=== PATIENT | female | born 1950 | race Caucasian/White ===

== ENCOUNTER 2016-07-20 13:46 | Inpatient (IN) | payer OTHER ==
[~2016-07-20] VITALS: Ht 157.5 cm; Wt 68.5 kg
[~2016-07-20 13:46] MED LIST: AZEL30SP NAE; CLOB-77 TOP; DIAZ-165 PO; DILT120C68 PO; DIPH25CA65 PO; ERGO500037 PO; ESCI1TAB10 PO; HYOS1TAB PO; IBUP-1050 PO; METH10TA4 PO; METH2.5T PO; METO50TA16 PO; MOUTLIQ79 PO; PANT1TAB48 PO; RANI300T2 PO; RMCI IV; TRIM300C14 PO; VNTHFA/IN INH; ZOLP12.5 PO
[2016-07-20] MEDS ORDERED: SODIUM CHLORIDE 0.9% 1000ML 1,000 ML IV STA (15:46)
[2016-07-20 16:24] LABS: BASO % 1.8 %; BASO ABS # 0.11 K/uL (0-0.2); COMPLETE YES; EOS % 1.8 %; IG% 0.2 %; LYMPH % 19.1 %; LYMPH ABS # 1.16 K/uL (1.2-3.4); MEAN CELL VOLUME 95.5 fL (80-100); MEAN CORPUSCULAR HEMOGLOBIN 32.7 pg (25-34); MEAN CORPUSCULAR HGB CONC 34.3 g/dl (32-36); MEAN PLATELET VOLUME 10.1 fL (7.4-10.4); MONO % 0.8 %; NEUT % 76.3 %; PLATELET COUNT 287 K/uL (130-400); RED BLOOD COUNT 4.19 M/uL (4.2-5.4); WHITE BLOOD COUNT 6.08 K/uL (4.8-10.8)
[2016-07-20] MEDS ORDERED: ONDANSETRON INJ 2 MG/ML 2 ML VIAL IV STA (16:28)
[2016-07-20] MEDS ORDERED: MoRPHine SULFATE 10 MG/ML CARP/VIAL IV STA (16:28)
[2016-07-20 16:31] LABS: PROTHROMBIN TIME (PATIENT) 11.2 SECONDS (9.0-12.0)
[2016-07-20 16:35] LABS: ALT/SGPT 71 U/L (12-78); BLOOD UREA NITROGEN 7 mg/dl (7-18); BUN/CREATININE RATIO 8.1 (10-20); CALCIUM 9.1 mg/dl (8.5-10.1); CARBON DIOXIDE 26 mmol/L (21-32); CHLORIDE 102 mmol/L (98-107); GLUCOSE 85 mg/dl (70-99); MAGNESIUM 1.8 mg/dl (1.8-2.4); POTASSIUM 2.9 mmol/L (3.5-5.1); SODIUM 140 mmol/L (136-145)
[2016-07-20 16:38] LABS: ALKALINE PHOSPHATASE 98 U/L (45-117); AST/SGOT 71 U/L (15-37); CKMB/CK RATIO 0.9 (0-3.0); PHOSPHORUS 2.4 mg/dl (2.5-4.9)
--- NOTE | 2016-07-20 16:42 | DIAGNOSTIC IMAGING REPORT ---
SINGLE VIEW CHEST CLINICAL HISTORY: Generalized weakness. FINDINGS: An AP, portable, upright chest radiograph is compared to study dated 09/01/2015 and correlated with chest CT dated 01/05/2011. The examination is degraded by portable technique and patient rotation. The cardiomediastinal silhouette is unremarkable. There is chronic elevation of the right hemidiaphragm with bibasilar atelectasis. There is no evidence of superimposed airspace consolidation, large pleural effusion, or pneumothorax. The skeletal structures are osteopenic. Degenerative change is noted in the thoracic spine. A right shoulder arthroplasty is in place. IMPRESSION: Chronic changes as above with no acute cardiopulmonary abnormality. Electronically signed by: Duglas Fall M.D. 07/20/2016 4:40 PM
[2016-07-20 16:45] LABS: ACETAMINOPHEN < 2 ug/ml (10-30)
[2016-07-20] MEDS ORDERED: ONDANSETRON INJ 2 MG/ML 2 ML VIAL IV PRN (19:30)
[2016-07-20] MEDS ORDERED: DIAZEPAM 5MG TAB PO PRN (19:30)
[2016-07-20] MEDS ORDERED: ACETAMINOPHEN 325 MG TAB PO PRN (19:30)
[2016-07-20] MEDS ORDERED: ALUMINUM/MAGNESIUM/SIMETH (MAALOX MAX) 30 ML UDC PO PRN (19:30)
[2016-07-20] MEDS ORDERED: ALBUTEROL HFA 8 GM INHALER INH PRN (19:30)
[2016-07-20] MEDS ORDERED: MAGNESIUM HYDROXIDE SUSP 30 ML UDC PO PRN (19:30)
[2016-07-20] MEDS ORDERED: POLYETHYLENE (MIRALAX) 17 GM PACK PO PRN (19:30)
[2016-07-20] MEDS ORDERED: MAGIC SWIZZLE PO PRN (19:45)
[2016-07-20] MEDS ORDERED: LORAZEPAM 2 MG/ML 1 ML VIAL IV PRN (19:45)
[2016-07-20] MEDS ORDERED: MoRPHine SULFATE 2 MG/ML CARP IV PRN (19:45)
[2016-07-20] MEDS ORDERED: LORAZEPAM 0.5 MG TAB PO PRN (19:45)
[2016-07-20] MEDS ORDERED: METRONIDAZOLE / NSS 500 MG in PREMIXED NSS 100 ML IV SCH (19:45)
--- NOTE | 2016-07-20 20:50 | EMERGENCY ROOM VISIT NOTE ---
History Report prepared by [place]: Dominga Lagos Under the Supervision of: Dr. Jose Smallwood M.D. 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 The patient was seen at her PCP's office today and sent to the ED for further evaluation. The patient reports that she has had bleeding sores from her mouth for the past year. Over the past few days her entire mouth has become inflamed and she notes pain with eating or drinking. She has been avoiding eating and drinking over the past 5 days. She has followed up with her PCP and numerous specialists in the past for these symptoms without any relief. She rates her pain as a 10/10 in severity. The patient states that she has been taking 10 Excedrin a day for the past few months for relief of her symptoms. The patient was diagnosed with a UTI over a week ago and was placed on Cipro. She states that 5 days ago she developed hives so she stopped taking the antibiotics. She has been experiencing burning pain with urination. This morning she woke up with blood in her underwear. She thinks that this blood in coming from her vagina. She states that this bleeding has persisted throughout the day today. She does not think that she has any bleeding from her rectum. She is feeling lightheaded. The patient denies chest pain, shortness of breath, and abdominal pain. She had a colonoscopy in May that was normal. Source of History: patient Onset: 2 months FOOD SERVICES COORDINATOR Position: other (mouth) Symptom Intensity: 10/10 Quality: other (bleeding) Timing: worsening Modifying Factors (Worsening): eating, drinking Modifying Factors (Relieving): other (Excedrin) Associated Symptoms: + urinary symptoms, No SOB, No abdominal pain, No chest pain Note: Pt notes vaginal bleeding and lightheadedness. Review of Systems See HPI for pertinent positives & negatives. A total of 10 systems reviewed and were otherwise negative. Past Medical & Surgical Medical Problems: (1) Crohns disease (2) Encephalopathy acute (3) Proximal humerus fracture (4) Right humeral fracture (5) Ulceration, oral mucosa (6) UTI (urinary tract infection) Family History No pertinent history stated. Social History Smoking Status: Never Smoker Marital Status: Housing Status: lives with family Occupation Status: unemployed Current/Historical Medications Scheduled Azelastine Hcl-Fluticasone Pro (Dymista), 2 SPRY AGUEDA BID Diltiazem Hcl Ext Rel (Tiazac), 120 MG PO QAM Escitalopram Oxalate (Lexapro), 20 MG PO QAM Infliximab (Remicade), 1 DOSE IV Q8WK Methotrexate (Methotrexate), 3 TAB PO WK Metoprolol Tartrate (Lopressor) (Lopressor), 50 MG PO BID Mouthwashes (Biotene Dry Mouth Mouthwa), 1 DOSE PO DIRECTED Pantoprazole (Protonix), 40 MG PO BID Ranitidine Hcl (Zantac), 300 MG PO HS Scheduled PRN Albuterol Hfa (Ventolin Hfa), 2-4 PUFFS INH Q6H PRN for Shortness of Breath Clobetasol Propionate (Temovate), 1 APPLN TOP BID PRN for PRN Diazepam (Valium), 5 MG PO BID PRN for PRN Diphenhydramine Hcl (Benadryl Allergy), 1 CAP PO Q4 PRN for PRN Hyoscyamine Sulfate (Levsin), 0.125 MG PO DIRECTED PRN for PRN Ibuprofen (Advil), 200 MG PO QAM PRN for Pain Methylphenidate (Ritalin), 10 MG PO DAILY PRN for PRN Trimethobenzamide Hcl (Tigan), 1 TAB PO TID PRN for PRN Zolpidem Tartrate (Ambien Cr), 12.5 MG PO HS PRN for Sleep Allergies Coded Allergies: Ciprofloxacin (Unverified Allergy, Severe, hives, 07/20/16) Sulfa Antibiotics (Verified Allergy, Severe, HIVES AND SOB, 07/20/16) [place] Nut (Verified Allergy, Unknown, 07/20/16) Broccoli (Verified Allergy, Unknown, 07/20/16) [place] Oil (Verified Allergy, Unknown, POPCORN ALLERGY?, 07/20/16) Dairy (Verified Allergy, Unknown, 07/20/16) [place] Nut (Verified Allergy, Unknown, 07/20/16) Lactose (Verified Allergy, Unknown, 07/20/16) Lettuce (Verified Allergy, Unknown, 07/20/16) Mesalamine (Verified Allergy, Unknown, 07/20/16) Pea (Verified Allergy, Unknown, 07/20/16) [place] Nut (Verified Allergy, Unknown, 07/20/16) Physical Exam Vital Signs Date Time Temp Pulse Resp B/P Pulse Ox O2 Delivery O2 Flow Rate FiO2 07/20/16 20:42 106 18 133/84 94 Room Air 07/20/16 19:04 91 18 151/94 94 Room Air 07/20/16 17:16 108 20 147/97 93 Room Air 07/20/16 16:32 110 18 148/95 97 Room Air 07/20/16 14:09 37.2 125 18 148/88 95 Room Air Physical Exam GENERAL: Patient is uncomfortable appearing and in moderate distress. HEENT: No acute trauma, normocephalic atraumatic, no nasal congestion, no scleral icterus. Ulcerations bleeding and cracked, erythematous lips extending into posterior bucca mucosa. NECK: No stridor, no adenopathy, no meningismus, trachea is midline. LUNGS: No dyspnea. Clear to auscultation and equal bilaterally. No wheeze, no rhonchi. HEART: Regular rate and rhythm. No murmurs, rubs, gallops appreciated. ABDOMEN: Soft, nontender, bowel sounds positive, no masses appreciated, no peritonitis. : Excoriations cracking bleeding and severe tenderness throughout vagina extending posteriorly to surround entire rectum, severely tender to palpation. BACK: No midline tenderness, no CVA tenderness EXTREMITIES: Normal motion all extremities, no cyanosis, no edema. NEUROLOGIC: Alert and oriented, no acute motor or sensory deficits, no focal weakness, cranial nerves grossly intact. SKIN: No rash, no jaundice, no diaphoresis. Medical Decision & Procedures ER Provider Diagnostic Interpretation: Radiology results as stated below per my review and radiologist interpretation: SINGLE VIEW CHEST CLINICAL HISTORY: Generalized weakness. FINDINGS: An AP, portable, upright chest radiograph is compared to study dated 09/01/2015 and correlated with chest CT dated 01/05/2011. The examination is degraded by portable technique and patient rotation. The cardiomediastinal silhouette is unremarkable. There is chronic elevation of the right hemidiaphragm with bibasilar atelectasis. There is no evidence of superimposed airspace consolidation, large pleural effusion, or pneumothorax. The skeletal structures are osteopenic. Degenerative change is noted in the thoracic spine. A right shoulder arthroplasty is in place. IMPRESSION: Chronic changes as above with no acute cardiopulmonary abnormality. Electronically signed by: Duglas Fall M.D. 07/20/2016 4:40 PM Laboratory Results 07/20/16 16:06 Red Blood Count 4.19, Mean Corpuscular Volume 95.5, Mean Corpuscular Hemoglobin 32.7, Mean Corpuscular Hemoglobin Concent 34.3, Mean Platelet Volume 10.1, Neutrophils (%) (Auto) 76.3, Lymphocytes (%) (Auto) 19.1, Monocytes (%) (Auto) 0.8, Eosinophils (%) (Auto) 1.8, Basophils (%) (Auto) 1.8, Neutrophils # (Auto) 4.64, Lymphocytes # (Auto) 1.16, Monocytes # (Auto) 0.05, Eosinophils # (Auto) 0.11, Basophils # (Auto) 0.11 07/20/16 16:06 Test 07/20/16 16:06 White Blood Count 6.08 K/uL (4.8-10.8) Red Blood Count 4.19 M/uL (4.2-5.4) Hemoglobin 13.7 g/dL (12.0-16.0) Hematocrit 40.0 % (37-47) Mean Corpuscular Volume 95.5 fL (80-100) Mean Corpuscular Hemoglobin 32.7 pg (25-34) Mean Corpuscular Hemoglobin Concent 34.3 g/dl (32-36) Platelet Count 287 K/uL (130-400) Mean Platelet Volume 10.1 fL (7.4-10.4) Neutrophils (%) (Auto) 76.3 % Lymphocytes (%) (Auto) 19.1 % Monocytes (%) (Auto) 0.8 % Eosinophils (%) (Auto) 1.8 % Basophils (%) (Auto) 1.8 % Neutrophils # (Auto) 4.64 K/uL (1.4-6.5) Lymphocytes # (Auto) 1.16 K/uL (1.2-3.4) Monocytes # (Auto) 0.05 K/uL (0.11-0.59) Eosinophils # (Auto) 0.11 K/uL (0-0.5) Basophils # (Auto) 0.11 K/uL (0-0.2) RDW Standard Deviation 51.9 fL (36.4-46.3) RDW Coefficient of Variation 14.8 % (11.5-14.5) Immature Granulocyte % (Auto) 0.2 % Immature Granulocyte # (Auto) 0.01 K/uL (0.00-0.02) Prothrombin Time 11.2 SECONDS (9.0-12.0) Prothromb Time International Ratio 1.0 (0.9-1.1) Activated Partial Thromboplast Time 26.4 SECONDS (21.0-31.0) Partial Thromboplastin Ratio 1.0 Anion Gap 12.0 mmol/L (3-11) Est Creatinine Clear Calc Drug Dose 55.0 ml/min Estimated GFR () 76.7 Estimated GFR (Non- 66.2 BUN/Creatinine Ratio 8.1 (10-20) Calcium Level 9.1 mg/dl (8.5-10.1) Phosphorus Level 2.4 mg/dl (2.5-4.9) Magnesium Level 1.8 mg/dl (1.8-2.4) Total Bilirubin 0.5 mg/dl (0.2-1) Direct Bilirubin 0.2 mg/dl (0-0.2) Aspartate Amino Transf (AST/SGOT) 71 U/L (15-37) Alanine Aminotransferase (ALT/SGPT) 71 U/L (12-78) Alkaline Phosphatase 98 U/L (45-117) Total Creatine Kinase 111 U/L (26-192) Creatine Kinase MB 1.0 ng/ml (0.5-3.6) Creatine Kinase MB Ratio 0.9 (0-3.0) Troponin I < 0.015 ng/ml (0-0.045) Total Protein 7.9 gm/dl (6.4-8.2) Albumin 3.4 gm/dl (3.4-5.0) Lipase 126 U/L (73-393) Salicylates Level < 1.7 mg/dl (2.8-20) Acetaminophen Level < 2 ug/ml (10-30) Laboratory results as reviewed by me. Medications Administered Medications (Trade) Dose Ordered Sig/Shilpi Route Start Time Stop Time Status Last Admin Dose Admin Sodium Chloride (Nss 1000ml) 1,000 ml @ 999 mls/hr Q1H1M STAT IV 12/30/16 15:46 07/20/16 16:46 DC 07/20/16 16:46 999 MLS/HR Morphine Sulfate (MoRPHine SULFATE INJ) 6 mg NOW STAT IV 07/20/16 16:28 07/20/16 16:29 DC 07/20/16 16:46 6 MG Ondansetron HCl (Zofran Inj) 4 mg NOW STAT IV 07/20/16 16:28 07/20/16 16:29 DC 07/20/16 16:46 4 MG ED Course 1535: The patient was evaluated in room C1B. A complete history and physical exam was performed. 1546: NSS 1000 ml @ 999 mls/hr IV 1624: I reassessed the patient at this time. She is still complaining of pain. 1628: Zofran 4 mg IV, Morphine sulfate 6 mg IV 1723: I reassessed the patient at this time. She is feeling better and resting comfortably. I discussed the results and treatment plan with the patient. I answered all pertaining questions that she had. She expressed understanding and verbalized agreement. 1733: I spoke with Dr. Flores. We discussed the patient's results and treatment plan. The patient will be evaluated by the [facility] for further management. 1744: I spoke with Dr. Dejesus of GI. We discussed the patient's results and treatment plan. He recommended holding the patient's methotrexate and he will evaluate the patient in the hospital. Medical Decision 66 yr old female arrives for evaluation of mouth and genital pain. She notes some bleeding in underwear which she was unsure where it came from though denies bloody stool. She has significant ulcerations of mouth and perineal areas. Admits she has not been eating the last few days due to the amount of pain she has been having. No clear evidence that this is herpetic in nature. She is stable and HR improving with fluids (she was quite dehydrated). She will need to come in due to inability to tolerate PO intake and for further monitoring of these findings. Consults Time Called: 1730 Consulting Physician: Dr. Flores Returned Call: [phone] Flores. We discussed the patient's results and treatment plan. The patient will be evaluated by the [facility] for further management. Additional Consults: Time Called: 1734 Consulted Physician: Dr. Dejesus Returned Call: [phone] Additional Comments: I spoke with Dr. Dejesus of GI. We discussed the patient's results and treatment plan. He recommended holding the patient's methotrexate and he will evaluate the patient in the hospital. Impression Primary Impression: Mouth ulceration Additional Impressions: Perineal ulcer, Perineal irritation in female Scribe Attestation The scribe's documentation has been prepared under my direction and personally reviewed by me in its entirety. I confirm that the note above accurately reflects all work, treatment, procedures, and medical decision making performed by me. Departure Information Dispostion Being Evaluated By Hospitalist Referrals Norbert Mueller D.O.Int.Med. (PCP) Patient Instructions A Signature Page, My [facility]
[2016-07-20 22:04] LABS: URINE APPEARANCE CLOUDY (CLEAR); URINE BILIRUBIN NEG (NEG); URINE COLOR YELLOW; URINE EPITHELIAL CELL AUTO >30 /lpf (0-5); URINE NITRITE NEG (NEG); URINE PH 5.5 (4.5-7.5); URINE SPECIFIC GRAVITY 1.016 (1.000-1.030); UROBILINOGEN NEG (NEG)
[2016-07-20 22:05] LABS: MANUAL MICROSCOPIC REQUIRED? NO; REVIEW REQ? YES
[2016-07-20] MEDS: MoRPHine SULFATE 4 MG/ML 1 ML CARP\\VIAL IV PRN (22:19)
[2016-07-20] MEDS ORDERED: COLCHICINE 0.6 MG TAB PO ONE (22:30)
[2016-07-20] MEDS ORDERED: MAGNESIUM SULFATE 1GM / D5W 1 GM in PREMIXED IN D5W 100 ML IV ONE (22:30)
[2016-07-20] MEDS: METOPROLOL TARTRATE 50 MG TAB PO SCH (22:40)
--- NOTE | 2016-07-20 22:43 | HISTORY & PHYSICAL EXAMINATION ---
DATE OF ADMISSION: 07/20/2016 REASON FOR PRESENTATION: Oral ulcerations, difficulty taking in oral intake. ADMITTING DIAGNOSIS: Oral ulcerations and decreased oral intake associated with Crohn's disease. HISTORY OF PRESENT ILLNESS: Ms. Reardon is a 66-year-old female who suffers from Crohn's disease for many years. She about 2 years ago was placed on Remicade and methotrexate and had great resolution of her Crohn's-like symptoms. About 1 year ago, the patient started to develop oral ulcerations. In the year span between, she has seen multiple people including her presser machine, Dr. Khan, she saw Dr. Yoon. She was referred to [facility] which biopsied her oral ulcers. There have not really been any direct findings. She saw Dr. Ted Gutierrez, and despite this fact, she continued to have worsening of her oral ulcerations. Approximately 5 days prior to admission, the patient had extreme worsening of her oral ulcers, painful swallowing and perineal ulcerations also. The patient was unable to take any meaningful intake of food, she was able to take liquids up until the last 1 day when she has not had anything. To this end, she speaks with kind of a muffled voice because of pain and discomfort in her mouth, and she is recommended for admission for pain control and inability to take any oral intake. PAST MEDICAL HISTORY: For Crohn's, previous encephalopathy, previous humerus fracture and UTIs. MEDICATIONS: On presentation include Dymista spray 2 sprays in the nares b.i.d., diltiazem 120 a day, Lexapro 20 a day, Remicade injectable, methotrexate 7.5 mg a week, metoprolol 50 mg b.i.d., Biotene oral spray, Protonix 40 b.i.d. and Zantac 300. SOCIAL HISTORY: Does not smoke or drink. She is . FAMILY HISTORY: Positive for hypertension and coronary artery disease. REVIEW OF SYSTEMS: Ten systems were reviewed and are negative unless listed above. These include decreased appetite. She has no significant abdominal pain. Her stool has been liquid brown, her urine output has decreased and it has become more concentrated, has not been foul smelling. PHYSICAL EXAMINATION: GENERAL: She is pleasant. She is uncomfortable. VITAL SIGNS: She is afebrile at 37.2, pulse 106, respirations 18, BP 133/84, O2 sat 95% on room air. HEENT: PERRL, EOMI. Oropharynx is covered with ulceration, some are crusted. These are shallow-based ulcers. They are about her lips mostly. There are some under soft palate. She claims of difficulty swallowing and painful swallowing. NECK: Trachea is midline. There is no lymphadenopathy. There is supraclavicular lymphadenopathy. HEART: Regular without murmurs. LUNGS: Clear without wheezes or crackles. ABDOMEN: Normoactive bowel sounds, soft. Despite her Crohn's disease, it is completely nontender. PERINEUM: Her perineal examination will be deferred to the Emergency Department's description of it which was described as excoriation, cracking, bleeding and severe tenderness throughout the vagina, extending posterior around to the entire rectum. EXTREMITIES: Without cyanosis, clubbing or edema. LABORATORY DATA: Includes white count is 6, H\T\H 13 and 40, platelet count 287, BUN and creatinine of 7 and 0.9, potassium low at 2.9, phosphorus low at 2.4. LFTs are normal except for AST being 71, lipase is normal. She had a tox screen which was unremarkable and she had coags which were unremarkable. Chest x-ray shows chronic changes with no acute cardiopulmonary finding. ASSESSMENT: A 66-year-old female here with worsening of oral and perianal ulcerations with associated Crohn's disease, on immunosuppression. PLAN: The patient has reportedly had biopsy done at [facility] and multiple other locations. To this end, we will obtain blood and urine cultures. We will institute antibiotic therapy including antifungals of fluconazole and antibiotics of metronidazole. Consideration of a possible Bechets_ could be undertaken and we will institute colchicine penicillin G therapy. Infectious Disease consult will be undertaken. We will maintain her immunosuppression at this point in time with review from gastroenterology. For her hypertension, we will continue diltiazem and metoprolol. Her Protonix will be converted to intravenous. Deep venous thrombosis prevention with heparin. MTDD
[2016-07-20] MEDS: HEPARIN SOD 5000 UNIT/0.5 ML CARP SQ SCH (22:51)
[2016-07-20] MEDS: POTASSIUM CHLORIDE INJ 40 MEQ in SODIUM CHLORIDE 0.9% 1000ML 1,000 ML IV SCH (22:54)
[2016-07-21] VITALS (7 sets, daily range): BP systolic 99–137; BP diastolic 69–94; PULSE 84–122; TEMP 36.8–38.1; O2SAT 92–98; Ht 157.5 cm; Wt 68.5 kg
[2016-07-21] MEDS: PENICILLIN G POTASSIUM IV 6 MU in DEXTROSE 5% 250ML 250 ML IV SCH ×3 (00:31→12:20)
[2016-07-21] MEDS: LIDOCAINE HCL 2% VISCOUS SOLN 60 ML, DiphenhydrAMINE HCL SYRUP 150 MG, ALUMINUM/MAGNESI... MT PRN ×8 (01:23→12:30)
[2016-07-21] MEDS: MoRPHine SULFATE 4 MG/ML 1 ML CARP\\VIAL IV PRN ×5 (03:20→22:49)
[2016-07-21] MEDS ORDERED: COLCHICINE 0.6 MG TAB PO SCH (08:00)
[2016-07-21 08:09] LABS: HEMATOCRIT 37.9 % (37-47); MEAN CELL VOLUME 96.9 fL (80-100); MEAN PLATELET VOLUME 10.3 fL (7.4-10.4); PLATELET COUNT 214 K/uL (130-400); RED BLOOD COUNT 3.91 M/uL (4.2-5.4); WHITE BLOOD COUNT 3.26 K/uL (4.8-10.8)
[2016-07-21] MEDS: ESCITALOPRAM OXALATE 20 MG TAB PO SCH (08:11)
[2016-07-21] MEDS: DILTIAZEM HCL 120 MG EXT REL CAP PO SCH (08:11)
[2016-07-21] MEDS: METOPROLOL TARTRATE 50 MG TAB PO SCH ×2 (08:12→20:01)
[2016-07-21] MEDS: HEPARIN SOD 5000 UNIT/0.5 ML CARP SQ SCH ×2 (08:13→20:13)
[2016-07-21] MEDS: TRIAMCINOLONE ACET 0.1% ORABASE 5 GM TUBE MT SCH ×3 (08:14→20:01)
[2016-07-21 08:39] LABS: BUN/CREATININE RATIO 6.8 (10-20); CALCIUM 8.6 mg/dl (8.5-10.1); CREATININE 0.82 mg/dl (0.60-1.20); POTASSIUM 3.2 mmol/L (3.5-5.1)
[2016-07-21] MEDS: PANTOprazole INJ 40 MG in SYRINGE 0 ML IV SCH ×2 (09:24→20:02)
[2016-07-21] MEDS: POTASSIUM CHLORIDE INJ 40 MEQ in SODIUM CHLORIDE 0.9% 1000ML 1,000 ML IV SCH ×2 (09:24→20:00)
[2016-07-21] MEDS ORDERED: EUCERIN CR 120 GM JAR EXT PRN (13:30)
--- NOTE | 2016-07-21 13:50 | Medical Consult ---
Consultation Date of Consultation: Jul 21, 2016. Attending Physician: Yuri Beasley MD Reason for Consultation: Oral ulcerations History of Present Illness this 56-year-old female with long history of Crohn's disease, maintained on immunosuppressive therapy, states that she has been suffering from ulcerations of her mouth for more than 1 year. Some time she had nor these, but since approximately [place], they have become increasingly painful and made it impossible for her to eat normally. She has had very little oral intake since [place] time. She has had multiple evaluations for the above problems, including biopsies done at [facility], of which she was told did not disclose etiology. She has also been seen by Oral surgery and Dermatology without diagnosis being made. She has had colonoscopy which shows relatively inactive bowel disease. She now has also developed perineal ulcerations. she also reports multiple episodes of nosebleeds. Because of inability to eat, she has been admitted to the hospital, and has been started on antifungal therapy as well as colchicine and penicillin. Patient has lived in the [facility], no other significant travel or exposure history Past Medical/Surgical History Medical Problems: (1) Altered mental status Status: Acute (2) Mouth ulceration Status: Acute (3) Orthostatic hypotension Status: Acute (4) Perineal irritation in female Status: Acute (5) Perineal ulcer Status: Acute Medical Problems: (1) Crohns disease (2) Encephalopathy acute (3) Proximal humerus fracture (4) Right humeral fracture (5) Ulceration, oral mucosa (6) UTI (urinary tract infection) Family History noncontributory Social History Smoking Status: Unknown if Ever Smoked Marital Status: Housing Status: lives with family Occupation Status: unemployed Allergies Coded Allergies: Ciprofloxacin (Unverified Allergy, Severe, hives, 07/20/16) Sulfa Antibiotics (Verified Allergy, Severe, HIVES AND SOB, 07/20/16) Lactose (Verified Allergy, Unknown, 07/20/16) Mesalamine (Verified Allergy, Unknown, 07/20/16) Current Inpatient Medications Current Inpatient Medications Medications (Trade) Dose Ordered Sig/Shilpi Route Start Time Stop Time Status Last Admin Dose Admin Albuterol (Ventolin Hfa Inhaler) 2 puffs Q6H PRN INH 07/20/16 19:30 08/19/16 19:29 Diazepam (Valium Tab) 5 mg BID PRN PO 07/20/16 19:30 08/19/16 19:29 Diltiazem HCl (TIAzac CAP) 120 mg QAM PO 07/21/16 08:00 08/20/16 08:59 07/21/16 08:11 120 MG Escitalopram Oxalate (Lexapro Tab) 20 mg QAM PO 07/21/16 08:00 08/20/16 08:59 07/21/16 08:11 20 MG Metoprolol Tartrate (Lopressor Tab) 50 mg BID PO 07/20/16 21:00 08/19/16 20:59 07/21/16 08:12 50 MG Acetaminophen (Tylenol Tab) 650 mg Q4H PRN PO 07/20/16 19:30 08/19/16 19:29 Al Hydrox/Mg Hydrox/Simethicone (Maalox Max Susp) 15 ml Q4H PRN PO 07/20/16 19:30 08/19/16 19:29 Magnesium Hydroxide (Milk Of Magnesia Susp) 30 ml Q6H PRN PO 07/20/16 19:30 08/19/16 19:29 Polyethylene (Miralax Powder Packet) 17 gm DAILY PRN PO 07/20/16 19:30 08/19/16 19:29 Ondansetron HCl (Zofran Inj) 4 mg Q6H PRN IV 07/20/16 19:30 08/19/16 19:29 Heparin Sodium (Porcine) (Heparin Sq 5000 Unit/0.5ml) 5,000 unit Q12 SQ 07/20/16 21:00 08/19/16 20:59 07/21/16 08:13 5,000 UNIT Lorazepam (Ativan Tab) 0.5 mg Q6 PRN PO 07/20/16 19:45 08/19/16 19:44 07/21/16 00:30 0.5 MG Lorazepam (Ativan Inj) 0.5 mg Q4H PRN IV 07/20/16 19:45 08/19/16 19:44 Morphine Sulfate (MoRPHine SULFATE INJ) 4 mg Q4H PRN IV 07/20/16 19:45 08/03/16 19:44 07/21/16 12:21 4 MG Morphine Sulfate 2 mg 2 mg Q4H PRN IV 07/20/16 19:45 08/03/16 19:44 Potassium Chloride/Sodium Chloride (KCl Inj/Nss 1000ml) 1,020 ml @ 100 mls/hr [id number] IV 07/20/16 23:00 08/19/16 22:59 07/21/16 09:24 100 MLS/HR Methotrexate 7.5 mg 7.5 mg Zuniga@0900 PO 07/22/16 09:00 08/21/16 08:59 Pantoprazole Sodium/Syringe (Protonix Inj/ Syringe) 10 ml @ 5 mls/min DAILY@, IV 07/21/16 09:00 08/20/16 08:59 07/21/16 09:24 5 MLS/MIN Triamcinolone Acetonide 1 appln TID MT 07/21/16 08:00 08/20/16 07:59 07/21/16 12:21 1 APPLN Lidocaine HCl/ Diphenhydramine HCl/Al Hydroxide/ Mg Hydroxide/ Glycerin/Barcode (VISCOUS LIDOCAINE 2% Soln/ Benadryl Syrup/ Maalox Susp/ Glycerin Anhydrous Soln) Q6H PRN MT 07/20/16 23:30 08/19/16 23:29 07/21/16 01:23 10 ML Zolpidem Tartrate (Ambien Tab) 5 mg HS PRN PO 07/21/16 09:30 08/20/16 09:29 Prednisone (PredniSONE TAB) 30 mg DAILY PO 07/21/16 13:30 08/20/16 13:29 UNV Multi-Ingredient Ointment (Eucerin Unscented Cr) 1 appln Q6H PRN EXT 07/21/16 13:30 08/20/16 13:29 UNV Review of Systems Constitutional: + fatigue, + fever, + weakness Eyes: No problem reported ENT: + sore throat Respiratory: No problem reported Cardiovascular: No problem reported Abdomen: No problem reported Musculoskeletal: No problem reported Genitourinary - Female: No problem reported Neurologic: No problem reported Psychiatric: No problem reported Endocrine: No problem reported Hematologic / Lymphatic: No problem reported Integumentary: No problem reported Allergic / Immunologic: No problem reported Physical Exam Date Time Temp Pulse Resp B/P Pulse Ox O2 Delivery O2 Flow Rate FiO2 07/21/16 09:23 37.6 07/21/16 08:09 38.1 98 18 137/91 98 Nasal Cannula 2.0 07/21/16 08:00 Room Air 07/21/16 03:01 98 07/21/16 01:41 37.0 122 20 136/94 95 Room Air 07/21/16 00:44 36.9 86 18 132/84 96 Room Air 07/20/16 23:59 Room Air 07/20/16 21:28 07/20/16 20:42 106 18 133/84 94 Room Air 07/20/16 19:04 91 18 151/94 94 Room Air 07/20/16 17:16 108 20 147/97 93 Room Air 07/20/16 16:32 110 18 148/95 97 Room Air 07/20/16 14:09 37.2 125 18 148/88 95 Room Air General Appearance: WD/WN, no apparent distress Head: normocephalic, atraumatic Eyes: normal inspection, EOMI, sclerae normal ENT: hearing grossly normal, + pertinent finding (multiple shallow intra-oral and lip ulcers, some crusted) Neck: supple, thyroid normal, trachea midline Respiratory/Chest: chest non-tender, lungs clear, normal breath sounds, no respiratory distress Cardiovascular: regular rate, rhythm, no edema, no gallop, no murmur Abdomen/GI: normal bowel sounds, non tender, soft, no organomegaly Back: normal inspection, no CVA tenderness Extremities/Musculoskelatal: no calf tenderness, non-tender Neurologic/Psych: alert, normal mood/affect, oriented x 3 Skin: normal color, warm/dry, no rash Laboratory Results Date/Time Source Procedure Growth Status 07/20/16 21:27 Blood Blood Culture Pending Received 07/20/16 21:22 Blood Blood Culture Pending Received 07/20/16 21:40 Urine , Clean Catch Urine Culture - Preliminary NO GROWTH - LESS THAN 1,000 COLONIES/... Resulted Last 24 Hours Test 07/20/16 16:06 07/20/16 21:40 07/21/16 07:36 White Blood Count 6.08 K/uL 3.26 K/uL Red Blood Count 4.19 M/uL 3.91 M/uL Hemoglobin 13.7 g/dL 12.5 g/dL Hematocrit 40.0 % 37.9 % Mean Corpuscular Volume 95.5 fL 96.9 fL Mean Corpuscular Hemoglobin 32.7 pg 32.0 pg Mean Corpuscular Hemoglobin Concent 34.3 g/dl 33.0 g/dl Platelet Count 287 K/uL 214 K/uL Mean Platelet Volume 10.1 fL 10.3 fL Neutrophils (%) (Auto) 76.3 % Lymphocytes (%) (Auto) 19.1 % Monocytes (%) (Auto) 0.8 % Eosinophils (%) (Auto) 1.8 % Basophils (%) (Auto) 1.8 % Neutrophils # (Auto) 4.64 K/uL Lymphocytes # (Auto) 1.16 K/uL Monocytes # (Auto) 0.05 K/uL Eosinophils # (Auto) 0.11 K/uL Basophils # (Auto) 0.11 K/uL RDW Standard Deviation 51.9 fL 52.8 fL RDW Coefficient of Variation 14.8 % 14.8 % Immature Granulocyte % (Auto) 0.2 % Immature Granulocyte # (Auto) 0.01 K/uL Prothrombin Time 11.2 SECONDS Prothromb Time International Ratio 1.0 Activated Partial Thromboplast Time 26.4 SECONDS Partial Thromboplastin Ratio 1.0 Sodium Level 140 mmol/L 139 mmol/L Potassium Level 2.9 mmol/L 3.2 mmol/L Chloride Level 102 mmol/L 102 mmol/L Carbon Dioxide Level 26 mmol/L 27 mmol/L Anion Gap 12.0 mmol/L 10.0 mmol/L Blood Urea Nitrogen 7 mg/dl 6 mg/dl Creatinine 0.90 mg/dl 0.82 mg/dl Est Creatinine Clear Calc Drug Dose 55.0 ml/min 60.4 ml/min Estimated GFR () 76.7 85.8 Estimated GFR (Non- 66.2 74.0 BUN/Creatinine Ratio 8.1 6.8 Random Glucose 85 mg/dl 95 mg/dl Calcium Level 9.1 mg/dl 8.6 mg/dl Phosphorus Level 2.4 mg/dl Magnesium Level 1.8 mg/dl Total Bilirubin 0.5 mg/dl Direct Bilirubin 0.2 mg/dl Aspartate Amino Transf (AST/SGOT) 71 U/L Alanine Aminotransferase (ALT/SGPT) 71 U/L Alkaline Phosphatase 98 U/L Total Creatine Kinase 111 U/L Creatine Kinase MB 1.0 ng/ml Creatine Kinase MB Ratio 0.9 Troponin I < 0.015 ng/ml Total Protein 7.9 gm/dl Albumin 3.4 gm/dl Lipase 126 U/L Salicylates Level < 1.7 mg/dl Acetaminophen Level < 2 ug/ml Urine Color YELLOW Urine Appearance CLOUDY Urine pH 5.5 Urine Specific [place] 1.016 Urine Protein NEG Urine Glucose (UA) NEG Urine Ketones 1+ Urine Occult Blood 2+ Urine Nitrite NEG Urine Bilirubin NEG Urine Urobilinogen NEG Urine Leukocyte Esterase LARGE Urine WBC (Auto) >30 /hpf Urine RBC (Auto) 10-30 /hpf Urine Hyaline Casts (Auto) 1-5 /lpf Urine Epithelial Cells (Auto) >30 /lpf Urine Bacteria (Auto) NEG Urine Pathogenic Casts /lpf CLINICAL HISTORY: Generalized weakness. FINDINGS: An AP, portable, upright chest radiograph is compared to study dated 09/01/2015 and correlated with chest CT dated 01/05/2011. The examination is degraded by portable technique and patient rotation. The cardiomediastinal silhouette is unremarkable. There is chronic elevation of the right hemidiaphragm with bibasilar atelectasis. There is no evidence of superimposed airspace consolidation, large pleural effusion, or pneumothorax. The skeletal structures are osteopenic. Degenerative change is noted in the thoracic spine. A right shoulder arthroplasty is in place. IMPRESSION: Chronic changes as above with no acute cardiopulmonary abnormality. Assessment & Plan 66 yo female with long-standing Crohn's disease on immunosuppressive therapy now with 1 year of oral and now perineal ulcerations. Along with Bechet's syndrome, wonder about possibility of Lila's as has had nose bleeds as well. Less likely would be chronic histoplasmosis. Have ordered ANCA and histoplasma antigen and antibodies. Would try to obtain biopsies from [facility] for review. Will discuss and follow.
[2016-07-21] MEDS ORDERED: POTASSIUM CHLORIDE 20 MEQ TABCR PO STA (15:04)
--- NOTE | 2016-07-21 15:33 | Progress Note ---
Subjective Subjective Date of Service: Jul 21, 2016. Pt evaluation today including: conversation w/ patient, physical exam, chart review, review of studies, review of inpatient medication list Notes: c/o ulcers in her mouth and major labia area Problem List Medical Problems: (1) Altered mental status Status: Acute (2) Mouth ulceration Status: Acute (3) Orthostatic hypotension Status: Acute (4) Perineal irritation in female Status: Acute (5) Perineal ulcer Status: Acute Review of Systems Constitutional: No fever ENT: No hearing loss Respiratory: No cough Cardiac: No chest pain Abdomen: No pain Musculoskeletal: No joint pain Neurologic: No memory loss Psychiatric: No depression symptoms Physical Exam Vital Signs Vital Signs Past 24 Hours: Date Time Temp Pulse Resp B/P Pulse Ox O2 Delivery O2 Flow Rate FiO2 07/21/16 09:23 37.6 07/21/16 08:09 38.1 98 18 137/91 98 Nasal Cannula 2.0 07/21/16 08:00 Room Air 07/21/16 03:01 98 07/21/16 01:41 37.0 122 20 136/94 95 Room Air 07/21/16 00:44 36.9 86 18 132/84 96 Room Air 07/20/16 23:59 Room Air 07/20/16 21:28 07/20/16 20:42 106 18 133/84 94 Room Air 07/20/16 19:04 91 18 151/94 94 Room Air 07/20/16 17:16 108 20 147/97 93 Room Air 07/20/16 16:32 110 18 148/95 97 Room Air Physical Exam: General Appearance: WD/WN, no apparent distress Eyes: bilateral eyes normal inspection ENT: hearing grossly normal, pharynx normal, + pertinent finding (mouth and tongue ulcers) Neck: supple, no JVD Respiratory/Chest: chest non-tender, normal breath sounds Cardiovascular: regular rate, rhythm, no JVD Abdomen: normal bowel sounds, soft Extremities: non-tender, normal inspection Neurologic/Psychiatric: alert Skin: normal color Medications Medications: Current Inpatient Medications Medications (Trade) Dose Ordered Sig/Shilpi Route Start Time Stop Time Status Last Admin Dose Admin Albuterol (Ventolin Hfa Inhaler) 2 puffs Q6H PRN INH 07/20/16 19:30 08/19/16 19:29 Diazepam (Valium Tab) 5 mg BID PRN PO 07/20/16 19:30 08/19/16 19:29 Diltiazem HCl (TIAzac CAP) 120 mg QAM PO 07/21/16 08:00 08/20/16 08:59 07/21/16 08:11 120 MG Escitalopram Oxalate (Lexapro Tab) 20 mg QAM PO 07/21/16 08:00 08/20/16 08:59 07/21/16 08:11 20 MG Metoprolol Tartrate (Lopressor Tab) 50 mg BID PO 07/20/16 21:00 08/19/16 20:59 07/21/16 08:12 50 MG Acetaminophen (Tylenol Tab) 650 mg Q4H PRN PO 07/20/16 19:30 08/19/16 19:29 Al Hydrox/Mg Hydrox/Simethicone (Maalox Max Susp) 15 ml Q4H PRN PO 07/20/16 19:30 08/19/16 19:29 Magnesium Hydroxide (Milk Of Magnesia Susp) 30 ml Q6H PRN PO 07/20/16 19:30 08/19/16 19:29 Polyethylene (Miralax Powder Packet) 17 gm DAILY PRN PO 07/20/16 19:30 08/19/16 19:29 Ondansetron HCl (Zofran Inj) 4 mg Q6H PRN IV 07/20/16 19:30 08/19/16 19:29 Heparin Sodium (Porcine) (Heparin Sq 5000 Unit/0.5ml) 5,000 unit Q12 SQ 07/20/16 21:00 08/19/16 20:59 07/21/16 08:13 5,000 UNIT Lorazepam (Ativan Tab) 0.5 mg Q6 PRN PO 07/20/16 19:45 08/19/16 19:44 07/21/16 00:30 0.5 MG Lorazepam (Ativan Inj) 0.5 mg Q4H PRN IV 07/20/16 19:45 08/19/16 19:44 Morphine Sulfate (MoRPHine SULFATE INJ) 4 mg Q4H PRN IV 07/20/16 19:45 08/03/16 19:44 07/21/16 12:21 4 MG Morphine Sulfate 2 mg 2 mg Q4H PRN IV 07/20/16 19:45 08/03/16 19:44 Potassium Chloride/Sodium Chloride (KCl Inj/Nss 1000ml) 1,020 ml @ 100 mls/hr [id number] IV 07/20/16 23:00 08/19/16 22:59 07/21/16 09:24 100 MLS/HR Methotrexate 7.5 mg 7.5 mg Zuniga@0900 PO 07/22/16 09:00 08/21/16 08:59 Pantoprazole Sodium/Syringe (Protonix Inj/ Syringe) 10 ml @ 5 mls/min DAILY@ IV 07/21/16 09:00 08/20/16 08:59 07/21/16 09:24 5 MLS/MIN Triamcinolone Acetonide 1 appln TID MT 07/21/16 08:00 08/20/16 07:59 07/21/16 12:21 1 APPLN Lidocaine HCl/ Diphenhydramine HCl/Al Hydroxide/ Mg Hydroxide/ Glycerin/Barcode (VISCOUS LIDOCAINE 2% Soln/ Benadryl Syrup/ Maalox Susp/ Glycerin Anhydrous Soln) Q6H PRN MT 07/20/16 23:30 08/19/16 23:29 07/21/16 01:23 10 ML Zolpidem Tartrate (Ambien Tab) 5 mg HS PRN PO 07/21/16 09:30 08/20/16 09:29 Prednisone (PredniSONE TAB) 30 mg DAILY PO 07/21/16 13:30 08/20/16 13:29 Multi-Ingredient Ointment (Eucerin Unscented Cr) 1 appln Q6H PRN EXT 07/21/16 13:30 08/20/16 13:29 Laboratory Data Labs: Last 24 Hours Test 07/20/16 16:06 07/20/16 21:40 07/21/16 07:36 07/21/16 13:50 White Blood Count 6.08 K/uL 3.26 K/uL Red Blood Count 4.19 M/uL 3.91 M/uL Hemoglobin 13.7 g/dL 12.5 g/dL Hematocrit 40.0 % 37.9 % Mean Corpuscular Volume 95.5 fL 96.9 fL Mean Corpuscular Hemoglobin 32.7 pg 32.0 pg Mean Corpuscular Hemoglobin Concent 34.3 g/dl 33.0 g/dl Platelet Count 287 K/uL 214 K/uL Mean Platelet Volume 10.1 fL 10.3 fL Neutrophils (%) (Auto) 76.3 % Lymphocytes (%) (Auto) 19.1 % Monocytes (%) (Auto) 0.8 % Eosinophils (%) (Auto) 1.8 % Basophils (%) (Auto) 1.8 % Neutrophils # (Auto) 4.64 K/uL Lymphocytes # (Auto) 1.16 K/uL Monocytes # (Auto) 0.05 K/uL Eosinophils # (Auto) 0.11 K/uL Basophils # (Auto) 0.11 K/uL RDW Standard Deviation 51.9 fL 52.8 fL RDW Coefficient of Variation 14.8 % 14.8 % Immature Granulocyte % (Auto) 0.2 % Immature Granulocyte # (Auto) 0.01 K/uL Prothrombin Time 11.2 SECONDS Prothromb Time International Ratio 1.0 Activated Partial Thromboplast Time 26.4 SECONDS Partial Thromboplastin Ratio 1.0 Sodium Level 140 mmol/L 139 mmol/L Potassium Level 2.9 mmol/L 3.2 mmol/L Chloride Level 102 mmol/L 102 mmol/L Carbon Dioxide Level 26 mmol/L 27 mmol/L Anion Gap 12.0 mmol/L 10.0 mmol/L Blood Urea Nitrogen 7 mg/dl 6 mg/dl Creatinine 0.90 mg/dl 0.82 mg/dl Est Creatinine Clear Calc Drug Dose 55.0 ml/min 60.4 ml/min Estimated GFR () 76.7 85.8 Estimated GFR (Non- 66.2 74.0 BUN/Creatinine Ratio 8.1 6.8 Random Glucose 85 mg/dl 95 mg/dl Calcium Level 9.1 mg/dl 8.6 mg/dl Phosphorus Level 2.4 mg/dl Magnesium Level 1.8 mg/dl Total Bilirubin 0.5 mg/dl Direct Bilirubin 0.2 mg/dl Aspartate Amino Transf (AST/SGOT) 71 U/L Alanine Aminotransferase (ALT/SGPT) 71 U/L Alkaline Phosphatase 98 U/L Total Creatine Kinase 111 U/L Creatine Kinase MB 1.0 ng/ml Creatine Kinase MB Ratio 0.9 Troponin I < 0.015 ng/ml Total Protein 7.9 gm/dl Albumin 3.4 gm/dl Lipase 126 U/L Salicylates Level < 1.7 mg/dl Acetaminophen Level < 2 ug/ml Urine Color YELLOW Urine Appearance CLOUDY Urine pH 5.5 Urine Specific [place] 1.016 Urine Protein NEG Urine Glucose (UA) NEG Urine Ketones 1+ Urine Occult Blood 2+ Urine Nitrite NEG Urine Bilirubin NEG Urine Urobilinogen NEG Urine Leukocyte Esterase LARGE Urine WBC (Auto) >30 /hpf Urine RBC (Auto) 10-30 /hpf Urine Hyaline Casts (Auto) 1-5 /lpf Urine Epithelial Cells (Auto) >30 /lpf Urine Bacteria (Auto) NEG Urine Pathogenic Casts /lpf Assessment and Plan A 66-year-old female here with worsening of oral and perianal ulcerations with associated Crohn's disease, on immunosuppression. Mucosal ulcerations, DDx: pemphigoid, pemphigus vulgaris, Behcet`s, [place]`s? Appreciated ID input, check ANCA, r/o histoplasma, check antibodies Appreciated Derm input, start po prednisone 30 mg daily with taper 1-2 weeks with biopsy follow up in 1-[address] Zhu The patient has reportedly had biopsy done at [facility] and multiple other locations with inconclusive results. blood and urine cultures pending. continue antibiotic therapy including antifungals of fluconazole and antibiotics of metronidazole. appreciate gastroenterology input. consulted rheumatology NPO due to mouth ulcers start eucerin cream For her hypertension, continue diltiazem and metoprolol. GI proph with Protonix intravenous. Deep venous thrombosis prevention with heparin.
[2016-07-21] MEDS: ZOLPIDEM TARTRATE 5 MG TAB PO PRN (22:48)
--- NOTE | 2016-07-22 02:32 | GASTROINTESTINAL CONSULTATION ---
DATE OF CONSULTATION: 07/21/2016 HISTORY OF PRESENT ILLNESS: I was asked to see Ms. Mini Reardon today for evaluation of oral ulcers in the setting of Crohn's disease. She is a very pleasant 66-year-old female, who has had a longstanding history of Crohn's disease requiring both biologic as well as immunosuppressive therapy with Remicade and methotrexate, who follows with Dr. Khan. For about 1 year, she has had increasing signs of oral ulcerations/stomatitis as well as acutely worsening perineal lesions and inability to eat or drink and presented to the ER last night. 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 Her last endoscopic evaluation was in May 2016 at which time the entire colon appeared normal. She has been taking Remicade every 8 weeks and she has been on methotrexate once weekly. The pathology from her last colonoscopy showed some mild focal active colitis, but the glandular architecture was maintained with no granulomas; meaning she had subclinical, relatively controlled disease. She has seen an oral maxillofacial surgery in [place] and had a biopsy of these lesions which included squamous ulceration, but was nondescript for fungal, inflammatory or pathognomonic diseases. She has no bowel complaints. She is passing her stools normally. The only other recent or historical component is that she had a recent sub breast fungal infection and that was treated with prescription medication from Dr. Rosaura mccain for yeast. PAST MEDICAL HISTORY: Significant for Crohn's, UTIs and humerus fractures. MEDICATIONS: At home include; diltiazem, Lexapro, Remicade, methotrexate, metoprolol, Biotin, Protonix and Zantac. SOCIAL HISTORY: She does not smoke or drink. She is . FAMILY HISTORY: Positive for hypertension and coronary artery disease. REVIEW OF SYSTEMS: Ten systems were reviewed and is negative except for as stated above. PHYSICAL EXAMINATION: VITAL SIGNS: Mild temperature today, this morning at 38.1 with afebrile now; pulse is 98, but has been up to 122; blood pressure is 137/91, she is 98% on room air. GENERAL: She is awake, alert, oriented x3. She looks uncomfortable, but walking as well as opening her mouth. HEART: Regular. LUNGS: Clear. ABDOMEN: Soft, nontender. On her oral exam, she shows very cracked stomatitis appearing features as well as a couple of aphthous ulcerations in her mouth. Her perineal examination shows some perianal up into her perilabial area that is very erythematous, with no obvious vesicles or ulcers visualized. LABORATORIES: Her white count is 3.26. Her hemoglobin is 12.5, her platelet count is 214. Chemistries include sodium of 139, potassium 3.2, chloride 102, BUN 6, creatinine 0.8, calcium 8.6. Her AST is 71. Otherwise, her liver enzymes and lipase are normal. IMPRESSION: A 66-year-old female with Crohn's disease, on immunosuppressive therapy with oral and perineal ulcerations. I am unsure if this represents Crohn's. It also seems to be in good control with her last endoscopy. I think that other things such as Behcet's pemphigus or even yeast in the perineal area as well as HSV should be explored. I have called dermatology and asked and they have been willing to come in to give light of what is going on and whether further treatment should be explored. Therefore right now, I think I would hold her methotrexate given the fact that she has got a little bit of leukopenia. She is supposed to be due for that tomorrow until seen by dermatology and then can be further delineated out. NIKITA
[2016-07-22] MEDS: POTASSIUM CHLORIDE INJ 40 MEQ in SODIUM CHLORIDE 0.9% 1000ML 1,000 ML IV SCH (05:52)
[2016-07-22] MEDS: MoRPHine SULFATE 4 MG/ML 1 ML CARP\\VIAL IV PRN ×4 (05:58→21:00)
[2016-07-22 07:20] LABS: HEMATOCRIT 31.4 % (37-47); MEAN CELL VOLUME 99.1 fL (80-100); MEAN CORPUSCULAR HEMOGLOBIN 31.5 pg (25-34); MEAN CORPUSCULAR HGB CONC 31.8 g/dl (32-36); MEAN PLATELET VOLUME 10.1 fL (7.4-10.4); PLATELET COUNT 167 K/uL (130-400); RED BLOOD COUNT 3.17 M/uL (4.2-5.4); WHITE BLOOD COUNT 2.13 K/uL (4.8-10.8)
[2016-07-22 07:52] LABS: BUN/CREATININE RATIO 6.8 (10-20); CALCIUM 7.9 mg/dl (8.5-10.1); CREATININE 0.84 mg/dl (0.60-1.20); POTASSIUM 5.1 mmol/L (3.5-5.1)
[2016-07-22] MEDS: METOPROLOL TARTRATE 50 MG TAB PO SCH ×2 (08:00→20:58)
[2016-07-22 08:02] VITALS: BP 97/63; PULSE 87; TEMP 37.1; O2SAT 91
[2016-07-22] MEDS: PANTOprazole INJ 40 MG in SYRINGE 0 ML IV SCH ×2 (08:20→20:59)
[2016-07-22] MEDS: DILTIAZEM HCL 120 MG EXT REL CAP PO SCH (08:21)
[2016-07-22] MEDS: ESCITALOPRAM OXALATE 20 MG TAB PO SCH (08:21)
[2016-07-22] MEDS: TRIAMCINOLONE ACET 0.1% ORABASE 5 GM TUBE MT SCH ×3 (08:22→20:58)
[2016-07-22] MEDS: HEPARIN SOD 5000 UNIT/0.5 ML CARP SQ SCH ×2 (08:26→21:13)
[2016-07-22] MEDS ORDERED: METHOTREXATE 2.5 MG TAB PO SCH (09:00)
--- NOTE | 2016-07-22 13:22 | Progress Note ---
Subjective Subjective Date of Service: Jul 22, 2016. Pt evaluation today including: conversation w/ patient, physical exam, chart review, review of studies, review of inpatient medication list Notes: c/o ulcers in mouth and vaginal area Problem List Medical Problems: (1) Altered mental status Status: Acute (2) Mouth ulceration Status: Acute (3) Orthostatic hypotension Status: Acute (4) Perineal irritation in female Status: Acute (5) Perineal ulcer Status: Acute Review of Systems Constitutional: No fever ENT: No hearing loss Respiratory: No cough Cardiac: No chest pain Abdomen: No pain Female : No dysuria Neurologic: No memory loss Psychiatric: No depression symptoms Endo: No fatigue Physical Exam Vital Signs Vital Signs Past 24 Hours: Date Time Temp Pulse Resp B/P Pulse Ox O2 Delivery O2 Flow Rate FiO2 07/22/16 08:02 37.1 87 18 97/63 91 07/22/16 08:00 Room Air 07/21/16 23:59 Room Air 07/21/16 22:38 36.8 84 17 99/69 96 Room Air 07/21/16 20:00 Room Air 07/21/16 16:00 Room Air 07/21/16 15:46 37.5 87 20 104/70 92 Nasal Cannula 2.0 Physical Exam: General Appearance: WD/WN, no apparent distress Eyes: bilateral eyes normal inspection ENT: hearing grossly normal, + pertinent finding (mouth ulcers) Neck: supple, no JVD Respiratory/Chest: chest non-tender, normal breath sounds Cardiovascular: no edema, no JVD Abdomen: normal bowel sounds, soft Extremities: normal range of motion, normal inspection Neurologic/Psychiatric: alert, oriented x 3 Skin: normal color, warm/dry Medications Medications: Current Inpatient Medications Medications (Trade) Dose Ordered Sig/Shilpi Route Start Time Stop Time Status Last Admin Dose Admin Albuterol (Ventolin Hfa Inhaler) 2 puffs Q6H PRN INH 07/20/16 19:30 08/19/16 19:29 Diazepam (Valium Tab) 5 mg BID PRN PO 07/20/16 19:30 08/19/16 19:29 Diltiazem HCl (TIAzac CAP) 120 mg QAM PO 07/21/16 08:00 08/20/16 08:59 07/22/16 08:21 120 MG Escitalopram Oxalate (Lexapro Tab) 20 mg QAM PO 07/21/16 08:00 08/20/16 08:59 07/22/16 08:21 20 MG Metoprolol Tartrate (Lopressor Tab) 50 mg BID PO 07/20/16 21:00 08/19/16 20:59 07/21/16 20:01 50 MG Acetaminophen (Tylenol Tab) 650 mg Q4H PRN PO 07/20/16 19:30 08/19/16 19:29 Al Hydrox/Mg Hydrox/Simethicone (Maalox Max Susp) 15 ml Q4H PRN PO 07/20/16 19:30 08/19/16 19:29 Magnesium Hydroxide (Milk Of Magnesia Susp) 30 ml Q6H PRN PO 07/20/16 19:30 08/19/16 19:29 Polyethylene (Miralax Powder Packet) 17 gm DAILY PRN PO 07/20/16 19:30 08/19/16 19:29 Ondansetron HCl (Zofran Inj) 4 mg Q6H PRN IV 07/20/16 19:30 08/19/16 19:29 Heparin Sodium (Porcine) (Heparin Sq 5000 Unit/0.5ml) 5,000 unit Q12 SQ 07/20/16 21:00 08/19/16 20:59 07/22/16 08:26 5,000 UNIT Lorazepam (Ativan Tab) 0.5 mg Q6 PRN PO 07/20/16 19:45 08/19/16 19:44 07/21/16 00:30 0.5 MG Lorazepam (Ativan Inj) 0.5 mg Q4H PRN IV 07/20/16 19:45 08/19/16 19:44 Morphine Sulfate (MoRPHine SULFATE INJ) 4 mg Q4H PRN IV 07/20/16 19:45 08/03/16 19:44 07/22/16 12:28 4 MG Morphine Sulfate (MoRPHine SULFATE INJ) 2 mg Q4H PRN IV 07/20/16 19:45 08/03/16 19:44 Methotrexate 7.5 mg 7.5 mg Zuniga@0900 PO 07/22/16 09:00 08/21/16 08:59 Future Hold Pantoprazole Sodium/Syringe (Protonix Inj/ Syringe) 10 ml @ 5 mls/min DAILY@ IV 07/21/16 09:00 08/20/16 08:59 07/22/16 08:20 5 MLS/MIN Triamcinolone Acetonide 1 appln TID MT 07/21/16 08:00 08/20/16 07:59 07/22/16 12:28 1 APPLN Lidocaine HCl/ Diphenhydramine HCl/Al Hydroxide/ Mg Hydroxide/ Glycerin/Barcode (VISCOUS LIDOCAINE 2% Soln/ Benadryl Syrup/ Maalox Susp/ Glycerin Anhydrous Soln) Q6H PRN MT 07/20/16 23:30 08/19/16 23:29 07/21/16 12:30 10 ML Zolpidem Tartrate (Ambien Tab) 5 mg HS PRN PO 07/21/16 09:30 08/20/16 09:29 07/21/16 22:48 5 MG Prednisone (PredniSONE TAB) 30 mg DAILY PO 07/21/16 13:30 08/20/16 13:29 07/22/16 08:22 30 MG Multi-Ingredient Ointment (Eucerin Unscented Cr) 1 appln Q6H PRN EXT 07/21/16 13:30 08/20/16 13:29 Laboratory Data Labs: Last 24 Hours Test 07/22/16 06:46 07/22/16 10:10 White Blood Count 2.13 K/uL Red Blood Count 3.17 M/uL Hemoglobin 10.0 g/dL Hematocrit 31.4 % Mean Corpuscular Volume 99.1 fL Mean Corpuscular Hemoglobin 31.5 pg Mean Corpuscular Hemoglobin Concent 31.8 g/dl RDW Standard Deviation 52.9 fL RDW Coefficient of Variation 14.6 % Platelet Count 167 K/uL Mean Platelet Volume 10.1 fL Sodium Level 138 mmol/L Potassium Level 5.1 mmol/L Chloride Level 110 mmol/L Carbon Dioxide Level 23 mmol/L Anion Gap 5.0 mmol/L Blood Urea Nitrogen 6 mg/dl Creatinine 0.84 mg/dl Est Creatinine Clear Calc Drug Dose 59.0 ml/min Estimated GFR () 83.4 Estimated GFR (Non- 71.9 BUN/Creatinine Ratio 6.8 Random Glucose 148 mg/dl Calcium Level 7.9 mg/dl Assessment and Plan A 66-year-old female here with worsening of oral and perianal ulcerations with associated Crohn's disease, on immunosuppression. Mucosal ulcerations, DDx: pemphigoid, pemphigus vulgaris, Behcet`s, [place]`s? Appreciated ID input, check ANCA, r/o histoplasma, check antibodies Appreciated Derm input, cont po prednisone 30 mg daily with taper 1-2 weeks with biopsy follow up in 1-[address] Zhu The patient has reportedly had biopsy done at [facility] and multiple other locations with inconclusive results. blood and urine cultures pending. stop antibiotic therapy including antifungals of fluconazole and antibiotics of metronidazole. appreciate gastroenterology input. consulted rheumatology clear diet due to mouth ulcers eucerin cream prn skin dryness For her hypertension, continue diltiazem and metoprolol. GI proph with Protonix intravenous. Deep venous thrombosis prevention with heparin sq. hopefully d/c home tomorrow
[2016-07-22] MEDS: LIDOCAINE HCL 2% VISCOUS SOLN 60 ML, DiphenhydrAMINE HCL SYRUP 150 MG, ALUMINUM/MAGNESI... MT PRN ×4 (14:35)
[2016-07-22 15:29] VITALS: BP 105/67; PULSE 78; TEMP 36.6; O2SAT 91
[2016-07-22 20:50] VITALS: BP 103/69; PULSE 74
[2016-07-23 00:34] VITALS: BP 103/70; PULSE 65; TEMP 36.6; O2SAT 90
[2016-07-23 06:26] LABS: HEMATOCRIT 28.2 % (37-47); MEAN CELL VOLUME 99.3 fL (80-100); MEAN CORPUSCULAR HEMOGLOBIN 31.3 pg (25-34); MEAN CORPUSCULAR HGB CONC 31.6 g/dl (32-36); MEAN PLATELET VOLUME 10.2 fL (7.4-10.4); PLATELET COUNT 129 K/uL (130-400); RED BLOOD COUNT 2.84 M/uL (4.2-5.4); WHITE BLOOD COUNT 5.78 K/uL (4.8-10.8)
[2016-07-23 07:00] LABS: BUN/CREATININE RATIO 9.1 (10-20); CALCIUM 8.2 mg/dl (8.5-10.1); CREATININE 0.78 mg/dl (0.60-1.20); POTASSIUM 4.4 mmol/L (3.5-5.1)
[2016-07-23] MEDS: ESCITALOPRAM OXALATE 20 MG TAB PO SCH (07:19)
[2016-07-23] MEDS: DILTIAZEM HCL 120 MG EXT REL CAP PO SCH (07:20)
[2016-07-23] MEDS: METOPROLOL TARTRATE 50 MG TAB PO SCH ×2 (07:20→20:52)
[2016-07-23] MEDS: TRIAMCINOLONE ACET 0.1% ORABASE 5 GM TUBE MT SCH ×3 (07:22→20:00)
[2016-07-23 07:31] VITALS: BP 113/72; PULSE 87; TEMP 36.8; O2SAT 91
[2016-07-23] MEDS: PANTOprazole INJ 40 MG in SYRINGE 0 ML IV SCH ×2 (10:26→20:49)
[2016-07-23] MEDS: HEPARIN SOD 5000 UNIT/0.5 ML CARP SQ SCH ×2 (10:30→20:49)
--- NOTE | 2016-07-23 14:25 | Progress Note ---
Subjective Subjective Date of Service: Jul 23, 2016. Pt evaluation today including: conversation w/ patient, physical exam, chart review, review of studies, review of inpatient medication list Notes: tolerates clears Problem List Medical Problems: (1) Altered mental status Status: Acute (2) Mouth ulceration Status: Acute (3) Orthostatic hypotension Status: Acute (4) Perineal irritation in female Status: Acute (5) Perineal ulcer Status: Acute Review of Systems Constitutional: No fever ENT: + problem reported (mouth ulcers), No hearing loss Respiratory: No cough Cardiac: No chest pain Abdomen: No pain Female : No dysuria Neurologic: No memory loss Psychiatric: No depression symptoms Endo: No fatigue Physical Exam Vital Signs Vital Signs Past 24 Hours: Date Time Temp Pulse Resp B/P Pulse Ox O2 Delivery O2 Flow Rate FiO2 07/23/16 07:31 36.8 87 18 113/72 91 Room Air 07/23/16 07:28 Room Air 07/23/16 00:34 36.6 65 18 103/70 90 Room Air 07/22/16 23:59 Room Air 07/22/16 20:50 74 103/69 07/22/16 16:00 Room Air 07/22/16 15:29 36.6 78 16 105/67 91 Physical Exam: General Appearance: WD/WN, no apparent distress Eyes: bilateral eyes normal inspection ENT: hearing grossly normal, pharynx normal, + pertinent finding (mouth ulcers) Neck: supple, no JVD Respiratory/Chest: normal breath sounds, no respiratory distress Cardiovascular: regular rate, rhythm, no JVD Abdomen: normal bowel sounds, soft Extremities: non-tender Neurologic/Psychiatric: alert Skin: normal color Medications Medications: Current Inpatient Medications Medications (Trade) Dose Ordered Sig/Shilpi Route Start Time Stop Time Status Last Admin Dose Admin Albuterol (Ventolin Hfa Inhaler) 2 puffs Q6H PRN INH 07/20/16 19:30 08/19/16 19:29 Diazepam (Valium Tab) 5 mg BID PRN PO 07/20/16 19:30 08/19/16 19:29 Diltiazem HCl (TIAzac CAP) 120 mg QAM PO 07/21/16 08:00 08/20/16 08:59 07/23/16 07:20 120 MG Escitalopram Oxalate (Lexapro Tab) 20 mg QAM PO 07/21/16 08:00 08/20/16 08:59 07/23/16 07:19 20 MG Metoprolol Tartrate (Lopressor Tab) 50 mg BID PO 07/20/16 21:00 08/19/16 20:59 07/23/16 07:20 50 MG Acetaminophen (Tylenol Tab) 650 mg Q4H PRN PO 07/20/16 19:30 08/19/16 19:29 Al Hydrox/Mg Hydrox/Simethicone (Maalox Max Susp) 15 ml Q4H PRN PO 07/20/16 19:30 08/19/16 19:29 Magnesium Hydroxide (Milk Of Magnesia Susp) 30 ml Q6H PRN PO 07/20/16 19:30 08/19/16 19:29 Polyethylene (Miralax Powder Packet) 17 gm DAILY PRN PO 07/20/16 19:30 08/19/16 19:29 Ondansetron HCl (Zofran Inj) 4 mg Q6H PRN IV 07/20/16 19:30 08/19/16 19:29 Heparin Sodium (Porcine) (Heparin Sq 5000 Unit/0.5ml) 5,000 unit Q12 SQ 07/20/16 21:00 08/19/16 20:59 07/23/16 10:30 5,000 UNIT Lorazepam (Ativan Tab) 0.5 mg Q6 PRN PO 07/20/16 19:45 08/19/16 19:44 07/21/16 00:30 0.5 MG Lorazepam (Ativan Inj) 0.5 mg Q4H PRN IV 07/20/16 19:45 08/19/16 19:44 Morphine Sulfate (MoRPHine SULFATE INJ) 4 mg Q4H PRN IV 07/20/16 19:45 08/03/16 19:44 07/22/16 21:00 4 MG Morphine Sulfate (MoRPHine SULFATE INJ) 2 mg Q4H PRN IV 07/20/16 19:45 08/03/16 19:44 Methotrexate 7.5 mg 7.5 mg Zuniga@0900 PO 07/22/16 09:00 08/21/16 08:59 Future Hold Pantoprazole Sodium/Syringe (Protonix Inj/ Syringe) 10 ml @ 5 mls/min DAILY@ IV 07/21/16 09:00 08/20/16 08:59 07/23/16 10:26 5 MLS/MIN Triamcinolone Acetonide 1 appln TID MT 07/21/16 08:00 08/20/16 07:59 07/23/16 13:59 1 APPLN Lidocaine HCl/ Diphenhydramine HCl/Al Hydroxide/ Mg Hydroxide/ Glycerin/Barcode (VISCOUS LIDOCAINE 2% Soln/ Benadryl Syrup/ Maalox Susp/ Glycerin Anhydrous Soln) Q6H PRN MT 07/20/16 23:30 08/19/16 23:29 07/22/16 14:35 10 ML Zolpidem Tartrate (Ambien Tab) 5 mg HS PRN PO 07/21/16 09:30 08/20/16 09:29 07/23/16 00:00 5 MG Prednisone (PredniSONE TAB) 30 mg DAILY PO 07/21/16 13:30 08/20/16 13:29 07/23/16 07:19 30 MG Multi-Ingredient Ointment (Eucerin Unscented Cr) 1 appln Q6H PRN EXT 07/21/16 13:30 08/20/16 13:29 Laboratory Data Labs: Last 24 Hours Test 07/23/16 06:05 White Blood Count 5.78 K/uL Red Blood Count 2.84 M/uL Hemoglobin 8.9 g/dL Hematocrit 28.2 % Mean Corpuscular Volume 99.3 fL Mean Corpuscular Hemoglobin 31.3 pg Mean Corpuscular Hemoglobin Concent 31.6 g/dl RDW Standard Deviation 52.3 fL RDW Coefficient of Variation 14.4 % Platelet Count 129 K/uL Mean Platelet Volume 10.2 fL Sodium Level 141 mmol/L Potassium Level 4.4 mmol/L Chloride Level 108 mmol/L Carbon Dioxide Level 27 mmol/L Anion Gap 6.0 mmol/L Blood Urea Nitrogen 7 mg/dl Creatinine 0.78 mg/dl Est Creatinine Clear Calc Drug Dose 63.5 ml/min Estimated GFR () 91.2 Estimated GFR (Non- 78.7 BUN/Creatinine Ratio 9.1 Random Glucose 107 mg/dl Calcium Level 8.2 mg/dl Assessment and Plan A 66-year-old female here with worsening of oral and perianal ulcerations with associated Crohn's disease, on immunosuppression. Mucosal ulcerations, DDx: pemphigoid, pemphigus vulgaris, Behcet`s, [place]`s? Appreciated ID input, check ANCA, r/o histoplasma, check antibodies Appreciated Derm input, cont po prednisone 30 mg daily with taper 1-2 weeks with biopsy follow up in 1-[address] Zhu The patient has reportedly had biopsy done at [facility] and multiple other locations with inconclusive results. blood and urine cultures negative stop antibiotic therapy including antifungals of fluconazole and antibiotics of metronidazole. appreciate gastroenterology input. consulted rheumatology clear diet due to mouth ulcers eucerin cream prn skin dryness pancytopenia, bone marrow suppression in the setting of immunosuppression, hgb and platelets are dropping, consulted hematology, hold methotrexate and ramicade For her hypertension, continue diltiazem and metoprolol. GI proph with Protonix intravenous. Deep venous thrombosis prevention with heparin sq. hopefully d/c home in the next few days
[2016-07-23 14:45] VITALS: BP 121/78; PULSE 81; TEMP 37.1; O2SAT 93
--- NOTE | 2016-07-23 14:59 | Oncology Consultation ---
Oncology/Heme Consultation Date of Consultation: Jul 23, 2016. Attending Physician: Yuri Beasley MD Reason for Consultation: Cytopenias Oral ulcers History of Present Illness Ms. Reardon is a 66 year old woman with a long-standing history of Crohn's disease. She has been on Methotrexate and Humira for about the last two years, per the patient. Over the last 9 months to 1 year, she has experienced oral and vaginal pain with waxing and waning ulcerations. She was having more recently and they started to bleed in her mouth, which is what brought her to the ER. She also had a low-grade fever in the ER at presentation and on the following day. So far, her cultures have all been negative. On admission, she has given at least one dose of Penicillin G, but has not received more since then. She also has been on Heparin her entire stay. She is unsure if she has had blood in her stool, as she reports not having a BM since (about a week now). She denies any abdominal pain or cramping. She denies any night sweats, adenopathy, or recurrent infections or infectious contacts. Past Medical/Surgical History Medical Problems: (1) Altered mental status Status: Acute (2) Mouth ulceration Status: Acute (3) Orthostatic hypotension Status: Acute (4) Perineal irritation in female Status: Acute (5) Perineal ulcer Status: Acute Social History Smoking Status: Unknown if Ever Smoked Marital Status: Housing Status: lives with family Occupation Status: unemployed Allergies Coded Allergies: Ciprofloxacin (Unverified Allergy, Severe, hives, 07/20/16) Sulfa Antibiotics (Verified Allergy, Severe, HIVES AND SOB, 07/20/16) Lactose (Verified Allergy, Unknown, 07/20/16) Mesalamine (Verified Allergy, Unknown, 07/20/16) Home Medications Scheduled Azelastine Hcl-Fluticasone Pro (Dymista), 2 SPRY AGUEDA BID Diltiazem Hcl Ext Rel (Tiazac), 120 MG PO QAM Escitalopram Oxalate (Lexapro), 20 MG PO QAM Infliximab (Remicade), 1 DOSE IV Q8WK Methotrexate (Methotrexate), 3 TAB PO WK Metoprolol Tartrate (Lopressor) (Lopressor), 50 MG PO BID Mouthwashes (Biotene Dry Mouth Mouthwa), 1 DOSE PO DIRECTED Pantoprazole (Protonix), 40 MG PO BID Ranitidine Hcl (Zantac), 300 MG PO HS Scheduled PRN Albuterol Hfa (Ventolin Hfa), 2-4 PUFFS INH Q6H PRN for Shortness of Breath Clobetasol Propionate (Temovate), 1 APPLN TOP BID PRN for PRN Diazepam (Valium), 5 MG PO BID PRN for PRN Diphenhydramine Hcl (Benadryl Allergy), 1 CAP PO Q4 PRN for PRN Hyoscyamine Sulfate (Levsin), 0.125 MG PO DIRECTED PRN for PRN Ibuprofen (Advil), 200 MG PO QAM PRN for Pain Methylphenidate (Ritalin), 10 MG PO DAILY PRN for PRN Trimethobenzamide Hcl (Tigan), 1 TAB PO TID PRN for PRN Zolpidem Tartrate (Ambien Cr), 12.5 MG PO HS PRN for Sleep Current Inpatient Medications Current Inpatient Medications Medications (Trade) Dose Ordered Sig/Shilpi Route Start Time Stop Time Status Last Admin Dose Admin Albuterol (Ventolin Hfa Inhaler) 2 puffs Q6H PRN INH 07/20/16 19:30 08/19/16 19:29 Diazepam (Valium Tab) 5 mg BID PRN PO 07/20/16 19:30 08/19/16 19:29 Diltiazem HCl (TIAzac CAP) 120 mg QAM PO 07/21/16 08:00 08/20/16 08:59 07/23/16 07:20 120 MG Escitalopram Oxalate (Lexapro Tab) 20 mg QAM PO 07/21/16 08:00 08/20/16 08:59 07/23/16 07:19 20 MG Metoprolol Tartrate (Lopressor Tab) 50 mg BID PO 07/20/16 21:00 08/19/16 20:59 07/23/16 07:20 50 MG Acetaminophen (Tylenol Tab) 650 mg Q4H PRN PO 07/20/16 19:30 08/19/16 19:29 Al Hydrox/Mg Hydrox/Simethicone (Maalox Max Susp) 15 ml Q4H PRN PO 07/20/16 19:30 08/19/16 19:29 Magnesium Hydroxide (Milk Of Magnesia Susp) 30 ml Q6H PRN PO 07/20/16 19:30 08/19/16 19:29 Polyethylene (Miralax Powder Packet) 17 gm DAILY PRN PO 07/20/16 19:30 08/19/16 19:29 Ondansetron HCl (Zofran Inj) 4 mg Q6H PRN IV 07/20/16 19:30 08/19/16 19:29 Heparin Sodium (Porcine) (Heparin Sq 5000 Unit/0.5ml) 5,000 unit Q12 SQ 07/20/16 21:00 08/19/16 20:59 07/23/16 10:30 5,000 UNIT Lorazepam (Ativan Tab) 0.5 mg Q6 PRN PO 07/20/16 19:45 08/19/16 19:44 07/21/16 00:30 0.5 MG Lorazepam (Ativan Inj) 0.5 mg Q4H PRN IV 07/20/16 19:45 08/19/16 19:44 Morphine Sulfate (MoRPHine SULFATE INJ) 4 mg Q4H PRN IV 07/20/16 19:45 08/03/16 19:44 07/22/16 21:00 4 MG Morphine Sulfate (MoRPHine SULFATE INJ) 2 mg Q4H PRN IV 07/20/16 19:45 08/03/16 19:44 Methotrexate 7.5 mg 7.5 mg Zuniga@0900 PO 07/22/16 09:00 08/21/16 08:59 Future Hold Pantoprazole Sodium/Syringe (Protonix Inj/ Syringe) 10 ml @ 5 mls/min DAILY@ IV 07/21/16 09:00 08/20/16 08:59 07/23/16 10:26 5 MLS/MIN Triamcinolone Acetonide 1 appln TID [place] 07/21/16 08:00 08/20/16 07:59 07/23/16 13:59 1 APPLN Lidocaine HCl/ Diphenhydramine HCl/Al Hydroxide/ Mg Hydroxide/ Glycerin/Barcode (VISCOUS LIDOCAINE 2% Soln/ Benadryl Syrup/ Maalox Susp/ Glycerin Anhydrous Soln) Q6H PRN MT 07/20/16 23:30 08/19/16 23:29 07/22/16 14:35 10 ML Zolpidem Tartrate (Ambien Tab) 5 mg HS PRN PO 07/21/16 09:30 08/20/16 09:29 07/23/16 00:00 5 MG Prednisone (PredniSONE TAB) 30 mg DAILY PO 07/21/16 13:30 08/20/16 13:29 07/23/16 07:19 30 MG Multi-Ingredient Ointment (Eucerin Unscented Cr) 1 appln Q6H PRN EXT 07/21/16 13:30 08/20/16 13:29 Review of Systems Constitutional: + fever (though none since the day after admission), No chills , No sweats, No weight loss Eyes: No worsening of vision ENT: + sore throat, No trouble swallowing, No unusual epistaxis Respiratory: No cough, No hemoptysis, No shortness of breath Cardiovascular: No chest pain, No edema Abdomen: + constipation, No GI bleeding, No nausea, No pain, No vomiting Musculoskeletal: No joint pain, No muscle pain Genitourinary - Female: + vulvodynia (vaginal ulcerations), No dysuria, No hematuria, No urinary frequency Neurologic: No numbness/tingling, No weakness Hematologic / Lymphatic: No abnormal bleeding/bruising, No night sweats, No swollen lymph nodes Integumentary: No new/changing skin lesions, No rash Physical Exam Date Time Temp Pulse Resp B/P Pulse Ox O2 Delivery O2 Flow Rate FiO2 07/23/16 07:31 36.8 87 18 113/72 91 Room Air 07/23/16 07:28 Room Air 07/23/16 00:34 36.6 65 18 103/70 90 Room Air 07/22/16 23:59 Room Air 07/22/16 20:50 74 103/69 07/22/16 16:00 Room Air 07/22/16 15:29 36.6 78 16 105/67 91 General Appearance: WD/WN, no apparent distress Head: normocephalic, atraumatic Eyes: EOMI ENT: hearing grossly normal, + pertinent finding (her lips have some crusted blood, but no obvious ulcerations are noted in her mouth) Neck: supple, no adenopathy Respiratory/Chest: chest non-tender, lungs clear Cardiovascular: regular rate, rhythm, no murmur Abdomen/GI: normal bowel sounds, non tender, soft Extremities/Musculoskelatal: no calf tenderness, no pedal edema Neurologic/Psych: no motor/sensory deficits, alert, oriented x 3 Skin: warm/dry, no rash Lymphatic: no adenopathy Laboratory Results Last 24 Hours Test 07/23/16 06:05 White Blood Count 5.78 K/uL Red Blood Count 2.84 M/uL Hemoglobin 8.9 g/dL Hematocrit 28.2 % Mean Corpuscular Volume 99.3 fL Mean Corpuscular Hemoglobin 31.3 pg Mean Corpuscular Hemoglobin Concent 31.6 g/dl RDW Standard Deviation 52.3 fL RDW Coefficient of Variation 14.4 % Platelet Count 129 K/uL Mean Platelet Volume 10.2 fL Sodium Level 141 mmol/L Potassium Level 4.4 mmol/L Chloride Level 108 mmol/L Carbon Dioxide Level 27 mmol/L Anion Gap 6.0 mmol/L Blood Urea Nitrogen 7 mg/dl Creatinine 0.78 mg/dl Est Creatinine Clear Calc Drug Dose 63.5 ml/min Estimated GFR () 91.2 Estimated GFR (Non- 78.7 BUN/Creatinine Ratio 9.1 Random Glucose 107 mg/dl Calcium Level 8.2 mg/dl Assessment & Plan It is not clear that her ulcerative issues and her hematologic ones are directly related. Her counts have been normal prior to this visit. Her history is not suggestive of an acute viral infection, though a chronic one is certainly possible. Oral and vaginal ulcerations suggest a fungal infection, though her oral exam does not reveal thrush. Methotrexate can sometimes cause rashes and mucositis, which would explain the chronicity of her symptoms. Other possible explanations include the workup suggested by rheumatology and ID. Other chronic viral infections that can cause marrow suppression, though oral ulcers only to varying degrees, include EBV and CMV, which she would be at risk for given her chronic immunosuppression. As far as her cytopenias, her last dose of Methotrexate was scheduled for yesterday but not given. Though she has been on treatment for some time, it is possible her cytopenias are related to cumulative methotrexate toxicity, with some superimposed marrow suppression due to whatever inflammatory condition she is experiencing. She could also certainly be losing blood in her GI tract given her mucositis. She has not had a BM to rule this out. This would not really explain her other cytopenias, however. She received three doses of penicillin G , which can cause thrombocytopenia. It is a bit unusual that they have continued to trend down since then and such thrombocytopenias usually begin reversing quickly after discontinuation of therapy. While her platelets have dropped by >50%, she is otherwise low-risk for HIT by the 4Ts criteria (other possible explanations, incorrect timing [<4 days], and no thrombosis). Overall, I suspect her cytopenias reflect marrow suppression from whatever inflammatory state she is in, in combination with marrow toxicity from her methotrexate. It seems her WBCs and ulcers are responding to steroids. Hopefully , her other cell lines will also improve as the inflammatory state subsides. Please order LFTs, LDH, and a haptoglobin. If those suggest hemolysis, we can send a SELIN. Please also send an iron and ferritin, to rule out iron deficiency.
[2016-07-23 16:30] VITALS: O2SAT 93
[2016-07-23] MEDS: MoRPHine SULFATE 4 MG/ML 1 ML CARP\\VIAL IV PRN ×2 (16:45→20:59)
[2016-07-23 20:51] VITALS: BP 110/73; PULSE 85
[2016-07-23] MEDS: ZOLPIDEM TARTRATE 5 MG TAB PO PRN ×2 (21:06)
--- NOTE | 2016-07-23 21:55 | Infectious Disease Progress Nt ---
Progress Note Date of Service Jul 23, 2016. Subjective Pt evaluation today including: conversation w/ patient, physical exam, chart review, lab review, review of studies, conversation w/ retail consultant, review of inpatient medication list Mouth pain somewhat better today. Tolerating clear liquids. No other new complaints. No fever. All Other Systems: Reviewed and Negative Medications Current Inpatient Medications Medications (Trade) Dose Ordered Sig/Shilpi Route Start Time Stop Time Status Last Admin Dose Admin Albuterol (Ventolin Hfa Inhaler) 2 puffs Q6H PRN INH 07/20/16 19:30 08/19/16 19:29 Diazepam (Valium Tab) 5 mg BID PRN PO 07/20/16 19:30 08/19/16 19:29 Diltiazem HCl (TIAzac CAP) 120 mg QAM PO 07/21/16 08:00 08/20/16 08:59 07/23/16 07:20 120 MG Escitalopram Oxalate (Lexapro Tab) 20 mg QAM PO 07/21/16 08:00 08/20/16 08:59 07/23/16 07:19 20 MG Metoprolol Tartrate (Lopressor Tab) 50 mg BID PO 07/20/16 21:00 08/19/16 20:59 07/23/16 20:52 50 MG Acetaminophen (Tylenol Tab) 650 mg Q4H PRN PO 07/20/16 19:30 08/19/16 19:29 Al Hydrox/Mg Hydrox/Simethicone (Maalox Max Susp) 15 ml Q4H PRN PO 07/20/16 19:30 08/19/16 19:29 Magnesium Hydroxide (Milk Of Magnesia Susp) 30 ml Q6H PRN PO 07/20/16 19:30 08/19/16 19:29 07/23/16 16:45 30 ML Polyethylene (Miralax Powder Packet) 17 gm DAILY PRN PO 07/20/16 19:30 08/19/16 19:29 Ondansetron HCl (Zofran Inj) 4 mg Q6H PRN IV 07/20/16 19:30 08/19/16 19:29 Heparin Sodium (Porcine) (Heparin Sq 5000 Unit/0.5ml) 5,000 unit Q12 SQ 07/20/16 21:00 08/19/16 20:59 07/23/16 20:49 5,000 UNIT Lorazepam (Ativan Tab) 0.5 mg Q6 PRN PO 07/20/16 19:45 08/19/16 19:44 07/21/16 00:30 0.5 MG Lorazepam (Ativan Inj) 0.5 mg Q4H PRN IV 07/20/16 19:45 08/19/16 19:44 Morphine Sulfate (MoRPHine SULFATE INJ) 4 mg Q4H PRN IV 07/20/16 19:45 08/03/16 19:44 07/23/16 20:59 4 MG Morphine Sulfate (MoRPHine SULFATE INJ) 2 mg Q4H PRN IV 07/20/16 19:45 08/03/16 19:44 Methotrexate 7.5 mg 7.5 mg Zuniga@0900 PO 07/22/16 09:00 08/21/16 08:59 Future Hold Pantoprazole Sodium/Syringe (Protonix Inj/ Syringe) 10 ml @ 5 mls/min DAILY@ IV 07/21/16 09:00 08/20/16 08:59 07/23/16 20:49 5 MLS/MIN Triamcinolone Acetonide 1 appln TID MT 07/21/16 08:00 08/20/16 07:59 07/23/16 20:00 1 APPLN Lidocaine HCl/ Diphenhydramine HCl/Al Hydroxide/ Mg Hydroxide/ Glycerin/Barcode (VISCOUS LIDOCAINE 2% Soln/ Benadryl Syrup/ Maalox Susp/ Glycerin Anhydrous Soln) Q6H PRN MT 07/20/16 23:30 08/19/16 23:29 07/22/16 14:35 10 ML Zolpidem Tartrate (Ambien Tab) 5 mg HS PRN PO 07/21/16 09:30 08/20/16 09:29 07/23/16 21:06 5 MG Prednisone (PredniSONE TAB) 30 mg DAILY PO 07/21/16 13:30 08/20/16 13:29 07/23/16 07:19 30 MG Multi-Ingredient Ointment (Eucerin Unscented Cr) 1 appln Q6H PRN EXT 07/21/16 13:30 08/20/16 13:29 Objective Vital Signs Date Time Temp Pulse Resp B/P Pulse Ox O2 Delivery O2 Flow Rate FiO2 07/23/16 20:51 85 110/73 07/23/16 16:30 93 Room Air 07/23/16 14:45 37.1 81 18 121/78 93 Room Air 07/23/16 07:31 36.8 87 18 113/72 91 Room Air 07/23/16 07:28 Room Air 07/23/16 00:34 36.6 65 18 103/70 90 Room Air 07/22/16 23:59 Room Air Physical Exam General Appearance: WD/WN, no apparent distress Eyes: normal inspection, sclerae normal ENT: normal ENT inspection, pharynx normal Neck: supple, no adenopathy, trachea midline Respiratory/Chest: chest non-tender, lungs clear, normal breath sounds, no respiratory distress Cardiovascular: regular rate, rhythm, no gallop, no murmur Abdomen: normal bowel sounds, non tender, soft, no organomegaly Extremities: non-tender, no calf tenderness Neurologic/Psychiatric: alert, oriented x 3 Skin: normal color, warm/dry, no rash Lymphatic: no adenopathy Laboratory Results RUN DATE: 07/22/16 [facility] LAB PAGE 1 RUN TIME: 909 Specimen Inquiry PATIENT: MELANIE WORTHINGOTN LOC: Jerzy U # : [id number] AGE/SX: 66/F ROOM: [facility] REG : 07/20/[address]: Yuri Beasley MD : 1950 BED: 1 DIS : STATUS: ADM IN TLOC: SPEC #: [id number] KLEVER: 07/20/16 STATUS: COMP REQ #: [id number] RECD: 07/20/[address] [facility] [address]: Marquez Flores M.D. SOURCE: UR, CC ENTR: 07/20/[address] [facility] [address]: Taqueria Khan [facility]. [facility] Norbert Kaplan D.O.Int.Med. Jennifer. Olivares D.O. ORDERED: CULTURE AMARA COMMENTS: Has Specimen Been Obtained/Collected? Y Procedure Result Verified Site URINE CULTURE Final 07/22/16 NO GROWTH - LESS THAN 1,000 COLONIES/ML Last 24 Hours Test 07/23/16 06:05 White Blood Count 5.78 K/uL Red Blood Count 2.84 M/uL Hemoglobin 8.9 g/dL Hematocrit 28.2 % Mean Corpuscular Volume 99.3 fL Mean Corpuscular Hemoglobin 31.3 pg Mean Corpuscular Hemoglobin Concent 31.6 g/dl RDW Standard Deviation 52.3 fL RDW Coefficient of Variation 14.4 % Platelet Count 129 K/uL Mean Platelet Volume 10.2 fL Sodium Level 141 mmol/L Potassium Level 4.4 mmol/L Chloride Level 108 mmol/L Carbon Dioxide Level 27 mmol/L Anion Gap 6.0 mmol/L Blood Urea Nitrogen 7 mg/dl Creatinine 0.78 mg/dl Est Creatinine Clear Calc Drug Dose 63.5 ml/min Estimated GFR () 91.2 Estimated GFR (Non- 78.7 BUN/Creatinine Ratio 9.1 Random Glucose 107 mg/dl Calcium Level 8.2 mg/dl Assessment and Plan 66 yo female with long-standing Crohn's disease on immunosuppressive therapy now with 1 year of oral and now perineal ulcerations. Along with Bechet's syndrome, wonder about possibility of Lila's as has had nose bleeds as well. Less likely would be chronic histoplasmosis, CMV, EBV, HSV. Have ordered ANCA and histoplasma antigen and antibodies. Would try to obtain biopsies from [facility] for review. Will discuss and follow.
[2016-07-23 23:25] VITALS: BP 104/68; PULSE 72; TEMP 36.8; O2SAT 90
[2016-07-24] MEDS: MoRPHine SULFATE 4 MG/ML 1 ML CARP\\VIAL IV PRN (06:06)
[2016-07-24 06:38] LABS: HEMATOCRIT 32.4 % (37-47); MEAN CELL VOLUME 97.3 fL (80-100); MEAN CORPUSCULAR HEMOGLOBIN 31.5 pg (25-34); MEAN CORPUSCULAR HGB CONC 32.4 g/dl (32-36); MEAN PLATELET VOLUME 10.5 fL (7.4-10.4); PLATELET COUNT 145 K/uL (130-400); RED BLOOD COUNT 3.33 M/uL (4.2-5.4); WHITE BLOOD COUNT 10.09 K/uL (4.8-10.8)
[2016-07-24 06:58] VITALS: BP 131/80; PULSE 79; TEMP 36.8; O2SAT 92
[2016-07-24 07:13] LABS: BUN/CREATININE RATIO 8.4 (10-20); CALCIUM 8.6 mg/dl (8.5-10.1); CREATININE 0.81 mg/dl (0.60-1.20); POTASSIUM 3.8 mmol/L (3.5-5.1)
[2016-07-24] MEDS: ESCITALOPRAM OXALATE 20 MG TAB PO SCH (08:24)
[2016-07-24] MEDS: METOPROLOL TARTRATE 50 MG TAB PO SCH (08:25)
[2016-07-24] MEDS: DILTIAZEM HCL 120 MG EXT REL CAP PO SCH (08:25)
[2016-07-24] MEDS: PANTOprazole INJ 40 MG in SYRINGE 0 ML IV SCH (08:26)
[2016-07-24] MEDS: TRIAMCINOLONE ACET 0.1% ORABASE 5 GM TUBE MT SCH ×2 (08:30→13:56)
[2016-07-24] MEDS: HEPARIN SOD 5000 UNIT/0.5 ML CARP SQ SCH (08:30)
--- NOTE | 2016-07-24 10:20 | Hematology/Oncology Prog Note ---
Hematology/Onc Progress Note Date of Service Jul 24, 2016. Diagnoses Cytopenias most likely treatment related History of Crohn's disease Mucositis again possibly treatment (methotrexate) related Medications Medications Administered Medications (Trade) Dose Ordered Sig/Shilpi Route Start Time Stop Time Status Last Admin Dose Admin Sodium Chloride (Nss 1000ml) 1,000 ml @ 999 mls/hr Q1H1M STAT IV 07/20/16 15:46 07/20/16 16:46 DC 07/20/16 16:46 999 MLS/HR Morphine Sulfate (MoRPHine SULFATE INJ) 6 mg NOW STAT IV 07/20/16 16:28 07/20/16 16:29 DC 07/20/16 16:46 6 MG Ondansetron HCl (Zofran Inj) 4 mg NOW STAT IV 07/20/16 16:28 07/20/16 16:29 DC 07/20/16 16:46 4 MG Diltiazem HCl (TIAzac CAP) 120 mg QAM PO 07/21/16 08:00 08/20/16 08:59 07/24/16 08:25 120 MG Escitalopram Oxalate (Lexapro Tab) 20 mg QAM PO 07/21/16 08:00 08/20/16 08:59 07/24/16 08:24 20 MG Metoprolol Tartrate (Lopressor Tab) 50 mg BID PO 07/20/16 21:00 08/19/16 20:59 07/24/16 08:25 50 MG Magnesium Hydroxide (Milk Of Magnesia Susp) 30 ml Q6H PRN PO 07/20/16 19:30 08/19/16 19:29 07/23/16 16:45 30 ML Heparin Sodium (Porcine) (Heparin Sq 5000 Unit/0.5ml) 5,000 unit Q12 SQ 07/20/16 21:00 08/19/16 20:59 07/24/16 08:30 5,000 UNIT Lorazepam (Ativan Tab) 0.5 mg Q6 PRN PO 07/20/16 19:45 08/19/16 19:44 07/21/16 00:30 0.5 MG Morphine Sulfate 4 mg 4 mg Q4H PRN IV 07/20/16 19:45 08/03/16 19:44 07/24/16 06:06 4 MG Potassium Chloride 40 meq/ Sodium Chloride 1,020 ml @ 100 mls/hr [id number] IV 07/20/16 23:00 07/22/16 09:44 DC 07/22/16 05:52 100 MLS/HR Magnesium Sulfate 1 gm/Prmx 100 ml @ 100 mls/hr NOW ONCE IV 07/20/16 22:30 07/20/16 23:29 DC 07/20/16 22:41 100 MLS/HR Pantoprazole Sodium/Syringe (Protonix Inj/ Syringe) 10 ml @ 5 mls/min DAILY@ IV 07/21/16 09:00 08/20/16 08:59 07/24/16 08:26 5 MLS/MIN Colchicine (Colchicine Tab) 0.6 mg BID PO 07/21/16 08:00 07/21/16 13:37 DC 07/21/16 08:11 0.6 MG Colchicine 0.6 mg 0.6 mg NOW ONCE PO 07/20/16 22:30 07/20/16 22:31 DC 07/20/16 22:40 0.6 MG Penicillin G Potassium/Dextrose (Penicillin G Potassium IV/D5 250ml) 262 ml @ 100 mls/hr Q6 IV 07/21/16 00:00 07/21/16 13:37 DC 07/21/16 12:20 100 MLS/HR Triamcinolone Acetonide 1 appln TID NC 07/21/16 08:00 08/20/16 07:59 07/24/16 08:30 1 APPLN Lidocaine HCl/ Diphenhydramine HCl/Al Hydroxide/ Mg Hydroxide/ Glycerin/Barcode (VISCOUS LIDOCAINE 2% Soln/ Benadryl Syrup/ Maalox Susp/ Glycerin Anhydrous Soln) Q6H PRN NC 07/20/16 23:30 08/19/16 23:29 07/22/16 14:35 10 ML Zolpidem Tartrate (Ambien Tab) 5 mg HS PRN PO 07/21/16 09:30 08/20/16 09:29 07/23/16 21:06 5 MG Prednisone (PredniSONE TAB) 30 mg DAILY PO 07/21/16 13:30 08/20/16 13:29 07/24/16 08:25 30 MG Potassium Chloride (Klor-Con Tab) 40 meq NOW STAT PO 07/21/16 15:04 07/21/16 15:09 DC 07/21/16 15:55 40 MEQ Subjective She continues to have some mouth sores for some mouth pain. Her blood counts are improved and she is afebrile Review of Systems: Constitutional: Negative for weight loss, night sweats, or fever Eyes: Negative for event change of vision ENT: Negative for epistaxis, nasal discharge, sore throat, or deafness Cardiovascular: Negative for chest pain, palpitations, dizziness, diaphoresis Respiratory: Negative for new shortness of breath,hemoptysis, or purulent cough Gastrointestinal: Negative for diarrhea, hematemesis, melena, nausea, vomiting , or dyspepsia Integumentary (skin): Negative for rash or jaundice discoloration Genitourinary: Negative for urinary frequency, hematuria, or dysuria Neurological: Negative for weakness, seizure activity, headache, or dizziness Lymphatic/Hematologic: Negative for petechiae, bleeding or new adenopathy Musculoskeletal: Negative for new joint or back pain Allergic/Immunologic: Negative for unusual rash or pruritis. Vital Signs Vital Signs Past 12 Hours Date Time Temp Pulse Resp B/P Pulse Ox O2 Delivery O2 Flow Rate FiO2 07/24/16 08:10 Room Air 07/24/16 06:58 36.8 79 20 131/80 92 Room Air 07/24/16 00:00 Room Air 07/23/16 23:25 36.8 72 16 104/68 90 Room Air Physical Exam Constitutional: vitals are stable. Eyes: Eyes are AWAIS EOMI without conjuctival erythema or icterus. ENT: External examination was negative for masses. Neck: Negative for masses or palpable thyromegaly Respiratory: Lung sounds were generally clear bilaterally Cardiovascular: Heart was RRR without significant murmur, gallops aoe rubs Gastrointestinal: No palpable hepatic or splenomegaly. The abdomen was soft with normal bowel sounds. Lymphatic system: there was no palpable peripheral lymphadenopathy Musculoskeletal System: The musculoskeletal system seemed concordant with age. Skin: The skin was negative for jaundice. Neurologic exam: The exam was negative for any focal findings. Deep tendon reflexes were equal and symmetrical. Psychiatric exam: Was essentially negative with normal mood and effect. Breast exam: Not done Extremities: Negative for edema erythema Laboratory Last 24 Hours Test 07/24/16 05:58 07/24/16 09:24 White Blood Count 10.09 K/uL Red Blood Count 3.33 M/uL Hemoglobin 10.5 g/dL Hematocrit 32.4 % Mean Corpuscular Volume 97.3 fL Mean Corpuscular Hemoglobin 31.5 pg Mean Corpuscular Hemoglobin Concent 32.4 g/dl RDW Standard Deviation 51.2 fL RDW Coefficient of Variation 14.4 % Platelet Count 145 K/uL Mean Platelet Volume 10.5 fL Sodium Level 141 mmol/L Potassium Level 3.8 mmol/L Chloride Level 107 mmol/L Carbon Dioxide Level 27 mmol/L Anion Gap 7.0 mmol/L Blood Urea Nitrogen 7 mg/dl Creatinine 0.81 mg/dl Est Creatinine Clear Calc Drug Dose 61.1 ml/min Estimated GFR () 87.1 Estimated GFR (Non- 75.2 BUN/Creatinine Ratio 8.4 Random Glucose 89 mg/dl Calcium Level 8.6 mg/dl Vitamin B12 Level 614 pg/mL Folate 2.66 ng/mL Assessment & Plan Her CBC is now acceptable. I suspect the cytopenias were therapy (primarily methotrexate) related. CBCs/diff probably should be done every week or every other week when on methotrexate with the drug dose either being modified or placed on hold if the absolute neutrophil count (ANC) falls below 2000 and/or the platelet count just below 100,000. We will sign off for now please reconsult if necessary.
[2016-07-24 10:25] LABS: ALKALINE PHOSPHATASE 67 U/L (45-117); ALT/SGPT 28 U/L (12-78); AST/SGOT 15 U/L (15-37); FERRITIN 78.4 ng/ml (8.0-388.0); TOTAL IRON BINDING CAPACITY 214 mcg/dl (250-450)
[2016-07-24] MEDS ORDERED: OXYC10SO PO ×2 (12:26)
[2016-07-24] MEDS ORDERED: PRD10 PO ×2 (12:26)
--- NOTE | 2016-07-24 12:42 | Discharge Instructions ---
Discharge Instructions Admission Reason for Admission: Ulceration, Oral Mucosa Discharge Discharge Diagnosis / Problem: mucositis with ulcers Discharge Goals Goal(s): Increase independence, Improve disease control, Diagnostic testing, Therapeutic intervention Activity Recommendations Activity Limitations: resume your previous activity . Instructions / Follow-Up Instructions / Follow-Up stop ibuprofen and hold methotrexate continue pantoprazole may take oral roxicodone for mouth pain in addition to magic mouthwash start taking prednisone taper as directed follow up dr Zhu in 1-2 weeks for a biopsy Current Hospital Diet Patient's current hospital diet: Clear Liquid Diet Discharge Diet Recommended Diet: Clear Liquid Diet Pending Studies Studies pending at discharge: yes List of pending studies: ANCA, HSV etc Laboratory Results Last 24 Hours Test 07/24/16 05:58 07/24/16 09:24 White Blood Count 10.09 K/uL Red Blood Count 3.33 M/uL Hemoglobin 10.5 g/dL Hematocrit 32.4 % Mean Corpuscular Volume 97.3 fL Mean Corpuscular Hemoglobin 31.5 pg Mean Corpuscular Hemoglobin Concent 32.4 g/dl RDW Standard Deviation 51.2 fL RDW Coefficient of Variation 14.4 % Platelet Count 145 K/uL Mean Platelet Volume 10.5 fL Sodium Level 141 mmol/L Potassium Level 3.8 mmol/L Chloride Level 107 mmol/L Carbon Dioxide Level 27 mmol/L Anion Gap 7.0 mmol/L Blood Urea Nitrogen 7 mg/dl Creatinine 0.81 mg/dl Est Creatinine Clear Calc Drug Dose 61.1 ml/min Estimated GFR () 87.1 Estimated GFR (Non- 75.2 BUN/Creatinine Ratio 8.4 Random Glucose 89 mg/dl Calcium Level 8.6 mg/dl Iron Level 25 mcg/dl Total Iron Binding Capacity 214 mcg/dl Ferritin 78.4 ng/ml Total Bilirubin 0.2 mg/dl Direct Bilirubin < 0.1 mg/dl Aspartate Amino Transf (AST/SGOT) 15 U/L Alanine Aminotransferase (ALT/SGPT) 28 U/L Alkaline Phosphatase 67 U/L Lactate Dehydrogenase 206 U/L Total Protein 6.1 gm/dl Albumin 2.5 gm/dl Vitamin B12 Level 614 pg/mL Folate 2.66 ng/mL Medical Emergencies . Who to Call and When: Medical Emergencies: If at any time you feel your situation is an emergency, please call 911 immediately. . Non-Emergent Contact Non-Emergency issues call your: Primary Care Provider Call Non-Emergent contact if: you have a fever, your pain is not controlled . Past History Medical & Surgical History: (1) Ulceration, oral mucosa (2) Crohns disease (3) Perineal ulcer . "Provider Documentation" section prepared by Yuri Beasley. VTE Core Measure Inpt VTE Proph given/why not?: SCD's
--- NOTE | 2016-07-24 12:56 | Discharge Summary ---
Discharge Summary Admission Date: Jul 20, 2016 at 19:36 Discharge Date: Jul 24, 2016 Discharge Disposition: Home Principal Diagnosis: mucositis, mouth, genital ulcers, anemia Problems/Secondary Diagnoses: thrombocytopenia Consultations: GI, derm, hematology Medication Reconciliation New Medications: Oxycodone Oral Soln (Roxicodone Oral Soln) 5 Mg/5 Ml Soln 5 ML PO Q4H PRN for Pain, #1 BTL Prednisone (Prednisone) 10 Mg Tab 10 MG PO DAILY, #18 TAB take 3 tabs for 3 days 2 tab for 3 days 1 tab for 3 days then stop Continued Medications: Albuterol Hfa (Ventolin Hfa) 200 Puffs/60404 Mcg Aers 2-4 PUFFS INH Q6H PRN for Shortness of Breath, #1 INHALER Azelastine Hcl-Fluticasone Pro (Dymista) 1 Spr Spr 2 SPRY AGUEDA BID for 30 Days, #23 GM 6 Refills Clobetasol Propionate (Temovate) 0.05 % Cre 1 APPLN TOP BID PRN for PRN for 90 Days, #60 GM 3 Refills Diazepam (Valium) 5 Mg Tab 5 MG PO BID PRN for PRN, TAB Diltiazem Hcl Ext Rel (Tiazac) 120 Mg Capcr 120 MG PO QAM, CAP Diphenhydramine Hcl (Benadryl Allergy) 25 Mg Cap 1 CAP PO Q4 PRN for PRN for 30 Days, #30 CAP Escitalopram Oxalate (Lexapro) 20 Mg Tab 20 MG PO QAM, TAB Hyoscyamine Sulfate (Levsin) 0.125 Mg Tab 0.125 MG PO DIRECTED PRN for PRN, TAB Infliximab (Remicade) 100 Mg/10 Ml Inj 1 DOSE IV Q8WK Methylphenidate (Ritalin) 10 Mg Tab 10 MG PO DAILY PRN for PRN, TAB Metoprolol Tartrate (Lopressor) (Lopressor) 50 Mg Tab 50 MG PO BID, TAB Mouthwashes (Biotene Dry Mouth Mouthwa) 1 Liq Liq 1 DOSE PO DIRECTED Pantoprazole (Protonix) 40 Mg Tab 40 MG PO BID, #30 TAB Ranitidine Hcl (Zantac) 300 Mg Tab 300 MG PO HS, TAB Trimethobenzamide Hcl (Tigan) 300 Mg Cap 1 TAB PO TID PRN for PRN Zolpidem Tartrate (Ambien Cr) 12.5 Mg Tabcr 12.5 MG PO HS PRN for Sleep Discontinued Medications: Ibuprofen (Advil) 200 Mg Tab 200 MG PO QAM PRN for Pain, TAB Methotrexate (Methotrexate) 2.5 Mg Tab 3 TAB PO WK, TAB Referrals At Discharge Follow up Referrals: [employer] Att[employer] Referral - Within a Month with Barrett Dejesus MD Physician Referral - Within 2 Weeks with Norbert Kaplan D.O.Int.Med. Physician Referral - Within 2 Weeks with Vanessa Zhu MD Discharge Exam Review of Systems: Constitutional: No chills ENT: + problem reported (mouth ulcers), + trouble swallowing Respiratory: No cough, No sputum Cardiovascular: No chest pain, No orthopnea Abdomen: No nausea, No pain Genitourinary - Female: No dysuria, No urinary urgency Neurologic: No memory loss, No weakness Psychiatric: No anhedonism, No depression symptoms Endocrine: No excessive thirst, No fatigue Integumentary: + problem reported (c/o vaginal ulcers) Physical Exam: General Appearance: WD/WN, no apparent distress Eyes: normal inspection, EOMI ENT: + pertinent finding (mouth ulcers) Neck: supple, no JVD Respiratory/Chest: chest non-tender, no respiratory distress Cardiovascular: regular rate, rhythm, no gallop, no murmur Abdomen / GI: soft, no organomegaly Extremities: no calf tenderness, no pedal edema Neurologic/Psychiatric: alert, normal reflexes Skin: normal color, no rash Hospital Course A 66-year-old female here with worsening of oral and perianal ulcerations with associated Crohn's disease, on immunosuppression. Mucositis with Mucosal ulcerations, DDx: Methotrexate induced, pemphigoid, pemphigus vulgaris, Behcet`s, [place]`s? Appreciated ID input, check ANCA, r/o histoplasma, check antibodies - pending Appreciated Derm input, cont po prednisone 30 mg daily with taper 1-2 weeks with biopsy follow up in 1-[address] Zhu The patient has reportedly had biopsy done at [facility] and multiple other locations with inconclusive results. blood and urine cultures negative stop antibiotic therapy including antifungals of fluconazole and antibiotics of metronidazole. appreciate gastroenterology input. f/u Dr Dejesus in a month, crohns in remission now on remicade consulted rheumatology, pending clear diet due to mouth ulcers eucerin cream prn skin dryness d/c on oral roxanol in addition to magic mouthwash pancytopenia, bone marrow suppression in the setting of immunosuppression, hgb and platelets are dropping, could be secondary to inflammatory process or PCN G , appreciated hematology input, hold methotrexate for now, pancytopenia improved with steroids hypertension, continue diltiazem and metoprolol. GI proph with Protonix intravenous. d/c home, hold methotrexate, stop NSAIDs, f/u Dr Zhu for biopsy 1-2 weeks , continue prednisone taper F/u PCP 2 weeks Total Time Spent: Greater than 30 minutes This includes examination of the patient, discharge planning, medication reconciliation, and communication with other providers. Discharge Instructions Please refer to the electronic Patient Visit Report (Discharge Instructions) for additional information. Additional Copies To Norbert Kaplan D.O.Int.Med.; Vanessa Zhu MD
[2016-07-24 13:04] VITALS: BP 131/80; PULSE 79; TEMP 36.8; O2SAT 92
--- NOTE | 2016-07-24 14:45 | Infectious Disease Progress Nt ---
Progress Note Date of Service Jul 24, 2016. Subjective Pt evaluation today including: conversation w/ patient, physical exam, chart review, lab review, review of studies, conversation w/ apprenticeship consultant, review of inpatient medication list Feeling better today no fever. Anticipating discharge. Mouth pain better. All Other Systems: Reviewed and Negative Medications Current Inpatient Medications Medications (Trade) Dose Ordered Sig/Shilpi Route Start Time Stop Time Status Last Admin Dose Admin Albuterol (Ventolin Hfa Inhaler) 2 puffs Q6H PRN INH 07/20/16 19:30 08/19/16 19:29 Diazepam (Valium Tab) 5 mg BID PRN PO 07/20/16 19:30 08/19/16 19:29 Diltiazem HCl (TIAzac CAP) 120 mg QAM PO 07/21/16 08:00 08/20/16 08:59 07/24/16 08:25 120 MG Escitalopram Oxalate (Lexapro Tab) 20 mg QAM PO 07/21/16 08:00 08/20/16 08:59 07/24/16 08:24 20 MG Metoprolol Tartrate (Lopressor Tab) 50 mg BID PO 07/20/16 21:00 08/19/16 20:59 07/24/16 08:25 50 MG Acetaminophen (Tylenol Tab) 650 mg Q4H PRN PO 07/20/16 19:30 08/19/16 19:29 Al Hydrox/Mg Hydrox/Simethicone (Maalox Max Susp) 15 ml Q4H PRN PO 07/20/16 19:30 08/19/16 19:29 Magnesium Hydroxide (Milk Of Magnesia Susp) 30 ml Q6H PRN PO 07/20/16 19:30 08/19/16 19:29 07/23/16 16:45 30 ML Polyethylene (Miralax Powder Packet) 17 gm DAILY PRN PO 07/20/16 19:30 08/19/16 19:29 Ondansetron HCl (Zofran Inj) 4 mg Q6H PRN IV 07/20/16 19:30 08/19/16 19:29 Heparin Sodium (Porcine) (Heparin Sq 5000 Unit/0.5ml) 5,000 unit Q12 SQ 07/20/16 21:00 08/19/16 20:59 07/24/16 08:30 5,000 UNIT Lorazepam (Ativan Tab) 0.5 mg Q6 PRN PO 07/20/16 19:45 08/19/16 19:44 07/21/16 00:30 0.5 MG Lorazepam (Ativan Inj) 0.5 mg Q4H PRN IV 07/20/16 19:45 08/19/16 19:44 Morphine Sulfate (MoRPHine SULFATE INJ) 4 mg Q4H PRN IV 07/20/16 19:45 08/03/16 19:44 07/24/16 06:06 4 MG Morphine Sulfate (MoRPHine SULFATE INJ) 2 mg Q4H PRN IV 07/20/16 19:45 08/03/16 19:44 Methotrexate 7.5 mg 7.5 mg Zuniga@0900 PO 07/22/16 09:00 08/21/16 08:59 Future Hold Pantoprazole Sodium/Syringe (Protonix Inj/ Syringe) 10 ml @ 5 mls/min DAILY@, IV 07/21/16 09:00 08/20/16 08:59 07/24/16 08:26 5 MLS/MIN Triamcinolone Acetonide 1 appln TID MT 07/21/16 08:00 08/20/16 07:59 07/24/16 13:56 1 APPLN Lidocaine HCl/ Diphenhydramine HCl/Al Hydroxide/ Mg Hydroxide/ Glycerin/Barcode (VISCOUS LIDOCAINE 2% Soln/ Benadryl Syrup/ Maalox Susp/ Glycerin Anhydrous Soln) Q6H PRN MT 07/20/16 23:30 08/19/16 23:29 07/22/16 14:35 10 ML Zolpidem Tartrate (Ambien Tab) 5 mg HS PRN PO 07/21/16 09:30 08/20/16 09:29 07/23/16 21:06 5 MG Prednisone (PredniSONE TAB) 30 mg DAILY PO 07/21/16 13:30 08/20/16 13:29 07/24/16 08:25 30 MG Multi-Ingredient Ointment (Eucerin Unscented Cr) 1 appln Q6H PRN EXT 07/21/16 13:30 08/20/16 13:29 Objective Vital Signs Date Time Temp Pulse Resp B/P Pulse Ox O2 Delivery O2 Flow Rate FiO2 07/24/16 13:04 36.8 79 20 92 Room Air 07/24/16 08:10 Room Air 07/24/16 06:58 36.8 79 20 131/80 92 Room Air 07/24/16 00:00 Room Air 07/23/16 23:25 36.8 72 16 104/68 90 Room Air 07/23/16 20:51 85 110/73 07/23/16 16:30 93 Room Air 07/23/16 14:45 37.1 81 18 121/78 93 Room Air Physical Exam General Appearance: WD/WN, no apparent distress Eyes: normal inspection, sclerae normal ENT: hearing grossly normal, + pertinent finding (Improved mucositis and ulceration) Neck: supple, no adenopathy, trachea midline Respiratory/Chest: chest non-tender, lungs clear, normal breath sounds, no respiratory distress Cardiovascular: regular rate, rhythm, no gallop, no murmur Abdomen: normal bowel sounds, non tender, soft, no organomegaly Extremities: non-tender, no calf tenderness Neurologic/Psychiatric: alert, oriented x 3 Skin: normal color, warm/dry, no rash Lymphatic: no adenopathy Laboratory Results Last 24 Hours Test 07/24/16 05:58 07/24/16 09:24 White Blood Count 10.09 K/uL Red Blood Count 3.33 M/uL Hemoglobin 10.5 g/dL Hematocrit 32.4 % Mean Corpuscular Volume 97.3 fL Mean Corpuscular Hemoglobin 31.5 pg Mean Corpuscular Hemoglobin Concent 32.4 g/dl RDW Standard Deviation 51.2 fL RDW Coefficient of Variation 14.4 % Platelet Count 145 K/uL Mean Platelet Volume 10.5 fL Sodium Level 141 mmol/L Potassium Level 3.8 mmol/L Chloride Level 107 mmol/L Carbon Dioxide Level 27 mmol/L Anion Gap 7.0 mmol/L Blood Urea Nitrogen 7 mg/dl Creatinine 0.81 mg/dl Est Creatinine Clear Calc Drug Dose 61.1 ml/min Estimated GFR () 87.1 Estimated GFR (Non- 75.2 BUN/Creatinine Ratio 8.4 Random Glucose 89 mg/dl Calcium Level 8.6 mg/dl Iron Level 25 mcg/dl Total Iron Binding Capacity 214 mcg/dl Ferritin 78.4 ng/ml Total Bilirubin 0.2 mg/dl Direct Bilirubin < 0.1 mg/dl Aspartate Amino Transf (AST/SGOT) 15 U/L Alanine Aminotransferase (ALT/SGPT) 28 U/L Alkaline Phosphatase 67 U/L Lactate Dehydrogenase 206 U/L Total Protein 6.1 gm/dl Albumin 2.5 gm/dl Vitamin B12 Level 614 pg/mL Folate 2.66 ng/mL Assessment and Plan 66 yo female with long-standing Crohn's disease on immunosuppressive therapy now with 1 year of oral and now perineal ulcerations. Along with possible methotrexate induced mucositis, as well as Bechet's syndrome, wonder about possibility of Lila's as has had nose bleeds as well. Less likely would be chronic histoplasmosis, CMV, EBV, HSV. Have ordered ANCA and histoplasma antigen and antibodies and these are all pending. I will follow up results after patient is discharged.
[2016-07-24 15:44] VITALS: BP 108/71; PULSE 76; TEMP 36.9; O2SAT 91
[2016-07-26 20:27] LABS: HERPES SIMPLEX CULT SOURCE OTHER-MOUTH ULCERS; HERPES SIMPLEX VIRUS CULT ISOLATED (NOT ISOLATED); HSV1 AB IGM Negative (Negative); HSV2 AB IGM Negative (Negative)
[2016-07-27 13:49] LABS: HSVTYPE1REFLEX ONLY!DON'T ORDR ISOLATED (NOT ISOLATED); HSVTYPE2REFLEX ONLY!DON'T ORDR NOT ISOLATED (NOT ISOLATED)
[2016-07-29] MEDS ORDERED: Boost PO ×2 (10:04)
[2016-07-29] MEDS ORDERED: MGCCMP100 MT ×2 (10:04)
[2016-07-29] MEDS ORDERED: DFL100 PO ×2 (10:04)
[2016-07-29] MEDS ORDERED: AZIT500T3 PO ×2 (10:04)
[2016-07-29] MEDS ORDERED: TMF75 PO ×2 (10:04)
[2016-07-30 14:35] LABS: HISTOPLASMA AB Negative (Negative); MYELOPEROXIDASE AB <1.0 AI (<1.0)
== END 2016-07-24 16:55 | disposition home or self-care (01) | DRG 158 ==
LOC: ENRESERVDT → ENRESERVTM → C.EDB 13:48 → C.4E 19:36
PROVIDERS: ADMIT Internal Medicine; ATTEND Hospitalist
DX: K12.32 Oral mucositis (ulcerative) due to other drugs (principal); K50.90 Crohn's disease, unspecified, without complications; Z79.899 Other long term (current) drug therapy; N94.89 Other specified conditions associated with female genital organs and menstrual cycle; L98.499 Non-pressure chronic ulcer of skin of other sites with unspecified severity; I10 Essential (primary) hypertension; T36.95XA Adverse effect of unspecified systemic antibiotic, initial encounter; Y92.009 Unspecified place in unspecified non-institutional (private) residence as the place of occurrence of the external cause; Z88.2 Allergy status to sulfonamides; T45.1X5A Adverse effect of antineoplastic and immunosuppressive drugs, initial encounter

== ENCOUNTER 2016-07-25 12:10 | Inpatient (IN) | payer OTHER ==
[~2016-07-25] VITALS: Ht 157.5 cm; Wt 73.5 kg
[~2016-07-25 12:10] MED LIST changes: +OXYC10SO PO; +PRD10 PO
[2016-07-25] MEDS ORDERED: SODIUM CHLORIDE 0.9% 1000ML 1,000 ML IV STA (13:19)
[2016-07-25 13:41] LABS: COMPLETE YES; EOS % 0.5 %; HEMATOCRIT 31.6 % (37-47); IG% 0.3 %; LYMPH % 18.3 %; LYMPH ABS # 0.72 K/uL (1.2-3.4); MEAN CELL VOLUME 95.8 fL (80-100); MEAN CORPUSCULAR HEMOGLOBIN 31.2 pg (25-34); MEAN CORPUSCULAR HGB CONC 32.6 g/dl (32-36); MEAN PLATELET VOLUME 10.4 fL (7.4-10.4); MONO % 7.6 %; NEUT % 73.3 %; PLATELET COUNT 119 K/uL (130-400); WHITE BLOOD COUNT 3.94 K/uL (4.8-10.8)
[2016-07-25 13:44] LABS: AST/SGOT 28 U/L (15-37); BLOOD UREA NITROGEN 6 mg/dl (7-18); BUN/CREATININE RATIO 6.8 (10-20); CALCIUM 8.4 mg/dl (8.5-10.1); CARBON DIOXIDE 31 mmol/L (21-32); CHLORIDE 99 mmol/L (98-107); GLUCOSE 88 mg/dl (70-99); POTASSIUM 2.6 mmol/L (3.5-5.1); SODIUM 141 mmol/L (136-145)
[2016-07-25 13:52] LABS: ALKALINE PHOSPHATASE 77 U/L (45-117); ALT/SGPT 29 U/L (12-78)
--- NOTE | 2016-07-25 13:57 | DIAGNOSTIC IMAGING REPORT ---
CHEST ONE VIEW PORTABLE CLINICAL HISTORY: Weakness. Cough. COMPARISON STUDY: Chest radiograph July 20, 2016. FINDINGS: Incidental note is made of a right shoulder arthroplasty. Elevation of the right hemidiaphragm is unchanged. There is no pneumothorax. Linear left lower lung opacity is suggestive of atelectasis. No lobar consolidation is identified. IMPRESSION: No acute cardiopulmonary findings. No significant change in appearance of the chest. Electronically signed by: Xander Guzman M.D. 07/25/2016 1:55 PM
[2016-07-25] MEDS ORDERED: POTASSIUM CHLORIDE 10 MEQ TABCR PO STA ×2 (14:09→14:40)
[2016-07-25] MEDS ORDERED: POTASSIUM CHLR 20 MEQ / WTR 20 MEQ in PREMIXED WATER 100 ML IV STA (14:14)
[2016-07-25] MEDS ORDERED: ONDANSETRON INJ 2 MG/ML 2 ML VIAL IV PRN (14:30)
[2016-07-25 14:37] LABS: INR 1.2 (0.9-1.1); PROTHROMBIN TIME (PATIENT) 13.1 SECONDS (9.0-12.0)
[2016-07-25] MEDS ORDERED: POTASSIUM CHLORIDE 10 MEQ / 100ML WTR IV ONE (14:42)
[2016-07-25] MEDS ORDERED: ALBUTEROL HFA 8 GM INHALER INH PRN (14:45)
[2016-07-25] MEDS ORDERED: HYOSCYAMINE SULFATE 0.125 MG SL TAB PO PRN (14:45)
[2016-07-25] MEDS ORDERED: METHYLPREDNISOLONE IV 60 MG in SYRINGE 0 ML IV SCH (14:45)
[2016-07-25] MEDS ORDERED: METHYLPHENIDATE HCL 10 MG TAB PO PRN (14:45)
[2016-07-25 14:51] LABS: URINE APPEARANCE CLEAR (CLEAR); URINE BILIRUBIN NEG (NEG); URINE COLOR YELLOW; URINE NITRITE NEG (NEG); URINE PH 7.5 (4.5-7.5); URINE SPECIFIC GRAVITY 1.002 (1.000-1.030); UROBILINOGEN NEG (NEG)
[2016-07-25 14:54] LABS: MANUAL MICROSCOPIC REQUIRED? NO; REVIEW REQ? NO
[2016-07-25] MEDS: POTASSIUM CHLR 10MEQ / WTR IV SCH ×2 (15:00→18:28)
[2016-07-25] MEDS ORDERED: METHYLPREDNISOLONE 125 MG VIAL ONE (15:16)
--- NOTE | 2016-07-25 15:32 | EMERGENCY ROOM VISIT NOTE ---
History Report prepared by [place]: Carmen Hall Under the Supervision of: Dr. Donnie Mathew D.O. First contact with patient: 13:08 Chief Complaint: SHORTNESS OF BREATH Stated Complaint: cough/mouth discomfort Nursing Triage Summary: Discharged from hospital yesterday for mouth burning from reaction to Cipro. Patient states today she a reaction to something stating her mouth is very dry and burning. EMS states they were called due to SOB. Patient states she currnetly has no shortness of breath. Patient put on 02 by EMS. O2 saturation 97% on room air at this time. History of Present Illness The patient is a 66 year old female who presents to the Emergency Room with complaints of worsening mouth pain that started 5 days ago. The patient came to the ED via ambulance from home. She reported shortness of breath at that time and states that she is still experiencing some shortness of breath now. The patient was seen in the ED 5 days ago for oral lesions which she states have not gotten any better. She also has perianal lesions that she states are about the same. The patient was discharged from the hospital yesterday and she was told that if she feels bad that she should come back so she came back. She also has pancytopenia with bone marrow suppression. The patient was discharged with a prescription for Percocet but she states that she has not taken it. The patient states that she is also experiencing worsening dizziness. Yesterday, she also developed a productive cough with green/yellow sputum. She states that her friend took her temperature and she had a fever. The patient denies chest pain, nausea, vomiting, and diarrhea. She states that she is on methotrexate for Crohn's Disease. Source of History: patient Onset: 5 days ago Position: other (mouth) Quality: other (mouth pain) Timing: worsening Associated Symptoms: + SOB, + cough (productive with green/yellow sputum), + fevers, No chest pain, No diarrhea, No nausea, No vomiting Note: worsening dizziness Review of Systems See HPI for pertinent positives & negatives. A total of 10 systems reviewed and were otherwise negative. Past Medical & Surgical Medical Problems: (1) Cough (2) Crohns disease (3) Encephalopathy acute (4) Hypokalemia (5) Proximal humerus fracture (6) Right humeral fracture (7) Ulceration, oral mucosa (8) UTI (urinary tract infection) Family History No pertinent family history Social History Smoking Status: Former Smoker Marital Status: Housing Status: lives with family Occupation Status: unemployed Current/Historical Medications Scheduled Azelastine Hcl-Fluticasone Pro (Dymista), 2 SPRY AGUEDA BID Diltiazem Hcl Ext Rel (Tiazac), 120 MG PO QAM Escitalopram Oxalate (Lexapro), 20 MG PO QAM Infliximab (Remicade), 1 DOSE IV Q8WK Metoprolol Tartrate (Lopressor) (Lopressor), 50 MG PO BID Mouthwashes (Biotene Dry Mouth Mouthwa), 1 DOSE PO DIRECTED Pantoprazole (Protonix), 40 MG PO BID Prednisone (Prednisone), 10 MG PO DAILY Ranitidine Hcl (Zantac), 300 MG PO HS Scheduled PRN Albuterol Hfa (Ventolin Hfa), 2-4 PUFFS INH Q6H PRN for Shortness of Breath Clobetasol Propionate (Temovate), 1 APPLN TOP BID PRN for PRN Diazepam (Valium), 5 MG PO BID PRN for PRN Diphenhydramine Hcl (Benadryl Allergy), 1 CAP PO Q4 PRN for PRN Hyoscyamine Sulfate (Levsin), 0.125 MG PO DIRECTED PRN for PRN Methylphenidate (Ritalin), 10 MG PO DAILY PRN for PRN Oxycodone Oral Soln (Roxicodone Oral Soln), 5 ML PO Q4H PRN for Pain Trimethobenzamide Hcl (Tigan), 1 TAB PO TID PRN for PRN Zolpidem Tartrate (Ambien Cr), 12.5 MG PO HS PRN for Sleep Allergies Coded Allergies: Ciprofloxacin (Unverified Allergy, Severe, hives, 07/25/16) Sulfa Antibiotics (Verified Allergy, Severe, HIVES AND SOB, 07/25/16) Lactose (Verified Allergy, Unknown, 07/25/16) Mesalamine (Verified Allergy, Unknown, 07/25/16) Physical Exam Vital Signs Date Time Temp Pulse Resp B/P Pulse Ox O2 Delivery O2 Flow Rate FiO2 07/25/16 14:44 113 20 154/90 98 Room Air 07/25/16 13:34 107 20 152/81 97 Room Air 07/25/16 13:24 97 Room Air 07/25/16 12:49 108 07/25/16 12:40 97 Room Air 07/25/16 12:20 97 Room Air 07/25/16 12:20 37.3 109 19 175/86 97 Room Air Physical Exam GENERAL: alert, sitting up in bed, ambulates without difficulty, well appearing , well nourished, no acute distress, non-toxic EYE EXAM: normal conjunctiva, PERRL and EOM's intact OROPHARYNX: small ulcer on posterior oropharynx, no exudate, no erythema, lips, buccal mucosa, and tongue normal and mucous membranes are moist NECK: supple, no nuchal rigidity, no adenopathy, non-tender LUNGS: Clear to auscultation. Normal chest wall mechanics HEART: no murmurs, S1 normal and S2 normal ABDOMEN: abdomen soft, non-tender, normo-active bowel sounds, no masses, no rebound or guarding. BACK: Back is symmetrical on inspection and there is no deformity, no midline tenderness, no CVA tenderness. SKIN: no rashes and no bruising UPPER EXTREMITIES: upper extremities are grossly normal. LOWER EXTREMITIES: No pitting edema. NEURO EXAM: Normal sensorium, cranial nerves II-XII grossly intact, normal speech, no gross weakness of arms, no gross weakness of legs. Medical Decision & Procedures ER Provider Diagnostic Interpretation: Xray results per the radiologist and my interpretation. CHEST ONE VIEW PORTABLE CLINICAL HISTORY: Weakness. Cough. COMPARISON STUDY: Chest radiograph July 20, 2016. FINDINGS: Incidental note is made of a right shoulder arthroplasty. Elevation of the right hemidiaphragm is unchanged. There is no pneumothorax. Linear left lower lung opacity is suggestive of atelectasis. No lobar consolidation is identified. IMPRESSION: No acute cardiopulmonary findings. No significant change in appearance of the chest. Electronically signed by: Xander Guzman M.D. 07/25/2016 1:55 PM Laboratory Results 07/25/16 12:48 Red Blood Count 3.30, Mean Corpuscular Volume 95.8, Mean Corpuscular Hemoglobin 31.2, Mean Corpuscular Hemoglobin Concent 32.6, Mean Platelet Volume 10.4, Neutrophils (%) (Auto) 73.3, Lymphocytes (%) (Auto) 18.3, Monocytes (%) (Auto) 7.6, Eosinophils (%) (Auto) 0.5, Basophils (%) (Auto) 0.0, Neutrophils # (Auto) 2.89, Lymphocytes # (Auto) 0.72, Monocytes # (Auto) 0.30, Eosinophils # (Auto) 0.02, Basophils # (Auto) 0.00 07/25/16 12:48 Test 07/25/16 12:35 07/25/16 12:48 07/25/16 13:32 07/25/16 13:55 Urine Color YELLOW Urine Appearance CLEAR (CLEAR) Urine pH 7.5 (4.5-7.5) Urine Specific [place] 1.002 (1.000-1.030) Urine Protein NEG (NEG) Urine Glucose (UA) NEG (NEG) Urine Ketones NEG (NEG) Urine Occult Blood NEG (NEG) Urine Nitrite NEG (NEG) Urine Bilirubin NEG (NEG) Urine Urobilinogen NEG (NEG) Urine Leukocyte Esterase NEG (NEG) White Blood Count 3.94 K/uL (4.8-10.8) Red Blood Count 3.30 M/uL (4.2-5.4) Hemoglobin 10.3 g/dL (12.0-16.0) Hematocrit 31.6 % (37-47) Mean Corpuscular Volume 95.8 fL (80-100) Mean Corpuscular Hemoglobin 31.2 pg (25-34) Mean Corpuscular Hemoglobin Concent 32.6 g/dl (32-36) Platelet Count 119 K/uL (130-400) Mean Platelet Volume 10.4 fL (7.4-10.4) Neutrophils (%) (Auto) 73.3 % Lymphocytes (%) (Auto) 18.3 % Monocytes (%) (Auto) 7.6 % Eosinophils (%) (Auto) 0.5 % Basophils (%) (Auto) 0.0 % Neutrophils # (Auto) 2.89 K/uL (1.4-6.5) Lymphocytes # (Auto) 0.72 K/uL (1.2-3.4) Monocytes # (Auto) 0.30 K/uL (0.11-0.59) Eosinophils # (Auto) 0.02 K/uL (0-0.5) Basophils # (Auto) 0.00 K/uL (0-0.2) RDW Standard Deviation 48.4 fL (36.4-46.3) RDW Coefficient of Variation 14.3 % (11.5-14.5) Immature Granulocyte % (Auto) 0.3 % Immature Granulocyte # (Auto) 0.01 K/uL (0.00-0.02) Anion Gap 11.0 mmol/L (3-11) Est Creatinine Clear Calc Drug Dose 56.9 ml/min Estimated GFR () 76.7 Estimated GFR (Non- 66.2 BUN/Creatinine Ratio 6.8 (10-20) Calcium Level 8.4 mg/dl (8.5-10.1) Total Bilirubin 0.4 mg/dl (0.2-1) Aspartate Amino Transf (AST/SGOT) 28 U/L (15-37) Alanine Aminotransferase (ALT/SGPT) 29 U/L (12-78) Alkaline Phosphatase 77 U/L (45-117) Troponin I < 0.015 ng/ml (0-0.045) Total Protein 6.5 gm/dl (6.4-8.2) Albumin 2.7 gm/dl (3.4-5.0) Bedside Glucose 97 mg/dl (70-90) Test 07/25/16 14:19 07/25/16 15:00 07/25/16 15:05 Prothrombin Time 13.1 SECONDS (9.0-12.0) Prothromb Time International Ratio 1.2 (0.9-1.1) Activated Partial Thromboplast Time 25.2 SECONDS (21.0-31.0) Partial Thromboplastin Ratio 1.0 Laboratory results per my review. Medications Administered Medications (Trade) Dose Ordered Sig/Shilpi Route Start Time Stop Time Status Last Admin Dose Admin Sodium Chloride (Nss 1000ml) 1,000 ml @ 999 mls/hr Q1H1M STAT IV 07/25/16 13:19 07/25/16 14:19 DC 07/25/16 13:26 999 MLS/HR Potassium Chloride 40 meq 40 meq NOW STAT PO 07/25/16 14:09 07/25/16 14:36 DC 07/25/16 14:46 40 MEQ Methylprednisolone Sodium Succinate/ Syringe (Solu-Medrol IV/ Syringe) 0.96 ml @ 1.5 mls/min TODAY@1445 IV 07/25/16 14:45 07/25/16 15:30 07/25/16 15:19 1.5 MLS/MIN Potassium Chloride (Kcl 10 Meq / Wtr) 20 meq STK-MED ONCE IV 07/25/16 14:42 07/25/16 14:43 DC 07/25/16 14:46 20 MEQ ECG Indication: SOB/dyspnea Rate (beats per minute): 111 Rhythm: sinus tachycardia Findings: no ectopy, other (normal axis) ED Course ED COURSE: Vital signs were reviewed and showed tachycardia and hypertension. The patients medical record was reviewed The above diagnostic studies were performed and reviewed. ED treatments and interventions as stated above. 1310: The patient was evaluated in room C11. A complete history and physical examination was performed. 1319: Ordered Sodium Chloride 1000 ml @ 999 mls/hr IV 1320: I reviewed the patient's case with Dr. Gale LIMA. He is going to come down and evaluate the patient. 1421: Upon reevaluation, the patient is doing well. I discussed my findings with the patient and she understands and agrees with the treatment plan. Based on the patients age, coexisting illnesses, exam and lab findings the decision to treat as an inpatient was made. The patient remained stable while under my care. The patient will be evaluated for further management. 1422: Dr. Beasley informed me that he is going to admit the patient. Medical Decision Differential Diagnosis includes but is not limited to dehydration, stroke, anemia, hypoglycemia, hyponatremia, hypernatremia, urinary tract infection, pneumonia, bronchitis, sepsis, gastroenteritis, additional abdominal pathology, metabolic abnormalities and infections. Patient is a 66-year-old female who presents the ER was just discharged from the hospital yesterday for shortness of breath associated with a productive cough and worsening oral lesions. Upon presentation she notes she has not been eating and drinking. Labs show mild anemia along with a leukopenia. BMP shows a potassium of 2.6. Otherwise unremarkable. Troponin was negative. Chest x- ray shows no focal infiltrate. Influenza A and B was negative. UA was clean. I do favor symptoms are likely suggestive of a bronchitis or worsening of oral lesions which upon review her chart has been no clear diagnosis. I discussed case with Dr. Beasley who discharged her recently and knows her case very well to evaluated her. She does have poor oral intake with significant hypokalemia. Following blood work he admitted her for further workup. Consults Time Called: 1312 Consulting Physician: Dr. Gale LIMA Returned Call: 1320 I reviewed the patient's case with Dr. Gale LIMA. He is going to come down and evaluate the patient. Impression Primary Impression: Hypokalemia Additional Impressions: Ulceration, oral mucosa, Anemia, Dehydration, Bronchitis Scribe Attestation The scribe's documentation has been prepared under my direction and personally reviewed by me in its entirety. I confirm that the note above accurately reflects all work, treatment, procedures, and medical decision making performed by me. Departure Information Dispostion Admitted as an inpatient Referrals Norbert Kaplan D.O.Int.Med. (PCP) Patient Instructions A Signature Page, [facility]
[2016-07-25 18:10] VITALS: BP 147/91; PULSE 102; TEMP 37.5; O2SAT 92; Ht 157.5 cm; Wt 73.5 kg
[2016-07-25] MEDS: POTASSIUM CHLORIDE INJ 40 MEQ in SODIUM CHLORIDE 0.9% 1000ML 1,000 ML IV SCH ×2 (18:13→18:45)
[2016-07-25] MEDS ORDERED: AZITHROMYCIN IV 500 MG in DEXTROSE 5% 250ML 250 ML IV SCH (18:15)
[2016-07-25] MEDS ORDERED: FLUCONAZOLE 100 MG TAB PO ONE (18:17)
--- NOTE | 2016-07-25 18:17 | HISTORY & PHYSICAL EXAMINATION ---
DATE OF ADMISSION: 07/25/2016 CHIEF COMPLAINT: Shortness of breath and mouth lesions. HISTORY OF PRESENT ILLNESS: This is a 66-year-old female who presents to Emergency Room complaining of mouth pain with ulcers that are getting worse to the point she cannot swallow food and the pain is not well controlled. She was just discharged from the hospital where she was treated for similar presentation with ulcers in her mouth and vaginal area. Today, she complains of productive cough with yellow green sputum. This started last night and she says she feels like she has fever; however, her temperature in the Emergency Room is only 37.3. She also has complaints of perianal lesions that she states are about the same and related to her Crohn disease. She also has pancytopenia, bone marrow suppression as per previous admission. She was discharged with prescription for oxycodone but states she did not take it. She was also complaining of dizziness. She denies any chest pain, nausea, vomiting, diarrhea. Her methotrexate that she was taking for Crohn disease is on hold because of immunosuppression. She complains of losing weight and the fact that she cannot tolerate any oral intake due to significant pain in her mouth. She was previously admitted on 07/20/2016 and had extensive workup done by GI that had seen the patient because of Crohn disease on chronic methotrexate and Remicade and they are not sure if that represents Crohn disease but they also said that it seems to be in good control with her last endoscopy. They were concerned about pemphigoid versus pemphigus or even yeast in her perianal area as well as herpetic lesions. We consulted dermatology who recommended oral steroids taper and then following up in the office in 1-2 weeks for vaginal lesion biopsy. Also infectious disease was consulted for immunosuppressive state with perineal ulcerations. Differential diagnosis included methotrexate induced mucositis as well as fungal/viral infections and therefore things like histoplasmosis, CMV, EBV, HCV and ANCA, histoplasma antigen were all ordered and pending on discharge. The patient also developed some cytopenia and Dr. Arana was consulted. He was also thinking that maybe methotrexate could cause some rashes and mucositis which would explain chronicity of her symptoms. Also differential included rheumatological, autoimmune diseases, possible chronic viral infection with bone marrow suppressions and again EBV and CMV were ordered and pending. While she was in the hospital, she also received penicillin G that also could have caused thrombocytopenia; however, platelets that did not drop more than 50% and improved with prednisone and then she was discharged home when she seemed to be stable. REVIEW OF SYSTEMS: Otherwise is negative except as above. Ten out of 14 systems were reviewed. PAST MEDICAL HISTORY: Significant for Crohn disease, also hypokalemia, humerus fracture, UTI, encephalopathy. SOCIAL HISTORY: Does not smoke, does not drink. She is a . FAMILY HISTORY: Hypertension, coronary artery disease. MEDICATIONS: She is on home medications, albuterol HFA 2-4 puffs inhaled q. 6 hours p.r.n., Dymista 2 sprays nasally b.i.d., clobetasol 1 application topical b.i.d., Valium 5 mg p.o. b.i.d. p.r.n., diltiazem 120 mg p.o. daily, Benadryl Allergy 1 capsule p.o. q. 4 hours p.r.n., Lexapro 20 mg p.o. daily, Levsin 0.125 mg p.o. as directed p.r.n., Remicade 1 dose IV q. 8 weeks, Ritalin 10 mg p.o. daily p.r.n., metoprolol 50 mg p.o. b.i.d., Magic Mouthwash as needed, Roxicodone oral solution 5 mL p.o. q. 6 hours p.r.n., pantoprazole 40 mg p.o. b.i.d. Prednisone 30 mg taper, for 3 days 3 tablets, 2 tablets for 3 days, 1 tablet for 3 days, then stop. Zantac 300 mg p.o. at bedtime 1 tablet p.o. t.i.d. p.r.n. and zolpidem 12.5 mg at bedtime p.r.n. PHYSICAL EXAMINATION: VITAL SIGNS: Temperature 37.3, heart rate 113, respirations 20, blood pressure 154/90, her pulse ox 98 on room air. GENERAL: Pale looking female, not in acute distress. HEENT: Normocephalic, atraumatic. PERRLA, EOMI. Mouth, significant ulcers present throughout the mouth with lots present on her tongue and pharynx seems to be inflamed. NECK: There is some mandibular lymphadenopathy present. Cervical lymphadenopathy present but lymph nodes nontender to palpation. No JVD. Trachea midline. Thyroid is not enlarged. LUNGS: Clear to auscultation bilateral. No wheezes, no rhonchi. HEART: S1, S2, tachycardia present. No murmurs, no gallops. ABDOMEN: Soft, nontender, nondistended. Bowel sounds present bilateral. Liver is enlarged. EXTREMITIES: No clubbing, cyanosis, edema. SKIN: No rash. No jaundice. LYMPHATIC: As above. BACK: No CVA tenderness. PSYCHIATRIC: Mood and judgment are normal. LABS: White count of 3.9, hemoglobin of 10.3, MCV of 95, platelets 119. Chemistry: Sodium 141, potassium 4.6, chloride 99, carbon dioxide 31, BUN of 6, creatinine 0.9, glucose of 88 with AST, ALT 28 and 29 respectively. Troponin of less than 0.015. Her albumin of 2.7. INR of 1.2 and PTT of 25.2. Urinalysis completely normal with pending immunology and serology studies including influenza A and B. Chest x-ray, no acute cardiopulmonary findings. No significant change in appearance of the chest. EKG was not done, which we will order now. ASSESSMENT AND PLAN: This is a 66-year-old female who now presents with productive cough with worsening pain in her mouth secondary to oral ulcers. 1. Acute viral bronchitis, influenza A positive, cont on azithromycin to prevent secondary bacterial infection. We will check sputum culture results. No evidence of pneumonia on chest x-ray. Due to her recent immunosuppression, could also developed herpes or fungal infection. The patient has been started on oral fluconazole, awaiting HCV cultures. 2. Mouth, perineal, vaginal ulcers. Extensive workup was done on previous admissions. 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 Then the differential diagnosis included versus pemphigoid or pemphigus vulgaris. Dermatology was consulted who recommended prednisone on last admission and then biopsy in 1-2 weeks. The patient had the biopsy done with Abiola harding with results that were inconclusive. Also on differential diagnosis includes fungal versus herpetic lesions. We are waiting for HCV culture results as well as start patient on fluconazole orally daily. Consult rheumatology, 3. Significant dehydration secondary to patient unable to have oral intake of fluids and food with hypokalemia. Start patient on normal saline with 40 mEq and repeat BMP tonight at 9:00 p.m. 4. Possible bone marrow suppression secondary to methotrexate use; possible viral, fungal infection and autoimmune diseases. Her EBV and CMV are pending. It could also be inflammatory state causing bone marrow suppression and combination of marrow toxicity from her methotrexate. We will continue IV steroids and we will follow her blood counts. We will also follow results from previous admission that are still pending. 5. History of hypertension. Continue diltiazem, metoprolol. 6. History of Crohn disease. Stop methotrexate and hold Remicade. May need to consult GI for input regarding Crohn induced mucositis and lesions. 7. Deep vein thrombosis prophylaxis with SCDs. We will avoid chemical prophylaxis due to significant risk of bleeding. The patient is a full code. PT, OT evaluation and possible placement is required. 8. Fluids, electrolytes and nutrition. Continue with normal saline with potassium. If patient's nutritional status does not improve within the next 1-2 days, consider NG tube. We will consult nutrition. Time spent on doing this admission, 50 minutes. NIKITA
[2016-07-25] MEDS: FoLIC ACID INJ 1 MG in SYRINGE 9.8 ML IV SCH (18:46)
[2016-07-25] MEDS: OXYCODONE HCL SOLN 5 MG/5 ML UDC PO PRN (18:46)
[2016-07-25] MEDS ORDERED: NURSING VERBAL MED ORDER ONE (21:45)
[2016-07-25] MEDS ORDERED: ACETAMINOPHEN 325 MG TAB ONE (21:48)
[2016-07-25] MEDS: PANTOprazole SOD 40 MG TAB PO SCH (21:52)
[2016-07-25] MEDS: OSELTAMIVIR PHOSPHATE 75 MG CAP PO SCH (21:52)
[2016-07-25] MEDS: METOPROLOL TARTRATE 50 MG TAB PO SCH (21:53)
[2016-07-25] MEDS: RANITIDINE HCL 150 MG TAB PO SCH (21:53)
[2016-07-25 21:55] LABS: BUN/CREATININE RATIO 6.3 (10-20); CALCIUM 7.6 mg/dl (8.5-10.1); CREATININE 0.8 mg/dl (0.60-1.20); POTASSIUM 3.2 mmol/L (3.5-5.1)
[2016-07-25 23:06] VITALS: BP 154/89; PULSE 88; TEMP 36.9; O2SAT 96
[2016-07-26] MEDS: LIDOCAINE HCL 2% VISC SOLN 20 ML UDC MT PRN ×3 (03:59→20:30)
[2016-07-26] MEDS: POTASSIUM CHLORIDE INJ 40 MEQ in SODIUM CHLORIDE 0.9% 1000ML 1,000 ML IV SCH ×3 (03:59→23:34)
[2016-07-26] MEDS: METHYLPREDNISOLONE IV 40 MG in SYRINGE 0 ML IV SCH ×2 (03:59→17:17)
[2016-07-26 08:08] VITALS: BP 166/82; PULSE 85; TEMP 36.7; O2SAT 93
[2016-07-26 08:18] LABS: COMPLETE YES; HEMATOCRIT 33.9 % (37-47); LYMPH % 21.7 %; LYMPH ABS # 0.52 K/uL (1.2-3.4); MEAN CELL VOLUME 94.7 fL (80-100); MEAN CORPUSCULAR HEMOGLOBIN 31.6 pg (25-34); MEAN CORPUSCULAR HGB CONC 33.3 g/dl (32-36); MEAN PLATELET VOLUME 10.8 fL (7.4-10.4); MONO % 6.3 %; PLATELET COUNT 130 K/uL (130-400); RED BLOOD COUNT 3.58 M/uL (4.2-5.4)
--- NOTE | 2016-07-26 09:05 | Medical Consult ---
Consultation Note Consultation Note S: 66 y/o female admitted for pain control and fluid resuscitation with reference to an eruption x few months in the mouth and genitals. Pt had bx 2015 ([facility]) with nonspecific results, suggested aphthae. Hx Crohn disease, and GI consulted to bautista if her genital and oral involvement was related to this, and they concluded that it was not clinically consistent. Pt has tried various antiseptic topicals and in hospital, TAC dental paste with little improvement. She is receiving Niko and IV pain meds currently, for DDx possible Behcet. Pt on MTX, she has not been on any systemic steroids recently. O: oral mucosa, particularly mucosal lip and gingiva, tongue, buccal - deep erosions in various stages of healing. Lips are fissured and crusted. Vulvar exam showed confluent erosion of the labia minora with much residual erythema. No rashes on skin. No fistulas or particular drainage. A: skin erosions, chronic. DDx could be autoimmune blistering disease, MTX ulceration/toxicity, cutaneous Crohn in DDX but less likely, Behcet. Favor at this point possible AI blistering disease or methotrexate toxicity. Pt will complete hydration and pain control and improve oral intake, and we will see the patient when she is discharged for a biopsy with direct immunofluorescence. For now, pt will continue TAC dental paste as needed up to twice daily, add prednisone 30 mg taper, pt aware of SEs. We will bx once pred taper is complete. I gave attending physician my cell number and our clinic direct line as a reference if there are any questions.
[2016-07-26 09:29] LABS: BUN/CREATININE RATIO 8.9 (10-20); CALCIUM 7.9 mg/dl (8.5-10.1); CREATININE 0.82 mg/dl (0.60-1.20)
[2016-07-26] MEDS: POTASSIUM CHLORIDE 20 MEQ/15 ML UDC PO SCH (10:03)
[2016-07-26] MEDS: FLUCONAZOLE 100 MG TAB PO SCH (10:03)
[2016-07-26] MEDS: METOPROLOL TARTRATE 50 MG TAB PO SCH ×2 (10:04→20:29)
[2016-07-26] MEDS: PANTOprazole SOD 40 MG TAB PO SCH ×2 (10:04→20:29)
[2016-07-26] MEDS: OSELTAMIVIR PHOSPHATE 75 MG CAP PO SCH ×2 (10:04→20:28)
[2016-07-26] MEDS: ESCITALOPRAM OXALATE 20 MG TAB PO SCH (10:05)
[2016-07-26] MEDS: DILTIAZEM HCL 120 MG EXT REL CAP PO SCH (10:05)
[2016-07-26] MEDS: BOOST VANILLA PO SCH ×6 (10:05→18:06)
[2016-07-26] MEDS: OXYCODONE HCL SOLN 5 MG/5 ML UDC PO PRN ×2 (10:28→15:59)
[2016-07-26] MEDS: FoLIC ACID INJ 1 MG in SYRINGE 9.8 ML IV SCH (10:28)
--- NOTE | 2016-07-26 12:56 | Medical Student: [facility] ---
Med Student Progress Note Date of Service Jul 26, 2016. Subjective Pt evaluation today including: conversation w/ patient, physical exam, chart review, lab review, review of studies Pt is a 66 year old female with a history of Crohn's disease who is admitted for cough, hypokalemia, and painful oral and perianal sores. She reports continued mouth and lip pain from the sores, but the lidocaine solution seems to help. She has been tolerating liquid diet well, but has not tried solid foods due to the pain. She has had these sores for the last year or so. She has also had worsening cough over the last couple of days, but no dyspnea or chest pain. She has also had a sore throat, subjective fever, and chills for the last couple of days. She has recently had some nosebleeds. Pt reports that she has frequent back pain that is worse in the mornings then improves throughout the day for the last 3 years or so, which she relates to her dog sleeping in her bed with her. She also has joint pain in her knees, nothing significant in her hands. Review of Systems Constitutional: + see HPI ENT: + see HPI, + sore throat, + trouble swallowing Respiratory: + see HPI Cardiac: + see HPI Abdomen: No constipation, No diarrhea, No nausea, No pain, No vomiting Musculoskeletal: + joint pain, + muscle pain Female : No dysuria Skin: + see HPI All Other Systems: Reviewed and Negative Objective Vital Signs Date Time Temp Pulse Resp B/P Pulse Ox O2 Delivery O2 Flow Rate FiO2 07/26/16 08:08 36.7 85 16 166/82 93 Room Air 07/26/16 08:05 Room Air 07/26/16 00:15 Room Air 07/25/16 23:06 36.9 88 16 154/89 96 Room Air 07/25/16 18:10 37.5 102 18 147/91 92 Room Air 07/25/16 18:10 37.5 102 18 147/91 92 Room Air 07/25/16 17:11 152/85 07/25/16 17:10 108 20 07/25/16 17:08 110 07/25/16 15:10 107 24 07/25/16 14:44 113 20 154/90 98 Room Air 07/25/16 14:44 154/90 07/25/16 14:40 116 21 07/25/16 13:40 107 27 07/25/16 13:34 107 20 152/81 97 Room Air 07/25/16 13:32 152/81 07/25/16 13:24 97 Room Air 07/25/16 12:49 108 07/25/16 12:40 107 24 96 07/25/16 12:40 97 Room Air Physical Exam General Appearance: WD/WN, no apparent distress ENT: hearing grossly normal, + pertinent finding (Ulcerations underneath the tongue as well as a larger papular lesion on the bottom L tongue. One 0.5 cm papular lesion on the dorsal tongue. Whitish plaque with some adjacent ulceration to the bilateral buccal mucosa. One small ulceration to the mucosa of the hard palate. ) Neck: no JVD Respiratory/Chest: chest non-tender, no respiratory distress, no accessory muscle use, + pertinent finding (Diffuse fine crackles. ) Cardiovascular: regular rate, rhythm, no edema, no gallop, no JVD, + pertinent finding (1/6 systolic murmur best heard at the R upper sternal border) Abdomen: normal bowel sounds, non tender, soft, no organomegaly Extremities: non-tender, no pedal edema, + pertinent finding (No midline spinal tenderness. ) Neurologic/Psychiatric: no motor/sensory deficits, alert, normal mood/affect, + abnormal cerebellar tests Skin: + pallor, + pertinent finding (Two 1 cm papular lesion to the perianal area. ) Laboratory Results Last 24 Hours Test 07/25/16 12:35 07/25/16 12:48 07/25/16 13:32 07/25/16 13:55 Urine Color YELLOW Urine Appearance CLEAR Urine pH 7.5 Urine Specific Glidden 1.002 Urine Protein NEG Urine Glucose (UA) NEG Urine Ketones NEG Urine Occult Blood NEG Urine Nitrite NEG Urine Bilirubin NEG Urine Urobilinogen NEG Urine Leukocyte Esterase NEG White Blood Count 3.94 K/uL Red Blood Count 3.30 M/uL Hemoglobin 10.3 g/dL Hematocrit 31.6 % Mean Corpuscular Volume 95.8 fL Mean Corpuscular Hemoglobin 31.2 pg Mean Corpuscular Hemoglobin Concent 32.6 g/dl Platelet Count 119 K/uL Mean Platelet Volume 10.4 fL Neutrophils (%) (Auto) 73.3 % Lymphocytes (%) (Auto) 18.3 % Monocytes (%) (Auto) 7.6 % Eosinophils (%) (Auto) 0.5 % Basophils (%) (Auto) 0.0 % Neutrophils # (Auto) 2.89 K/uL Lymphocytes # (Auto) 0.72 K/uL Monocytes # (Auto) 0.30 K/uL Eosinophils # (Auto) 0.02 K/uL Basophils # (Auto) 0.00 K/uL RDW Standard Deviation 48.4 fL RDW Coefficient of Variation 14.3 % Immature Granulocyte % (Auto) 0.3 % Immature Granulocyte # (Auto) 0.01 K/uL Sodium Level 141 mmol/L Potassium Level 2.6 mmol/L Chloride Level 99 mmol/L Carbon Dioxide Level 31 mmol/L Anion Gap 11.0 mmol/L Blood Urea Nitrogen 6 mg/dl Creatinine 0.90 mg/dl Est Creatinine Clear Calc Drug Dose 56.9 ml/min Estimated GFR () 76.7 Estimated GFR (Non- 66.2 BUN/Creatinine Ratio 6.8 Random Glucose 88 mg/dl Calcium Level 8.4 mg/dl Total Bilirubin 0.4 mg/dl Direct Bilirubin 0.2 mg/dl Aspartate Amino Transf (AST/SGOT) 28 U/L Alanine Aminotransferase (ALT/SGPT) 29 U/L Alkaline Phosphatase 77 U/L Troponin I < 0.015 ng/ml Total Protein 6.5 gm/dl Albumin 2.7 gm/dl Bedside Glucose 97 mg/dl Influenza Type A Antigen POS for Influ A Influenza Type B Antigen Neg for Influ B Test 07/25/16 14:19 07/25/16 15:00 07/25/16 15:05 07/25/16 21:15 Prothrombin Time 13.1 SECONDS Prothromb Time International Ratio 1.2 Activated Partial Thromboplast Time 25.2 SECONDS Partial Thromboplastin Ratio 1.0 Sodium Level 138 mmol/L Potassium Level 3.2 mmol/L Chloride Level 100 mmol/L Carbon Dioxide Level 29 mmol/L Anion Gap 9.0 mmol/L Blood Urea Nitrogen 5 mg/dl Creatinine 0.80 mg/dl Est Creatinine Clear Calc Drug Dose 64.1 ml/min Estimated GFR () 88.4 Estimated GFR (Non- 76.3 BUN/Creatinine Ratio 6.3 Random Glucose 149 mg/dl Calcium Level 7.6 mg/dl Hepatitis C Antibody Screen NEG Test 07/26/16 08:00 07/26/16 10:55 White Blood Count 2.40 K/uL Red Blood Count 3.58 M/uL Hemoglobin 11.3 g/dL Hematocrit 33.9 % Mean Corpuscular Volume 94.7 fL Mean Corpuscular Hemoglobin 31.6 pg Mean Corpuscular Hemoglobin Concent 33.3 g/dl Platelet Count 130 K/uL Mean Platelet Volume 10.8 fL Neutrophils (%) (Auto) 72.0 % Lymphocytes (%) (Auto) 21.7 % Monocytes (%) (Auto) 6.3 % Eosinophils (%) (Auto) 0.0 % Basophils (%) (Auto) 0.0 % Neutrophils # (Auto) 1.73 K/uL Lymphocytes # (Auto) 0.52 K/uL Monocytes # (Auto) 0.15 K/uL Eosinophils # (Auto) 0.00 K/uL Basophils # (Auto) 0.00 K/uL RDW Standard Deviation 49.5 fL RDW Coefficient of Variation 14.4 % Immature Granulocyte % (Auto) 0.0 % Immature Granulocyte # (Auto) 0.00 K/uL Sodium Level 143 mmol/L Potassium Level 4.0 mmol/L Chloride Level 105 mmol/L Carbon Dioxide Level 29 mmol/L Anion Gap 9.0 mmol/L Blood Urea Nitrogen 7 mg/dl Creatinine 0.82 mg/dl Est Creatinine Clear Calc Drug Dose 62.5 ml/min Estimated GFR () 85.8 Estimated GFR (Non- 74.0 BUN/Creatinine Ratio 8.9 Random Glucose 116 mg/dl Calcium Level 7.9 mg/dl Magnesium Level 2.0 mg/dl Erythrocyte Sedimentation Rate 27 mm/hr C-Reactive Protein 4.54 mg/dl Assessment and Plan Assessment and Plan: Pt is a 66 year old female with a history of Crohn's who presents with hypokalemia, cough, and painful oral and perianal ulcers. 1. Influenza A is positive, which would explain her cough and sore throat. Will treat with Tamiflu as her cough started within the last 48 hours and she is immunosuppressed. Will continue to treat with azithromycin to cover for possible bacterial bronchitis. Herpes and fungal infection are also considered, awaiting HSV results. She is on oral fluconazole to cover for possible fungal infection. 2. Mouth, perineal, vaginal ulcers. Significant w/u was done on prior admission. GI believed that they could be Crohn's mucositis secondary to methotrexate toxicity, so methotrexate and Remacaid were stopped. Dermatology recommended treating with steroids and f/u for biopsy in 1-2 weeks to assess for pemphigoid or pemphigus vulgaris. Behcet syndrome is also on the differential. Fungal vs herpetic lesions are also on the differential diagnosis. Awaiting HSV cultures. Consider adding HIV test. Lila's granulomatosis with polyangiitis was also considered, may add cANCA. ESR and CRP are elevated. Will consult Dr. So of rheumatology to assess for possible autoimmune process. 3. Significant dehydration secondary to patient unable to have oral intake of fluids and food with hypokalemia. Patient has received normal saline with 40 mEq and repeat BMP. Potassium has improved to 4.0. Will continue IV replacement. 4. Pancytopenia - Possible bone marrow suppression secondary to methotrexate use; possible viral, fungal infection and autoimmune diseases. EBV and CMV are pending. It could also be inflammatory state causing bone marrow suppression and combination of marrow toxicity from her methotrexate. We will continue IV steroids and we will follow her blood counts. We will also follow results of C3, C4, and cold agglutinins. Consider adding anti-dsDNA to assess for lupus. 5. History of hypertension. Continue diltiazem, metoprolol. 6. History of Crohn disease. Stop methotrexate and hold Remicade. May need to consult GI for input regarding Crohn induced mucositis and lesions. 7. Deep vein thrombosis prophylaxis with SCDs. We will avoid chemical prophylaxis due to significant risk of bleeding. The patient is a full code. PT, OT evaluation and possible placement is required. 8. Fluids, electrolytes and nutrition. Continue with normal saline with potassium. If patient's nutritional status does not improve within the next 1-2 days, consider NG tube. We will consult nutrition.
[2016-07-26 14:00] VITALS: PULSE 81; O2SAT 96
--- NOTE | 2016-07-26 14:17 | Progress Note ---
Subjective Subjective Date of Service: Jul 26, 2016. Pt evaluation today including: conversation w/ patient, physical exam, chart review, lab review, review of studies, review of inpatient medication list Notes: c/o painful mouth ulcers Problem List Medical Problems: (1) Altered mental status Status: Acute (2) Anemia Status: Acute (3) Bronchitis Status: Acute (4) Dehydration Status: Acute (5) Mouth ulceration Status: Acute (6) Orthostatic hypotension Status: Acute (7) Perineal irritation in female Status: Acute (8) Perineal ulcer Status: Acute Review of Systems Constitutional: No fever ENT: + problem reported (mouth ulcers/tongue ulcers), + trouble swallowing, No hearing loss Respiratory: No cough Cardiac: No chest pain Abdomen: No pain Female : No dysuria Neurologic: No memory loss Psychiatric: No depression symptoms Endo: No fatigue Physical Exam Vital Signs Vital Signs Past 24 Hours: Date Time Temp Pulse Resp B/P Pulse Ox O2 Delivery O2 Flow Rate FiO2 07/26/16 08:08 36.7 85 16 166/82 93 Room Air 07/26/16 08:05 Room Air 07/26/16 00:15 Room Air 07/25/16 23:06 36.9 88 16 154/89 96 Room Air 07/25/16 18:10 37.5 102 18 147/91 92 Room Air 07/25/16 18:10 37.5 102 18 147/91 92 Room Air 07/25/16 17:11 152/85 07/25/16 17:10 108 20 07/25/16 17:08 110 07/25/16 15:10 107 24 07/25/16 14:44 113 20 154/90 98 Room Air 07/25/16 14:44 154/90 07/25/16 14:40 116 21 Physical Exam: General Appearance: WD/WN, no apparent distress Eyes: bilateral eyes normal inspection ENT: hearing grossly normal, + pertinent finding (mouth ulcers/tongue ulcers) Neck: supple, no JVD Respiratory/Chest: chest non-tender, normal breath sounds Cardiovascular: regular rate, rhythm, no gallop Abdomen: normal bowel sounds, soft Extremities: normal range of motion, no pedal edema Neurologic/Psychiatric: alert, oriented x 3 Skin: normal color, warm/dry Medications Medications: Current Inpatient Medications Medications (Trade) Dose Ordered Sig/Shilpi Route Start Time Stop Time Status Last Admin Dose Admin Lidocaine HCl 20 ml 20 ml Q6H PRN MT 07/25/16 14:15 08/24/16 14:14 07/26/16 13:49 20 ML Potassium Chloride 40 meq/ Sodium Chloride 1,020 ml @ 100 mls/hr [id number] IV 07/25/16 18:13 08/24/16 18:12 07/26/16 13:51 100 MLS/HR Folic Acid/Syringe (Folvite Inj/ Syringe) 10 ml @ 5 mls/min QAM IV 07/25/16 18:15 08/24/16 18:14 07/26/16 10:28 5 MLS/MIN Ondansetron HCl (Zofran Inj) 4 mg Q6H PRN IV 07/25/16 14:30 08/24/16 14:29 Potassium Chloride 20 meq 20 meq QAM PO 07/26/16 09:00 08/25/16 08:59 07/26/16 10:03 20 MEQ Azithromycin/ Dextrose (Zithromax IV/D5 250ml) 252.5 ml @ 125 mls/hr DAILY@1800 IV 07/26/16 18:00 08/02/16 17:59 Albuterol (Ventolin Hfa Inhaler) 2 puffs Q6H PRN INH 07/25/16 14:45 08/24/16 14:44 Diazepam (Valium Tab) 5 mg BID PRN PO 07/25/16 14:45 08/24/16 14:44 Diltiazem HCl (TIAzac CAP) 120 mg QAM PO 07/26/16 09:00 08/25/16 08:59 07/26/16 10:05 120 MG Diphenhydramine HCl (Benadryl Cap) 25 mg Q4 PRN PO 07/25/16 14:45 08/24/16 14:44 Escitalopram Oxalate (Lexapro Tab) 20 mg QAM PO 07/26/16 09:00 08/25/16 08:59 07/26/16 10:05 20 MG Hyoscyamine Sulfate (Levsin Tab) 0.125 mg Q6H PRN PO 07/25/16 14:45 08/24/16 14:44 Metoprolol Tartrate (Lopressor Tab) 50 mg BID PO 07/25/16 21:00 08/24/16 20:59 1/5/17 10:04 50 MG Oxycodone HCl (Roxicodone Soln) 5 mg Q4H PRN PO 07/25/16 18:45 08/08/16 18:44 07/26/16 10:28 5 MG Pantoprazole Sodium (Protonix Tab) 40 mg BID PO 07/25/16 21:00 08/24/16 20:59 07/26/16 10:04 40 MG Ranitidine HCl 300 mg 300 mg HS PO 07/25/16 21:00 08/24/16 20:59 07/25/16 21:53 300 MG Methylprednisolone Sodium Succinate/ Syringe (Solu-Medrol IV/ Syringe) 0.64 ml @ 1.5 mls/min Q12@0400,1600 IV 07/26/16 04:00 08/25/16 03:59 07/26/16 03:59 1.5 MLS/MIN Enteral Nutritional Formula (Boost) 1 can TIDM PO 07/25/16 18:00 08/24/16 17:59 07/26/16 10:05 1 CAN Fluconazole (Diflucan Tab) 100 mg QAM PO 07/26/16 09:00 08/25/16 08:59 07/26/16 10:03 100 MG Oseltamivir Phosphate (Tamiflu Cap) 75 mg BID PO 07/25/16 21:00 07/30/16 20:59 07/26/16 10:04 75 MG Laboratory Data Labs: Last 24 Hours Test 07/25/16 14:19 07/25/16 15:00 07/25/16 15:05 07/25/16 21:15 Prothrombin Time 13.1 SECONDS Prothromb Time International Ratio 1.2 Activated Partial Thromboplast Time 25.2 SECONDS Partial Thromboplastin Ratio 1.0 Sodium Level 138 mmol/L Potassium Level 3.2 mmol/L Chloride Level 100 mmol/L Carbon Dioxide Level 29 mmol/L Anion Gap 9.0 mmol/L Blood Urea Nitrogen 5 mg/dl Creatinine 0.80 mg/dl Est Creatinine Clear Calc Drug Dose 64.1 ml/min Estimated GFR () 88.4 Estimated GFR (Non- 76.3 BUN/Creatinine Ratio 6.3 Random Glucose 149 mg/dl Calcium Level 7.6 mg/dl Hepatitis C Antibody Screen NEG Test 07/26/16 08:00 1/5/17 10:55 07/26/16 13:55 07/26/16 14:09 White Blood Count 2.40 K/uL Red Blood Count 3.58 M/uL Hemoglobin 11.3 g/dL Hematocrit 33.9 % Mean Corpuscular Volume 94.7 fL Mean Corpuscular Hemoglobin 31.6 pg Mean Corpuscular Hemoglobin Concent 33.3 g/dl Platelet Count 130 K/uL Mean Platelet Volume 10.8 fL Neutrophils (%) (Auto) 72.0 % Lymphocytes (%) (Auto) 21.7 % Monocytes (%) (Auto) 6.3 % Eosinophils (%) (Auto) 0.0 % Basophils (%) (Auto) 0.0 % Neutrophils # (Auto) 1.73 K/uL Lymphocytes # (Auto) 0.52 K/uL Monocytes # (Auto) 0.15 K/uL Eosinophils # (Auto) 0.00 K/uL Basophils # (Auto) 0.00 K/uL RDW Standard Deviation 49.5 fL RDW Coefficient of Variation 14.4 % Immature Granulocyte % (Auto) 0.0 % Immature Granulocyte # (Auto) 0.00 K/uL Sodium Level 143 mmol/L Potassium Level 4.0 mmol/L Chloride Level 105 mmol/L Carbon Dioxide Level 29 mmol/L Anion Gap 9.0 mmol/L Blood Urea Nitrogen 7 mg/dl Creatinine 0.82 mg/dl Est Creatinine Clear Calc Drug Dose 62.5 ml/min Estimated GFR () 85.8 Estimated GFR (Non- 74.0 BUN/Creatinine Ratio 8.9 Random Glucose 116 mg/dl Calcium Level 7.9 mg/dl Magnesium Level 2.0 mg/dl Erythrocyte Sedimentation Rate 27 mm/hr C-Reactive Protein 4.54 mg/dl Assessment and Plan This is a 66-year-old female who now presents with productive cough with worsening pain in her mouth secondary to oral ulcers. 1. Acute viral bronchitis, influenza A positive, cont on azithromycin to prevent secondary bacterial infection. We will check sputum culture results. No evidence of pneumonia on chest x-ray. Due to her recent immunosuppression, could also have developed herpes or fungal infection. The patient has been started on oral fluconazole, awaiting HIV and HCV cultures. 2. Mouth, perineal, vaginal ulcers. Extensive workup was done on previous admissions. 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 Then the differential diagnosis included versus pemphigoid or pemphigus vulgaris. Dermatology was consulted who recommended prednisone taper on last admission and then biopsy in 1-2 weeks. [facility] that were incon[facility]. Also on differential diagnosis includes fungal versus herpetic lesions. We are waiting for HIV/HCV culture results as well as continue patient on fluconazole orally daily. Consult rheumatology, Continue symptomatic treatment with viscous lidocaine and oral Roxicodone in addition to magic mouthwash. ESR and CRP are elevated, Can`t rule out Halbur`s, ANCA/DAVID is pending from previous admission. Check SI joints 3 views rule out ankylosing spondylitis. 3. Significant dehydration secondary to patient unable to have oral intake of fluids and food with hypokalemia. Continue on normal saline with 40 mEq, potassium improved 4. Possible bone marrow suppression secondary to methotrexate use; possible viral, fungal infection and autoimmune diseases. Her EBV and CMV are pending. It could also be inflammatory state causing bone marrow suppression and combination of marrow toxicity from her methotrexate. We will continue IV steroids and we will follow her blood counts. We will also follow results from previous admission (1 week ago) that are still pending. 5. History of hypertension. Continue diltiazem, metoprolol. 6. History of Crohn disease. Stop methotrexate and hold Remicade. May need to consult GI for input regarding Crohn induced mucositis and lesions. (see previous admission GI consult) 7. Deep vein thrombosis prophylaxis with SCDs. We will avoid chemical prophylaxis due to significant risk of bleeding. The patient is a full code. PT, OT evaluation and possible placement is required. 8. Fluids, electrolytes and nutrition. Continue with normal saline with potassium. If patient's nutritional status does not improve within the next 1-2 days, consider NG tube. consulted nutrition. Started BOOST TID with meals
[2016-07-26 15:17] VITALS: BP 156/91; PULSE 83; TEMP 36.9; O2SAT 95
--- NOTE | 2016-07-26 15:22 | DIAGNOSTIC IMAGING REPORT ---
SI JOINTS 3 OR MORE VIEWS CLINICAL HISTORY: Ankylosing spondylitis. COMPARISON STUDY: Lumbar spine radiograph February 15, 2014. FINDINGS: The sacroiliac joints are intact without evidence for ankylosis. There is mild arthritis of both sacroiliac joints. No fracture or suspicious lesion is identified within the sacrum on these projections. IMPRESSION: 1. No ankylosis of the sacroiliac joints identified. 2. Mild arthritis of the bilateral sacroiliac joints. Electronically signed by: Xander Guzman M.D. 07/26/2016 3:20 PM Dictated Date/Time: 07/26/2016 3:17 PM
[2016-07-26 15:24] LABS: FERRITIN 88.4 ng/ml (8.0-388.0)
--- NOTE | 2016-07-26 16:48 | Rheumatology Consultation ---
Rheumatology Consultation Date of Consultation: Jul 26, 2016. Requesting Physician: Dr Beasley Attending Physician: Dr Beasley Reason for Consultation: oral and vaginal/perianal ulcers in setting of crohn's, immunosuppression History of Present Illness Mini Reardon is a 66 y/o female with known crohn's on remicade and MTX for the last several yrs through Dr Khan's office. She states that she has only been on these medications the last 2-3 yrs. She was started on these once she transitioned from Dr North to Dr Khan. She reports that she has been dealing with mouth ulcers for the last 1 yr that have been coming and going and seem to be more painful as of late. she also has noted vaginal and perianal ulcers as well over the last 6 months. she was seen by dentistry in [place] at [facility] for the oral ulcers and underwent 3 different biopsies in April and these showed no inflammatory infiltrate and consistent with aphthous ulcers. She reports she last took MTX (which is 7.5mg) in late june and her last remicade dose was 07/09. she came to [facility] late june for these mouth ulcers and had extensive work up and was seen by GI and ID. Dr Dejesus of GI noted that on most recent colonoscopy her crohn;s was controlled - they possibility of behcet's was raised. she also had several autoimmune labs ordered that are still pending. also during that hospital stay it was noted her WBC was down and the possibility of MTX toxicity was raised as the cause of both the ulcers and dropped in WBC. she was discharged home and came back the next day given the worsening mouth ulcers. she was seen by dermatology during her first stay and Dr Zhu favored crohn's related vs MTX induced. I also spoke with Dr Zhu this am about Mrs Reardon. Dr Zhu is going to arrange an out patient follow up and possible repeat biopsy in the next 1-2 weeks. It was noted at admission that Mrs Reardon was + for Flu A. she denies any family history of autoimmune diseases. she reports that she is pretty healthy other than crohn's for 37 yrs. denies any fevers, night sweats, weight loss, CP, SOB. her bowels are doing well. she denies any hematuria. she denies any rashes. no pathergy. she is currently on a liquid diet and it still causes some pain for her. she is on steroids that seem to be helping more the groin ulcers then mouth. she also reports some right sided nasal am bloody discharge over the last 6 months. she is not using folic acid with her MTX and has not done so for at least 6 months. no side effects the day she takes MTX or after - denies fatigue, nausea, thinning of hair, etc. she reports some back pain but relates that to sleeping with her 2 y/o puppy and rough housing with it as well. denies any history of uveitis, enthesits, synovitis or dactylitis. in reviewing last admission UA had some RBC's 10-30, hep C negative. ESR this time is 24 but unchanged over the last few years. Past Medical/Surgical History Medical History: colitis (crohn's), other (chronic immunosuppression) Surgical History: colonoscopy Family History parents young - mom DUC at age 42, father was killed at age 38. no family history of autoimmune diseases Social History Smoking Status: Never Smoker History of Alcohol Use: No Marital Status: Housing Status: lives alone Occupation Status: unemployed Review of Systems Constitutional: No chills, No fever, No sweats, No weight loss Eyes: + see HPI ENT: + see HPI Respiratory: No cough, No shortness of breath Cardiac: No chest pain, No edema Abdomen: No nausea, No pain Musculoskeletal: + see HPI Female : + see HPI Skin: + see HPI Allergies Coded Allergies: Ciprofloxacin (Unverified Allergy, Severe, hives, 07/25/16) Sulfa Antibiotics (Verified Allergy, Severe, HIVES AND SOB, 07/25/16) Lactose (Verified Allergy, Unknown, 07/25/16) Mesalamine (Verified Allergy, Unknown, 07/25/16) Medications Current Inpatient Medications Medications (Trade) Dose Ordered Sig/Sihlpi Route Start Time Stop Time Status Last Admin Dose Admin Lidocaine HCl 20 ml 20 ml Q6H PRN MT 07/25/16 14:15 08/24/16 14:14 07/26/16 13:49 20 ML Potassium Chloride 40 meq/ Sodium Chloride 1,020 ml @ 100 mls/hr [id number] IV 07/25/16 18:13 08/24/16 18:12 07/26/16 13:51 100 MLS/HR Folic Acid/Syringe (Folvite Inj/ Syringe) 10 ml @ 5 mls/min QAM IV 07/25/16 18:15 08/24/16 18:14 07/26/16 10:28 5 MLS/MIN Ondansetron HCl (Zofran Inj) 4 mg Q6H PRN IV 07/25/16 14:30 08/24/16 14:29 Potassium Chloride 20 meq 20 meq QAM PO 07/26/16 09:00 08/25/16 08:59 07/26/16 10:03 20 MEQ Azithromycin/ Dextrose (Zithromax IV/D5 250ml) 252.5 ml @ 125 mls/hr DAILY@1800 IV 07/26/16 18:00 08/02/16 17:59 Albuterol (Ventolin Hfa Inhaler) 2 puffs Q6H PRN INH 07/25/16 14:45 08/24/16 14:44 Diazepam (Valium Tab) 5 mg BID PRN PO 07/25/16 14:45 08/24/16 14:44 Diltiazem HCl (TIAzac CAP) 120 mg QAM PO 07/26/16 09:00 08/25/16 08:59 07/26/16 10:05 120 MG Diphenhydramine HCl (Benadryl Cap) 25 mg Q4 PRN PO 07/25/16 14:45 08/24/16 14:44 Escitalopram Oxalate (Lexapro Tab) 20 mg QAM PO 07/26/16 09:00 08/25/16 08:59 07/26/16 10:05 20 MG Hyoscyamine Sulfate (Levsin Tab) 0.125 mg Q6H PRN PO 07/25/16 14:45 08/24/16 14:44 Metoprolol Tartrate (Lopressor Tab) 50 mg BID PO 07/25/16 21:00 08/24/16 20:59 07/26/16 10:04 50 MG Oxycodone HCl (Roxicodone Soln) 5 mg Q4H PRN PO 07/25/16 18:45 08/08/16 18:44 07/26/16 15:59 5 MG Pantoprazole Sodium (Protonix Tab) 40 mg BID PO 07/25/16 21:00 08/24/16 20:59 07/26/16 10:04 40 MG Ranitidine HCl 300 mg 300 mg HS PO 07/25/16 21:00 08/24/16 20:59 07/25/16 21:53 300 MG Methylprednisolone Sodium Succinate/ Syringe (Solu-Medrol IV/ Syringe) 0.64 ml @ 1.5 mls/min Q12@0400,1600 IV 07/26/16 04:00 08/25/16 03:59 07/26/16 03:59 1.5 MLS/MIN Enteral Nutritional Formula (Boost) 1 can TIDM PO 07/25/16 18:00 08/24/16 17:59 07/26/16 10:05 1 CAN Fluconazole (Diflucan Tab) 100 mg QAM PO 07/26/16 09:00 08/25/16 08:59 07/26/16 10:03 100 MG Oseltamivir Phosphate (Tamiflu Cap) 75 mg BID PO 07/25/16 21:00 07/30/16 20:59 07/26/16 10:04 75 MG Physical Exam Date Time Temp Pulse Resp B/P Pulse Ox O2 Delivery O2 Flow Rate FiO2 07/26/16 15:17 36.9 83 16 156/91 95 Room Air 07/26/16 14:00 81 96 07/26/16 08:08 36.7 85 16 166/82 93 Room Air 07/26/16 08:05 Room Air 07/26/16 00:15 Room Air 07/25/16 23:06 36.9 88 16 154/89 96 Room Air 07/25/16 18:10 37.5 102 18 147/91 92 Room Air 07/25/16 18:10 37.5 102 18 147/91 92 Room Air 07/25/16 17:11 152/85 07/25/16 17:10 108 20 07/25/16 17:08 110 General Appearance: WD/WN, no apparent distress Eyes: bilateral eyes EOMI, bilateral eyes normal inspection ENT: hearing grossly normal, + pertinent finding (biopsy site noted left tongue , small ulcers noted hard palate, right side of tongue, right lower lip) Neck: supple, no adenopathy, trachea midline Respiratory: chest non-tender, lungs clear, normal breath sounds, no accessory muscle use Cardiovascular: regular rate, rhythm, no gallop, no murmur Abdomen: normal bowel sounds, non tender, soft, no organomegaly Musculoskeletal: no synovitis or effusions no dactylitis or enthesitis Skin: + pertinent finding (brusiing and healing ulcers on abdomen from heparin injections.) Lymphatic: no adenopathy Laboratory Results Last 24 Hours Test 07/25/16 21:15 07/26/16 08:00 07/26/16 10:55 07/26/16 14:31 Sodium Level 138 mmol/L 143 mmol/L Potassium Level 3.2 mmol/L 4.0 mmol/L Chloride Level 100 mmol/L 105 mmol/L Carbon Dioxide Level 29 mmol/L 29 mmol/L Anion Gap 9.0 mmol/L 9.0 mmol/L Blood Urea Nitrogen 5 mg/dl 7 mg/dl Creatinine 0.80 mg/dl 0.82 mg/dl Est Creatinine Clear Calc Drug Dose 64.1 ml/min 62.5 ml/min Estimated GFR () 88.4 85.8 Estimated GFR (Non- 76.3 74.0 BUN/Creatinine Ratio 6.3 8.9 Random Glucose 149 mg/dl 116 mg/dl Calcium Level 7.6 mg/dl 7.9 mg/dl Hepatitis C Antibody Screen NEG White Blood Count 2.40 K/uL Red Blood Count 3.58 M/uL Hemoglobin 11.3 g/dL Hematocrit 33.9 % Mean Corpuscular Volume 94.7 fL Mean Corpuscular Hemoglobin 31.6 pg Mean Corpuscular Hemoglobin Concent 33.3 g/dl Platelet Count 130 K/uL Mean Platelet Volume 10.8 fL Neutrophils (%) (Auto) 72.0 % Lymphocytes (%) (Auto) 21.7 % Monocytes (%) (Auto) 6.3 % Eosinophils (%) (Auto) 0.0 % Basophils (%) (Auto) 0.0 % Neutrophils # (Auto) 1.73 K/uL Lymphocytes # (Auto) 0.52 K/uL Monocytes # (Auto) 0.15 K/uL Eosinophils # (Auto) 0.00 K/uL Basophils # (Auto) 0.00 K/uL RDW Standard Deviation 49.5 fL RDW Coefficient of Variation 14.4 % Immature Granulocyte % (Auto) 0.0 % Immature Granulocyte # (Auto) 0.00 K/uL Magnesium Level 2.0 mg/dl Erythrocyte Sedimentation Rate 27 mm/hr C-Reactive Protein 4.54 mg/dl Absolute Reticulocyte Count 0.12 10^6/uL Percent Reticulocyte Count 3.4 % Iron Level 31 mcg/dl Total Iron Binding Capacity 224 mcg/dl Ferritin 88.4 ng/ml HIV (1&2) Ab and P24 Ag, 4th Gener NEG Assessment & Plan Assessment & Plan: Assessment: Mrs Reardon is a 66 y/o female with crohn's on chronic immunosuppression that has been dealing with oral and vaginal/perianal ulcers fro the last 1 yr and was diagnosed with Flu type A at admission. Her mouth biopsies were non-inflammatory but unfortunately this does not differentiate from behcet's or aphthous ulcers of other causes. Her history and exam is not consistent with bjorn's or behcet's and I would favor either toxicity from MTX (especially given lac of use of folic acid) or related to her underlying crohn's. Her nasal bleed could easily be form a mucosal ulcer (I did not see one on my limited exam) from the MTX toxicity. I agree with prednisone for treatment, stopping MTX indefinitely and following. will await other autoimmune testing from last visit and this one but would expect them to be fine. I did explain to her and her son that it may take weeks for the ulcers to resolve once of MTX> I also discussed case with Dr Beasley. Plan: 1. stop MTX and do not restart - will discuss with Dr Khan 2. Likely will be able to resume remicade at next dosing 3. Agree with steroids and taper and discharge with same taper from last admission 4. await for outpatinet dermatology appt and possible repeat biopsies pending course 5. I will arrange outpatient rheumatology appt with me as well in the upcoming weeks 6. Thank you for the consult and involving me in this patient's care
[2016-07-26] MEDS: AZITHROMYCIN IV 250 MG in DEXTROSE 5% 250ML 250 ML IV SCH (18:06)
[2016-07-26 19:30] VITALS: O2SAT 95
[2016-07-26] MEDS: RANITIDINE HCL 150 MG TAB PO SCH (20:28)
[2016-07-26 23:26] VITALS: BP 154/88; PULSE 70; TEMP 36.6; O2SAT 93
[2016-07-26] MEDS: DIAZEPAM 5MG TAB PO PRN (23:30)
[2016-07-27] MEDS: METHYLPREDNISOLONE IV 40 MG in SYRINGE 0 ML IV SCH ×2 (04:19→15:52)
[2016-07-27] MEDS: LIDOCAINE HCL 2% VISC SOLN 20 ML UDC MT PRN (04:19)
[2016-07-27 08:04] VITALS: BP 164/106; PULSE 89; TEMP 37.4; O2SAT 95
[2016-07-27 08:22] LABS: COMPLETE YES; HEMATOCRIT 30.7 % (37-47); LYMPH % 23.9 %; LYMPH ABS # 0.84 K/uL (1.2-3.4); MEAN CELL VOLUME 94.8 fL (80-100); MEAN CORPUSCULAR HEMOGLOBIN 31.8 pg (25-34); MEAN CORPUSCULAR HGB CONC 33.6 g/dl (32-36); MEAN PLATELET VOLUME 10.2 fL (7.4-10.4); MONO % 14.8 %; NEUT % 61.3 %; PLATELET COUNT 165 K/uL (130-400); RED BLOOD COUNT 3.24 M/uL (4.2-5.4); WHITE BLOOD COUNT 3.52 K/uL (4.8-10.8)
[2016-07-27] MEDS: BOOST VANILLA PO SCH ×6 (08:30→17:45)
[2016-07-27 08:46] LABS: BUN/CREATININE RATIO 12.4 (10-20); CALCIUM 7.9 mg/dl (8.5-10.1); CREATININE 0.63 mg/dl (0.60-1.20); MAGNESIUM 1.8 mg/dl (1.8-2.4)
[2016-07-27] MEDS: FLUCONAZOLE 100 MG TAB PO SCH (08:47)
[2016-07-27] MEDS: METOPROLOL TARTRATE 50 MG TAB PO SCH ×2 (08:48→20:01)
[2016-07-27] MEDS: OSELTAMIVIR PHOSPHATE 75 MG CAP PO SCH ×2 (08:48→20:01)
[2016-07-27] MEDS: ESCITALOPRAM OXALATE 20 MG TAB PO SCH (08:48)
[2016-07-27] MEDS: PANTOprazole SOD 40 MG TAB PO SCH ×2 (08:49→20:01)
[2016-07-27] MEDS: DILTIAZEM HCL 120 MG EXT REL CAP PO SCH (08:50)
[2016-07-27] MEDS: POTASSIUM CHLORIDE 20 MEQ/15 ML UDC PO SCH (08:51)
[2016-07-27] MEDS: FoLIC ACID INJ 1 MG in SYRINGE 9.8 ML IV SCH (09:42)
[2016-07-27] MEDS: DIAZEPAM 5MG TAB PO PRN (09:42)
--- NOTE | 2016-07-27 09:43 | Medical Student: [facility] ---
Med Student Progress Note Date of Service Jul 27, 2016. Subjective Pt evaluation today including: conversation w/ patient, physical exam, chart review, lab review, review of studies Pt is a 66 year old female with a history of Crohn's disease who is admitted for cough, hypokalemia, and painful oral and perianal sores. She reports worsening of the mouth and lip pain from the sores, now up to 8/10. She has been tolerating liquid diet well, but has not tried solid foods due to the pain. Her perianal sores are not as painful today. Her cough seemed to worsen last night, but has improved somewhat this morning. She only has dyspnea after coughing. She c/o sore throat secondary to cough. She has been able to walk to the restroom without difficulty. Review of Systems Constitutional: No fever ENT: + see HPI Respiratory: + see HPI Cardiac: No chest pain, No edema, No orthopnea Abdomen: + diarrhea, No nausea, No pain, No vomiting Musculoskeletal: + joint pain Female : No dysuria All Other Systems: Reviewed and Negative Objective Vital Signs Date Time Temp Pulse Resp B/P Pulse Ox O2 Delivery O2 Flow Rate FiO2 07/27/16 08:04 37.4 89 18 164/106 95 Room Air 07/26/16 23:26 36.6 70 16 154/88 93 Room Air 07/26/16 19:30 95 Room Air 07/26/16 15:17 36.9 83 16 156/91 95 Room Air 07/26/16 14:00 81 96 Physical Exam General Appearance: WD/WN, no apparent distress Eyes: bilateral eyes EOMI, bilateral eyes normal inspection ENT: hearing grossly normal, + pertinent finding (Ulcerations underneath the tongue as well as a larger papular lesion on the bottom L tongue. One 0.5 cm papular lesion on the dorsal tongue. Whitish plaque with some adjacent ulceration to the bilateral buccal mucosa. One small ulceration to the mucosa of the hard palate) Neck: no JVD Respiratory/Chest: chest non-tender, no respiratory distress, no accessory muscle use, + pertinent finding (Diffuse fine crackles. ) Cardiovascular: regular rate, rhythm, no edema, no gallop, no JVD, no murmur Abdomen: normal bowel sounds, non tender, soft Extremities: no pedal edema, normal capillary refill Neurologic/Psychiatric: no motor/sensory deficits, alert, normal mood/affect, oriented x 3 Skin: + pallor Laboratory Results Last 24 Hours Test 07/26/16 10:55 07/26/16 14:31 07/27/16 07:50 Erythrocyte Sedimentation Rate 27 mm/hr C-Reactive Protein 4.54 mg/dl Absolute Reticulocyte Count 0.12 10^6/uL Percent Reticulocyte Count 3.4 % Iron Level 31 mcg/dl Total Iron Binding Capacity 224 mcg/dl Ferritin 88.4 ng/ml HIV (1&2) Ab and P24 Ag, 4th Gener NEG White Blood Count 3.52 K/uL Red Blood Count 3.24 M/uL Hemoglobin 10.3 g/dL Hematocrit 30.7 % Mean Corpuscular Volume 94.8 fL Mean Corpuscular Hemoglobin 31.8 pg Mean Corpuscular Hemoglobin Concent 33.6 g/dl Platelet Count 165 K/uL Mean Platelet Volume 10.2 fL Neutrophils (%) (Auto) 61.3 % Lymphocytes (%) (Auto) 23.9 % Monocytes (%) (Auto) 14.8 % Eosinophils (%) (Auto) 0.0 % Basophils (%) (Auto) 0.0 % Neutrophils # (Auto) 2.16 K/uL Lymphocytes # (Auto) 0.84 K/uL Monocytes # (Auto) 0.52 K/uL Eosinophils # (Auto) 0.00 K/uL Basophils # (Auto) 0.00 K/uL RDW Standard Deviation 50.0 fL RDW Coefficient of Variation 14.6 % Immature Granulocyte % (Auto) 0.0 % Immature Granulocyte # (Auto) 0.00 K/uL Sodium Level 142 mmol/L Potassium Level 4.0 mmol/L Chloride Level 107 mmol/L Carbon Dioxide Level 27 mmol/L Anion Gap 8.0 mmol/L Blood Urea Nitrogen 8 mg/dl Creatinine 0.63 mg/dl Est Creatinine Clear Calc Drug Dose 81.3 ml/min Estimated GFR () 107.6 Estimated GFR (Non- 92.8 BUN/Creatinine Ratio 12.4 Random Glucose 104 mg/dl Calcium Level 7.9 mg/dl Magnesium Level 1.8 mg/dl Medications Medications Administered Medications (Trade) Dose Ordered Sig/Shilpi Route Start Time Stop Time Status Last Admin Dose Admin Sodium Chloride (Nss 1000ml) 1,000 ml @ 999 mls/hr Q1H1M STAT IV 07/25/16 13:19 07/25/16 14:19 DC 07/25/16 13:26 999 MLS/HR Potassium Chloride (Klor-Con M10) 40 meq NOW STAT PO 07/25/16 14:09 07/25/16 14:36 DC 07/25/16 14:46 40 MEQ Lidocaine HCl 20 ml 20 ml Q6H PRN MT 07/25/16 14:15 08/24/16 14:14 07/27/16 04:19 20 ML Azithromycin 500 mg/Dextrose 255 ml @ 125 mls/hr TODAY@1815 IV 07/25/16 18:15 07/25/16 20:00 DC 07/25/16 18:50 125 MLS/HR Methylprednisolone Sodium Succinate 60 mg/Syringe 0.96 ml @ 1.5 mls/min TODAY@1445 IV 07/25/16 14:45 07/25/16 15:30 DC 07/25/16 15:19 1.5 MLS/MIN Potassium Chloride 40 meq/ Sodium Chloride 1,020 ml @ 100 mls/hr [id number] IV 07/25/16 18:13 08/24/16 18:12 07/26/16 23:34 100 MLS/HR Folic Acid/Syringe (Folvite Inj/ Syringe) 10 ml @ 5 mls/min QAM IV 07/25/16 18:15 08/24/16 18:14 07/27/16 09:42 5 MLS/MIN Potassium Chloride 20 meq 20 meq QAM PO 07/26/16 09:00 08/25/16 08:59 07/27/16 08:51 20 MEQ Azithromycin/ Dextrose (Zithromax IV/D5 250ml) 252.5 ml @ 125 mls/hr DAILY@1800 IV 07/26/16 18:00 08/02/16 17:59 07/26/16 18:06 125 MLS/HR Diazepam (Valium Tab) 5 mg BID PRN PO 07/25/16 14:45 08/24/16 14:44 07/27/16 09:42 5 MG Diltiazem HCl (TIAzac CAP) 120 mg QAM PO 07/26/16 09:00 08/25/16 08:59 07/27/16 08:50 120 MG Escitalopram Oxalate (Lexapro Tab) 20 mg QAM PO 07/26/16 09:00 08/25/16 08:59 07/27/16 08:48 20 MG Metoprolol Tartrate (Lopressor Tab) 50 mg BID PO 07/25/16 21:00 08/24/16 20:59 07/27/16 08:48 50 MG Oxycodone HCl (Roxicodone Soln) 5 mg Q4H PRN PO 07/25/16 18:45 08/08/16 18:44 07/27/16 09:44 5 MG Pantoprazole Sodium (Protonix Tab) 40 mg BID PO 07/25/16 21:00 08/24/16 20:59 07/27/16 08:49 40 MG Ranitidine HCl 300 mg 300 mg HS PO 07/25/16 21:00 08/24/16 20:59 07/26/16 20:28 300 MG Methylprednisolone Sodium Succinate/ Syringe (Solu-Medrol IV/ Syringe) 0.64 ml @ 1.5 mls/min Q12@0400,1600 IV 07/26/16 04:00 08/25/16 03:59 07/27/16 04:19 1.5 MLS/MIN Enteral Nutritional Formula (Boost) 1 can TIDM PO 07/25/16 18:00 08/24/16 17:59 07/26/16 18:06 1 CAN Potassium Chloride (Kcl 10 Meq / Wtr) 20 meq STK-MED ONCE IV 07/25/16 14:42 07/25/16 14:43 DC 07/25/16 14:46 20 MEQ Fluconazole (Diflucan Tab) 100 mg QAM PO 07/26/16 09:00 08/25/16 08:59 07/27/16 08:47 100 MG Fluconazole (Diflucan Tab) 200 mg ONE ONCE PO 07/25/16 18:17 07/25/16 18:19 DC 07/25/16 18:51 200 MG Oseltamivir Phosphate (Tamiflu Cap) 75 mg BID PO 07/25/16 21:00 07/30/16 20:59 07/27/16 08:48 75 MG Acetaminophen (Tylenol Tab) 650 mg STK-MED ONCE .ROUTE 07/25/16 21:48 07/25/16 21:50 DC 07/25/16 21:54 650 MG Assessment and Plan Assessment and Plan: Pt is a 66 year old female with a history of Crohn's who presents with hypokalemia, cough, and painful oral and perianal ulcers. 1. Influenza A is positive, which would explain her cough and sore throat. Continue Tamiflu. Will continue to treat with azithromycin to cover for possible bacterial bronchitis. Herpes and fungal infection are also considered, awaiting HSV results. She is on oral fluconazole to cover for possible fungal infection. 2. Mouth, perineal, vaginal ulcers. Dr. Johnson of Rheumatology consulted yesterday and felt that the ulcers were most likely secondary to methotrexate toxicity, especially since she has not been on folic acid, with Crohn's as a second possibility. Autoimmune tests are still pending. HIV was negative. Dr. Johnson recommended continuing to hold the methotrexate and outpatient f/u to further assess for the need for repeat biopsy, and Dr. Johnson will discuss with Dr. Valadez. Will continue steroids with a taper on discharge and plan for outpatient f/u with Rheumatology in a few weeks. It was discussed that the ulcers may still take weeks to months to resolve. Will also continue lidocaine solution for pain. 3. Significant dehydration secondary to poor oral intake of fluids and food with hypokalemia. Patient has received normal saline with 40 mEq potassium and repeat BMP. Potassium has improved to 4.0. Will continue IV replacement with a plan for PO supplements at discharge. Plan to recheck BMP after discharge. If it persists, consider 24 hour urinary potassium excretion level. 4. Pancytopenia - Hem/onc consulted during her last admission and feels it is likely secondary to methotrexate use. Reticulocyte count is elevated, speaking against a myelodysplastic process. EBV and CMV are pending, as well as C3, C4, and cold agglutinins. Will continue to monitor CBC. 5. History of hypertension. BP was elevated this morning, but prior to receiving her medications. Continue diltiazem, metoprolol. 6. History of Crohn disease. Stop methotrexate and hold Remicade. May need to consult GI for input regarding Crohn induced mucositis and lesions. 7. Deep vein thrombosis prophylaxis with SCDs. We will avoid chemical prophylaxis due to significant risk of bleeding. 8. Fluids, electrolytes and nutrition. Continue with normal saline with potassium. Nutrition met with the pt yesterday and discussed the possibility of NG tube, which the pt says she is not at all interested in as her required tube feedings and she does not want to go through that. The patient is a full code. PT, OT evaluation and possible placement is required. Reviewed: Pt Seen/Exam by Me History See my note for details. Assessment/Plan This is a 66-year-old female who now presents with productive cough with worsening pain in her mouth secondary to oral ulcers. Acute viral bronchitis, influenza A positive: cont on azithromycin to prevent secondary bacterial infection. No evidence of pneumonia on chest x-ray. Due to her recent immunosuppression, could also have developed herpes or fungal infection. The patient has been started on oral fluconazole HIV and HCV neg Mouth, perineal, vaginal ulcers. Extensive workup was done on previous admissions. 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 Dermatology was consulted who recommended prednisone taper on last admission and then biopsy in 1-2 weeks. [email or web address]. Also on differential diagnosis includes fungal versus herpetic lesions. Rheum feels lesions are related to methotrexate and recs for d/c, can continue with remicade when it is due, steroid taper and office f/u in 2 weeks Continue symptomatic treatment with viscous lidocaine and oral Roxicodone in addition to magic mouthwash. ESR and CRP are elevated, Can`t rule out [place]`s, ANCA/DAVID is pending from previous admission. 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 Continue on normal saline with 40 mEq, potassium improved Pt declines NG TF due to having watched her with a PEG. I did discuss the difference at length and she continues to refuse Advance diet per pt request Possible bone marrow suppression secondary to methotrexate use; possible viral, fungal infection and autoimmune diseases. Her EBV and CMV are neg. It could also be inflammatory state causing bone marrow suppression and combination of marrow toxicity from her methotrexate. We will continue IV steroids and we will follow her blood counts. We will also follow results from previous admission (1 week ago) that are still pending. History of hypertension. Continue diltiazem, metoprolol. History of Crohn disease. Stop methotrexate and hold Remicade. May need to consult GI for input regarding Crohn induced mucositis and lesions. (see previous admission GI consult) Deep vein thrombosis prophylaxis with SCDs. We will avoid chemical prophylaxis due to significant risk of bleeding. The patient is a full code. PT, OT evaluation rec for home Fluids, electrolytes and nutrition. Continue with normal saline with potassium. If patient's nutritional status does not improve within the next 1-2 days, consider NG tube. consulted nutrition. Started BOOST TID with meals
[2016-07-27] MEDS: OXYCODONE HCL SOLN 5 MG/5 ML UDC PO PRN ×2 (09:44→20:01)
[2016-07-27] MEDS: POTASSIUM CHLORIDE INJ 40 MEQ in SODIUM CHLORIDE 0.9% 1000ML 1,000 ML IV SCH ×2 (12:16→21:20)
--- NOTE | 2016-07-27 14:31 | Progress Note ---
Subjective Date of Service: Jul 27, 2016. Subjective Pt evaluation today including: conversation w/ patient, chart review, lab review Pt is feeling improved. She still has pain related to her oral and ulcers, but it is better. She would like to try something more substantial to eat. She declines NG TF, even after extensive discussion regarding its difference from a PEG TF. Pt denies fever, SOB, chest pain, abd pain, n/v/c/d, LE pain or swelling. ROS as noted above, otherwise neg. Problem List Medical Problems: (1) Altered mental status Status: Acute (2) Anemia Status: Acute (3) Bronchitis Status: Acute (4) Dehydration Status: Acute (5) Mouth ulceration Status: Acute (6) Orthostatic hypotension Status: Acute (7) Perineal irritation in female Status: Acute (8) Perineal ulcer Status: Acute Objective Vital Signs Date Time Temp Pulse Resp B/P Pulse Ox O2 Delivery O2 Flow Rate FiO2 07/27/16 08:10 Room Air 07/27/16 08:04 37.4 89 18 164/106 95 Room Air 07/26/16 23:26 36.6 70 16 154/88 93 Room Air 07/26/16 19:30 95 Room Air 07/26/16 15:17 36.9 83 16 156/91 95 Room Air Physical Exam General Appearance: WD/WN, no apparent distress ENT: + pertinent finding (Ulcerations underneath the tongue as well as a larger papular lesion on the bottom L tongue. One 0.5 cm papular lesion on the dorsal tongue. Whitish plaque with some adjacent ulceration to the bilateral buccal mucosa. Small ulceration to the mucosa of the hard palate) Respiratory/Chest: normal breath sounds, no respiratory distress Cardiovascular: regular rate, rhythm, no edema Abdomen: non tender, soft Extremities: non-tender, no pedal edema Neurologic/Psychiatric: alert, oriented x 3 Skin: normal color, warm/dry Laboratory Results Last 24 Hours Test 07/26/16 14:31 07/27/16 07:50 Absolute Reticulocyte Count 0.12 10^6/uL Percent Reticulocyte Count 3.4 % Iron Level 31 mcg/dl Total Iron Binding Capacity 224 mcg/dl Ferritin 88.4 ng/ml HIV (1&2) Ab and P24 Ag, 4th Gener NEG White Blood Count 3.52 K/uL Red Blood Count 3.24 M/uL Hemoglobin 10.3 g/dL Hematocrit 30.7 % Mean Corpuscular Volume 94.8 fL Mean Corpuscular Hemoglobin 31.8 pg Mean Corpuscular Hemoglobin Concent 33.6 g/dl Platelet Count 165 K/uL Mean Platelet Volume 10.2 fL Neutrophils (%) (Auto) 61.3 % Lymphocytes (%) (Auto) 23.9 % Monocytes (%) (Auto) 14.8 % Eosinophils (%) (Auto) 0.0 % Basophils (%) (Auto) 0.0 % Neutrophils # (Auto) 2.16 K/uL Lymphocytes # (Auto) 0.84 K/uL Monocytes # (Auto) 0.52 K/uL Eosinophils # (Auto) 0.00 K/uL Basophils # (Auto) 0.00 K/uL RDW Standard Deviation 50.0 fL RDW Coefficient of Variation 14.6 % Immature Granulocyte % (Auto) 0.0 % Immature Granulocyte # (Auto) 0.00 K/uL Sodium Level 142 mmol/L Potassium Level 4.0 mmol/L Chloride Level 107 mmol/L Carbon Dioxide Level 27 mmol/L Anion Gap 8.0 mmol/L Blood Urea Nitrogen 8 mg/dl Creatinine 0.63 mg/dl Est Creatinine Clear Calc Drug Dose 81.3 ml/min Estimated GFR () 107.6 Estimated GFR (Non- 92.8 BUN/Creatinine Ratio 12.4 Random Glucose 104 mg/dl Calcium Level 7.9 mg/dl Magnesium Level 1.8 mg/dl Assessment and Plan This is a 66-year-old female who now presents with productive cough with worsening pain in her mouth secondary to oral ulcers. Acute viral bronchitis, influenza A positive: cont on azithromycin to prevent secondary bacterial infection. No evidence of pneumonia on chest x-ray. Due to her recent immunosuppression, could also have developed herpes or fungal infection. The patient has been started on oral fluconazole HIV and HCV neg Mouth, perineal, vaginal ulcers. Extensive workup was done on previous admissions. 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 Dermatology was consulted who recommended prednisone taper on last admission and then biopsy in 1-2 weeks. The patient had the biopsy done with [facility] with results that were inconclusive. Also on differential diagnosis includes fungal versus herpetic lesions. Rheum feels lesions are related to methotrexate and recs for d/c, can continue with remicade when it is due, steroid taper and office f/u in 2 weeks Continue symptomatic treatment with viscous lidocaine and oral Roxicodone in addition to magic mouthwash. ESR and CRP are elevated, Can`t rule out [place]`s, ANCA/DAVID is pending from previous admission. 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 Continue on normal saline with 40 mEq, potassium improved Pt declines NG TF due to having watched her with a PEG. I did discuss the difference at length and she continues to refuse Advance diet per pt request Possible bone marrow suppression secondary to methotrexate use; possible viral, fungal infection and autoimmune diseases. Her EBV and CMV are neg. It could also be inflammatory state causing bone marrow suppression and combination of marrow toxicity from her methotrexate. We will continue IV steroids and we will follow her blood counts. We will also follow results from previous admission (1 week ago) that are still pending. History of hypertension. Continue diltiazem, metoprolol. History of Crohn disease. Stop methotrexate and hold Remicade. May need to consult GI for input regarding Crohn induced mucositis and lesions. (see previous admission GI consult) Deep vein thrombosis prophylaxis with SCDs. We will avoid chemical prophylaxis due to significant risk of bleeding. The patient is a full code. PT, OT evaluation rec for home Fluids, electrolytes and nutrition. Continue with normal saline with potassium. If patient's nutritional status does not improve within the next 1-2 days, consider NG tube. consulted nutrition. Started BOOST TID with meals
[2016-07-27 16:00] VITALS: BP 132/84; PULSE 73; TEMP 36.8; O2SAT 93
[2016-07-27] MEDS: AZITHROMYCIN IV 250 MG in DEXTROSE 5% 250ML 250 ML IV SCH (18:20)
[2016-07-27 19:59] VITALS: BP 143/85; PULSE 71
[2016-07-27] MEDS: RANITIDINE HCL 150 MG TAB PO SCH (20:02)
[2016-07-28 00:27] VITALS: BP 138/84; PULSE 67; TEMP 37; O2SAT 95
[2016-07-28] MEDS: METHYLPREDNISOLONE IV 40 MG in SYRINGE 0 ML IV SCH ×2 (03:35→16:36)
[2016-07-28] MEDS: POTASSIUM CHLORIDE INJ 40 MEQ in SODIUM CHLORIDE 0.9% 1000ML 1,000 ML IV SCH ×2 (07:09→17:26)
[2016-07-28 07:23] VITALS: BP 163/98; PULSE 76; TEMP 36.9; O2SAT 93
[2016-07-28] MEDS: OXYCODONE HCL SOLN 5 MG/5 ML UDC PO PRN ×4 (08:07→22:02)
[2016-07-28 08:12] LABS: COMPLETE YES; HEMATOCRIT 32.6 % (37-47); IG% 0.4 %; LYMPH % 21.1 %; LYMPH ABS # 0.48 K/uL (1.2-3.4); MEAN CELL VOLUME 94.8 fL (80-100); MEAN CORPUSCULAR HEMOGLOBIN 31.4 pg (25-34); MEAN CORPUSCULAR HGB CONC 33.1 g/dl (32-36); MONO % 5.7 %; NEUT % 72.8 %; PLATELET COUNT 257 K/uL (130-400); RED BLOOD COUNT 3.44 M/uL (4.2-5.4); WHITE BLOOD COUNT 2.28 K/uL (4.8-10.8)
[2016-07-28 08:37] LABS: BUN/CREATININE RATIO 8.8 (10-20); CALCIUM 8.4 mg/dl (8.5-10.1); CREATININE 0.65 mg/dl (0.60-1.20); MAGNESIUM 1.7 mg/dl (1.8-2.4); POTASSIUM 3.9 mmol/L (3.5-5.1)
[2016-07-28] MEDS: ESCITALOPRAM OXALATE 20 MG TAB PO SCH (09:05)
[2016-07-28] MEDS: POTASSIUM CHLORIDE 20 MEQ TABCR PO SCH (09:05)
[2016-07-28] MEDS: METOPROLOL TARTRATE 50 MG TAB PO SCH ×2 (09:05→21:13)
[2016-07-28] MEDS: OSELTAMIVIR PHOSPHATE 75 MG CAP PO SCH ×2 (09:06→21:11)
[2016-07-28] MEDS: FLUCONAZOLE 100 MG TAB PO SCH (09:06)
[2016-07-28] MEDS: DILTIAZEM HCL 120 MG EXT REL CAP PO SCH (09:06)
[2016-07-28] MEDS: PANTOprazole SOD 40 MG TAB PO SCH ×2 (09:06→21:12)
[2016-07-28] MEDS: FoLIC ACID INJ 1 MG in SYRINGE 9.8 ML IV SCH (09:28)
[2016-07-28] MEDS: BOOST VANILLA PO SCH ×6 (09:28→18:11)
[2016-07-28] MEDS: LIDOCAINE HCL 2% VISC SOLN 20 ML UDC MT PRN (12:49)
--- NOTE | 2016-07-28 13:01 | Progress Note ---
Subjective Date of Service: Jul 28, 2016. Subjective Pt evaluation today including: conversation w/ patient, chart review, lab review Pt is improving. She has intense pain with heavier PO intake, but is doing well with softer foods. She would like to try pre-medicating for lunch. Pt denies fever, SOB, chest pain, abd pain, n/v/c/d, LE pain or swelling. ROS as noted above, otherwise neg. Problem List Medical Problems: (1) Altered mental status Status: Acute (2) Anemia Status: Acute (3) Bronchitis Status: Acute (4) Dehydration Status: Acute (5) Mouth ulceration Status: Acute (6) Orthostatic hypotension Status: Acute (7) Perineal irritation in female Status: Acute (8) Perineal ulcer Status: Acute Objective Vital Signs Date Time Temp Pulse Resp B/P Pulse Ox O2 Delivery O2 Flow Rate FiO2 07/28/16 07:23 36.9 76 16 163/98 93 Room Air 07/28/16 06:45 Room Air 07/28/16 00:27 37.0 67 16 138/84 95 Room Air 07/27/16 19:59 71 143/85 07/27/16 19:30 Room Air 07/27/16 16:00 36.8 73 18 132/84 93 Room Air 07/27/16 15:50 Room Air Physical Exam Comments: General Appearance: WD/WN, no apparent distress ENT: + pertinent finding (Ulcerations noted as prior) Respiratory/Chest: normal breath sounds, no respiratory distress Cardiovascular: regular rate, rhythm, no edema Abdomen: non tender, soft Extremities: non-tender, no pedal edema Neurologic/Psychiatric: alert, oriented x 3 Skin: normal color, warm/dry Laboratory Results Last 24 Hours Test 07/28/16 07:55 White Blood Count 2.28 K/uL Red Blood Count 3.44 M/uL Hemoglobin 10.8 g/dL Hematocrit 32.6 % Mean Corpuscular Volume 94.8 fL Mean Corpuscular Hemoglobin 31.4 pg Mean Corpuscular Hemoglobin Concent 33.1 g/dl Platelet Count 257 K/uL Mean Platelet Volume 10.0 fL Neutrophils (%) (Auto) 72.8 % Lymphocytes (%) (Auto) 21.1 % Monocytes (%) (Auto) 5.7 % Eosinophils (%) (Auto) 0.0 % Basophils (%) (Auto) 0.0 % Neutrophils # (Auto) 1.66 K/uL Lymphocytes # (Auto) 0.48 K/uL Monocytes # (Auto) 0.13 K/uL Eosinophils # (Auto) 0.00 K/uL Basophils # (Auto) 0.00 K/uL RDW Standard Deviation 50.0 fL RDW Coefficient of Variation 14.6 % Immature Granulocyte % (Auto) 0.4 % Immature Granulocyte # (Auto) 0.01 K/uL Sodium Level 140 mmol/L Potassium Level 3.9 mmol/L Chloride Level 105 mmol/L Carbon Dioxide Level 28 mmol/L Anion Gap 7.0 mmol/L Blood Urea Nitrogen 6 mg/dl Creatinine 0.65 mg/dl Est Creatinine Clear Calc Drug Dose 78.8 ml/min Estimated GFR () 106.5 Estimated GFR (Non- 91.9 BUN/Creatinine Ratio 8.8 Random Glucose 118 mg/dl Calcium Level 8.4 mg/dl Magnesium Level 1.7 mg/dl Assessment and Plan This is a 66-year-old female who now presents with productive cough with worsening pain in her mouth secondary to oral ulcers. Acute viral bronchitis, influenza A positive: cont on azithromycin to prevent secondary bacterial infection. No evidence of pneumonia on chest x-ray. Due to her recent immunosuppression, could also have developed herpes or fungal infection. The patient has been started on oral fluconazole HIV and HCV neg Mouth, perineal, vaginal ulcers. Extensive workup was done on previous admissions. 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 Dermatology was consulted who recommended prednisone taper on last admission and then biopsy in 1-2 weeks. [facility]. Also on differential diagnosis includes fungal versus herpetic lesions. Rheum feels lesions are related to methotrexate and recs for d/c, can continue with remicade when it is due, steroid taper and office f/u in 2 weeks Continue symptomatic treatment with viscous lidocaine and oral Roxicodone in addition to magic mouthwash. ESR and CRP are elevated, Can`t rule out [place]`s, ANCA/DAVID is pending from previous admission. 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 Continue on normal saline with 40 mEq, potassium improved Pt declines NG TF due to having watched her with a PEG. I did discuss the difference at length and she continues to refuse Advance diet per pt request Possible bone marrow suppression secondary to methotrexate use; possible viral, fungal infection and autoimmune diseases. Her EBV and CMV are neg. It could also be inflammatory state causing bone marrow suppression and combination of marrow toxicity from her methotrexate. We will continue IV steroids and we will follow her blood counts. We will also follow results from previous admission (1 week ago) that are still pending. History of hypertension. Continue diltiazem, metoprolol. History of Crohn disease. Stop methotrexate and hold Remicade. May need to consult GI for input regarding Crohn induced mucositis and lesions. (see previous admission GI consult) Deep vein thrombosis prophylaxis with SCDs. We will avoid chemical prophylaxis due to significant risk of bleeding. The patient is a full code. PT, OT evaluation rec for home Fluids, electrolytes and nutrition. Continue with normal saline with potassium. If patient's nutritional status does not improve within the next 1-2 days, consider NG tube. consulted nutrition. Started BOOST TID with meals Pt was finishing breakfast during our discussion and had eaten most of her plate. If pt remains able to consistently take PO, possible d/c tomorrow.
[2016-07-28 15:30] VITALS: BP 127/73; PULSE 69; TEMP 37; O2SAT 95
[2016-07-28] MEDS: AZITHROMYCIN IV 250 MG in DEXTROSE 5% 250ML 250 ML IV SCH (17:59)
[2016-07-28] MEDS: DIAZEPAM 5MG TAB PO PRN (21:08)
[2016-07-28] MEDS: RANITIDINE HCL 150 MG TAB PO SCH (21:11)
[2016-07-28 21:15] VITALS: BP 128/83; PULSE 72
[2016-07-28 23:38] VITALS: BP 122/77; PULSE 66; TEMP 36.9; O2SAT 92
[2016-07-29] MEDS: POTASSIUM CHLORIDE INJ 40 MEQ in SODIUM CHLORIDE 0.9% 1000ML 1,000 ML IV SCH ×2 (04:02→12:35)
[2016-07-29] MEDS: METHYLPREDNISOLONE IV 40 MG in SYRINGE 0 ML IV SCH (04:09)
[2016-07-29 07:21] VITALS: BP 145/85; PULSE 74; TEMP 36.9; O2SAT 92
[2016-07-29 08:25] LABS: BASO % 0.3 %; BASO ABS # 0.01 K/uL (0-0.2); COMPLETE YES; HEMATOCRIT 32.7 % (37-47); IG% 0.3 %; LYMPH % 20.6 %; LYMPH ABS # 0.65 K/uL (1.2-3.4); MEAN CELL VOLUME 95.1 fL (80-100); MEAN CORPUSCULAR HEMOGLOBIN 31.7 pg (25-34); MEAN CORPUSCULAR HGB CONC 33.3 g/dl (32-36); MEAN PLATELET VOLUME 10.5 fL (7.4-10.4); MONO % 11.1 %; NEUT % 67.7 %; PLATELET COUNT 368 K/uL (130-400); RED BLOOD COUNT 3.44 M/uL (4.2-5.4); WHITE BLOOD COUNT 3.16 K/uL (4.8-10.8)
[2016-07-29] MEDS: OXYCODONE HCL SOLN 5 MG/5 ML UDC PO PRN ×2 (08:25→12:33)
[2016-07-29 08:45] LABS: EPSTEIN BARR VIR CAPSID IGG >5.00 INDEX
[2016-07-29 08:59] LABS: BUN/CREATININE RATIO 14.3 (10-20); CALCIUM 8.5 mg/dl (8.5-10.1); CREATININE 0.61 mg/dl (0.60-1.20); MAGNESIUM 1.8 mg/dl (1.8-2.4); POTASSIUM 4.3 mmol/L (3.5-5.1)
[2016-07-29] MEDS: BOOST VANILLA PO SCH ×4 (10:00→12:33)
[2016-07-29] MEDS: OSELTAMIVIR PHOSPHATE 75 MG CAP PO SCH (10:01)
[2016-07-29] MEDS: POTASSIUM CHLORIDE 20 MEQ TABCR PO SCH (10:01)
[2016-07-29] MEDS: FLUCONAZOLE 100 MG TAB PO SCH (10:01)
[2016-07-29] MEDS: DILTIAZEM HCL 120 MG EXT REL CAP PO SCH (10:02)
[2016-07-29] MEDS: ESCITALOPRAM OXALATE 20 MG TAB PO SCH (10:02)
[2016-07-29] MEDS: PANTOprazole SOD 40 MG TAB PO SCH (10:02)
[2016-07-29] MEDS ORDERED: Boost PO ×2 (10:04)
[2016-07-29] MEDS ORDERED: MGCCMP100 MT ×2 (10:04)
[2016-07-29] MEDS ORDERED: AZIT500T3 PO ×2 (10:04)
[2016-07-29] MEDS ORDERED: TMF75 PO ×2 (10:04)
[2016-07-29] MEDS ORDERED: DFL100 PO ×2 (10:04)
[2016-07-29 10:05] VITALS: BP 142/90; PULSE 74
[2016-07-29] MEDS: METOPROLOL TARTRATE 50 MG TAB PO SCH (10:05)
--- NOTE | 2016-07-29 10:07 | Discharge Instructions ---
Discharge Instructions Admission Reason for Admission: Cough, Hypokalemia Discharge Discharge Diagnosis / Problem: Mouth ulcers, hypokalemia Discharge Goals Goal(s): Decrease discomfort, Improve function, Increase independence Activity Recommendations Activity Limitations: resume your previous activity . Instructions / Follow-Up Instructions / Follow-Up Rheumatology in 1-2 weeks Dermatology in 1-[address] Kaplan next week You will need to have your labs checked on 08/02/16 to make sure your electrolytes remain stable Current Hospital Diet Patient's current hospital diet: Regular Diet Discharge Diet Recommended Diet: Regular Diet (although you should focus on softer foods at lower temperatures, also avoid acidic items like coffee, soda, citrus, tomato) Pending Studies Studies pending at discharge: no Medical Emergencies . Who to Call and When: Medical Emergencies: If at any time you feel your situation is an emergency, please call 911 immediately. . Non-Emergent Contact Non-Emergency issues call your: Primary Care Provider . . "Provider Documentation" section prepared by Hortencia Ching. VTE Core Measure Inpt VTE Proph given/why not?: Contraindicated
--- NOTE | 2016-07-29 10:09 | Discharge Summary ---
Discharge Summary Admission Date: Jul 25, 2016 at 14:31 Discharge Date: Jul 29, 2016 Discharge Disposition: Home Principal Diagnosis: Mouth ulcerations, hypokalemia Problems/Secondary Diagnoses: Crohn's disease Consultations: Rheumatology Dermatology Medication Reconciliation New Medications: Azithromycin (Azithromycin) 500 Mg Tab 500 MG PO DAILY for 3 Days, #3 TAB Fluconazole (Fluconazole) 100 Mg Tab 100 MG PO QAM for 7 Days, #7 TAB Maalox/Diphen/Visc. Mitch/Glyc (Lidocaine Viscous) 100 Ml Btl 20 ML MT Q6H PRN for mouth sores for 30 Days, #1 BTL 1 Refill Oseltamivir Phosphate (Tamiflu) 75 Mg Cap 75 MG PO BID for 2 Days, #4 CAP [Boost] () 1 CAN LIQD 1 CAN PO TIDM for 14 Days Continued Medications: Albuterol Hfa (Ventolin Hfa) 200 Puffs/19776 Mcg Aers 2-4 PUFFS INH Q6H PRN for Shortness of Breath, #1 INHALER Azelastine Hcl-Fluticasone Pro (Dymista) 1 Spr Spr 2 SPRY AGUEDA BID for 30 Days, #23 GM 6 Refills Clobetasol Propionate (Temovate) 0.05 % Cre 1 APPLN TOP BID PRN for PRN for 90 Days, #60 GM 3 Refills Diazepam (Valium) 5 Mg Tab 5 MG PO BID PRN for PRN, TAB Diltiazem Hcl Ext Rel (Tiazac) 120 Mg Capcr 120 MG PO QAM, CAP Diphenhydramine Hcl (Benadryl Allergy) 25 Mg Cap 1 CAP PO Q4 PRN for PRN for 30 Days, #30 CAP Escitalopram Oxalate (Lexapro) 20 Mg Tab 20 MG PO QAM, TAB Hyoscyamine Sulfate (Levsin) 0.125 Mg Tab 0.125 MG PO DIRECTED PRN for PRN, TAB Infliximab (Remicade) 100 Mg/10 Ml Inj 1 DOSE IV Q8WK Methylphenidate (Ritalin) 10 Mg Tab 10 MG PO DAILY PRN for PRN, TAB Metoprolol Tartrate (Lopressor) (Lopressor) 50 Mg Tab 50 MG PO BID, TAB Mouthwashes (Biotene Dry Mouth Mouthwa) 1 Liq Liq 1 DOSE PO DIRECTED Oxycodone Oral Soln (Roxicodone Oral Soln) 5 Mg/5 Ml Soln 5 ML PO Q4H PRN for Pain, #1 BTL Pantoprazole (Protonix) 40 Mg Tab 40 MG PO BID, #30 TAB Prednisone (Prednisone) 10 Mg Tab 10 MG PO DAILY, #18 TAB take 3 tabs for 3 days 2 tab for 3 days 1 tab for 3 days then stop Ranitidine Hcl (Zantac) 300 Mg Tab 300 MG PO HS, TAB Trimethobenzamide Hcl (Tigan) 300 Mg Cap 1 TAB PO TID PRN for PRN Zolpidem Tartrate (Ambien Cr) 12.5 Mg Tabcr 12.5 MG PO HS PRN for Sleep Discharge Exam Pt states she is able to take more PO. She does really well with the types of food served for breakfast, but has more pain with lunch and dinner items. Pre- medicating prior to eating is helping quite a bit. She has been able to finish most of her meals. She is quite pleased that her lips weren't stuck together this AM and attributes that to having two [place] ice last night prior to bed. She is anxious to get home to her puppy and her own bed. Pt denies fever, SOB, chest pain, abd pain, n/v/c/d, LE pain or swelling. ROS as noted above, otherwise neg. Physical Exam: General Appearance: WD/WN, no apparent distress Respiratory/Chest: normal breath sounds, no respiratory distress Cardiovascular: regular rate, rhythm, no edema Abdomen / GI: non tender, soft Extremities: no calf tenderness, no pedal edema Neurologic/Psychiatric: alert, oriented x 3 Skin: normal color, warm/dry, + pertinent finding (improving mouth ulcerations) Hospital Course This is a 66-year-old female who now presents with productive cough with worsening pain in her mouth secondary to oral ulcers. Acute viral bronchitis, influenza A positive: complete course of tamiflu as outpt cont on azithromycin to prevent secondary bacterial infection, can complete as outpt No evidence of pneumonia on chest x-ray. Due to her recent immunosuppression, could also have developed herpes or fungal infection. The patient has been started on oral fluconazole and will complete course as outpt HIV and HCV neg Mouth, perineal, vaginal ulcers. Extensive workup was done on previous admissions. 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 Dermatology was consulted who recommended prednisone taper on last admission and then biopsy in 1-2 weeks. The patient had the biopsy done with [facility] before with results that were inconclusive. Also on differential diagnosis includes fungal versus herpetic lesions. Rheum feels lesions are related to methotrexate and recs for d/c, can continue with remicade when it is due, steroid taper and office f/u in 2 weeks Continue symptomatic treatment with viscous lidocaine and oral Roxicodone in addition to magic mouthwash. ESR and CRP are elevated, Can`t rule out [place]`s, ANCA/DAVID is pending from previous admission. 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 Continue on normal saline with 40 mEq, potassium improved Pt declines NG TF due to having watched her with a PEG. I did discuss the difference at length and she continues to refuse Advance diet per pt request PRP next week to monitor electrolyte status Continue Boost at home Possible bone marrow suppression secondary to methotrexate use; possible viral, fungal infection and autoimmune diseases. Her EBV and CMV are neg. It could also be inflammatory state causing bone marrow suppression and combination of marrow toxicity from her methotrexate. Finish course of steroids as outpt History of hypertension. Continue diltiazem, metoprolol. History of Crohn disease. Stop methotrexate and hold Remicade. May need to consult GI for input regarding Crohn induced mucositis and lesions. (see previous admission GI consult) Deep vein thrombosis prophylaxis with SCDs. We will avoid chemical prophylaxis due to significant risk of bleeding. The patient is a full code. PT, OT evaluation rec for home Total Time Spent: Greater than 30 minutes This includes examination of the patient, discharge planning, medication reconciliation, and communication with other providers. Discharge Instructions Please refer to the electronic Patient Visit Report (Discharge Instructions) for additional information. Follow-Up Rheumatology in 1-2 weeks Dermatology in 1-[address] Kaplan next week Additional Copies To Norbert Kaplan D.O.Int.Med.
[2016-07-29] MEDS: FoLIC ACID INJ 1 MG in SYRINGE 9.8 ML IV SCH (10:13)
[2016-07-29 12:11] VITALS: BP 142/90; PULSE 74; TEMP 36.9; O2SAT 92
== END 2016-07-29 15:35 | disposition home or self-care (01) | DRG 641 ==
LOC: CANRESERV → ENRESERVDT → ENRESERVTM → EDBD 12:10 → C.EDC 12:11 → C.MSN 14:31 → UNDOADMIN 14:31 → EDBEDREQ 15:36
PROVIDERS: ADMIT Hospitalist; ATTEND Family Medicine
DX: E86.0 Dehydration (principal); B49 Unspecified mycosis; K50.90 Crohn's disease, unspecified, without complications; J20.8 Acute bronchitis due to other specified organisms; J11.1 Influenza due to unidentified influenza virus with other respiratory manifestations; E87.6 Hypokalemia; I10 Essential (primary) hypertension; M19.90 Unspecified osteoarthritis, unspecified site; N94.89 Other specified conditions associated with female genital organs and menstrual cycle; K12.1 Other forms of stomatitis

== ENCOUNTER → 2016-08-02 | Outpatient (CLI) | payer OTHER ==
[~2016-08-02] MED LIST changes: +AZIT500T3 PO; +Boost PO; +DFL100 PO; -ERGO500037 PO; -IBUP-1050 PO; -METH2.5T PO; +MGCCMP100 MT; +TMF75 PO
[2016-08-02 19:13] LABS: BLOOD UREA NITROGEN 17 mg/dl (7-18); BUN/CREATININE RATIO 15.7 (10-20); CARBON DIOXIDE 28 mmol/L (21-32); CHLORIDE 102 mmol/L (98-107); GLUCOSE 137 mg/dl (70-99); POTASSIUM 3.5 mmol/L (3.5-5.1); SODIUM 139 mmol/L (136-145)
== END | disposition home or self-care (01) ==
LOC: C.LABBC 13:30
PROVIDERS: ATTEND Family Medicine
DX: E87.6 Hypokalemia (principal)

== ENCOUNTER → 2016-08-24 | Outpatient (CLI) | payer OTHER ==
[2016-08-24 17:19] LABS: BASO % 1.4 %; BASO ABS # 0.13 K/uL (0-0.2); COMPLETE YES; EOS % 5.2 %; HEMATOCRIT 38.8 % (37-47); IG% 0.2 %; LYMPH % 17.9 %; LYMPH ABS # 1.72 K/uL (1.2-3.4); MEAN CELL VOLUME 97.5 fL (80-100); MEAN CORPUSCULAR HEMOGLOBIN 32.2 pg (25-34); MEAN PLATELET VOLUME 10.5 fL (7.4-10.4); MONO % 6.3 %; PLATELET COUNT 331 K/uL (130-400); RED BLOOD COUNT 3.98 M/uL (4.2-5.4); WHITE BLOOD COUNT 9.59 K/uL (4.8-10.8)
[2016-08-24 18:18] LABS: ALT/SGPT 24 U/L (12-78); AST/SGOT 24 U/L (15-37); BLOOD UREA NITROGEN 9 mg/dl (7-18); BUN/CREATININE RATIO 8.3 (10-20); CALCIUM 8.4 mg/dl (8.5-10.1); CARBON DIOXIDE 25 mmol/L (21-32); CHLORIDE 109 mmol/L (98-107); GLUCOSE 90 mg/dl (70-99); POTASSIUM 3.9 mmol/L (3.5-5.1); SODIUM 144 mmol/L (136-145)
[2016-08-24 18:21] LABS: ALB/GLOB RATIO 0.9 (0.9-2); ALKALINE PHOSPHATASE 93 U/L (45-117)
== END | disposition home or self-care (01) ==
LOC: C.LABBC 13:45
PROVIDERS: ATTEND Family Medicine
DX: K50.90 Crohn's disease, unspecified, without complications (principal); E53.8 Deficiency of other specified B group vitamins

== ENCOUNTER → 2016-10-09 | Outpatient (CLI) | payer OTHER | END | disposition home or self-care (01) | LOC: C.MAMM 13:27 | PROVIDERS: ATTEND Family Medicine | DX: M85.88 Other specified disorders of bone density and structure, other site (principal) ==

== ENCOUNTER → 2016-11-14 | Outpatient (CLI) | payer OTHER ==
[2016-11-14 17:13] LABS: CALCIUM URINE 8.9 mg/dl
== END | disposition home or self-care (01) ==
LOC: C.LABBC 13:03
PROVIDERS: ATTEND Internal Medicine Rheumatology
DX: M85.80 Other specified disorders of bone density and structure, unspecified site (principal); E55.9 Vitamin D deficiency, unspecified; E61.8 Deficiency of other specified nutrient elements

== ENCOUNTER → 2017-01-31 | Outpatient (CLI) | payer OTHER ==
--- NOTE | 2017-01-31 15:23 | MAMMOGRAPHY REPORT ---
BILATERAL DIGITAL SCREENING MAMMOGRAM WITH CAD: 01/31/2017 CLINICAL HISTORY: Routine screening. Patient has no complaints. TECHNIQUE: Current study was also evaluated with a Computer Aided Detection (CAD) system. Bilateral CC and MLO views were obtained. COMPARISON: Comparison is made to exams dated: 01/27/2016 mammogram, 01/25/2015 mammogram, 01/20/2014 mamm ogram, 01/19/2013 mammogram, 01/17/2012 mammogram, and 01/16/2011 mammogram - [facility]. BREAST COMPOSITION: There are scattered areas of fibroglandular density in both breasts. FINDINGS: No suspicious masses, calcifications, or areas of architectural distortion are noted in ei ther breast. There has been no significant interval change compared to prior exams. Scattered bilater al benign-appearing calcifications are not significantly changed. A linear scar marker denotes a sca r on the right anterior breast. IMPRESSION: ACR BI-RADS CATEGORY 2: BENIGN There is no mammographic evidence of malignancy. A 1 year screening mammogram is recommended. The pa tient will receive written notification of the results. Approximately 10% of breast cancers are not detected with mammography. A negative mammographic report should not delay biopsy if a clinically suggestive mass is present. Teri Orosco M.D. /:01/31/2017 14:20:18 Flat Lock Operator: Shannan MOORE(Madonna)(Raya)([place]), [facility] letter sent: Normal 1/2 BI-RADS Code: ACR BI-RADS Category 2: Benign
== END | disposition home or self-care (01) ==
LOC: C.MAMM 13:49
PROVIDERS: ATTEND Physician Assistant
DX: Z12.31 Encounter for screening mammogram for malignant neoplasm of breast (principal)

== ENCOUNTER → 2017-02-08 | Outpatient (CLI) | payer OTHER ==
[2017-02-08 14:00] LABS: BLOOD UREA NITROGEN 13 mg/dl (7-18); GLUCOSE 91 mg/dl (70-99)
[2017-02-08 14:01] LABS: ALT/SGPT 19 U/L (12-78); AST/SGOT 14 U/L (15-37); BUN/CREATININE RATIO 13.2 (10-20); CALCIUM 8.9 mg/dl (8.5-10.1); CARBON DIOXIDE 24 mmol/L (21-32); CHLORIDE 109 mmol/L (98-107); POTASSIUM 3.7 mmol/L (3.5-5.1); SODIUM 140 mmol/L (136-145); TRIGLYCERIDES 194 mg/dl (0-150); VERY LOW DENSITY LIPOPROT CALC 39 mg/dl
[2017-02-08 14:02] LABS: ALB/GLOB RATIO 0.9 (0.9-2); ALKALINE PHOSPHATASE 76 U/L (45-117); CHOLESTEROL 206 mg/dl (0-200); HDL CHOLESTEROL 52 mg/dl; LDL CHOLESTEROL CALCULATED 115 mg/dl
[2017-02-08 14:22] LABS: BASO ABS # 0.11 K/uL (0-0.2); COMPLETE YES; EOS % 3.5 %; HEMATOCRIT 39.8 % (37-47); IG% 0.3 %; LYMPH % 13.6 %; LYMPH ABS # 1.56 K/uL (1.2-3.4); MEAN CELL VOLUME 94.8 fL (80-100); MEAN CORPUSCULAR HEMOGLOBIN 31.2 pg (25-34); MEAN CORPUSCULAR HGB CONC 32.9 g/dl (32-36); MEAN PLATELET VOLUME 10.3 fL (7.4-10.4); MONO % 5.6 %; PLATELET COUNT 331 K/uL (130-400); WHITE BLOOD COUNT 11.51 K/uL (4.8-10.8)
[2017-02-09 07:10] LABS: ESTIMATED AVERAGE GLUCOSE 105 mg/dl; HA1C FLAG Normal (Normal)
[2017-02-11 13:49] LABS: CYTOMEGALOVIRUS IGG AB <0.60 U/ML
--- NOTE | 2017-02-14 14:16 | CODING QUERY MEDICAL NECESSITY ---
CQSUPPORTING DIAGNOSIS NEEDED A supporting diagnosis is required for the test/procedure performed on this patient in order for us to be reimbursed by the patient's insurance. Please provide a supporting diagnosis for the following test/procedure listed below next to the test name along with your signature. *If there is no additional diagnosis for this patient that would support the following test/procedure please document that below next to the test/procedure. Test(s)/Procedure(s) that require a supporting diagnosis: DOS 02/08/17 GLYCATED HEMOGLOBIN TEST Provider Signature: Date: Thank you Pratima Fox Health Information Management Once completed, please kindly fax back to [phone] For questions please call [phone]
== END | disposition home or self-care (01) ==
LOC: C.LABBC 11:16
PROVIDERS: ATTEND Nurse Practitioner
DX: Z00.00 Encounter for general adult medical examination without abnormal findings (principal); D61.818 Other pancytopenia; I10 Essential (primary) hypertension; K12.1 Other forms of stomatitis

== ENCOUNTER → 2017-04-04 | Outpatient (CLI) | payer OTHER ==
--- NOTE | 2017-04-04 12:45 | DIAGNOSTIC IMAGING REPORT ---
CHEST 2 VIEWS ROUTINE CLINICAL HISTORY: ITCHING,PRURITUS. Cough. COMPARISON STUDY: Chest radiograph July 25, 2016. FINDINGS: Right shoulder arthroplasty is incidentally noted. Elevation of the right hemidiaphragm is unchanged. There is no pneumothorax or pleural effusion. There is no consolidation to suggest pneumonia. Pulmonary vascularity is normal. Cardiomediastinal silhouette is normal. The appearance of the chest is unchanged. IMPRESSION: 1. No acute cardiopulmonary findings. No change in appearance of the chest. 2. Stable moderate elevation of the right hemidiaphragm. Electronically signed by: Xander Guzman M.D. 04/04/2017 12:44 PM Dictated Date/Time: 04/04/2017 12:42 PM
== END | disposition home or self-care (01) ==
LOC: C.RAD 11:48
PROVIDERS: ATTEND Dermatology
DX: L29.9 Pruritus, unspecified (principal)

== ENCOUNTER → 2017-08-07 | Day surgery (SDC) | payer OTHER ==
[2017-07-24 15:21] VITALS: Ht 158.8 cm; Wt 73.6 kg
[~2017-08-07] VITALS: Ht 158.8 cm; Wt 73.6 kg
[~2017-08-07] MED LIST changes: -AZEL30SP NAE; -AZIT500T3 PO; -Boost PO; +CHOL1000 PO; +DEXA0.5E3 PO; -DFL100 PO; +IOPAMIDOL INJ 61% 15 ML VIAL ONE; +LIDOCAINE HCL 1% MPF 5 ML VIAL ONE; -MGCCMP100 MT; -OXYC10SO PO; +OYST500T47 PO; -PANT1TAB48 PO; -PRD10 PO; +PRT/20 PO; +SODIUM CHLORIDE 0.9% INJ 10 ML VIAL ONE; +SUCR1TAB29 PO; -TMF75 PO; +TRMO115 TOP
--- NOTE | 2017-08-07 13:42 | History & Physical Bridge - SC ---
H&P Re-Evaluation Bridge Note: I have examined the patient, reviewed the History & Physical and in the interval since the performance of the History & Physical I have noted the following changes of clinical significance: No changes noted
--- NOTE | 2017-08-07 14:11 | [facility] Post Operative Brief Note ---
Immediate Operative Summary Operative Date Aug 07, 2017. Pre-Operative Diagnosis Lumbar spinal stenosis with left lower extremity radiculopathy Post-Operative Diagnosis Same Procedure(s) Performed Lumbar Epidural Steroid Injection Surgeon Dr. Aleta Rodrigez Track Laying Supervisor Surgeon(s) None Estimated Blood Loss 0 Findings As per op note Specimens None Complication(s) None Disposition Recovery Room / PACU
[2017-08-07 14:12] VITALS: TEMP 36.5
--- NOTE | 2017-08-07 14:22 | Discharge Instructions ---
Discharge Instructions Date of Service Aug 07, 2017. Visit Reason for Visit: Lumbar Spinal Stenosis Discharge Discharge Diagnosis / Problem: left leg pain Discharge Goals Goal(s): Decrease discomfort, Improve function Medications Stopped Medications Name(s): NSAIDS ASA only took tylenol for pain Activity Recommendations Activity Limitations: resume your previous activity Anesthesia . Post Anesthesia Instructions: If you have had General Anesthesia or IV Sedation: * Do not drive today. * Resume driving when surgeon permits. * Do not make important decisions or sign legal documents today. * Call surgeon for: 1. Temperature elevations greater than 101 degrees F. 2. Uncontrollable pain. 3. Excessive bleeding. 4. Persistent nausea and vomiting. 5. Medication intolerance (nausea, vomiting or rash). * For nausea and vomiting use only clear liquids such as: tea, soda, bouillon until nausea subsides, then gradually increase diet as tolerated. * If you have any concerns or questions, call your surgeon's office. If physician is unavailable and it is an emergency, call 911 or go to the nearest emergency room. . Diet Recommendations Recommended Home Diet: resume previous diet Procedures Procedures Performed: Lumbar Epidural Steroid Injection Pending Studies Studies pending at discharge: no Medical Emergencies . Who to Call and When: Medical Emergencies: If at any time you feel your situation is an emergency, please call 911 immediately. . Non-Emergent Contact Non-Emergency issues call your: Specialist . . "Provider Documentation" section prepared by Mp Rodrigez. .
[2017-08-07 14:37] VITALS: BP 104/72; PULSE 79; O2SAT 95
--- NOTE | 2017-08-07 14:50 | OPERATIVE REPORT ---
DATE OF OPERATION: 08/07/2017 PREOPERATIVE DIAGNOSIS: Lumbar spinal stenosis with left lower extremity radiculopathy L5-S1. POSTOPERATIVE DIAGNOSIS: Same. PROCEDURE: Left paramedian L5-S1 intralaminar epidural steroid injection under fluoroscopic guidance. INDICATIONS: The patient is a 67-year-old white female who describes classic lumbar spinal stenosis problems that are functionally limiting to her. She presents today for an epidural injection to provide her with relief of her radiculopathy down the left leg that has a problem with ambulating and walking. PHYSICAL EXAMINATION: GENERAL: Pleasant female seated comfortably. MUSCULOSKELETAL: Lumbar paraspinal muscles were palpated and noted be nontender. She had no issues with forward flexion or extension. She had normal lower extremity strength. Sensation intact distally at the L4, L5, S1 dermatomes. Maneuvers, negative seated straight leg raises. CONSENT: Verbal and written consent was obtained from the patient. Risks and benefits were reviewed. Risks include, but are not limited to epidural abscess, epidural hematoma, allergic reaction, dural puncture. The patient wishes to proceed. DESCRIPTION OF PROCEDURE: The patient was taken back to the special procedures room of the [facility] where she was maintained in a prone position. Backside was cleansed with Betadine x3 and a dry sterile dressing was applied. Fluoroscope was used to identify the L5-S1 intralaminar space and overlying skin was anesthetized on the left with 4 mL of lidocaine 1% with a 25-gauge 1.5-inch needle. A 22-gauge 3-1/2 inch Tuohy needle was then directed down towards the intralaminar space. It was advanced under lateral fluoroscopic guidance. Loss of resistance was noted at a depth of 6.5 cm. Isovue-300 contrast 1 mL was injected in, which demonstrated epidural spread. She then underwent injection after negative aspiration of 40 mg of Depo-Medrol and 4 mL of preservative free sodium chloride. Injection was well tolerated and reproduced a familiar transient radicular sensation down the left leg. DISPOSITION: 1. The patient is taken out into the discharge recovery area where she will be discharged home once discharge criteria have been met. 2. Follow up in the [facility] office in 4 weeks' time. I attest to the content of the Intraoperative Record and any orders documented therein. Any exception s are noted below.
== END | disposition home or self-care (01) ==
LOC: X.SURG 12:36
PROVIDERS: ATTEND Physical Medicine & Rehabilitation
DX: M48.061 Spinal stenosis, lumbar region without neurogenic claudication (principal); M54.17 Radiculopathy, lumbosacral region; K50.90 Crohn's disease, unspecified, without complications; F32.9 Major depressive disorder, single episode, unspecified; I10 Essential (primary) hypertension; K21.0 Gastro-esophageal reflux disease with esophagitis; Z98.890 Other specified postprocedural states; Z79.899 Other long term (current) drug therapy; Z80.9 Family history of malignant neoplasm, unspecified; Z82.49 Family history of ischemic heart disease and other diseases of the circulatory system

== ENCOUNTER 2017-09-28 15:05 | Inpatient (IN) | payer OTHER ==
[~2017-09-28] VITALS: Ht 157.5 cm; Wt 74.5 kg
[~2017-09-28 15:05] MED LIST changes: -IOPAMIDOL INJ 61% 15 ML VIAL ONE; -LIDOCAINE HCL 1% MPF 5 ML VIAL ONE; -SODIUM CHLORIDE 0.9% INJ 10 ML VIAL ONE
[2017-09-28] MEDS ORDERED: SODIUM CHLORIDE 0.9% 1000ML 2,000 ML IV STA (15:37)
[2017-09-28] MEDS ORDERED: ONDANSETRON INJ 2 MG/ML 2 ML VIAL IV STA (15:37)
[2017-09-28 16:02] LABS: HEMATOCRIT 32.3 % (37-47); HEMOGLOBIN 11.4 g/dL (12.0-16.0); MEAN CELL VOLUME 90.5 fL (80-100); MEAN CORPUSCULAR HEMOGLOBIN 31.9 pg (25-34); MEAN CORPUSCULAR HGB CONC 35.3 g/dl (32-36); MEAN PLATELET VOLUME 10.4 fL (7.4-10.4); PLATELET COUNT 155 K/uL (130-400); RED CELL DISTRIBUTION WIDTH CV 14.3 % (11.5-14.5); RED CELL DISTRIBUTION WIDTH SD 47.6 fL (36.4-46.3); WHITE BLOOD COUNT 21.23 K/uL (4.8-10.8)
[2017-09-28] MEDS ORDERED: OPTIRAY 320 IV PRN (16:15)
[2017-09-28 16:21] LABS: ALBUMIN 2.3 gm/dl (3.4-5.0); ALT/SGPT 25 U/L (12-78); BLOOD UREA NITROGEN 22 mg/dl (7-18); CALCIUM 9.1 mg/dl (8.5-10.1); CARBON DIOXIDE 22 mmol/L (21-32); CREATININE 1.78 mg/dl (0.60-1.20); GLUCOSE 70 mg/dl (70-99); LIPASE 51 U/L (73-393); POTASSIUM 3.7 mmol/L (3.5-5.1); SODIUM 123 mmol/L (136-145)
[2017-09-28] MEDS ORDERED: AMOX500C3 PO (16:23)
[2017-09-28 16:24] LABS: ALKALINE PHOSPHATASE 160 U/L (45-117); AST/SGOT 26 U/L (15-37); TOTAL PROTEIN 6.5 gm/dl (6.4-8.2)
[2017-09-28] MEDS ORDERED: CHOLTAB11 PO (16:26)
[2017-09-28] MEDS ORDERED: CALC-393 PO (16:28)
[2017-09-28] MEDS ORDERED: FLUO0.0566 TOP (16:36)
[2017-09-28] MEDS ORDERED: NYST100010 TD (16:40)
[2017-09-28] MEDS ORDERED: PANT40TA PO (16:42)
[2017-09-28] MEDS ORDERED: PRAZ1CAP10 PO (16:43)
[2017-09-28] MEDS ORDERED: [UNRECOGNIZED DRUG - CODE] MT (16:46)
--- NOTE | 2017-09-28 16:59 | DIAGNOSTIC IMAGING REPORT ---
HEAD WITHOUT CONTRAST (CT) CLINICAL HISTORY: 67 years-old Female with fall . Acute head injury with vomiting status post fall TECHNIQUE: Multiple axial CT images of the head were obtained without contrast. A dose lowering technique was utilized adhering to the principles of ALARA. CT DOSE: 1353.33 mGy.cm COMPARISON: Head CT 08/29/2015. FINDINGS: No acute intracranial hemorrhage, midline shift, intracranial mass, hydrocephalus, territorial ischemia or abnormal extra-axial collection. Mild atrophy. Senescent calcifications of the left lentiform nucleus. The calvarium is intact. Mild to moderate mucosal thickening of the maxillary sinuses. Hypoplasia of the right frontal sinus. Mastoid air cells and middle ear cavities are clear. Soft tissues and orbits are unremarkable. IMPRESSION: No acute intracranial abnormality identified. The above report was generated using voice recognition software. It may contain grammatical, syntax or spelling errors. Electronically signed by: Con Morris M.D. 09/28/2017 4:57 PM Dictated Date/Time: 09/28/2017 4:55 PM
[2017-09-28] MEDS ORDERED: RASPBERRY SYRUP 5 ML UDP PO STA (17:00)
[2017-09-28] MEDS ORDERED: VANCOMYCIN HCL 125 MG/2.5ML SOLN PO STA (17:00)
[2017-09-28] MEDS ORDERED: VANCOMYCIN HCL 125 MG/2.5ML SOLN PO SCH (17:00)
--- NOTE | 2017-09-28 17:11 | DIAGNOSTIC IMAGING REPORT ---
ABDOMEN AND PELVIS CT WITH IV CONTRAST HISTORY: Acute generalized abdominal pain diffuse abd pain TECHNIQUE: Multiaxial CT images of the abdomen and pelvis were performed following the use of intravenous contrast. A dose lowering technique was utilized adhering to the principles of ALARA. COMPARISON STUDY: CT chest 01/05/2011. FINDINGS: Trace left pleural effusion with subsegmental bibasilar opacities suggesting atelectasis. No pneumatosis or pneumoperitoneum identified. The imaged inferior cardiac chambers are unremarkable. 9 mm focal area of low-attenuation within the subserosal left hepatic lobe adjacent to the falciform ligament may reflect focal fatty infiltration, however is indeterminate. Liver is otherwise unremarkable. The gallbladder, pancreas and adrenal glands are within normal limits. Study is mildly motion degraded. Mild dilation of the common bile duct, 8 mm without obstructing stone or lesion identified. No pancreatic ductal dilation. There is mild bilateral urothelial enhancement with mild nonspecific bilateral perinephric stranding. Delayed nephrogram on the left with patchy decreased enhancement of the inferior pole right kidney. No renal calculi or obstructive uropathy. Bilateral ureters are normal in caliber. Mild bilateral periureteral inflammatory stranding. Mild urinary bladder distention. Uterus and left adnexum are unremarkable. 1.7 x 1.4 cm cystic structure of the right hemipelvis as seen on image 39 of series 5 suggesting ovarian cyst. Moderate atherosclerosis of the aorta without aneurysm. No bulky adenopathy identified. No bowel obstruction or focal bowel wall thickening identified. The appendix is not definitively seen. No evidence of acute appendicitis. Soft tissues are unremarkable. Calcifications of the left breast parenchyma. Bones appear intact. Multilevel advanced discogenic degenerative changes and facet arthrosis. IMPRESSION: 1. Findings suggest acute bilateral pyelonephritis, left greater then right without renal calculi or obstructive uropathy. Urothelial enhancement is also noted bilaterally involving the renal pelves and proximal ureters suggesting associated pyelitis with ureteritis. 2. No bowel obstruction or focal bowel wall thickening. 3. Mild urinary bladder distention. 4. Indeterminate 1.7 cm cystic structure near the right adnexum suggests ovarian cyst. Electronically signed by: Con Morris M.D. 09/28/2017 5:10 PM Dictated Date/Time: 09/28/2017 5:00 PM
[2017-09-28] MEDS ORDERED: CEFTRIAXONE SOD INJ 1 GM ADDVIAL IV STA (17:23)
[2017-09-28] MEDS ORDERED: SODIUM CHLORIDE 0.9% 500ML 500 ML IV STA (19:34)
[2017-09-28] MEDS ORDERED: VANCOMYCIN INJ 500 MG in SODIUM CHLORIDE 0.9% 250ML 250 ML IV SCH (21:04)
[2017-09-28] MEDS ORDERED: CEFEPIME IV 1,000 MG in DEXTROSE 5% 100ML 100 ML IV SCH (21:04)
[2017-09-28] MEDS ORDERED: ZOLPIDEM TARTRATE 5 MG TAB PO PRN (21:15)
[2017-09-28] MEDS ORDERED: POLYETHYLENE (MIRALAX) 17 GM PACK PO PRN (21:15)
[2017-09-28] MEDS ORDERED: ALBUTEROL HFA 8 GM INHALER INH PRN (21:15)
[2017-09-28] MEDS ORDERED: MAGNESIUM HYDROXIDE SUSP 30 ML UDC PO PRN (21:15)
[2017-09-28] MEDS ORDERED: VANCOMYCIN CONSULT ACTIVE PRN (21:15)
[2017-09-28] MEDS ORDERED: ONDANSETRON INJ 2 MG/ML 2 ML VIAL IV PRN (21:15)
[2017-09-28] MEDS ORDERED: ALUMINUM/MAGNESIUM/SIMETH (MAALOX MAX) 30 ML UDC PO PRN (21:15)
[2017-09-28] MEDS ORDERED: TRIAMCINOLONE ACET 0.1% OINT 15 GM TUBE TOP PRN (21:15)
[2017-09-28] MEDS ORDERED: DEXAMETHASONE SOD INJ 4 MG/ML VIAL IV SCH (21:30)
--- NOTE | 2017-09-28 21:41 | EMERGENCY ROOM VISIT NOTE ---
History Report prepared by [place]: Korina Yeager Under the Supervision of: Dr. Donnie Mathew D.O. First contact with patient: 15:17 Chief Complaint: VOMITING Stated Complaint: THROWING UP,DIARREHA,MEMORY ISSUES Nursing Triage Summary: Unable to keep anything down for several months. "I throw up everytime I eat or drink". History of Present Illness The patient is a 67 year old female who presents to the Emergency Room with complaints of persistent vomiting starting 4 days ago. The patient's symptoms started with a fever 6 days ago. She started having vomiting and diarrhea 4 days ago. She was having 3 bowel movements a day and vomiting 3 times a day. Her symptoms seem to have resolved today. She has not vomited today and her last episode of diarrhea was last night. Her abdomen feels achy. She has been lightheaded and fell 3 times this week. The first time she fell she just suddenly felt off balance. She last fell yesterday. She denies any LOC or head injury. She has a history of chronic back pain which has worsened slightly since the fall. She is not on any blood thinners. The patient's daughter states that she has been having memory issues today. The patient states that this is because she did not sleep well last night. The patient recently had bronchitis and pneumonia. She was on amoxicillin and cefuroxime. She is currently not on antibiotics. She has a history of Crohn's disease. She denies any cough, rhinorrhea, urinary symptoms, hip pain, or knee pain. Source of History: patient, family Onset: 4 days ago Position: other (global) Quality: other (vomiting) Timing: other (persistent) Associated Symptoms: + fevers, + back pain, + diarrhea, No cough, No urinary symptoms Note: Pt reports lightheadedness, multiple falls. Review of Systems See HPI for pertinent positives & negatives. A total of 10 systems reviewed and were otherwise negative. Past Medical & Surgical Medical Problems: (1) Cough (2) Crohns disease (3) Encephalopathy acute (4) Hypokalemia (5) Proximal humerus fracture (6) Right humeral fracture (7) Septic shock (8) Ulceration, oral mucosa (9) UTI (urinary tract infection) Family History No pertinent family history Social History Smoking Status: Former Smoker Marital Status: Housing Status: lives with family Occupation Status: unemployed Current/Historical Medications Scheduled Amoxicillin (Amoxil), 20,000 MG PO PRN/UD Calcium Carbonate (Calcium), 600 MG PO DAILY Cholecalciferol (D-5000), 5,000 UNITS PO DAILY Dexamethasone (Dexamethasone), 10 ML PO TID Escitalopram Oxalate (Lexapro), 20 MG PO QAM Fluocinonide (Fluocinonide), 1 APPLN TOP DAILY Infliximab (Remicade), 1 DOSE IV Q8WK Nystatin (Topical) (Nystop), 1 APPLN TD BID Pantoprazole (Protonix), 40 MG PO BID Prazosin Hcl (Prazosin), 1-2 MG PO HS Ranitidine Hcl (Zantac), 300 MG PO QPM Saliva Substitute (Caphosol), 1 DOSE MT PER PACKAGE DIRECT Sucralfate (Carafate), 1 GM PO BID Scheduled PRN Albuterol Hfa (Ventolin Hfa), 2-4 PUFFS INH Q6H PRN for Shortness of Breath Diazepam (Valium), 5 MG PO BID PRN for Anxiety Diltiazem Hcl Ext Rel (Tiazac), 120 MG PO Q4H PRN for HEART PALPITATIONS Diphenhydramine Hcl (Benadryl Allergy), 25 MG PO Q4 PRN for Allergic Reaction Hyoscyamine Sulfate (Levsin), 0.125 MG PO TID PRN for SPASM Methylphenidate (Ritalin), 10 MG PO QAM PRN for CONCENTRATION Triamcinolone Acet (Triamcinolone Acetonide), 1 APPLN TOP TID PRN for UNDECIDED Trimethobenzamide Hcl (Tigan), 1 TAB PO TID PRN for Nausea or Vomiting Zolpidem Tartrate (Ambien Cr), 12.5 MG PO HS PRN for Insomnia Allergies Coded Allergies: Ciprofloxacin (Unverified Allergy, Severe, HIVES, 08/07/17) Hives all over body Sulfa Antibiotics (Verified Allergy, Severe, HIVES AND SOB, 08/07/17) Lactose (Verified Allergy, Unknown, DIARRHEA, 08/07/17) Mesalamine (Verified Allergy, Unknown, ERYTHEMA AND HIVES, 08/07/17) Uncoded Allergies: SILVER JEWELRY (Allergy, Unknown, SKIN IRRITATION AND SWELLING, 07/24/17) Physical Exam Vital Signs Date Time Temp Pulse Resp B/P (MAP) Pulse Ox O2 Delivery O2 Flow Rate FiO2 09/28/17 21:34 104 19 130/69 94 Room Air 09/28/17 20:05 126/74 09/28/17 19:54 105/65 09/28/17 19:00 97 18 85/66 95 Room Air 09/28/17 17:05 94 18 103/64 94 Room Air 09/28/17 15:13 36.9 92 16 105/74 94 Room Air Physical Exam GENERAL: Sitting up in bed, alert, well appearing, well nourished, no distress, non-toxic EYE EXAM: normal conjunctiva. PERRL and EOM's intact. OROPHARYNX: no exudate, no erythema, lips, buccal mucosa, and tongue normal and mucous membranes are dry NECK: supple, no nuchal rigidity, no adenopathy, non-tender LUNGS: Clear to auscultation. Normal chest wall mechanics HEART: no murmurs, S1 normal and S2 normal ABDOMEN: abdomen soft, non-tender, normo-active bowel sounds, no masses, no rebound or guarding. BACK: Back is symmetrical on inspection and there is no deformity, no midline tenderness, no CVA tenderness. SKIN: no rashes and no bruising UPPER EXTREMITIES: upper extremities are grossly normal. LOWER EXTREMITIES: No pitting edema. NEURO EXAM: Normal sensorium, cranial nerves II-XII intact, normal speech, no weakness of arms, no weakness of legs. No drift. Finger to nose intact. Gross sensation intact. Medical Decision & Procedures ER Provider Diagnostic Interpretation: Radiology results as stated below per my review and the radiologist's interpretation: HEAD WITHOUT CONTRAST (CT) CLINICAL HISTORY: 67 years-old Female with fall . Acute head injury with vomiting status post fall TECHNIQUE: Multiple axial CT images of the head were obtained without contrast. A dose lowering technique was utilized adhering to the principles of ALARA. CT DOSE: 1353.33 mGy.cm COMPARISON: Head CT 08/29/2015. FINDINGS: No acute intracranial hemorrhage, midline shift, intracranial mass, hydrocephalus, territorial ischemia or abnormal extra-axial collection. Mild atrophy. Senescent calcifications of the left lentiform nucleus. The calvarium is intact. Mild to moderate mucosal thickening of the maxillary sinuses. Hypoplasia of the right frontal sinus. Mastoid air cells and middle ear cavities are clear. Soft tissues and orbits are unremarkable. IMPRESSION: No acute intracranial abnormality identified. The above report was generated using voice recognition software. It may contain grammatical, syntax or spelling errors. Electronically signed by: Con Morris M.D. 09/28/2017 4:57 PM Dictated Date/Time: 09/28/2017 4:55 PM ABDOMEN AND PELVIS CT WITH IV CONTRAST HISTORY: Acute generalized abdominal pain diffuse abd pain TECHNIQUE: Multiaxial CT images of the abdomen and pelvis were performed following the use of intravenous contrast. A dose lowering technique was utilized adhering to the principles of ALARA. COMPARISON STUDY: CT chest 01/05/2011. FINDINGS: Trace left pleural effusion with subsegmental bibasilar opacities suggesting atelectasis. No pneumatosis or pneumoperitoneum identified. The imaged inferior cardiac chambers are unremarkable. 9 mm focal area of low-attenuation within the subserosal left hepatic lobe adjacent to the falciform ligament may reflect focal fatty infiltration, however is indeterminate. Liver is otherwise unremarkable. The gallbladder, pancreas and adrenal glands are within normal limits. Study is mildly motion degraded. Mild dilation of the common bile duct, 8 mm without obstructing stone or lesion identified. No pancreatic ductal dilation. There is mild bilateral urothelial enhancement with mild nonspecific bilateral perinephric stranding. Delayed nephrogram on the left with patchy decreased enhancement of the inferior pole right kidney. No renal calculi or obstructive uropathy. Bilateral ureters are normal in caliber. Mild bilateral periureteral inflammatory stranding. Mild urinary bladder distention. Uterus and left adnexum are unremarkable. 1.7 x 1.4 cm cystic structure of the right hemipelvis as seen on image 39 of series 5 suggesting ovarian cyst. Moderate atherosclerosis of the aorta without aneurysm. No bulky adenopathy identified. No bowel obstruction or focal bowel wall thickening identified. The appendix is not definitively seen. No evidence of acute appendicitis. Soft tissues are unremarkable. Calcifications of the left breast parenchyma. Bones appear intact. Multilevel advanced discogenic degenerative changes and facet arthrosis. IMPRESSION: 1. Findings suggest acute bilateral pyelonephritis, left greater then right without renal calculi or obstructive uropathy. Urothelial enhancement is also noted bilaterally involving the renal pelves and proximal ureters suggesting associated pyelitis with ureteritis. 2. No bowel obstruction or focal bowel wall thickening. 3. Mild urinary bladder distention. 4. Indeterminate 1.7 cm cystic structure near the right adnexum suggests ovarian cyst. Electronically signed by: Con Morris M.D. 09/28/2017 5:10 PM Dictated Date/Time: 09/28/2017 5:00 PM Laboratory Results 09/28/17 15:51 Red Blood Count 3.57, Mean Corpuscular Volume 90.5, Mean Corpuscular Hemoglobin 31.9, Mean Corpuscular Hemoglobin Concent 35.3, Mean Platelet Volume 10.4 09/28/17 15:51 Test 09/28/17 15:51 09/28/17 17:01 White Blood Count 21.23 K/uL (4.8-10.8) Red Blood Count 3.57 M/uL (4.2-5.4) Hemoglobin 11.4 g/dL (12.0-16.0) Hematocrit 32.3 % (37-47) Mean Corpuscular Volume 90.5 fL (80-100) Mean Corpuscular Hemoglobin 31.9 pg (25-34) Mean Corpuscular Hemoglobin Concent 35.3 g/dl (32-36) Platelet Count 155 K/uL (130-400) Mean Platelet Volume 10.4 fL (7.4-10.4) RDW Standard Deviation 47.6 fL (36.4-46.3) RDW Coefficient of Variation 14.3 % (11.5-14.5) Neutrophils % (Manual) 88.6 % Lymphocytes % (Manual) 2.6 % Monocytes % (Manual) 7.9 % Eosinophils % (Manual) 0.9 % Neutrophils # (Manual) 18.81 K/uL (1.4-6.5) Total Absolute Neutrophils 18.81 K/uL (1.4-6.5) Lymphocytes # (Manual) 0.55 K/uL (1.2-3.4) Total Absolute Lymphocytes 0.55 K/uL (1.2-3.4) Monocytes # (Manual) 1.68 K/uL (0.11-0.59) Eosinophils # (Manual) 0.19 K/uL (0-0.5) Toxic Vacuolation 1+ Echinocytes 1+ Erythrocyte Sedimentation Rate 76 mm/hr (0-21) Anion Gap 11.0 mmol/L (3-11) Estimated GFR () 33.4 Estimated GFR (Non- 28.8 BUN/Creatinine Ratio 12.1 (10-20) Calcium Level 9.1 mg/dl (8.5-10.1) Total Bilirubin 0.9 mg/dl (0.2-1) Direct Bilirubin 0.3 mg/dl (0-0.2) Aspartate Amino Transf (AST/SGOT) 26 U/L (15-37) Alanine Aminotransferase (ALT/SGPT) 25 U/L (12-78) Alkaline Phosphatase 160 U/L (45-117) Total Protein 6.5 gm/dl (6.4-8.2) Albumin 2.3 gm/dl (3.4-5.0) Lipase 51 U/L (73-393) Urine Color YELLOW Urine Appearance CLEAR (CLEAR) Urine pH 6.0 (4.5-7.5) Urine Specific [place] 1.006 (1.000-1.030) Urine Protein NEG (NEG) Urine Glucose (UA) NEG (NEG) Urine Ketones NEG (NEG) Urine Occult Blood 1+ (NEG) Urine Nitrite NEG (NEG) Urine Bilirubin NEG (NEG) Urine Urobilinogen NEG (NEG) Urine Leukocyte Esterase MODERATE (NEG) Urine WBC (Auto) >30 /hpf (0-5) Urine RBC (Auto) 5-10 /hpf (0-4) Urine Hyaline Casts (Auto) /lpf (0-5) Urine Epithelial Cells (Auto) 5-10 /lpf (0-5) Urine Bacteria (Auto) 4+ (NEG) Laboratory results per my review. Medications Administered Medications (Trade) Dose Ordered Sig/Shilpi Route Start Time Stop Time Status Last Admin Dose Admin Sodium Chloride 2,000 ml @ 999 mls/hr Q2H1M STAT IV 09/28/17 15:37 09/28/17 17:37 DC 09/28/17 15:37 999 MLS/HR Ondansetron HCl (Zofran Inj) 4 mg NOW STAT IV 09/28/17 15:37 09/28/17 15:39 DC 09/28/17 15:58 4 MG Ceftriaxone Sodium (Rocephin Inj) 1 gm NOW STAT IV 09/28/17 17:23 09/28/17 17:24 DC 09/28/17 17:35 1 GM Vancomycin HCl (Vancomycin Oral Soln) 125 mg ONE STAT PO 09/28/17 17:00 09/28/17 17:40 DC 09/28/17 18:02 125 MG Raspberry (Raspberry Syrup 5ml Cup) 5 ml ONE STAT PO 09/28/17 17:00 09/28/17 17:40 DC 09/28/17 18:02 5 ML Sodium Chloride 500 ml @ 999 mls/hr Q31M STAT IV 09/28/17 19:34 09/28/17 20:04 DC 09/28/17 19:34 999 MLS/HR Dexamethasone Sodium Phosphate (Decadron Inj) 4 mg 2130 IV 09/28/17 21:30 09/28/17 22:00 09/28/17 21:36 4 MG ED Course ED COURSE: Vital signs were reviewed and showed normal vitals. The patients medical record was reviewed The above diagnostic studies were performed and reviewed. ED treatments and interventions as stated above. 1520: The patient was evaluated in room B5. A complete history and physical examination was performed. 1537: Zofran Inj 4 mg IV, NSS 2000 ml @ 999 mls/hr IV. 1700: Raspberry 5 ml PO, Vancomycin HCl 125 mg PO. 1723: Rocephin Inj 1 gm IV. 1730: Upon reevaluation, the patient is stable.I discussed my findings with the patient and her daughter and they understand and agree with the treatment plan. Based on the patients age, coexisting illnesses, exam and lab findings the decision to treat as an inpatient was made. The patient remained stable while under my care. The patient will be evaluated for further management. 1821: I spoke with Dr. Carey Snyder. He states that due to volume, the patient will need to be seen by the night doctor. 1920: I reviewed the patient's case with Dr. Carey Snyder, [facility] [place]. He will evaluate the patient for further management. 1932: The patient's pressure dropped into the 80s. 1933: NSS 500 ml @ 999 mls/hr IV. 2001: Patient's blood pressure is back up to 105 systolic. Medical Decision Differential diagnoses includes but is not limited to gastritis, peptic ulcer disease, GERD, gallbladder disease, pancreatitis, small bowel obstruction, acute coronary syndrome, pericarditis, ischemic bowel, irritable bowel disease, irritable bowel syndrome, appendicitis, diverticulitis, malignancy, hernia, urinary tract infection, torsion, perforation, trauma, infectious. Patient is a 59-year-old female who presents the ER for back pain associated with profuse nausea vomiting and diarrhea. On presentation she has a leukocytosis of 21,000. Mild anemia. Sodium is low at 123. Creatinine is elevated at 1.7. LFTs, bilirubin and lipase were normal. UA shows a UTI. CT of the abdomen shows bilateral pyelonephritis. CT of the head was negative. She was given 2 L of IV fluids. She was given oral vancomycin for the persistent diarrhea pending stool cultures and was placed on Rocephin for her bilateral pyelonephritis. She was monitored closely. She did drop her pressures once into the 80s systolically. Following this she was given additional 500 mL's for a total of 2.5 L. Her blood pressure did respond. She was updated at bedside. She was admitted for further workup of her sepsis secondary to pyelonephritis. Medication Reconcilliation Current Medication List: was personally reviewed by me Blood Pressure Screening Patient's blood pressure: Normal blood pressure Blood pressure disposition: Did not require urgent referral Consults Time Called: 1723 Consulting Physician: Dr. Carey Snyder, [facility] hospitalist Returned Call: 1920 I reviewed the patient's case with him. He will evaluate the patient for further management. Impression Primary Impression: Sepsis Additional Impressions: Hyponatremia Pyelonephritis LOVE (acute kidney injury) Critical Care I have personally spent 35 minutes of critical care time in the direct management of this patient. This includes bedside care, interpretation of diagnostic studies, and testing, discussion with consultants, patient, and family members, and other required patient management activities. This 35 minutes is in excess of all separately billable procedures. Scribe Attestation The scribe's documentation has been prepared under my direction and personally reviewed by me in its entirety. I confirm that the note above accurately reflects all work, treatment, procedures, and medical decision making performed by me. Departure Information Dispostion Being Evaluated By Hospitalist Referrals Celina Monique CRNP (PCP) Patient Instructions My [facility] Problem Qualifiers Primary Impression: Sepsis Sepsis type: sepsis due to unspecified organism Qualified Codes: A41.9 - Sepsis, unspecified organism
--- NOTE | 2017-09-28 21:48 | History and Physical ---
History & Physical Date & Time of Service: Sep 28, 2017 at 21:25 Chief Complaint: Throwing Up,Diarreha,Memory Issues Primary Care Physician: Celina Monique CRNP History of Present Illness Source: patient, family 67 years old female with past medical history of hypertension, arthritis and Crohn's disease. Patient is immunocompromise on Remicade injections every 8 weeks, due next injection is next Saturday, patient also takes dexamethasone oral. Recently about 2 months ago patient had little, upper respiratory tract infection. As per patient she had a secondary bacterial infection after that required antibiotics that she started taking in mid August. Patient finished her antibiotic course about 2 weeks ago. She is in her regular state of health but said that she always had this slight cough that is very slowly improving. 2 days ago patient started having diarrhea 2-3 times a day and vomiting between 1 and 2 times a day no blood. She also had fever up to 103. Usually when she gets sick she gets ulcers all over her mouth and lips from inside. They are painful ulcers. Reported some heaviness in her chest initially that resolved. Presented to the ED for further evaluation and management. She was found to have low blood pressure 80/40. Received multiple IV fluid boluses and pressure went up to 120/80. Urine analysis was positive for bacteria and CAT scan abdomen showed less accidental finding of right adnexal structure possible cyst.Findings suggest acute bilateral pyelonephritis, left greater then right without renal calculi or obstructive uropathy, plus nonspecific structure and add Anexsia possible cyst. She reported feeling generalized weakness, no dysuria. But has pain in her left flank. Generalized weakness and fell 3 times within the last 2 days. Family History No pertinent family history Social History Smoking Status: Former Smoker Marital Status: Housing status: lives alone Occupational Status: unemployed Allergies Coded Allergies: Ciprofloxacin (Unverified Allergy, Severe, HIVES, 08/07/17) Hives all over body Sulfa Antibiotics (Verified Allergy, Severe, HIVES AND SOB, 08/07/17) Lactose (Verified Allergy, Unknown, DIARRHEA, 08/07/17) Mesalamine (Verified Allergy, Unknown, ERYTHEMA AND HIVES, 08/07/17) Uncoded Allergies: SILVER JEWELRY (Allergy, Unknown, SKIN IRRITATION AND SWELLING, 07/24/17) Home Medications Scheduled Amoxicillin (Amoxil), 20,000 MG PO PRN/UD Calcium Carbonate (Calcium), 600 MG PO DAILY Cholecalciferol (D-5000), 5,000 UNITS PO DAILY Dexamethasone (Dexamethasone), 10 ML PO TID Escitalopram Oxalate (Lexapro), 20 MG PO QAM Fluocinonide (Fluocinonide), 1 APPLN TOP DAILY Infliximab (Remicade), 1 DOSE IV Q8WK Nystatin (Topical) (Nystop), 1 APPLN TD BID Pantoprazole (Protonix), 40 MG PO BID Prazosin Hcl (Prazosin), 1-2 MG PO HS Ranitidine Hcl (Zantac), 300 MG PO QPM Saliva Substitute (Caphosol), 1 DOSE MT PER PACKAGE DIRECT Sucralfate (Carafate), 1 GM PO BID Scheduled PRN Albuterol Hfa (Ventolin Hfa), 2-4 PUFFS INH Q6H PRN for Shortness of Breath Diazepam (Valium), 5 MG PO BID PRN for Anxiety Diltiazem Hcl Ext Rel (Tiazac), 120 MG PO Q4H PRN for HEART PALPITATIONS Diphenhydramine Hcl (Benadryl Allergy), 25 MG PO Q4 PRN for Allergic Reaction Hyoscyamine Sulfate (Levsin), 0.125 MG PO TID PRN for SPASM Methylphenidate (Ritalin), 10 MG PO QAM PRN for CONCENTRATION Triamcinolone Acet (Triamcinolone Acetonide), 1 APPLN TOP TID PRN for UNDECIDED Trimethobenzamide Hcl (Tigan), 1 TAB PO TID PRN for Nausea or Vomiting Zolpidem Tartrate (Ambien Cr), 12.5 MG PO HS PRN for Insomnia Review of Systems Constitutional: + fever, + chills, + sweats, + weakness, + fatigue Eyes: No worsening of vision, No eye pain, No redness, No discharge, No diplopia, No problem reported ENT: No hearing loss, No unusual epistaxis, No nasal symptoms, No sore throat, No tinnitus, No dental problems, No trouble swallowing, No problem reported Respiratory: + cough, + shortness of breath Cardiovascular: No chest pain, No orthopnea, No PND, No edema, No claudication , No palpitations, No problem reported Abdomen: + nausea, + vomiting, + diarrhea, No pain, No constipation, No GI bleeding, No problem reported Musculoskeletal: No joint pain, No muscle pain, No swelling, No calf pain, No problem reported Genitourinary - Female: + problem reported (Left flank pain), No dysuria, No urinary frequency, No urinary urgency, No urinary incontinence, No urinary retention, No hematuria, No dysmenorrhea, No menorrhagia, No metrorrhagia, No rash, No vaginal bleeding, No vaginal discharge, No vaginal itching, No vulvodynia, No Neurologic: No memory loss, No paralysis, No weakness, No numbness/tingling, No vertigo, No balance problems, No problem reported Psychiatric: No depression symptoms, No anhedonism, No anxiety, No insomnia, No substance abuse, No problem reported Endocrine: + fatigue, No excessive thirst, No excessive urination, No problem reported Hematologic / Lymphatic: No abnormal bleeding/bruising, No clotting problems, No swollen lymph nodes, No night sweats, No problem reported Integumentary: No rash, No itch, No new/changing skin lesions, No color change , No bleeding, No problem reported Allergic / Immunologic: No environmental allergies, No seasonal allergies, No pet sensitivities, No food allergies, No hives, No frequent infections, No poor healing, No prolonged convalescence, No problem reported Physical Exam Vital Signs Date Time Temp Pulse Resp B/P (MAP) Pulse Ox O2 Delivery O2 Flow Rate FiO2 09/28/17 20:05 126/74 09/28/17 19:54 105/65 09/28/17 19:00 97 18 85/66 95 Room Air 09/28/17 17:05 94 18 103/64 94 Room Air 09/28/17 15:13 36.9 92 16 105/74 94 Room Air General Appearance: + mild distress, + obese Head: normocephalic, atraumatic Eyes: normal inspection, EOMI ENT: normal ENT inspection, hearing grossly normal, TMs normal, + pharyngeal erythema, + pertinent finding (Multiple superficial ulcers and a mucous movement from) Neck: supple Respiratory/Chest: chest non-tender, + decreased breath sounds, + crackles, + rhonchi Cardiovascular: regular rate, rhythm, no edema, no gallop, no JVD, no murmur Abdomen/GI: normal bowel sounds, non tender, soft, no organomegaly, no pulsatile mass Genitourinary - Female: + pertinent finding (Left flank pain) Back: normal inspection, no CVA tenderness Extremities/Musculoskelatal: normal inspection, no calf tenderness, normal capillary refill, no pedal edema, normal range of motion Neurologic/Psych: carpenter prototype II-XII nml as tested, no motor/sensory deficits, alert, normal mood/affect, normal reflexes, oriented x 3 Skin: normal color, warm/dry, no rash Diagnostics Laboratory Results Results Past 24 Hours Test 09/28/17 15:51 09/28/17 17:01 09/28/17 21:04 Range/Units White Blood Count 21.23 4.8-10.8 K/uL Red Blood Count 3.57 4.2-5.4 M/uL Hemoglobin 11.4 12.0-16.0 g/dL Hematocrit 32.3 37-47 % Mean Corpuscular Volume 90.5 80-100 fL Mean Corpuscular Hemoglobin 31.9 25-34 pg Mean Corpuscular Hemoglobin Concent 35.3 32-36 g/dl Platelet Count 155 130-400 K/uL Mean Platelet Volume 10.4 7.4-10.4 fL RDW Standard Deviation 47.6 36.4-46.3 fL RDW Coefficient of Variation 14.3 11.5-14.5 % Neutrophils % (Manual) 88.6 % Lymphocytes % (Manual) 2.6 % Monocytes % (Manual) 7.9 % Eosinophils % (Manual) 0.9 % Neutrophils # (Manual) 18.81 1.4-6.5 K/uL Total Absolute Neutrophils 18.81 1.4-6.5 K/uL Lymphocytes # (Manual) 0.55 1.2-3.4 K/uL Total Absolute Lymphocytes 0.55 1.2-3.4 K/uL Monocytes # (Manual) 1.68 0.11-0.59 K/uL Eosinophils # (Manual) 0.19 0-0.5 K/uL Toxic Vacuolation 1+ Echinocytes 1+ Sodium Level 123 136-145 mmol/L Potassium Level 3.7 3.5-5.1 mmol/L Chloride Level 90 98-107 mmol/L Carbon Dioxide Level 22 21-32 mmol/L Anion Gap 11.0 3-11 mmol/L Blood Urea Nitrogen 22 7-18 mg/dl Creatinine 1.78 0.60-1.20 mg/dl Estimated GFR () 33.4 Estimated GFR (Non- 28.8 BUN/Creatinine Ratio 12.1 10-20 Random Glucose 70 70-99 mg/dl Calcium Level 9.1 8.5-10.1 mg/dl Total Bilirubin 0.9 0.2-1 mg/dl Direct Bilirubin 0.3 0-0.2 mg/dl Aspartate Amino Transf (AST/SGOT) 26 15-37 U/L Alanine Aminotransferase (ALT/SGPT) 25 12-78 U/L Alkaline Phosphatase 160 45-117 U/L Total Protein 6.5 6.4-8.2 gm/dl Albumin 2.3 3.4-5.0 gm/dl Lipase 51 73-393 U/L Urine Color YELLOW Urine Appearance CLEAR CLEAR Urine pH 6.0 4.5-7.5 Urine Specific [place] 1.006 1.000-1.030 Urine Protein NEG NEG Urine Glucose (UA) NEG NEG Urine Ketones NEG NEG Urine Occult Blood 1+ NEG Urine Nitrite NEG NEG Urine Bilirubin NEG NEG Urine Urobilinogen NEG NEG Urine Leukocyte Esterase MODERATE NEG Urine WBC (Auto) >30 0-5 /hpf Urine RBC (Auto) 5-10 0-4 /hpf Urine Hyaline Casts (Auto) 0-5 /lpf Urine Epithelial Cells (Auto) 5-10 0-5 /lpf Urine Bacteria (Auto) 4+ NEG Microbiology Results 09/28/17 Urine Culture, Received Pending Impression Assessment and Plan 67-year-old female with past medical history of Crohn's disease, hypertension, on Remicade and chronic steroid use. Recently treated for antibiotics for upper respiratory tract infection. Presented to the hospital with nausea vomiting diarrhea and flank pain. 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 difficile Severe mucous membrane ulcers, appears to be aphthous ulcers, could be Crohn's induced mucositis, could be early thrush Hypertension, currently hypotensive Acute kidney injury, multifactorial, decreased oral intake, dehydration, diarrhea, hypertension, and hydrochlorothiazide Generalized weakness and multiple falls Hypovolemic hyponatremia. Plan Patient blood pressure responded to IV fluids, will start patient on stress dose dexamethasone, send cortisol level. Admit to telemetry We will treat C. difficile empirically with Flagyl IV and p.o. Vanco. Treat UTI with cefepime/Vanco IV giving her immunocompromised status Hold Remicade. Hold blood pressure medications. IV fluid hydration. Obtain urine and blood cultures. There was no urinary obstruction, no perinephric abscess on CAT scan. Consult infectious diseases Continue supportive care. If renal function does not improve by tomorrow, will consult finished stock inspector. Monitor sodium level every 8 hours avoid quick correction Heparin drip for DVT prophylax Resuscitation Status VTE Prophylaxis Will order VTE Prophylaxis: Yes
[2017-09-28] MEDS ORDERED: CEFEPIME IV 1,000 MG in SYRINGE 0 ML IV SCH (22:00)
[2017-09-28] MEDS ORDERED: METRONIDAZOLE / NSS 500 MG in PREMIXED NSS 100 ML IV SCH (22:00)
[2017-09-28] MEDS ORDERED: VANCOMYCIN INJ 1,750 MG in SODIUM CHLORIDE 0.9% 500ML 500 ML IV SCH (22:15)
[2017-09-28 23:22] LABS: CALCIUM 8.2 mg/dl (8.5-10.1); CREATININE 1.59 mg/dl (0.60-1.20); POTASSIUM 3.8 mmol/L (3.5-5.1)
[2017-09-29] VITALS (7 sets, daily range): BP systolic 102–133; BP diastolic 66–81; PULSE 104–114; TEMP 36.5–37.2; O2SAT 90–94; Ht 157.5 cm; Wt 74.5 kg
[2017-09-29] MEDS: SODIUM CHLORIDE 0.9% 1000ML 1,000 ML IV SCH ×3 (00:04→21:39)
[2017-09-29] MEDS: RASPBERRY SYRUP 5 ML UDP PO SCH ×5 (00:20→23:32)
[2017-09-29] MEDS: ZOLPIDEM TARTRATE 5 MG TAB PO PRN ×4 (00:20→23:31)
[2017-09-29] MEDS: VANCOMYCIN HCL 250 MG/5 ML SOLN PO SCH ×5 (00:21→23:31)
[2017-09-29] MEDS: DEXAMETHASONE INJ 4 MG in SYRINGE 0 ML IV SCH ×3 (06:11→21:37)
[2017-09-29 07:07] LABS: INR 1.3 (0.9-1.1); PTT PATIENT 28.3 SECONDS (21.0-31.0)
[2017-09-29 07:16] LABS: HEMATOCRIT 31.9 % (37-47); HEMOGLOBIN 10.9 g/dL (12.0-16.0); MEAN CELL VOLUME 93.3 fL (80-100); MEAN CORPUSCULAR HEMOGLOBIN 31.9 pg (25-34); MEAN CORPUSCULAR HGB CONC 34.2 g/dl (32-36); MEAN PLATELET VOLUME 10.7 fL (7.4-10.4); PLATELET COUNT 154 K/uL (130-400); RED CELL DISTRIBUTION WIDTH SD 50.7 fL (36.4-46.3); WHITE BLOOD COUNT 19.23 K/uL (4.8-10.8)
[2017-09-29 07:42] LABS: ALBUMIN 1.9 gm/dl (3.4-5.0); CREATININE 1.55 mg/dl (0.60-1.20); POTASSIUM 4.4 mmol/L (3.5-5.1); TOTAL PROTEIN 5.9 gm/dl (6.4-8.2)
[2017-09-29 08:04] LABS: BASO % 0.1 %; BASO ABS # 0.02 K/uL (0-0.2); EOS % 0.1 %; EOS ABS # 0.01 K/uL (0-0.5); IG# 0.33 K/uL (0.00-0.02); LYMPH ABS # 0.57 K/uL (1.2-3.4); MONO % 4.1 %; MONO ABS # 0.79 K/uL (0.11-0.59); NEUT ABS # 17.51 K/uL (1.4-6.5)
[2017-09-29] MEDS: NYSTATIN SUSP 500,000 U/5 ML UDC PO SCH ×4 (08:25→21:33)
[2017-09-29] MEDS: METRONIDAZOLE / NSS 500 MG in PREMIXED NSS 100 ML IV SCH ×3 (08:25→23:31)
[2017-09-29] MEDS: ESCITALOPRAM OXALATE 20 MG TAB PO SCH (08:25)
[2017-09-29] MEDS: PANTOprazole SOD 40 MG TAB PO SCH ×2 (08:26→21:34)
[2017-09-29] MEDS: NYSTATIN POWDER 15GM BTL EXT SCH ×2 (08:26→21:32)
[2017-09-29] MEDS: HEPARIN SOD 5000 UNIT/0.5 ML CARP SQ SCH ×2 (08:28→21:36)
--- NOTE | 2017-09-29 08:29 | Progress Note ---
Progress Note Date of Service Sep 29, 2017. Progress Note ID Consult Dictated #[id number] A/P: 1. B/L pyelonephritis 2. Leukocytosis -Continue abx. follow cultures -Will follow, thank you
--- NOTE | 2017-09-29 09:14 | INFECT. DISEASE CONSULTATION ---
DATE OF CONSULTATION: 09/29/2017 HISTORY OF PRESENT ILLNESS: This is a 67-year-old female with a past medical history of hypertension, arthritis and Crohn disease. She is on Remicade and is due to have an injection later this week. She also was on oral steroids at home. She was found over the weekend have a fever at home of 103 degrees. She also had abdominal pain with diarrhea. She was seen in the Emergency Room for this. Her urinalysis was positive for greater than 30 wbc's and +4 bacteria. She also underwent a CAT scan of the abdomen and pelvis which showed bilateral pyelonephritis. She denies any flank pain. Blood cultures and urine cultures were obtained and are pending. She was also started on antibiotics including Flagyl and p.o. vancomycin for C. diff and put in contact precautions. Her white blood cell count is markedly elevated at 21, her sed rate is elevated at 76 and her CRP is elevated at 31. She has been afebrile since admission to the hospital. On my examination today, she states she is feeling much better. She states her abdominal pain has subsided. She denies any nausea or vomiting. She denies any chest pain, cough or shortness of breath. She is tolerating antibiotics well. Her remaining review of systems is unremarkable. PAST MEDICAL HISTORY: As above. FAMILY HISTORY: Noncontributory. SOCIAL HISTORY: Significant for history of tobacco use. She denies any drug use or alcohol use. ALLERGIES: SHE DOES HAVE ALLERGIES TO CIPRO, SULFA AND MESALAMINE. CURRENT MEDICATIONS: Include cefepime, Lexapro, nystatin powder, Protonix, subQ heparin, Flagyl, dexamethasone, oral vancomycin, albuterol, Valium, Benadryl, Tylenol, Maalox, milk of magnesia, Ambien, Zofran and intravenous vancomycin. PHYSICAL EXAMINATION: VITAL SIGNS: She is afebrile, pulse 106, respiratory rate 18, blood pressure 102/66, AND oxygen saturation is 93% on room air. GENERAL: She is awake, alert and oriented x3. She is in no acute distress. HEENT: Mucous membranes are moist. Extraocular muscles are intact. HEART: Regular. LUNGS: Clear but decreased at the bases bilaterally. ABDOMEN: Soft and nondistended. There is no edema. LABORATORY STUDIES: CBC today reveals a white blood cell count of 19.2, hemoglobin 10.9, AND platelets 154. Chemistry panel reveals a sodium of 134, potassium 4.4, chloride 106, bicarbonate 17, BUN 17, creatinine 1.55, AND glucose is 94. LFTs are normal. CRP was 31. Lactic acid is normal. Urine culture is growing gram negative phong. Blood cultures are pending. IMAGING DATA: A CT of the abdomen and pelvis is as above. ASSESSMENT AND PLAN: pyelonephritis. She will remain on empiric antibiotics pending the results of blood and urine cultures. I do not see that a Clostridium difficile was sent or if this was sent as an outpatient; however, if not been sent yet, then she continues to have diarrhea, this would be warranted. She will remain on empiric antibiotics pending additional culture results. Thank you for this consultation.
[2017-09-29] MEDS: CEFEPIME IV 1,000 MG in SYRINGE 0 ML IV SCH ×2 (12:07→23:31)
--- NOTE | 2017-09-29 13:38 | GASTROINTESTINAL CONSULTATION ---
DATE OF CONSULTATION: 09/29/2017 REASON FOR EVALUATION: Crohn's disease with pyelonephritis. HISTORY OF PRESENT ILLNESS: The patient is a 67-year-old with Crohn's disease, on Remicade infusions every 8 weeks. The patient has her next infusion due in 5 days. The patient, 2 months ago, had a respiratory infection and then over the last 2 days, began experiencing vomiting and diarrhea 2-3 times a day. She was very weak and fell 3 times in the last 2 days. She presented to the hospital, she was noted to have bacteria in her urine. A CT scan showed findings of what looks like bilateral pyelonephritis. Cultures were obtained and she has been started on empiric antibiotics. GI consultation has been obtained due to her underlying Crohn's disease. MEDICATIONS: Include amoxicillin, calcium, vitamin D, dexamethasone, Lexapro, fluocinonide, Remicade, Nystop, Protonix, Prazosin, Zantac, and Carafate. ALLERGIES: CIPROFLOXACIN, SULFA, LACTOSE, MESALAMINE AND SILVER. PAST MEDICAL HISTORY: Remarkable for hypertension, arthritis, acid reflux. FAMILY HISTORY: Negative. SOCIAL HISTORY: The patient is , lives alone, has a dog, does not drink, smoked in the past. REVIEW OF SYSTEMS: Fevers, chills, nausea, fatigue. Remainder is negative. PHYSICAL EXAMINATION: GENERAL: The patient appears in no acute distress. VITAL SIGNS: Blood pressure is 126/74, pulse 97, temperature is 36.9. Room air saturations 95%. HEENT: Shows some superficial ulcerations. LUNGS: Decreased breath sounds. HEART: Normal S1 and S2. Regular rate and rhythm. ABDOMEN: Soft and nontender. NEUROLOGIC: Nonfocal. IMPRESSION AND PLAN: The patient has Crohn's disease, now with bilateral pyelonephritis. Obviously, the Remicade is compromising her immune system along with the dexamethasone. At this point, I would hold the Remicade infusion that is scheduled for next Saturday and treat her infection aggressively. She will need to be completely cleared of the infection before she can resume Remicade infusions. We will await her stool for C. diff.
--- NOTE | 2017-09-29 13:52 | Progress Note ---
Subjective Date of Service: Sep 29, 2017. Subjective Pt evaluation today including: conversation w/ patient Pt is feeling much improved today. She has had no v/d at all today. She ate breakfast without issue and was waiting for lunch during our conversation. Still feeling a bit weak, but overall much improved. No longer with L flank pain. Pt denies fever, SOB, chest pain, abd pain, n, LE pain or swelling. Problem List Medical Problems: (1) LOVE (acute kidney injury) Status: Acute (2) Altered mental status Status: Acute (3) Anemia Status: Acute (4) Bronchitis Status: Acute (5) Dehydration Status: Acute (6) Hyponatremia Status: Acute (7) Mouth ulceration Status: Acute (8) Orthostatic hypotension Status: Acute (9) Perineal irritation in female Status: Acute (10) Perineal ulcer Status: Acute (11) Pyelonephritis Status: Acute (12) Sepsis Status: Acute Review of Systems All Other Systems: Reviewed and Negative Objective Vital Signs Date Time Temp Pulse Resp B/P (MAP) Pulse Ox O2 Delivery O2 Flow Rate FiO2 09/29/17 11:44 36.5 112 18 108/72 (84) 92 Room Air 09/29/17 08:00 Room Air 09/29/17 07:14 37.0 106 18 102/66 (78) 93 Room Air 09/29/17 04:33 37.0 107 18 111/69 (83) 91 Room Air 09/29/17 03:21 37.2 114 20 120/75 94 Room Air 09/28/17 21:34 104 19 130/69 94 Room Air 09/28/17 20:05 126/74 09/28/17 19:54 105/65 09/28/17 19:00 97 18 85/66 95 Room Air 09/28/17 17:05 94 18 103/64 94 Room Air 09/28/17 15:13 36.9 92 16 105/74 94 Room Air Physical Exam General Appearance: WD/WN, no apparent distress Eyes: normal inspection, sclerae normal Respiratory/Chest: normal breath sounds, no respiratory distress Cardiovascular: regular rate, rhythm, no edema Abdomen: non tender, soft Extremities: non-tender, no pedal edema Neurologic/Psychiatric: alert, normal mood/affect, oriented x 3 Skin: normal color, warm/dry Laboratory Results Last 24 Hours Test 09/28/17 15:51 09/28/17 17:01 09/28/17 22:16 09/29/17 06:17 White Blood Count 21.23 K/uL 19.23 K/uL Red Blood Count 3.57 M/uL 3.42 M/uL Hemoglobin 11.4 g/dL 10.9 g/dL Hematocrit 32.3 % 31.9 % Mean Corpuscular Volume 90.5 fL 93.3 fL Mean Corpuscular Hemoglobin 31.9 pg 31.9 pg Mean Corpuscular Hemoglobin Concent 35.3 g/dl 34.2 g/dl Platelet Count 155 K/uL 154 K/uL Mean Platelet Volume 10.4 fL 10.7 fL RDW Standard Deviation 47.6 fL 50.7 fL RDW Coefficient of Variation 14.3 % 15.0 % Neutrophils % (Manual) 88.6 % Lymphocytes % (Manual) 2.6 % Monocytes % (Manual) 7.9 % Eosinophils % (Manual) 0.9 % Neutrophils # (Manual) 18.81 K/uL Total Absolute Neutrophils 18.81 K/uL Lymphocytes # (Manual) 0.55 K/uL Total Absolute Lymphocytes 0.55 K/uL Monocytes # (Manual) 1.68 K/uL Eosinophils # (Manual) 0.19 K/uL Toxic Vacuolation 1+ Echinocytes 1+ 1+ Erythrocyte Sedimentation Rate 76 mm/hr Sodium Level 123 mmol/L 132 mmol/L Potassium Level 3.7 mmol/L 3.8 mmol/L Chloride Level 90 mmol/L 101 mmol/L Carbon Dioxide Level 22 mmol/L 21 mmol/L Anion Gap 11.0 mmol/L 10.0 mmol/L Blood Urea Nitrogen 22 mg/dl 18 mg/dl Creatinine 1.78 mg/dl 1.59 mg/dl Estimated GFR () 33.4 38.3 Estimated GFR (Non- 28.8 33.0 BUN/Creatinine Ratio 12.1 11.3 Random Glucose 70 mg/dl 66 mg/dl Calcium Level 9.1 mg/dl 8.2 mg/dl Total Bilirubin 0.9 mg/dl Direct Bilirubin 0.3 mg/dl Aspartate Amino Transf (AST/SGOT) 26 U/L Alanine Aminotransferase (ALT/SGPT) 25 U/L Alkaline Phosphatase 160 U/L C-Reactive Protein 31.60 mg/dl Total Protein 6.5 gm/dl Albumin 2.3 gm/dl Lipase 51 U/L Random Cortisol 26.67 mcg/dl Urine Color YELLOW Urine Appearance CLEAR Urine pH 6.0 Urine Specific [place] 1.006 Urine Protein NEG Urine Glucose (UA) NEG Urine Ketones NEG Urine Occult Blood 1+ Urine Nitrite NEG Urine Bilirubin NEG Urine Urobilinogen NEG Urine Leukocyte Esterase MODERATE Urine WBC (Auto) >30 /hpf Urine RBC (Auto) 5-10 /hpf Urine Hyaline Casts (Auto) /lpf Urine Epithelial Cells (Auto) 5-10 /lpf Urine Bacteria (Auto) 4+ Est Creatinine Clear Calc Drug Dose 31.2 ml/min Neutrophils (%) (Auto) 91.0 % Lymphocytes (%) (Auto) 3.0 % Monocytes (%) (Auto) 4.1 % Eosinophils (%) (Auto) 0.1 % Basophils (%) (Auto) 0.1 % Neutrophils # (Auto) 17.51 K/uL Lymphocytes # (Auto) 0.57 K/uL Monocytes # (Auto) 0.79 K/uL Eosinophils # (Auto) 0.01 K/uL Basophils # (Auto) 0.02 K/uL Immature Granulocyte % (Auto) 1.7 % Immature Granulocyte # (Auto) 0.33 K/uL Test 09/29/17 06:44 Prothrombin Time 13.2 SECONDS Prothromb Time International Ratio 1.3 Activated Partial Thromboplast Time 28.3 SECONDS Partial Thromboplastin Ratio 1.1 Sodium Level 134 mmol/L Potassium Level 4.4 mmol/L Chloride Level 106 mmol/L Carbon Dioxide Level 17 mmol/L Anion Gap 11.0 mmol/L Blood Urea Nitrogen 17 mg/dl Creatinine 1.55 mg/dl Est Creatinine Clear Calc Drug Dose 31.5 ml/min Estimated GFR () 39.5 Estimated GFR (Non- 34.1 BUN/Creatinine Ratio 10.8 Random Glucose 94 mg/dl Lactic Acid Level 1.0 mmol/L Calcium Level 8.0 mg/dl Magnesium Level 2.0 mg/dl Total Bilirubin 0.5 mg/dl Aspartate Amino Transf (AST/SGOT) 20 U/L Alanine Aminotransferase (ALT/SGPT) 23 U/L Alkaline Phosphatase 137 U/L Total Protein 5.9 gm/dl Albumin 1.9 gm/dl Globulin 4.0 gm/dl Albumin/Globulin Ratio 0.5 Chemistry Specimen Hemolysis Assessment and Plan 67-year-old female with past medical history of Crohn's disease, hypertension, on Remicade and chronic steroid use. Recently treated for antibiotics for upper respiratory tract infection. Presented to the hospital with nausea vomiting diarrhea and flank pain. CT scan showed bilateral pyelonephritis and urine was positive for infection Bilateral pyelonephritis: L>R with septic shock Complicated UTI POA, cx + for gram neg with sensi pending cefepime/Vanco IV giving her immunocompromised status, started 09/28 Blood cx pending ID c/s Diarrhea with recent use of antibiotics, Crohn's flare versus C. difficile Cdiff pending Treat Cdifficile empirically with Flagyl IV and p.o. Vanco. Crohn's: Immune compromised status with chronic steroids plus Remicade Hold Remicade Relative adrenal insufficiency with chronic steroid use, hypoTN on admission: Improving Patient blood pressure responded to IV fluids, will start patient on stress dose dexamethasone, send cortisol level Hold BP meds Severe mucous membrane ulcers, appears to be aphthous ulcers, could be Crohn's induced mucositis, could be early thrush Monitor with pain control Acute kidney injury, multifactorial, decreased oral intake, dehydration, diarrhea, hypertension, and hydrochlorothiazide Improving with IVF and med holds Generalized weakness and multiple falls: PT/OT CT head neg for acute Hypovolemic hyponatremia: Improving Monitor Heparin drip for DVT prophylax
[2017-09-29 14:27] LABS: CALCIUM 8.3 mg/dl (8.5-10.1); CREATININE 1.57 mg/dl (0.60-1.20)
[2017-09-30] VITALS (7 sets, daily range): BP systolic 127–147; BP diastolic 72–87; PULSE 99–114; TEMP 36.7–37.2; O2SAT 90–92
[2017-09-30] MEDS: RASPBERRY SYRUP 5 ML UDP PO SCH (06:17)
[2017-09-30] MEDS: VANCOMYCIN HCL 250 MG/5 ML SOLN PO SCH (06:17)
[2017-09-30] MEDS: DEXAMETHASONE INJ 4 MG in SYRINGE 0 ML IV SCH ×3 (06:24→22:15)
[2017-09-30 07:13] LABS: CALCIUM 7.9 mg/dl (8.5-10.1); CREATININE 1.46 mg/dl (0.60-1.20); POTASSIUM 3.8 mmol/L (3.5-5.1)
[2017-09-30] MEDS ORDERED: ERTAPENEM IV 1 GM in SODIUM CHLOR 0.9% AD-VAN 50ML 50 ML IV SCH (08:30)
[2017-09-30] MEDS ORDERED: ERTAPENEM 1 GM ADDVIAL IV ONE (08:30)
[2017-09-30] MEDS: PANTOprazole SOD 40 MG TAB PO SCH ×2 (08:33→20:44)
[2017-09-30] MEDS: NYSTATIN SUSP 500,000 U/5 ML UDC PO SCH ×4 (08:33→20:43)
[2017-09-30] MEDS: ESCITALOPRAM OXALATE 20 MG TAB PO SCH (08:33)
[2017-09-30] MEDS: NYSTATIN POWDER 15GM BTL EXT SCH ×2 (08:33→20:43)
[2017-09-30] MEDS: HEPARIN SOD 5000 UNIT/0.5 ML CARP SQ SCH ×2 (08:35→20:46)
[2017-09-30] MEDS: METRONIDAZOLE / NSS 500 MG in PREMIXED NSS 100 ML IV SCH ×3 (09:01→23:39)
[2017-09-30] MEDS: AMPICILLIN/SULBACTAM SOD INJ 3,000 MG in SODIUM CHLORIDE 0.9% 100ML 100 ML IV SCH ×3 (09:02→20:43)
[2017-09-30] MEDS: SODIUM CHLORIDE 0.9% 1000ML 1,000 ML IV SCH ×2 (09:51→23:30)
--- NOTE | 2017-09-30 10:37 | Progress Note ---
Subjective Date of Service: Sep 30, 2017. Subjective pt resting comfortably in bed, no overnight events. Blood cultures with gnr, urine with ESBL+ E. coli, changed to unasyn, tolerating well. afebrile. wbc improving. c diff ordered, no specimen obtained, on emperic abx (mcnally) Problem List Medical Problems: (1) LOVE (acute kidney injury) Status: Acute (2) Altered mental status Status: Acute (3) Anemia Status: Acute (4) Bronchitis Status: Acute (5) Dehydration Status: Acute (6) Hyponatremia Status: Acute (7) Mouth ulceration Status: Acute (8) Orthostatic hypotension Status: Acute (9) Perineal irritation in female Status: Acute (10) Perineal ulcer Status: Acute (11) Pyelonephritis Status: Acute (12) Sepsis Status: Acute Objective Vital Signs Date Time Temp Pulse Resp B/P (MAP) Pulse Ox O2 Delivery O2 Flow Rate FiO2 09/30/17 08:00 92 Room Air 09/30/17 07:02 36.7 114 20 138/85 (102) 90 Room Air 09/30/17 04:18 Room Air 09/30/17 04:14 36.9 104 18 127/72 (90) 92 Room Air 09/29/17 23:30 37.1 110 18 133/70 (91) 90 Room Air 09/29/17 20:05 Room Air 09/29/17 19:59 37.1 112 18 130/80 (97) 92 Room Air 09/29/17 16:00 Room Air 09/29/17 14:17 37.2 104 18 123/81 (95) 91 Room Air 09/29/17 12:00 Room Air 09/29/17 11:44 36.5 112 18 108/72 (84) 92 Room Air Physical Exam General Appearance: WD/WN Eyes: normal inspection Neck: supple Respiratory/Chest: no respiratory distress Neurologic/Psychiatric: alert Skin: normal color Laboratory Results Item Value Date Time Blood Culture - Preliminary Resulted 09/28/17 2233 Blood Gram Negative Bacilli Blood Culture - Preliminary Resulted 09/28/17 2216 Blood Gram Negative Bacilli Urine Culture - Final Complete 09/28/17 1701 Urine , Clean Catch Escherichia Coli Esbl Last 24 Hours Test 09/29/17 13:53 09/30/17 06:41 Sodium Level 135 mmol/L 136 mmol/L Potassium Level 4.0 mmol/L 3.8 mmol/L Chloride Level 104 mmol/L 108 mmol/L Carbon Dioxide Level 21 mmol/L 20 mmol/L Anion Gap 10.0 mmol/L 8.0 mmol/L Blood Urea Nitrogen 16 mg/dl 15 mg/dl Creatinine 1.57 mg/dl 1.46 mg/dl Est Creatinine Clear Calc Drug Dose 31.1 ml/min 34.3 ml/min Estimated GFR () 38.9 42.4 Estimated GFR (Non- 33.5 36.6 BUN/Creatinine Ratio 10.1 10.3 Random Glucose 168 mg/dl 145 mg/dl Calcium Level 8.3 mg/dl 7.9 mg/dl Assessment and Plan (1) Gram negative septicemia Assessment & Plan: repeat blood cultures x 2. continue unasyn. (2) Pyelonephritis (3) Leukocytosis Assessment & Plan: improving.
[2017-09-30] MEDS ORDERED: COUGH DROP (SUGAR FREE) LOZ 24 LOZ/1 BOX LOZ ONE (12:52)
[2017-09-30] MEDS ORDERED: NURSING DECISION MEDICATION ORDER SCH (13:00)
[2017-09-30] MEDS ORDERED: COUGH DROP (SUGAR FREE) LOZ 24 LOZ/1 BOX LOZ PRN (13:15)
--- NOTE | 2017-09-30 13:43 | Hospitalist Progress Note ---
Hospitalist Progress Note Date of Service Sep 30, 2017. Subjective Pt evaluation today including: conversation w/ patient, physical exam, lab review, review of studies, review of inpatient medication list Voiding: no voiding problems Patient resting in bed. Feeling well this AM. Eating and drinking OK. Feeling stronger, would like to work with PT. No BM since admission. Patient denies any fever, chills, sweats, lightheadedness, dizziness, vision changes, CP, palpitations, edema, SOB, wheezing, cough, abdominal pain, nausea, vomiting, diarrhea, urinary symptoms, melena, numbness/tingling, weakness, muscle/joint pain, anxiety/depression, active bleeding, or new skin discoloration/changes. Medications Current Inpatient Medications Medications (Trade) Dose Ordered Sig/Shilpi Route Start Time Stop Time Status Last Admin Dose Admin Ioversol (Optiray 320) 100 ml UD PRN IV 09/28/17 16:15 10/02/17 16:14 Albuterol (Ventolin Hfa Inhaler) 2 puffs Q6H PRN INH 09/28/17 21:15 10/28/17 21:14 Diazepam (Valium Tab) 5 mg BID PRN PO 09/28/17 21:15 10/28/17 21:14 Diphenhydramine HCl (Benadryl Cap) 25 mg Q4 PRN PO 09/28/17 21:15 10/28/17 21:14 Escitalopram Oxalate (Lexapro Tab) 20 mg QAM PO 09/29/17 09:00 10/29/17 08:59 09/30/17 08:33 20 MG Nystatin (Mycostatin Powder) 1 appln BID EXT 09/29/17 09:00 10/29/17 08:59 09/30/17 08:33 1 APPLN Pantoprazole Sodium (Protonix Tab) 40 mg BID PO 09/29/17 09:00 10/29/17 08:59 09/30/17 08:33 40 MG Triamcinolone Acetonide (Kenalog 0.1% Oint) 1 appln TID PRN TOP 09/28/17 21:15 10/28/17 21:14 Nystatin (Mycostatin Susp) 5 ml QID PO 09/29/17 09:00 10/29/17 08:59 09/30/17 12:49 5 ML Dexamethasone Sodium Phosphate 4 mg/Syringe 1 ml @ 1 mls/min Q8H IV 09/29/17 06:00 10/29/17 05:59 09/30/17 06:24 1 MLS/MIN Metronidazole 500 mg/Prmx 100 ml @ 100 mls/hr Q8H IV 09/29/17 08:00 10/09/17 07:59 09/30/17 09:01 100 MLS/HR Heparin Sodium (Porcine) (Heparin Sq 5000 Unit/0.5ml) 5,000 unit Q12 SQ 09/29/17 09:00 10/29/17 08:59 09/30/17 08:35 5,000 UNIT Sodium Chloride 1,000 ml @ 80 mls/hr [id number] IV 09/28/17 21:04 10/28/17 21:03 09/30/17 09:51 80 MLS/HR Acetaminophen (Tylenol Tab) 650 mg Q4H PRN PO 09/28/17 21:15 10/28/17 21:14 Al Hydrox/Mg Hydrox/Simethicone (Maalox Max Susp) 15 ml Q4H PRN PO 09/28/17 21:15 10/28/17 21:14 Magnesium Hydroxide (Milk Of Magnesia Susp) 30 ml Q12H PRN PO 09/28/17 21:15 10/28/17 21:14 Zolpidem Tartrate (Ambien Tab) 5 mg HSZ PRN PO 09/28/17 21:15 10/28/17 21:14 09/29/17 23:31 5 MG Ondansetron HCl (Zofran Inj) 4 mg Q6H PRN IV 09/28/17 21:15 10/28/17 21:14 Polyethylene (Miralax Powder Packet) 17 gm DAILY PRN PO 09/28/17 21:15 10/28/17 21:14 Ampicillin Sodium/ Sulbactam Sodium 3000 mg/Sodium Chloride 108 ml @ 216 mls/hr Q6H IV 09/30/17 09:00 10/10/17 08:59 09/30/17 09:02 216 MLS/HR Menthol ([place]) 1 carmel PRN PRN CARMEL 09/30/17 13:15 10/30/17 13:14 Objective Vital Signs Date Time Temp Pulse Resp B/P (MAP) Pulse Ox O2 Delivery O2 Flow Rate FiO2 09/30/17 11:31 36.8 106 20 142/83 (102) 91 09/30/17 08:00 92 Room Air 09/30/17 07:02 36.7 114 20 138/85 (102) 90 Room Air 09/30/17 04:18 Room Air 09/30/17 04:14 36.9 104 18 127/72 (90) 92 Room Air 09/29/17 23:30 37.1 110 18 133/70 (91) 90 Room Air 09/29/17 20:05 Room Air 09/29/17 19:59 37.1 112 18 130/80 (97) 92 Room Air 09/29/17 16:00 Room Air 09/29/17 14:17 37.2 104 18 123/81 (95) 91 Room Air Physical Exam General Appearance: no apparent distress Eyes: normal inspection, PERRL ENT: hearing grossly normal Neck: supple Respiratory/Chest: lungs clear, no respiratory distress, no accessory muscle use Cardiovascular: regular rate, rhythm Abdomen: normal bowel sounds, non tender, soft Extremities: no pedal edema, no calf tenderness Neurologic/Psychiatric: alert, normal mood/affect, oriented x 3 Skin: normal color, warm/dry, no rash Laboratory Results Last 24 Hours Test 09/29/17 13:53 09/30/17 06:41 Sodium Level 135 mmol/L 136 mmol/L Potassium Level 4.0 mmol/L 3.8 mmol/L Chloride Level 104 mmol/L 108 mmol/L Carbon Dioxide Level 21 mmol/L 20 mmol/L Anion Gap 10.0 mmol/L 8.0 mmol/L Blood Urea Nitrogen 16 mg/dl 15 mg/dl Creatinine 1.57 mg/dl 1.46 mg/dl Est Creatinine Clear Calc Drug Dose 31.1 ml/min 34.3 ml/min Estimated GFR () 38.9 42.4 Estimated GFR (Non- 33.5 36.6 BUN/Creatinine Ratio 10.1 10.3 Random Glucose 168 mg/dl 145 mg/dl Calcium Level 8.3 mg/dl 7.9 mg/dl Assessment and Plan 67-year-old female with past medical history of Crohn's disease, hypertension, on Remicade and chronic steroid use. Recently treated for antibiotics for upper respiratory tract infection. Presented to the hospital with nausea vomiting diarrhea and flank pain. CT scan showed bilateral pyelonephritis and urine was positive for infection Bilateral pyelonephritis, L>R with septic shock: - UCx w/ ESBL E.Coli- sensitives reviewed, IV Unasyn- started on 09/30 - BCx- GNB, final cultures pending- IV Unasyn- repeat BCx pending - ID consulted, appreciate recommendations Diarrhea w/ recent use of antibiotics, ?Crohn's flare vs c.difficile- RESOLVED: - No stool culture obtained yet - IV Flagyl + PO Vanco for prophylaxis- Vanco d/c'ed, continue Flagyl per ID Crohn's disease- immunocompromised status w/ chronic steroids plus Remicade: - GI consulted- hold Remicade until infection clears - Continue Dexamethasone Relative adrenal insufficiency with chronic steroid use, hypotension on admission- RESOLVED: - Treating w/ IVF and stress dose Dexamethasone- will transition to PO Dexamethasone tomorrow - Holding BP medications Hypovolemic hyponatremia- RESOLVED LOVE on CKD stage III- 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
[2017-09-30] MEDS: ZOLPIDEM TARTRATE 10 MG TAB PO PRN (22:04)
[2017-09-30] MEDS: DIAZEPAM 5MG TAB PO PRN (22:04)
[2017-10-01] VITALS (8 sets, daily range): BP systolic 128–165; BP diastolic 80–91; PULSE 86–101; TEMP 36.7–37.2; O2SAT 91–94
[2017-10-01] MEDS: AMPICILLIN/SULBACTAM SOD INJ 3,000 MG in SODIUM CHLORIDE 0.9% 100ML 100 ML IV SCH ×4 (03:34→20:45)
[2017-10-01] MEDS: ACETAMINOPHEN 325 MG TAB PO PRN ×2 (05:19→12:27)
[2017-10-01] MEDS ORDERED: NURSING VERBAL MED ORDER ONE (05:30)
[2017-10-01] MEDS: BENZONATATE 100MG CAP PO PRN ×3 (06:12→20:52)
[2017-10-01 06:51] LABS: HEMATOCRIT 30.1 % (37-47); HEMOGLOBIN 10.2 g/dL (12.0-16.0); MEAN CELL VOLUME 94.1 fL (80-100); MEAN CORPUSCULAR HEMOGLOBIN 31.9 pg (25-34); MEAN CORPUSCULAR HGB CONC 33.9 g/dl (32-36); MEAN PLATELET VOLUME 9.9 fL (7.4-10.4); PLATELET COUNT 249 K/uL (130-400); RED CELL DISTRIBUTION WIDTH CV 15.4 % (11.5-14.5); RED CELL DISTRIBUTION WIDTH SD 53.4 fL (36.4-46.3); WHITE BLOOD COUNT 13.27 K/uL (4.8-10.8)
[2017-10-01 07:11] LABS: CALCIUM 7.8 mg/dl (8.5-10.1); CREATININE 1.24 mg/dl (0.60-1.20); POTASSIUM 3.5 mmol/L (3.5-5.1)
[2017-10-01] MEDS: METRONIDAZOLE / NSS 500 MG in PREMIXED NSS 100 ML IV SCH (07:43)
[2017-10-01] MEDS: ESCITALOPRAM OXALATE 20 MG TAB PO SCH (07:51)
[2017-10-01] MEDS: PANTOprazole SOD 40 MG TAB PO SCH ×2 (07:52→20:50)
[2017-10-01] MEDS: NYSTATIN POWDER 15GM BTL EXT SCH ×2 (07:52→20:49)
[2017-10-01] MEDS: NYSTATIN SUSP 500,000 U/5 ML UDC PO SCH ×4 (07:52→20:48)
[2017-10-01] MEDS: DEXAMETHASONE PO SCH ×6 (07:53→20:51)
[2017-10-01] MEDS ORDERED: DEXAMETHASONE 2 MG/20 ML UDP PO SCH (08:00)
[2017-10-01] MEDS: HEPARIN SOD 5000 UNIT/0.5 ML CARP SQ SCH ×2 (08:02→20:57)
[2017-10-01] MEDS ORDERED: MAGIC MOUTHWASH PO PRN (10:30)
[2017-10-01] MEDS: SODIUM CHLORIDE 0.9% 1000ML 1,000 ML IV SCH (11:36)
[2017-10-01] MEDS: DEXAMETHASONE CONC SOLN 3.75 MG, NYSTATIN SUSP 30 ML, DiphenhydrAMINE HCL SYRUP 300 MG,... PO PRN ×5 (14:10)
--- NOTE | 2017-10-01 14:12 | Hospitalist Progress Note ---
Hospitalist Progress Note Date of Service Oct 01, 2017. (Shanel Estrada ., PA-C) Subjective Pt evaluation today including: conversation w/ patient, physical exam, lab review, review of inpatient medication list Voiding: no voiding problems Patient feeling well. Eating and drinking OK. Starting to feel stronger. Patient denies any fever, chills, sweats, lightheadedness, dizziness, vision changes, CP, palpitations, edema, SOB, wheezing, cough, abdominal pain, nausea, vomiting, diarrhea, urinary symptoms, melena, numbness/tingling, weakness, muscle/joint pain, anxiety/depression, active bleeding, or new skin discoloration/changes. Per RN, doing well. Ambulating around the room without significant difficulty. Had a BM this AM- formed, not c.diff like. (Shanel Estrada ., LUIS A-C) Medications Current Inpatient Medications Medications (Trade) Dose Ordered Sig/Shilpi Route Start Time Stop Time Status Last Admin Dose Admin Ioversol (Optiray 320) 100 ml UD PRN IV 09/28/17 16:15 10/02/17 16:14 Albuterol (Ventolin Hfa Inhaler) 2 puffs Q6H PRN INH 09/28/17 21:15 10/28/17 21:14 Diazepam (Valium Tab) 5 mg BID PRN PO 09/28/17 21:15 10/28/17 21:14 09/30/17 22:04 5 MG Diphenhydramine HCl (Benadryl Cap) 25 mg Q4 PRN PO 09/28/17 21:15 10/28/17 21:14 Escitalopram Oxalate (Lexapro Tab) 20 mg QAM PO 09/29/17 09:00 10/29/17 08:59 10/01/17 07:51 20 MG Nystatin (Mycostatin Powder) 1 appln BID EXT 09/29/17 09:00 10/29/17 08:59 10/01/17 07:52 1 APPLN Pantoprazole Sodium (Protonix Tab) 40 mg BID PO 09/29/17 09:00 10/29/17 08:59 10/01/17 07:52 40 MG Triamcinolone Acetonide (Kenalog 0.1% Oint) 1 appln TID PRN TOP 09/28/17 21:15 10/28/17 21:14 Nystatin (Mycostatin Susp) 5 ml QID PO 09/29/17 09:00 10/29/17 08:59 10/01/17 12:28 5 ML Heparin Sodium (Porcine) (Heparin Sq 5000 Unit/0.5ml) 5,000 unit Q12 SQ 09/29/17 09:00 10/29/17 08:59 10/01/17 08:02 5,000 UNIT Sodium Chloride 1,000 ml @ 80 mls/hr [id number] IV 09/28/17 21:04 10/28/17 21:03 10/01/17 11:36 80 MLS/HR Acetaminophen (Tylenol Tab) 650 mg Q4H PRN PO 09/28/17 21:15 10/28/17 21:14 10/01/17 12:27 650 MG Al Hydrox/Mg Hydrox/Simethicone (Maalox Max Susp) 15 ml Q4H PRN PO 09/28/17 21:15 10/28/17 21:14 Magnesium Hydroxide (Milk Of Magnesia Susp) 30 ml Q12H PRN PO 09/28/17 21:15 10/28/17 21:14 Ondansetron HCl (Zofran Inj) 4 mg Q6H PRN IV 09/28/17 21:15 10/28/17 21:14 Polyethylene (Miralax Powder Packet) 17 gm DAILY PRN PO 09/28/17 21:15 10/28/17 21:14 Ampicillin Sodium/ Sulbactam Sodium 3000 mg/Sodium Chloride 108 ml @ 216 mls/hr Q6H IV 09/30/17 09:00 10/10/17 08:59 10/01/17 08:02 216 MLS/HR Menthol ([place]) 1 carmel PRN PRN CARMEL 09/30/17 13:15 10/30/17 13:14 Dexamethasone (Decadron Tab) 5 mg TID PO 10/01/17 09:00 10/31/17 08:59 10/01/17 14:01 5 MG Zolpidem Tartrate (Ambien Tab) 10 mg HS PRN PO 09/30/17 15:30 10/30/17 15:29 09/30/17 22:04 10 MG Benzonatate (Tessalon Perles Cap) 100 mg TID PRN PO 10/01/17 05:45 10/31/17 05:44 10/01/17 12:27 100 MG Dexamethasone/ Nystatin/ Diphenhydramine HCl/Sucrose/ Microcrystalline Cellulose/Barcode Q6H PRN PO 10/01/17 11:00 10/31/17 10:59 (Shanel Estrada PA-C) Objective Vital Signs Date Time Temp Pulse Resp B/P (MAP) Pulse Ox O2 Delivery O2 Flow Rate FiO2 10/01/17 12:00 94 Room Air 10/01/17 11:26 37.2 94 16 128/84 (99) 94 10/01/17 08:00 91 Room Air 10/01/17 07:48 36.9 86 16 138/81 (100) 94 10/01/17 04:22 36.9 99 20 136/88 (104) 92 Room Air 10/01/17 04:00 Room Air 10/01/17 00:14 36.8 101 24 142/80 (100) 92 Room Air 10/01/17 00:00 Room Air 09/30/17 20:00 Room Air 09/30/17 19:11 37.1 99 20 147/87 (107) 92 Room Air 09/30/17 16:00 Room Air 09/30/17 15:08 37.2 101 18 132/85 (101) 91 Room Air (Shanel Estrada PA-C) Physical Exam General Appearance: no apparent distress Eyes: normal inspection, PERRL ENT: hearing grossly normal Neck: supple Respiratory/Chest: lungs clear, no respiratory distress, no accessory muscle use Cardiovascular: regular rate, rhythm Abdomen: normal bowel sounds, non tender, soft Extremities: no pedal edema, no calf tenderness Neurologic/Psychiatric: alert, normal mood/affect, oriented x 3 Skin: normal color, warm/dry, no rash (Shanel Estrada PA-C) Laboratory Results Last 24 Hours Test 10/01/17 06:03 10/01/17 09:12 White Blood Count 13.27 K/uL Red Blood Count 3.20 M/uL Hemoglobin 10.2 g/dL Hematocrit 30.1 % Mean Corpuscular Volume 94.1 fL Mean Corpuscular Hemoglobin 31.9 pg Mean Corpuscular Hemoglobin Concent 33.9 g/dl RDW Standard Deviation 53.4 fL RDW Coefficient of Variation 15.4 % Platelet Count 249 K/uL Mean Platelet Volume 9.9 fL Sodium Level 137 mmol/L Potassium Level 3.5 mmol/L Chloride Level 109 mmol/L Carbon Dioxide Level 21 mmol/L Anion Gap 7.0 mmol/L Blood Urea Nitrogen 17 mg/dl Creatinine 1.24 mg/dl Est Creatinine Clear Calc Drug Dose 41.0 ml/min Estimated GFR () 51.7 Estimated GFR (Non- 44.6 BUN/Creatinine Ratio 13.8 Random Glucose 118 mg/dl Calcium Level 7.8 mg/dl (Shanel Estrada, AMAURI) Assessment and Plan 67-year-old female with past medical history of Crohn's disease, hypertension, on Remicade and chronic steroid use. Recently treated for antibiotics for upper respiratory tract infection. Presented to the hospital with nausea vomiting diarrhea and flank pain. CT scan showed bilateral pyelonephritis and urine was positive for infection Bilateral pyelonephritis, L>R with septic shock: - UCx w/ ESBL E.Coli- sensitives reviewed, IV Unasyn- started on 09/30 - BCx- ESBL E.Coli- IV Unasyn- repeat BCx pending - ID consulted, appreciate recommendations- continue IV Unasyn while inpatient, Augmentin x14 days from negative BCx Diarrhea w/ recent use of antibiotics, ?Crohn's flare vs c.difficile- RESOLVED: - Stool cultures pending - IV Flagyl + PO Vanco for prophylaxis- Vanco d/c;ed. 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 - Continue IVF - Hold nephrotoxic agents and renally dose medications as appropriate - Follow PRP Severe mucous membrane ulcers, appears to be aphthous ulcers, could be Crohn's induced mucositis, could be early thrush: Magic mouthwash q6hrs PRN Generalized weakness and multiple falls: - PT/OT - CT head neg for acute findings Anxiety: Continue Valium and Lexapro GI prophylaxis: Protonix daily DVT prophylaxis: Heparin SQ BID Code status: LEVEL I, FULL Dispo: Discharge uncertain- PT/OT and CM consulted - Hopeful discharge in the next 1-2 days- awaiting PT evaluation and negative BCx (Shanel Estrada ., PADebbieC) Attending Attestation: Pt seen/examined, chart reviewed, care plan d/w LUIS A Estrada. I agree w/ the alonzo components of her documentation. Pt feeling better. Having diarrhea/loose stool, but no abd pain, dysuria, or flank/back pain. VSS no fever gen - nad mouth- MMM heart - RRR lungs - CTA b/l abd - soft, NT, ND, BS+ ext - no edema Cr now nl repeat blood cx's neg A/P: 1. b/l pyelonephritis 2nd to ESBL e. coli 2. ESBL e. coli septicemia 3. metabolic encephalopathy - resolved 4. acute kidney injury - resolved 5. protein calorie malnutrition - likely due to #1/#2 and long-standing Crohn's 6. hyponatremia - resolved 7. Crohn's disease - likely controlled 8. diarrhea - await c. diff; appreciate GI consult; doubt active Crohn's disease; if c. diff neg then abx-associated diarrhea cont IV unasyn change to augmentin at d/c? appreciate ID input home tomorrow?? Nic IGLESIAS MD (Scar Iglesias MD)
--- NOTE | 2017-10-01 15:02 | Progress Note ---
Subjective Date of Service: Oct 01, 2017. Subjective Pt evaluation today including: conversation w/ patient, physical exam, chart review, lab review pt seen in followup, much improved today, she is tolerating abx well. denies f/c , no abd pain, no gu symptoms. asking to go home. repeat blood cultures pending , wbc much improved. initial blood and urine culture with E. coli. remaining ros reviewed and are negative. Problem List Medical Problems: (1) LOVE (acute kidney injury) Status: Acute (2) Altered mental status Status: Acute (3) Anemia Status: Acute (4) Bronchitis Status: Acute (5) Dehydration Status: Acute (6) Hyponatremia Status: Acute (7) Mouth ulceration Status: Acute (8) Orthostatic hypotension Status: Acute (9) Perineal irritation in female Status: Acute (10) Perineal ulcer Status: Acute (11) Pyelonephritis Status: Acute (12) Sepsis Status: Acute Objective Vital Signs Date Time Temp Pulse Resp B/P (MAP) Pulse Ox O2 Delivery O2 Flow Rate FiO2 10/01/17 12:00 94 Room Air 10/01/17 11:26 37.2 94 16 128/84 (99) 94 10/01/17 08:00 91 Room Air 10/01/17 07:48 36.9 86 16 138/81 (100) 94 10/01/17 04:22 36.9 99 20 136/88 (104) 92 Room Air 10/01/17 04:00 Room Air 10/01/17 00:14 36.8 101 24 142/80 (100) 92 Room Air 10/01/17 00:00 Room Air 09/30/17 20:00 Room Air 09/30/17 19:11 37.1 99 20 147/87 (107) 92 Room Air 09/30/17 16:00 Room Air 09/30/17 15:08 37.2 101 18 132/85 (101) 91 Room Air Physical Exam General Appearance: WD/WN, no apparent distress Eyes: normal inspection, EOMI Neck: supple Respiratory/Chest: lungs clear, normal breath sounds, no respiratory distress Cardiovascular: regular rate, rhythm, no edema Abdomen: non tender, soft Extremities: non-tender, no pedal edema Neurologic/Psychiatric: alert, oriented x 3 Skin: normal color Laboratory Results Item Value Date Time Urine Culture - Final Complete 09/28/17 1701 Urine , Clean Catch Escherichia Coli Esbl Blood Culture - Preliminary Resulted 09/28/17 2216 Blood Escherichia Coli Esbl Blood Culture - Preliminary Resulted 09/28/17 2233 Blood Escherichia Coli Esbl Last 24 Hours Test 10/01/17 06:03 10/01/17 09:12 White Blood Count 13.27 K/uL Red Blood Count 3.20 M/uL Hemoglobin 10.2 g/dL Hematocrit 30.1 % Mean Corpuscular Volume 94.1 fL Mean Corpuscular Hemoglobin 31.9 pg Mean Corpuscular Hemoglobin Concent 33.9 g/dl RDW Standard Deviation 53.4 fL RDW Coefficient of Variation 15.4 % Platelet Count 249 K/uL Mean Platelet Volume 9.9 fL Sodium Level 137 mmol/L Potassium Level 3.5 mmol/L Chloride Level 109 mmol/L Carbon Dioxide Level 21 mmol/L Anion Gap 7.0 mmol/L Blood Urea Nitrogen 17 mg/dl Creatinine 1.24 mg/dl Est Creatinine Clear Calc Drug Dose 41.0 ml/min Estimated GFR () 51.7 Estimated GFR (Non- 44.6 BUN/Creatinine Ratio 13.8 Random Glucose 118 mg/dl Calcium Level 7.8 mg/dl Assessment and Plan (1) E. coli septicemia Assessment & Plan: pt can continue on unasyn while in hospital, upon d/c can change to po augmentin, will need 14 days from first negative culture. ok for d/ c when otherwise stable. (2) Pyelonephritis (3) Leukocytosis
[2017-10-01] MEDS: LOPERAMIDE HCL 2 MG CAP PO PRN ×3 (16:42→22:18)
[2017-10-01] MEDS: ZOLPIDEM TARTRATE 10 MG TAB PO PRN (22:18)
[2017-10-01] MEDS: DIAZEPAM 5MG TAB PO PRN (22:18)
[2017-10-02 00:07] VITALS: BP 150/84; PULSE 81; TEMP 36.6; O2SAT 93
[2017-10-02] MEDS: AMPICILLIN/SULBACTAM SOD INJ 3,000 MG in SODIUM CHLORIDE 0.9% 100ML 100 ML IV SCH ×3 (02:03→13:35)
[2017-10-02 02:57] VITALS: BP 157/90; PULSE 90; TEMP 36.6; O2SAT 96
[2017-10-02 07:35] VITALS: BP 158/94; PULSE 76; TEMP 36.2; O2SAT 95
[2017-10-02] MEDS: NYSTATIN SUSP 500,000 U/5 ML UDC PO SCH ×2 (07:43→13:35)
[2017-10-02] MEDS: PANTOprazole SOD 40 MG TAB PO SCH (07:43)
[2017-10-02] MEDS: ESCITALOPRAM OXALATE 20 MG TAB PO SCH (07:43)
[2017-10-02] MEDS: DEXAMETHASONE PO SCH ×4 (07:45→13:35)
[2017-10-02] MEDS: HEPARIN SOD 5000 UNIT/0.5 ML CARP SQ SCH (07:46)
[2017-10-02] MEDS: BENZONATATE 100MG CAP PO PRN (07:49)
[2017-10-02] MEDS: LOPERAMIDE HCL 2 MG CAP PO PRN ×2 (07:49→09:56)
[2017-10-02] MEDS: DEXAMETHASONE CONC SOLN 3.75 MG, NYSTATIN SUSP 30 ML, DiphenhydrAMINE HCL SYRUP 300 MG,... PO PRN ×5 (07:50)
[2017-10-02] MEDS: NYSTATIN POWDER 15GM BTL EXT SCH (07:51)
[2017-10-02 08:21] LABS: CALCIUM 7.7 mg/dl (8.5-10.1); CREATININE 1.1 mg/dl (0.60-1.20); POTASSIUM 3.2 mmol/L (3.5-5.1)
[2017-10-02] MEDS ORDERED: POTASSIUM CHLORIDE 20 MEQ TABCR PO ONE (09:15)
[2017-10-02 09:58] VITALS: BP 155/97
[2017-10-02 10:09] VITALS: BP 155/97; PULSE 76; TEMP 36.2; O2SAT 95
[2017-10-02 11:34] VITALS: BP 146/83; PULSE 87; TEMP 36.8; O2SAT 95
[2017-10-02] MEDS ORDERED: AMOX875T PO (13:05)
[2017-10-02] MEDS ORDERED: SACC250C3 PO (13:05)
[2017-10-02] MEDS ORDERED: NYSS5 PO (13:32)
--- NOTE | 2017-10-02 13:34 | Discharge Instructions ---
Discharge Instructions Date of Service Oct 02, 2017. Admission Reason for Admission: Septic Shock Discharge Discharge Diagnosis / Problem: Pyelonephritis, septic shock Discharge Goals Goal(s): Decrease discomfort, Improve function, Diagnostic testing, Therapeutic intervention Activity Recommendations Activity Limitations: resume your previous activity (as tolerated) . Instructions / Follow-Up Instructions / Follow-Up You were admitted to the hospital with nausea, vomiting, diarrhea, and flank pain. You were found to have a urinary tract infection that also affected your kidneys. You were treated with IV antibiotics. Infectious disease has been following your case, and as your blood cultures are now negative, you are stable to return home on an oral antibiotic for 14 more days. Medications: *Please take Augmentin 875/125 mg by mouth twice a day for 14 days. Take the first dose tonight. Take this with meals to prevent GI upset. *You may also take Florastor, a probiotic, once daily while you finish your antibiotic course. *You were started on a liquid antifungal medication called nystatin to swish in your mouth and swallow for an oral fungal infection (thrush). Please continue taking this four times a day for 7 more days to complete your course. *Continue your home medications as prescribed. Follow up: *You have been scheduled to follow up with your primary care provider. Please seek medical attention if you experience fevers, chills, sweats, dizziness/lightheadedness, loss of consciousness, chest pain, shortness of breath, nausea, vomiting, numbness or tingling. Current Hospital Diet Patient's current hospital diet: Regular Diet Discharge Diet Recommended Diet: AHA Diet (Heart Healthy) Pending Studies Studies pending at discharge: no Medical Emergencies . Who to Call and When: Medical Emergencies: If at any time you feel your situation is an emergency, please call 911 immediately. . Non-Emergent Contact Non-Emergency issues call your: Primary Care Provider Call Non-Emergent contact if: you have a fever, you have any medication questions . Past History Medical & Surgical History: (1) Pyelonephritis (2) Septic shock . "Provider Documentation" section prepared by Vivien Adams. .
--- NOTE | 2017-10-02 16:49 | Discharge Summary ---
Discharge Summary Date of Service Oct 02, 2017. Discharge Summary Admission Date: Sep 28, 2017 at 21:18 Discharge Date: Oct 02, 2017 Discharge Disposition: Home with services Principal Diagnosis: Pyelonephritis, septic shock Problems/Secondary Diagnoses: Crohn's disease on Remicade and steroids, HTN, CKD stage III, anxiety Procedures: ABDOMEN AND PELVIS CT WITH IV CONTRAST HISTORY: Acute generalized abdominal pain diffuse abd pain TECHNIQUE: Multiaxial CT images of the abdomen and pelvis were performed following the use of intravenous contrast. A dose lowering technique was utilized adhering to the principles of ALARA. COMPARISON STUDY: CT chest 01/05/2011. FINDINGS: Trace left pleural effusion with subsegmental bibasilar opacities suggesting atelectasis. No pneumatosis or pneumoperitoneum identified. The imaged inferior cardiac chambers are unremarkable. 9 mm focal area of low-attenuation within the subserosal left hepatic lobe adjacent to the falciform ligament may reflect focal fatty infiltration, however is indeterminate. Liver is otherwise unremarkable. The gallbladder, pancreas and adrenal glands are within normal limits. Study is mildly motion degraded. Mild dilation of the common bile duct, 8 mm without obstructing stone or lesion identified. No pancreatic ductal dilation. There is mild bilateral urothelial enhancement with mild nonspecific bilateral perinephric stranding. Delayed nephrogram on the left with patchy decreased enhancement of the inferior pole right kidney. No renal calculi or obstructive uropathy. Bilateral ureters are normal in caliber. Mild bilateral periureteral inflammatory stranding. Mild urinary bladder distention. Uterus and left adnexum are unremarkable. 1.7 x 1.4 cm cystic structure of the right hemipelvis as seen on image 39 of series 5 suggesting ovarian cyst. Moderate atherosclerosis of the aorta without aneurysm. No bulky adenopathy identified. No bowel obstruction or focal bowel wall thickening identified. The appendix is not definitively seen. No evidence of acute appendicitis. Soft tissues are unremarkable. Calcifications of the left breast parenchyma. Bones appear intact. Multilevel advanced discogenic degenerative changes and facet arthrosis. IMPRESSION: 1. Findings suggest acute bilateral pyelonephritis, left greater then right without renal calculi or obstructive uropathy. Urothelial enhancement is also noted bilaterally involving the renal pelves and proximal ureters suggesting associated pyelitis with ureteritis. 2. No bowel obstruction or focal bowel wall thickening. 3. Mild urinary bladder distention. 4. Indeterminate 1.7 cm cystic structure near the right adnexum suggests ovarian cyst. Consultations: Infectious disease GI Medication Reconciliation New Medications: Amoxicillin & Pot Clavulanate (Augmentin 875-125 mg) 1 Tab Tab 1 TAB PO BID for 14 Days, #28 TAB Saccharomyces Boulardii (Florastor) 250 Mg Cap 250 MG PO DAILY for 14 Days, #1 CAP Nystatin (Nystatin) 5 Ml Susp 5 ML PO QID for 7 Days, #28 DOSE Swish and swallow Continued Medications: Albuterol Hfa (Ventolin Hfa) 200 Puffs/80534 Mcg Aers 2-4 PUFFS INH Q6H PRN for Shortness of Breath Amoxicillin (Amoxil) 500 Mg Cap 24549 MG PO PRN/UD, #21 CAP 4 CAPSULES BY MOUTH ONE HOUR BEFORE DENTAL AND OTHER PROCEDURES. Calcium Carbonate (Calcium) 600 Mg Tab 600 MG PO DAILY Cholecalciferol (D-5000) 5,000 Unit Tab 5000 UNITS PO DAILY Dexamethasone (Dexamethasone) 0.5 Mg/5 Ml Elx 10 ML PO TID Diazepam (Valium) 5 Mg Tab 5 MG PO BID PRN for Anxiety Diltiazem Hcl Ext Rel (Tiazac) 120 Mg Capcr 120 MG PO Q4H PRN for HEART PALPITATIONS Diphenhydramine Hcl (Benadryl Allergy) 25 Mg Cap 25 MG PO Q4 PRN for Allergic Reaction Escitalopram Oxalate (Lexapro) 20 Mg Tab 20 MG PO QAM, TAB Fluocinonide (Fluocinonide) 0.05 % Val 1 APPLN TOP DAILY Hyoscyamine Sulfate (Levsin) 0.125 Mg Tab 0.125 MG PO TID PRN for SPASM Infliximab (Remicade) 100 Mg/10 Ml Inj 1 DOSE IV Q8WK Methylphenidate (Ritalin) 10 Mg Tab 10 MG PO QAM PRN for CONCENTRATION Nystatin (Topical) (Nystop) 100,000 Unit/Gm Pow 1 APPLN TD BID APPLY UNDER BREASTS Pantoprazole (Protonix) 40 Mg Tab 40 MG PO BID Prazosin Hcl (Prazosin) 1 Mg Cap 1-2 MG PO HS Ranitidine Hcl (Zantac) 300 Mg Tab 300 MG PO QPM Saliva Substitute (Caphosol) 120 Appln/120 Ml Soln 1 DOSE MT PER PACKAGE DIRECT Sucralfate (Carafate) 1 Gm Tab 1 GM PO BID Triamcinolone Acet (Triamcinolone Acetonide) 45 Appln/15 Gm Oint 1 APPLN TOP TID PRN for UNDECIDED Trimethobenzamide Hcl (Tigan) 300 Mg Cap 1 TAB PO TID PRN for Nausea or Vomiting Zolpidem Tartrate (Ambien Cr) 12.5 Mg Tabcr 12.5 MG PO HS PRN for Insomnia Discharge Exam Patient reports feeling well and is eager to return home. She states that she has some mild 3/10 lower abdominal soreness, but this is similar to the intermittent pain she gets with her Crohn's. She denies any other complaints. Constitutional: No fever, No chills, No sweats Eyes: No worsening of vision, No eye pain, No diplopia ENT: No hearing loss, No nasal symptoms, No trouble swallowing Respiratory: No cough, No wheezing, No shortness of breath Cardiovascular: No chest pain, No claudication, No palpitations Abdomen: +Abdominal pain. No nausea, No vomiting Musculoskeletal: No joint pain, No muscle pain, No swelling Genitourinary - Female: No dysuria, No urinary retention, No hematuria Neurologic: No paralysis, No weakness, No numbness/tingling Integumentary: No rash, No itch, No color change General appearance: +Obese. Well-developed, well-nourished, no apparent distress Head: Normocephalic, atraumatic Eyes: Normal inspection, PERRL, EOMI ENT: Normal ENT inspection, hearing grossly normal, pharynx normal Neck: Supple, no JVD, trachea midline Respiratory/Chest: Lungs clear to auscultation, normal breath sounds, no respiratory distress Cardiovascular: Regular rate & rhythm, no gallop, no murmur Abdomen/GI: +Lower quadrants very mildly TTP. Normal bowel sounds, soft Extremities/Musculoskeletal: Normal inspection, no calf tenderness, no pedal edema Neurological/Psych: Alert, normal mood/affect, oriented x 3 Skin: Normal color, warm/dry, no rash Hospital Course 67 y/o female with a history of Crohn's disease on Remicade and chronic steroids , HTN, CKD stage III, and anxiety who presents with N/V/D and flank pain. CT abdomen/pelvis shows bilateral pyelonephritis L>R, UA positive. Bilateral pyelonephritis, L>R with septic shock--resolving - UCx w/ ESBL E.Coli- sensitives reviewed, IV Unasyn- started on 09/30. Remained on Unasyn while inpt - BCx- ESBL E.Coli - Repeat BCx NGTD - ID consulted, appreciate recs: Continue IV Unasyn while inpatient, Augmentin x14 days after negative blood cultures - D/C with Augmentin 875/125 mg PO BID x 14 days and probiotic Diarrhea w/ recent use of antibiotics, ?Crohn's flare vs c.difficile--resolved - C. diff negative Crohn's disease- immunocompromised status w/ chronic steroids plus Remicade-- stable - GI consulted, appreciate recs: hold Remicade until infection clears - Continue Dexamethasone Relative adrenal insufficiency with chronic steroid use, hypotension on admission--resolved - Treated w/ IVF and stress dose Dexamethasone IV, then transitioned to PO dexamethasone - D/C back on home dose of dexamethasone 1 mg PO TID Hypovolemic hyponatremia--resolved w/IVF LOVE on CKD stage III- baseline quality assurance monitor body <1.0--resolving - Planning Management It Specialist 1.1 today - IVF, nephrotoxins held Oral candidiasis -Nystatin PO QID x 10 days total, 3 days completed while inpt Oral ulcers--could be due to Crohn's, follow up with GI as routine Generalized weakness and multiple falls: - PT/OT, discharge home w/home health - CT head neg for acute findings Anxiety: - Continue Valium and Lexapro DVT prophylaxis -Heparin 5000 units SC q12 Code Status -Level I, FULL RESUSCITATION STATUS Total Time Spent: Greater than 30 minutes This includes examination of the patient, discharge planning, medication reconciliation, and communication with other providers. Discharge Instructions Please refer to the electronic Patient Visit Report (Discharge Instructions) for additional information. Additional Copies To Celina Monique CRNP
== END 2017-10-02 16:09 | disposition home health service (06) | DRG 871 ==
LOC: C.EDB 15:07 → C.MED 21:18 → CANRESERV 21:40 → ENRESERV 21:40
PROVIDERS: ADMIT Internal Medicine; ATTEND Internal Medicine
DX: A41.51 Sepsis due to Escherichia coli [E. coli] (principal); R65.21 Severe sepsis with septic shock; G93.41 Metabolic encephalopathy; N10 Acute pyelonephritis; N39.0 Urinary tract infection, site not specified; K52.1 Toxic gastroenteritis and colitis; E27.40 Unspecified adrenocortical insufficiency; N17.9 Acute kidney failure, unspecified; E87.1 Hypo-osmolality and hyponatremia; K50.90 Crohn's disease, unspecified, without complications; E46 Unspecified protein-calorie malnutrition; B37.0 Candidal stomatitis; B96.20 Unspecified Escherichia coli [E. coli] as the cause of diseases classified elsewhere; T36.95XA Adverse effect of unspecified systemic antibiotic, initial encounter; T38.0X5A Adverse effect of glucocorticoids and synthetic analogues, initial encounter; T47.8X5A Adverse effect of other agents primarily affecting gastrointestinal system, initial encounter; R19.7 Diarrhea, unspecified; K12.0 Recurrent oral aphthae; I95.9 Hypotension, unspecified; R53.1 Weakness; R29.6 Repeated falls; E86.1 Hypovolemia; I12.9 Hypertensive chronic kidney disease with stage 1 through stage 4 chronic kidney disease, or unspecified chronic kidney disease; N18.3 Chronic kidney disease, stage 3 (moderate); F41.9 Anxiety disorder, unspecified; M19.90 Unspecified osteoarthritis, unspecified site; K21.9 Gastro-esophageal reflux disease without esophagitis; Z87.891 Personal history of nicotine dependence; Z79.52 Long term (current) use of systemic steroids; Z79.899 Other long term (current) drug therapy; Z88.1 Allergy status to other antibiotic agents; Z88.2 Allergy status to sulfonamides; Z88.8 Allergy status to other drugs, medicaments and biological substances

== ENCOUNTER 2017-10-29 09:56 | Emergency (ER) | payer OTHER ==
[~2017-10-29] VITALS: Ht 157.5 cm; Wt 62.1 kg
[~2017-10-29 09:56] MED LIST changes: +AMOX500C3 PO; +CALC-393 PO; -CHOL1000 PO; +CHOLTAB11 PO; -CLOB-77 TOP; +FLUO0.0566 TOP; -METO50TA16 PO; -MOUTLIQ79 PO; +NYSS5 PO; +NYST100010 TD; -OYST500T47 PO; +PANT40TA PO; +PRAZ1CAP10 PO; -PRT/20 PO; +SACC250C3 PO; +[UNRECOGNIZED DRUG - CODE] MT
[2017-10-29 10:01] VITALS: TEMP 36.7; Ht 157.5 cm; Wt 62.1 kg
[2017-10-29] MEDS ORDERED: ONDANSETRON INJ 2 MG/ML 2 ML VIAL IV STA (10:27)
[2017-10-29] MEDS ORDERED: SODIUM CHLORIDE 0.9% 1000ML 1,000 ML IV STA (10:27)
[2017-10-29 10:53] LABS: BASO % 0.8 %; BASO ABS # 0.06 K/uL (0-0.2); EOS % 0.4 %; EOS ABS # 0.03 K/uL (0-0.5); HEMATOCRIT 37.9 % (37-47); HEMOGLOBIN 13.3 g/dL (12.0-16.0); IG# 0.02 K/uL (0.00-0.02); LYMPH % 22.3 %; LYMPH ABS # 1.75 K/uL (1.2-3.4); MEAN CORPUSCULAR HGB CONC 35.1 g/dl (32-36); MEAN PLATELET VOLUME 8.8 fL (7.4-10.4); MONO % 7.7 %; NEUT % 68.5 %; NEUT ABS # 5.38 K/uL (1.4-6.5); PLATELET COUNT 444 K/uL (130-400); RED CELL DISTRIBUTION WIDTH CV 15.7 % (11.5-14.5); RED CELL DISTRIBUTION WIDTH SD 54.7 fL (36.4-46.3); WHITE BLOOD COUNT 7.84 K/uL (4.8-10.8)
[2017-10-29 11:10] LABS: CREATININE 1.36 mg/dl (0.60-1.20)
[2017-10-29 11:11] LABS: ALBUMIN 3.3 gm/dl (3.4-5.0); CALCIUM 10.1 mg/dl (8.5-10.1); POTASSIUM 3.4 mmol/L (3.5-5.1)
[2017-10-29 11:13] LABS: TOTAL PROTEIN 8.2 gm/dl (6.4-8.2)
[2017-10-29] MEDS ORDERED: MoRPHine SULFATE 4 MG/ML 1 ML CARP\\VIAL IV STA (11:29)
--- NOTE | 2017-10-29 11:44 | DIAGNOSTIC IMAGING REPORT ---
KUB CLINICAL HISTORY: Abdominal pain. COMPARISON STUDY: CT of the abdomen and pelvis September 28, 2017. FINDINGS: Bowel gas pattern is normal. Pelvic calcifications likely reflect phleboliths. No renal calculi are identified. IMPRESSION: No evidence for a bowel obstruction. Electronically signed by: Xander Guzman M.D. 10/29/2017 11:42 AM Dictated Date/Time: 10/29/2017 11:41 AM
[2017-10-29] MEDS ORDERED: ONDA4TAB46 PO (13:53)
--- NOTE | 2017-10-29 13:53 | EMERGENCY ROOM VISIT NOTE ---
History Report prepared by [place]: Lance Herron Under the Supervision of: Dr. Urban Haile M.D. First contact with patient: 10:10 Chief Complaint: VOMITING Stated Complaint: VOMITING, WEAKNESS, NAUSEA, KIDNEY LEVELS LOW, DIZ History of Present Illness The patient is a 67 year old white female with a past medical history of Crohn' s disease (on Remicade) and sepsis who presents to the ED with a cc of intermittent vomiting beginning three days ago. Patient began feeling nauseous five days ago. Eating worsens her vomiting. She has not vomited today. Positive abdominal cramping, low back pain, weak stream with urination. She had one day of diarrhea earlier this week as well. Patient was recently admitted (September 28 ) for septic pyelonephritis. She was recently told by her PCP that she had abnormal creatinine levels. She has taken all of her medications as normal this week. Patient is on Tigan for nausea. Source of History: patient Onset: Three days ago Quality: other (vomiting) Timing: intermittent Modifying Factors (Worsening): exertion Associated Symptoms: + abdominal pain (cramping), + back pain (low), + urinary symptoms (weak stream) Review of Systems See HPI for pertinent positives and negatives. A total of ten systems were reviewed and were otherwise negative. Past Medical & Surgical Medical Problems: (1) Cough (2) Crohns disease (3) E. coli septicemia (4) Encephalopathy acute (5) Gram negative septicemia (6) Hypokalemia (7) Leukocytosis (8) Proximal humerus fracture (9) Right humeral fracture (10) Septic shock (11) Ulceration, oral mucosa (12) UTI (urinary tract infection) Family History No pertinent family history Social History Smoking Status: Former Smoker Marital Status: Housing Status: lives with family Occupation Status: unemployed Current/Historical Medications Scheduled Amoxicillin (Amoxil), 20,000 MG PO PRN/UD Calcium Carbonate (Calcium), 600 MG PO DAILY Cholecalciferol (D-5000), 5,000 UNITS PO DAILY Dexamethasone (Dexamethasone), 10 ML PO TID Escitalopram Oxalate (Lexapro), 20 MG PO QAM Fluocinonide (Fluocinonide), 1 APPLN TOP DAILY Infliximab (Remicade), 1 DOSE IV Q8WK Nystatin (Topical) (Nystop), 1 APPLN TD BID Pantoprazole (Protonix), 40 MG PO BID Prazosin Hcl (Prazosin), 1-2 MG PO HS Ranitidine Hcl (Zantac), 300 MG PO QPM Saliva Substitute (Caphosol), 1 DOSE MT PER PACKAGE DIRECT Sucralfate (Carafate), 1 GM PO BID Scheduled PRN Albuterol Hfa (Ventolin Hfa), 2-4 PUFFS INH Q6H PRN for Shortness of Breath Diazepam (Valium), 5 MG PO BID PRN for Anxiety Diltiazem Hcl Ext Rel (Tiazac), 120 MG PO Q4H PRN for HEART PALPITATIONS Diphenhydramine Hcl (Benadryl Allergy), 25 MG PO Q4 PRN for Allergic Reaction Hyoscyamine Sulfate (Levsin), 0.125 MG PO TID PRN for SPASM Methylphenidate (Ritalin), 10 MG PO QAM PRN for CONCENTRATION Ondansetron Hcl (Zofran), 4 MG PO Q8H PRN for Nausea Triamcinolone Acet (Triamcinolone Acetonide), 1 APPLN TOP TID PRN for UNDECIDED Trimethobenzamide Hcl (Tigan), 1 TAB PO TID PRN for Nausea or Vomiting Zolpidem Tartrate (Ambien Cr), 12.5 MG PO HS PRN for Insomnia Allergies Coded Allergies: Ciprofloxacin (Unverified Allergy, Severe, HIVES, 10/29/17) Hives all over body Sulfa Antibiotics (Verified Allergy, Severe, HIVES AND SOB, 10/29/17) Lactose (Verified Allergy, Unknown, DIARRHEA, 10/29/17) Mesalamine (Verified Allergy, Unknown, ERYTHEMA AND HIVES, 10/29/17) Uncoded Allergies: SILVER JEWELRY (Allergy, Unknown, SKIN IRRITATION AND SWELLING, 07/24/17) Physical Exam Vital Signs Date Time Temp Pulse Resp B/P (MAP) Pulse Ox O2 Delivery O2 Flow Rate FiO2 10/29/17 14:01 87 16 111/71 93 10/29/17 13:03 86 16 104/74 93 Room Air 10/29/17 11:46 84 20 124/73 95 Room Air 10/29/17 11:21 87 10/29/17 11:16 86 16 138/76 95 Room Air 10/29/17 10:01 36.7 110 20 113/70 96 Room Air Physical Exam GENERAL: Awake, alert, well-appearing, NAD. Wearing glasses. HENT: Normocephalic, atraumatic. EYES: Normal conjunctiva. Sclera non-icteric. NECK: Supple. No nuchal rigidity. FROM. RESPIRATORY: CTAB, no rhonchi, wheezing, crackles CARDIAC: RRR, no MRG ABDOMEN: Soft, NTND, BS+. No CVA TTP. MSK: No chest wall TTP, no LE edema NEURO: GCS 15, CN 2-12 intact, moves all 4s on command SKIN: No rash or jaundice noted. Medical Decision & Procedures ER Provider Diagnostic Interpretation: Radiology results as stated below per my review and radiologist interpretation: KUB FINDINGS: Bowel gas pattern is normal. Pelvic calcifications likely reflect phleboliths. No renal calculi are identified. IMPRESSION: No evidence for a bowel obstruction. Electronically signed by: Xander Guzman M.D. 10/29/2017 11:42 AM Laboratory Results 10/29/17 10:35 Red Blood Count 4.03, Mean Corpuscular Volume 94.0, Mean Corpuscular Hemoglobin 33.0, Mean Corpuscular Hemoglobin Concent 35.1, Mean Platelet Volume 8.8, Neutrophils (%) (Auto) 68.5, Lymphocytes (%) (Auto) 22.3, Monocytes (%) (Auto) 7.7, Eosinophils (%) (Auto) 0.4, Basophils (%) (Auto) 0.8, Neutrophils # (Auto) 5.38, Lymphocytes # (Auto) 1.75, Monocytes # (Auto) 0.60, Eosinophils # (Auto) 0.03, Basophils # (Auto) 0.06 10/29/17 10:35 Test 10/29/17 10:35 10/29/17 12:40 White Blood Count 7.84 K/uL (4.8-10.8) Red Blood Count 4.03 M/uL (4.2-5.4) Hemoglobin 13.3 g/dL (12.0-16.0) Hematocrit 37.9 % (37-47) Mean Corpuscular Volume 94.0 fL (80-100) Mean Corpuscular Hemoglobin 33.0 pg (25-34) Mean Corpuscular Hemoglobin Concent 35.1 g/dl (32-36) Platelet Count 444 K/uL (130-400) Mean Platelet Volume 8.8 fL (7.4-10.4) Neutrophils (%) (Auto) 68.5 % Lymphocytes (%) (Auto) 22.3 % Monocytes (%) (Auto) 7.7 % Eosinophils (%) (Auto) 0.4 % Basophils (%) (Auto) 0.8 % Neutrophils # (Auto) 5.38 K/uL (1.4-6.5) Lymphocytes # (Auto) 1.75 K/uL (1.2-3.4) Monocytes # (Auto) 0.60 K/uL (0.11-0.59) Eosinophils # (Auto) 0.03 K/uL (0-0.5) Basophils # (Auto) 0.06 K/uL (0-0.2) RDW Standard Deviation 54.7 fL (36.4-46.3) RDW Coefficient of Variation 15.7 % (11.5-14.5) Immature Granulocyte % (Auto) 0.3 % Immature Granulocyte # (Auto) 0.02 K/uL (0.00-0.02) Red Blood Cell Morphology Unremarkable Anion Gap 9.0 mmol/L (3-11) Est Creatinine Clear Calc Drug Dose 34.3 ml/min Estimated GFR () 46.2 Estimated GFR (Non- 39.9 BUN/Creatinine Ratio 12.2 (10-20) Calcium Level 10.1 mg/dl (8.5-10.1) Total Bilirubin 0.5 mg/dl (0.2-1) Direct Bilirubin 0.1 mg/dl (0-0.2) Aspartate Amino Transf (AST/SGOT) 18 U/L (15-37) Alanine Aminotransferase (ALT/SGPT) 25 U/L (12-78) Alkaline Phosphatase 225 U/L (45-117) Total Protein 8.2 gm/dl (6.4-8.2) Albumin 3.3 gm/dl (3.4-5.0) Lipase 286 U/L (73-393) Urine Color YELLOW Urine Appearance CLEAR (CLEAR) Urine pH 5.0 (4.5-7.5) Urine Specific [place] 1.016 (1.000-1.030) Urine Protein NEG (NEG) Urine Glucose (UA) NEG (NEG) Urine Ketones NEG (NEG) Urine Occult Blood NEG (NEG) Urine Nitrite NEG (NEG) Urine Bilirubin NEG (NEG) Urine Urobilinogen NEG (NEG) Urine Leukocyte Esterase TRACE (NEG) Urine WBC (Auto) 1-5 /hpf (0-5) Urine RBC (Auto) 0-4 /hpf (0-4) Urine Hyaline Casts (Auto) 1-5 /lpf (0-5) Urine Epithelial Cells (Auto) 5-10 /lpf (0-5) Urine Bacteria (Auto) NEG (NEG) Laboratory results reviewed by me Medications Administered Medications (Trade) Dose Ordered Sig/Shilpi Route Start Time Stop Time Status Last Admin Dose Admin Sodium Chloride 1,000 ml @ 999 mls/hr Q1H1M STAT IV 10/29/17 10:27 10/29/17 11:27 DC 10/29/17 11:11 999 MLS/HR Ondansetron HCl (Zofran Inj) 4 mg NOW STAT IV 10/29/17 10:27 10/29/17 10:29 DC 10/29/17 11:12 4 MG Morphine Sulfate (MoRPHine SULFATE INJ) 4 mg NOW STAT IV 10/29/17 11:29 10/29/17 11:30 DC 10/29/17 11:47 4 MG ECG Per My Interpretation Indication: vomiting Rate (beats per minute): 87 Rhythm: normal sinus Findings: other (Normal intervals. Normal axis. No acute STS changes or TWI. ) ED Course 1016: The patient was evaluated in room B8. A complete history and physical exam was performed. 1325: I reevaluated the patient. Discussed results and discharge instructions: she verbalized understanding and agreement. The patient is ready for discharge. Medical Decision The patient is a 67 year old white female with a past medical history of Crohn' s disease (on Remicade) and sepsis who presents to the ED with a cc of intermittent vomiting beginning three days ago. Nursing notes reviewed. Ancillary studies and prior records reviewed. Differential diagnosis: Etiologies such as gastroenteritis, food borne illness, infections, appendicitis , diverticulitis, inflammatory bowel disease, obstruction, GI bleed, biliary pathology, as well as others were entertained. Patient was seen and evaluated the bedside of note the patient did have a recent admission approximately 2 weeks prior secondary to septic pyelonephritis. Patient did receive a course of Augmentin for 14 days. Patient does have a history of Crohn's disease also. Patient states that she has had some intermittent vomiting beginning 3 days prior with some mild improvement of the last day or so. Patient's exam is fairly unremarkable. Patient did have some mild left-sided abdominal discomfort. Patient is otherwise fairly well-appearing. Patient did have blood work completed along with urinalysis and KUB. Patient's KUB does not show any obstruction. Patient's white blood cell count is normal. Patient is not anemic. Patient has normal kidney function. Patient does have elevated H&H and platelet. I believe this is likely related to hemoconcentration given likely decreased volume status and dehydration. Patient 's bicarb was mildly decreased however I believe this is related to dehydration. The patient did receive IV fluids. Patient's alk phos is elevated but this appears chronic. Bilirubins are not elevated. Patient's urinalysis is negative for acute infection. Upon reassessment the patient she is feeling improved patient is able tolerate p.o. I do not believe that she requires further imaging or treatment at this time. Patient was given strict follow-up, discharge, and return precautions. All questions were answered. Patient was deemed suitable for outpatient follow-up at this time. Patient agreed with the plan of care and was safely discharged home. Medication Reconcilliation Current Medication List: was personally reviewed by me Blood Pressure Screening Patient's blood pressure: Normal blood pressure Blood pressure disposition: Did not require urgent referral Impression Primary Impression: Gastroenteritis Additional Impressions: Hypokalemia Dehydration Scribe Attestation The scribe's documentation has been prepared under my direction and personally reviewed by me in its entirety. I confirm that the note above accurately reflects all work, treatment, procedures, and medical decision making performed by me. Departure Information Dispostion Home / Self-Care Prescriptions Ondansetron Hcl (ZOFRAN) 4 Mg Tab 4 MG PO Q8H Y for Nausea, #12 TAB Prov: Urban Haile M.D. 10/29/17 Referrals Ceilna Monique CRNP (PCP) Patient Instructions ED Diet Teller, ED Gastroenteritis Non Infec, [facility] Additional Instructions Please return to the emergency department if you have worsening or recurrent symptoms not amenable to at-home treatment. Please call for a follow-up appointment with her primary care physician. Please take your medications as prescribed. If you have other concerns and/or complaints please feel free to also call your primary care physician's office or return the ED for further evaluation, management, and treatment. Continue to take your medications as prescribed. You may consider over-the- counter remedies as we discussed. Take your medications as prescribed. You have been examined and treated today on an emergency basis only. This is not a substitute for, or an effort to provide, complete comprehensive medical care. It is impossible to recognize and treat all injuries or illnesses in a single emergency department visit. It is therefore important that you follow up closely with [facility], your PCP, and/or your specialist(s). Call as soon as possible for an appointment. Thank you for your time and consideration. I look forward to speaking with you again soon. Please don't hesitate to call us if you have any questions. Problem Qualifiers
[2017-10-29 14:01] VITALS: BP 111/71; PULSE 87; O2SAT 93
== END 2017-10-29 14:04 | disposition home or self-care (01) ==
LOC: C.EDB 09:58
DX: K52.9 Noninfective gastroenteritis and colitis, unspecified (principal); E87.6 Hypokalemia; E86.0 Dehydration; K50.90 Crohn's disease, unspecified, without complications; Z87.440 Personal history of urinary (tract) infections; Z87.891 Personal history of nicotine dependence; Z79.899 Other long term (current) drug therapy; Z88.1 Allergy status to other antibiotic agents; Z88.2 Allergy status to sulfonamides; Z88.8 Allergy status to other drugs, medicaments and biological substances; Z91.048 Other nonmedicinal substance allergy status

== ENCOUNTER → 2017-11-14 | Outpatient (CLI) | payer OTHER ==
[~2017-11-14] MED LIST changes: -NYSS5 PO; +ONDA4TAB46 PO; -SACC250C3 PO
[2017-11-14 16:45] LABS: HEMATOCRIT 38.8 % (37-47); MEAN CELL VOLUME 99.2 fL (80-100); MEAN CORPUSCULAR HEMOGLOBIN 33.2 pg (25-34); MEAN CORPUSCULAR HGB CONC 33.5 g/dl (32-36); MEAN PLATELET VOLUME 9.7 fL (7.4-10.4); PLATELET COUNT 345 K/uL (130-400); RED CELL DISTRIBUTION WIDTH CV 15.5 % (11.5-14.5); RED CELL DISTRIBUTION WIDTH SD 56.2 fL (36.4-46.3); WHITE BLOOD COUNT 6.43 K/uL (4.8-10.8)
== END | disposition home or self-care (01) ==
LOC: C.LABBC 13:39
PROVIDERS: ATTEND Ophthalmology
DX: G45.3 Amaurosis fugax (principal)

== ENCOUNTER → 2018-02-06 | Outpatient (CLI) | payer OTHER ==
[~2018-02-06] MED LIST changes: +ACET650S10 PO; +ACET650T9 PO; +METO50TA16 PO
--- NOTE | 2018-02-10 07:43 | MAMMOGRAPHY REPORT ---
BILATERAL DIGITAL SCREENING MAMMOGRAM TOMOSYNTHESIS WITH CAD: 02/06/2018 CLINICAL HISTORY: Routine screening. Patient has no complaints. TECHNIQUE: The study was acquired using full field digital technology and interpreted from soft copy. Breast tomosynthesis in addition to standard 2D mammography was performed. Current study was also ev aluated with a Computer Aided Detection (CAD) system. COMPARISON: Comparison is made to exams dated: 01/31/2017 mammogram, 01/27/2016 mammogram, 01/25/2015 geo mogram, 01/20/2014 mammogram, 01/19/2013 mammogram, and 01/17/2012 mammogram - [facility] BREAST COMPOSITION: There are scattered areas of fibroglandular density in both breasts. FINDINGS: There are possible grouped calcifications within the right lower inner quadrant, for which spot magni fication views are recommended for further evaluation. The remainder of both breasts are stable compared to prior exams, without suspicious masses, calcific ations, or areas of architectural distortion noted. Other bilateral benign-appearing calcifications are not significantly changed. IMPRESSION: ACR BI-RADS CATEGORY 0: INCOMPLETE EVALUATION: NEED ADDITIONAL IMAGING EVALUATION Right breast calcifications, for which additional imaging evaluation is recommended. The patient jorge l be called to schedule an appointment. Some breast cancers are not detected with mammography. A negative mammographic report should not al y biopsy if a clinically suggestive mass is present. Teri Orosco M.D. /:02/06/2018 16:05:39 Engineer Third Assistant: Isabela Bacon, RT(R)(M), [facility] letter sent: Addl Imaging 0 BI-RADS Code: ACR BI-RADS Category 0: Incomplete Evaluation: Need Additional Imaging Evaluation
== END | disposition home or self-care (01) ==
LOC: C.MAMM 13:47
PROVIDERS: ATTEND Nurse Practitioner
DX: Z12.31 Encounter for screening mammogram for malignant neoplasm of breast (principal); R92.1 Mammographic calcification found on diagnostic imaging of breast

== ENCOUNTER → 2018-02-18 | Outpatient (CLI) | payer OTHER ==
[~2018-02-18] MED LIST changes: -ACET650S10 PO; -METH10TA4 PO
--- NOTE | 2018-02-18 15:21 | MAMMOGRAPHY REPORT ---
UNILATERAL RIGHT DIGITAL DIAGNOSTIC MAMMOGRAM: 02/18/2018 CLINICAL HISTORY: 67-year-old woman callbed back from screening mammography for right breast calcific ations. TECHNIQUE: Spot magnification right CC and ML views were obtained. COMPARISON: Comparison is made to exams dated: 02/06/2018 mammogram, 01/31/2017 mammogram, 01/27/2016 ma mmogram, 01/25/2015 mammogram, 01/20/2014 mammogram, and 01/19/2013 mammogram - [facility] BREAST COMPOSITION: There are scattered areas of fibroglandular density in right breast. FINDINGS: Spot magnification views of the right breast demonstrate a small, 3.4 mm grouping of microc alcifications that differ in size and shape and are in a somewhat linear orientation, within the appr oximate 2:00 right breast. They are new comparing to the 2017 mammograms and indeterminate. Differe ntial considerations include fibroadenoma, papilloma and DCIS. Definitive characterization with a [facility] breast stereotactic guided biopsy is recommended. IMPRESSION: ACR BI-RADS CATEGORY 4: SUSPICIOUS 1. There is a new, 3.4 mm grouping of calcifications in a linear distribution in the approximate 2:0 0 right breast for which a right breast stereotactic guided biopsy is recommended. These results and recommendations were discussed with the patient at the time of the exam. She tenta tively scheduled the right breast biopsy prior to leaving the department. Some breast cancers are not detected with mammography. A negative mammographic report should not al y biopsy if a clinically suggestive mass is present. Tiki Ignacio M.D. ay/:02/18/2018 12:33:24 Fitter Up: RT Martin(R)(M), [facility] letter sent: Abnormal 4/5 BI-RADS Code: ACR BI-RADS Category 4: Suspicious
== END | disposition home or self-care (01) ==
LOC: C.MAMM 10:23
PROVIDERS: ATTEND Nurse Practitioner
DX: R92.1 Mammographic calcification found on diagnostic imaging of breast (principal)

== ENCOUNTER → 2018-02-19 | Day surgery (SDC) | payer OTHER ==
[2018-02-14 15:09] VITALS: Ht 158.8 cm; Wt 64.1 kg
[~2018-02-19] VITALS: Ht 158.8 cm; Wt 64.1 kg
[~2018-02-19] MED LIST changes: +IOPAMIDOL INJ 61% 15 ML VIAL ONE; +LIDOCAINE HCL 1% MPF 5 ML VIAL ONE; +SODIUM CHLORIDE 0.9% INJ 10 ML VIAL ONE
--- NOTE | 2018-02-19 16:01 | [facility] Post Operative Brief Note ---
Immediate Operative Summary Operative Date Feb 19, 2018. Pre-Operative Diagnosis Lumbar spinal stenosis with left lower extremity radiculopathy, now bilateral symptoms Post-Operative Diagnosis Same Procedure(s) Performed Lumbar Epidural Steroid Injection Surgeon Dr. Aleta Rodrigez Research Laboratory Manager Surgeon(s) None Estimated Blood Loss 0 Findings Consistent with Post-Op Diagnosis Specimens NA Drains None Anesthesia Type Local Complication(s) none Disposition Disposition:
--- NOTE | 2018-02-19 16:02 | Discharge Instructions ---
Discharge Instructions Date of Service Feb 19, 2018. Visit Reason for Visit: Lumbar Radiculopathy Discharge Discharge Diagnosis / Problem: leg pain Discharge Goals Goal(s): Decrease discomfort, Improve function Activity Recommendations Activity Limitations: resume your previous activity Anesthesia . Post Anesthesia Instructions: If you have had General Anesthesia or IV Sedation: * Do not drive today. * Resume driving when surgeon permits. * Do not make important decisions or sign legal documents today. * Call surgeon for: 1. Temperature elevations greater than 101 degrees F. 2. Uncontrollable pain. 3. Excessive bleeding. 4. Persistent nausea and vomiting. 5. Medication intolerance (nausea, vomiting or rash). * For nausea and vomiting use only clear liquids such as: tea, soda, bouillon until nausea subsides, then gradually increase diet as tolerated. * If you have any concerns or questions, call your surgeon's office. If physician is unavailable and it is an emergency, call 911 or go to the nearest emergency room. . Diet Recommendations Recommended Home Diet: resume previous diet Procedures Procedures Performed: Lumbar Epidural Steroid Injection Pending Studies Studies pending at discharge: no Medical Emergencies . Who to Call and When: Medical Emergencies: If at any time you feel your situation is an emergency, please call 911 immediately. . Non-Emergent Contact Non-Emergency issues call your: Specialist . . "Provider Documentation" section prepared by Mp Rodrigez. .
[2018-02-19 16:17] VITALS: BP 142/86; PULSE 98; O2SAT 98
--- NOTE | 2018-02-19 17:02 | OPERATIVE REPORT ---
DATE OF OPERATION: 02/19/2018 PREOPERATIVE DIAGNOSIS: Lumbar spinal stenosis with bilateral lower extremity radiculopathies. POSTOPERATIVE DIAGNOSIS: Lumbar spinal stenosis with bilateral lower extremity radiculopathies. PROCEDURE: Right paramedian L5-S1 intralaminar epidural steroid injection under fluoroscopic guidance. INDICATIONS: The patient is a 67-year-old white female who was injected in July and reports she did fantastic to the middle of November, a solid 4 months of relief; however, the radicular pain had started to come back. She presents today for an epidural injection to provide her with relief of the radicular pain. PHYSICAL EXAMINATION: Pleasant female seated comfortably. She is without any focal weakness. She has decreased sensation in the left L5 dermatomal distribution. Negative seated straight leg raises. CONSENT: Verbal and written consent was obtained from the patient. Risks and benefits were reviewed. Risks include but are not limited to epidural abscess, epidural hematoma, allergic reaction, dural puncture. The patient wishes to proceed. DESCRIPTION OF PROCEDURE: The patient was taken back to the special procedures in [facility]. She was maintained in a prone position. Backside was cleansed with Betadine x3 and a dry sterile dressing was applied. Fluoroscope was used to identify the L5-S1 intralaminar space and overlying skin on the right side was anesthetized with 4 mL of lidocaine 1% with a 25 gauge 1.5-inch needle. A 22-gauge 3.5 inch Tuohy needle was then directed towards the intralaminar space. It was advanced under lateral fluoroscopic guidance and loss of resistance was noted at a depth of 6 cm. Isovue 300 contrast was injected in and it demonstrated epidural view with an AP projection. She then underwent with nice spread into the S1 nerve root on the right side. She then underwent injection after negative aspiration of 40 mg Depo-Medrol and 4 mL of preservative free sodium chloride. Injection was well tolerated and reproduced a familiar radicular sensation down the leg. It was done very gradually. DISPOSITION: 1. The patient is taken out into the discharge recovery area where she will be discharged home once discharge criteria have been met. 2. Follow up in the [facility] office in 2-4 weeks. I attest to the content of the Intraoperative Record and any orders documented therein. Any exception s are noted below.
== END | disposition home or self-care (01) ==
LOC: X.SURG 14:13
PROVIDERS: ATTEND Physical Medicine & Rehabilitation
DX: M48.061 Spinal stenosis, lumbar region without neurogenic claudication (principal); M54.16 Radiculopathy, lumbar region; Z79.899 Other long term (current) drug therapy

== ENCOUNTER → 2018-02-26 | Outpatient (CLI) | payer OTHER ==
[~2018-02-26] MED LIST changes: -IOPAMIDOL INJ 61% 15 ML VIAL ONE; -LIDOCAINE HCL 1% MPF 5 ML VIAL ONE; -SODIUM CHLORIDE 0.9% INJ 10 ML VIAL ONE
--- NOTE | 2018-02-27 15:12 | MAMMOGRAPHY REPORT ---
UNILATERAL RIGHT DIGITAL DIAGNOSTIC MAMMOGRAM TOMOSYNTHESIS: 02/26/2018 CLINICAL HISTORY: 67-year-old woman presented for right breast stereotactic biopsy for a newly visual ized 3.4 mm grouping of calcifications in the lower inner middle to anterior right breast. COMPARISON: Comparison is made to exams dated: 02/18/2018 mammogram, 02/06/2018 mammogram, 01/31/2017 m ammogram, 01/27/2016 mammogram, and 01/25/2015 mammogram - [facility]. TECHNIQUE: Tomosynthesis digital sales assistant images from stereotactic biopsy and right CC tomosynthesis tangential images were obtained. COMPARISON: Comparison is made to exams dated: 02/18/2018 mammogram, 02/06/2018 mammogram, 01/31/2017 m ammogram, 01/27/2016 mammogram, and 01/25/2015 mammogram - [facility]. BREAST COMPOSITION: There are scattered areas of fibroglandular density in right breast. FINDINGS: The patient was consented for a right breast stereotactic tomosynthesis biopsy after the ri sks, benefits and alternatives of the procedure were explained to the patient. She was placed prone on the biopsy table and the right breast was placed in mediallateral positioning. A tomosynthesis s cout view was obtained which demonstrates the small 3 mm grouping of calcifications in question, loca kemal on the very first tomosynthesis slice of the stack. This suggests the calcifications are superfi cial, possibly dermal in origin. A skin BB was placed over the area of the calcifications and a adame ential view was obtained which demonstrates the calcifications are very superficial in location, poss ibly dermal or possibly subdermal. Additionally when reviewing prior exams there are several tiny oi l cysts in the medial, middle one third of the right breast on the MLO view posterior to the new calc ifications, suggesting this could represent superficial fat necrosis as well. Nevertheless the calci fications are therefore likely benign and are also not amenable to stereotactic biopsy given the very superficial location and therefore a six-month short interval follow-up right diagnostic mammogram i ncluding repeat spot magnification views is recommended. IMPRESSION: ACR-BI-RADS CATEGORY 3: PROBABLY BENIGN Right breast stereotactic guided biopsy was canceled given dermal versus subdermal superficial locati on of the calcifications which is not amenable to stereotactic biopsy, and findings suggesting these calcifications could be related to skin or represent superficial fat necrosis given the finding of ad ditional oil cysts in the inferior right breast. A six-month follow-up right diagnostic tomosynthesis mammogram including repeat spot magnification vi ews is recommended to ensure stability. These new recommendations were discussed with the patient at the time of the canceled biopsy. She te ntatively scheduled a follow-up appointment prior to leaving our department. Some breast cancers are not detected with mammography. A negative mammographic report should not al y biopsy if a clinically suggestive mass is present. Tiki Ignacio M.D. ay/:02/26/2018 16:56:03 Director Of Capital Giving: RT Baron(Madonna)(M), [facility] letter sent: Follow Up Recommended 3 BI-RADS Code: ACR-BI-RADS Category 3: Probably Benign
== END | disposition home or self-care (01) ==
LOC: C.MAMM 13:25
PROVIDERS: ATTEND Nurse Practitioner
DX: R92.1 Mammographic calcification found on diagnostic imaging of breast (principal)

== ENCOUNTER 2021-05-08 11:19 | Inpatient (IN) ==
[2021-05-08] MEDS ORDERED: SODIUM CHLORIDE 0.9% 1000ML 1,000 ML IV ONE (12:07)
[2021-05-08] MEDS ORDERED: ERTAPENEM SODIUM 10 ML IV STA (12:09)
--- NOTE | 2021-05-08 12:15 | Emergency Department Note ---
Impression & Plan Hypotension, LOVE (acute kidney injury), Acute confusion, Acute dehydration, Acute UTI ED Provider Note NAME: MELANIE WORTHINGTON AGE: 71 SEX: F : 1950 ARRIVES VIA: Ambulance INFORMANT: [Patient][ems, nursing] ED PROVIDER(S): [Duglas Orozco MD] CHIEF COMPLAINT: Lethargic HISTORY OF PRESENT ILLNESS: The patient is a 71-year-old female who presents to the ER with an altered mental status. The patient apparently pushed her life alert button today and was found to be confused by the EMS crew. Her blood pressure was in the 80s systolic. Her blood sugar was 136. She was hallucinating. She talked about seeing Mexicans in her home. She talked about her dog speaking to her. The patient currently has no complaints. She denies any pain or shortness of breath. She states that there is nothing wrong with her. No further history obtainable as she does have an altered mental state. Of note, the patient received 1 L of saline in route to the hospital. REVIEW OF SYSTEMS: Unobtainable given the mental state. PMHx/PSHx: See Below SOCIAL HISTORY: See Below. PHYSICAL EXAM: GENERAL: Patient is in no acute distress. HEENT: No acute trauma, normocephalic atraumatic, mucous membranes dry, no nasal congestion, no scleral icterus. NECK: No stridor, no adenopathy, no meningismus, trachea is midline. LUNGS: Clear to auscultation bilaterally, no wheeze, no rhonchi, breath sounds equal. HEART: Without murmurs gallops or rubs, regular rate and rhythm. ABDOMEN: Soft, nontender, bowel sounds positive, no hernias, no peritonitis. EXTREMITIES: No cyanosis or edema, full range of motion of all the joints without pain or difficulty, no signs for acute trauma. NEUROLOGIC: Awake alert, confused, no acute motor or sensory deficits, no focal weakness. SKIN: No rash, no jaundice, no diaphoresis. DIFFERENTIAL DIAGNOSIS: Sepsis, UTI, pneumonia, metabolic abnormality, electrolyte abnormalities, cardiac sources, cellulitis, bacteremia, intracerebral event, toxicologic etiology, neurologic event, as well as other pathologies. EMERGENCY DEPARTMENT COURSE/PROCEDURES: ECG: Indication was possible infection/sepsis. The ECG shows a normal sinus rhythm with a rate of 78. There is no ST elevation, no PVCs. The QTc is 451. Continuous Cardiac Monitoring: An order was placed for continuous cardiac monitoring. The monitor shows a rate of 80 with normal sinus rhythm. Critical Care Note: I have personally spent 47 minutes of critical care time in the direct management of this patient. This includes bedside care, interpretation of diagnostic studies, and testing, discussion with consultants, patient, and family members, and other required patient management activities. This 47 minutes is in excess of all separately billable procedures. MEDICAL DECISION MAKING: There is a moderate leukocytosis which could be consistent with infection. A very mild anemia was noted. There was a normal platelet count. No coagulopathy. Renal panel testing does show some acute kidney injury with a creatinine of 1.57. Sodium somewhat low at 133. Lactic acid level was not elevated making severe sepsis less likely. No concerning liver enzyme elevation. The patient appeared to be in a euthyroid state. ECG shows a normal sinus rhythm, no acute ischemia. Cardiac enzyme testing x1 is not consistent with acute cardiac injury. Urinalysis is consistent with infection. Urine tox was positive for benzos. Alcohol level was undetectable. Covid testing was negative. Chest x-ray did not show pneumonia or CHF. Brain CT showed no acute bleed or mass-effect. Abdominal and pelvis CT does not show any source for infection, no bowel obstruction. The patient presented hypotensive and confused. She was aggressively managed. The patient had received 1 L of fluid prior to arrival. She was given additional 1.5 L of fluid resuscitation. She received IV ertapenem as antibiotic coverage. The patient's blood pressure is improved. She seems mentally improved. I suspect her urine infection led to some hypotension and confusion. The patient is aware of her findings, she is in understanding of the reason for a hospital stay. I did speak with the case management team, the on-call hospitalist was consulted. Past Med/Surg History Medical History Anxiety Chronic kidney disease Crohns disease Degenerative disc disease Depression Esophageal spasm LAST SPASM SEVERAL MONTHS AGO Hearing deficit Hypertension Macular degeneration Mouth ulcers Osteoarthritis Osteoporosis Spinal stenosis of lumbar region with radiculopathy Spinal stenosis of lumbar region with radiculopathy Temporomandibular joint disorder Tinnitus, bilateral Vision loss of right eye retina detachment> getting eye injections -MOST RECENT JANUARY 20 2021 Surgical History History of cardiac cath 1999? @ [facility] – [place] - no stents/angioplasty History of cataract surgery BL History of colonoscopy History of esophagogastroduodenoscopy (EGD) History of repair of right rotator cuff History of right shoulder replacement History of tooth extraction S/P epidural steroid injection HX Status post left foot surgery HX Family History Family/Other Family history of diabetes mellitus cousin Brother Family history of esophageal cancer Other No family history of adverse response to anesthesia Social History Smoking Status: Former smoker Second Hand Exposure: No; Do You Dip or Chew Tobacco: No; Hx Alcohol Use: Yes Alcohol type: hard liquor Hx Substance Use: No Preferred Language: Kiswahili Communication Ability: Effective Elevator Attendant Required: No Beliefs That Will Affect Care: None Current Living Situation: Alone Other Information That Helps Us Care for You: No Feels Safe at Home: Yes Safety Concerns: Feels Safe At This Time Assistive Devices: None Allergies Allergies Allergy/AdvReac Type Severity Reaction Status Date / Time Cipro Allergy Severe HIVES Unverified 02/19/18 14:23 ciprofloxacin Allergy Intermediate HIVES Verified 05/08/21 12:05 mesalamine Allergy Intermediate ERYTHEMA Verified 05/08/21 12:05 AND HIVES methotrexate Allergy Intermediate MOUTH Verified 05/08/21 12:05 ULCERS monosodium glutamate Allergy Intermediate turns Verified 05/08/21 12:05 bright red and clammy, eyes swell, dizzy Sulfa (Sulfonamide Allergy Intermediate HIVES AND Verified 05/08/21 12:05 Antibiotics) SOB chocolate flavor AdvReac Mild MAKES MY Verified 05/08/21 12:05 BOUTH BURN, MOUTH SENSITIVITY lactose AdvReac Mild DIARRHEA Verified 05/08/21 12:05 Yeast AdvReac Mild Gastrointestinal Verified 05/08/21 12:05 Upset Home Meds Home Medications Medication Instructions Recorded Confirmed diazepam 5 mg tablet 5 mg PO BID PRN 03/24/18 05/08/21 diltiazem HCl 120 mg 120 mg PO QAM 03/24/18 05/08/21 capsule,extended release 24 hr diphenhydramine HCl 25 mg capsule 25 mg PO Q4H PRN 03/24/18 05/08/21 escitalopram oxalate 20 mg tablet 20 mg PO QAM 03/24/18 05/08/21 hyoscyamine sulfate 0.125 mg tablet 0.125 mg PO TID PRN 03/24/18 05/08/21 nystatin 100,000 unit/gram topical 1 applic TOPICAL DAILY 03/24/18 05/08/21 powder pantoprazole 40 mg tablet,delayed 40 mg PO QAM 03/24/18 05/08/21 release zolpidem 12.5 mg tablet,extended 12.5 mg PO HS PRN 03/24/18 05/08/21 release,multiphase dexamethasone 0.5 mg/5 mL oral 10 ml PO TID PRN 05/31/18 05/08/21 elixir metoprolol tartrate 50 mg tablet 50 mg PO QAM 05/31/18 05/08/21 (Lopressor) tizanidine 4 mg capsule 4 mg PO Q8H PRN 01/05/19 05/08/21 multivit with 1 tab PO QAM 02/02/19 05/08/21 biqwhlqw-weub-YU-lutein 8 mg iron-400 mcg-300 mcg tablet (Centrum Silver Women) vit C-vit Q-caocka-xkge ox-lutein 2 cap PO QAM 02/02/19 05/08/21 226 mg-200 unit-5 mg-0.8 mg capsule (PreserVision Lutein) vitamin B complex-vitamin C 100 1 tab PO QAM 02/02/19 05/08/21 mg-folic acid 1 mg tablet famotidine 20 mg tablet (Pepcid) 20 mg PO BID 06/29/19 05/08/21 tramadol 50 mg tablet 25 - 50 mg PO UD PRN 06/29/19 05/08/21 ustekinumab 90 mg/mL subcutaneous 90 mg SUBCUT Q4WK 12/18/19 05/08/21 syringe (Stelara) irbjbcv-cxdveanmfluwa-oddbzlgh 250 1 tab PO Q6H PRN 02/13/21 05/08/21 mg-250 mg-65 mg tablet (Excedrin Extra Strength) Previous Rx's Medication Instructions Recorded triamcinolone acetonide 0.1 % 1 appln DT DAILY PRN #10 gm 02/19/20 dental paste Results & Data (ED) Vital Signs Vital Signs - 24 hr 05/08/21 11:30 05/08/21 11:34 05/08/21 11:40 Temperature 37.2 C Temperature Source Oral Pulse Rate 85 85 81 Pulse Rate from SpO2 Sensor 85 81 Respiratory Rate 17 20 16 Respiratory Effort / Characteristics Non-Labored Spontaneous Respiratory Depth Normal Respiratory Pattern Regular Blood Pressure 76/51 L Blood Pressure Mean 59 Blood Pressure Position Lying Pulse Oximetry 90 94 91 Oxygen Delivery Method Room Air Room Air Room Air Sepsis Recent Fever Within 48 Hours No Sepsis New/Unexplained Change in Mental Status N/A Sepsis Action Taken by Nursing No Action Required 05/08/21 11:50 05/08/21 12:00 05/08/21 12:10 Temperature Temperature Source Pulse Rate 81 81 83 Pulse Rate from SpO2 Sensor Respiratory Rate 20 20 19 Respiratory Effort / Characteristics Respiratory Depth Respiratory Pattern Blood Pressure Blood Pressure Mean Blood Pressure Position Pulse Oximetry Oxygen Delivery Method Room Air Room Air Room Air Sepsis Recent Fever Within 48 Hours Sepsis New/Unexplained Change in Mental Status Sepsis Action Taken by Nursing 05/08/21 12:20 05/08/21 12:30 05/08/21 12:45 Temperature Temperature Source Pulse Rate 81 80 78 Pulse Rate from SpO2 Sensor 80 79 Respiratory Rate 17 16 20 Respiratory Effort / Characteristics Respiratory Depth Respiratory Pattern Blood Pressure 98/58 L Blood Pressure Mean 71 Blood Pressure Position Pulse Oximetry 90 92 Oxygen Delivery Method Room Air Room Air Sepsis Recent Fever Within 48 Hours Sepsis New/Unexplained Change in Mental Status Sepsis Action Taken by Nursing 05/08/21 13:00 05/08/21 13:15 05/08/21 13:30 Temperature Temperature Source Pulse Rate 88 81 79 Pulse Rate from SpO2 Sensor 80 81 77 Respiratory Rate 21 18 16 Respiratory Effort / Characteristics Respiratory Depth Respiratory Pattern Blood Pressure 97/58 L 112/63 Blood Pressure Mean 71 79 Blood Pressure Position Pulse Oximetry 97 94 96 Oxygen Delivery Method Sepsis Recent Fever Within 48 Hours Sepsis New/Unexplained Change in Mental Status Sepsis Action Taken by [facility] Medications Current Medication List: was personally reviewed by me Laboratory Data Attestation: I reviewed the patient's lab results. Result diagrams: 05/08/21 12:20 05/08/21 12:19 Lab Results 05/08/21 05/08/21 05/08/21 Range/Units 12:19 12:19 12:19 WBC (4.8-10.8) K/uL RBC (4.2-5.4) M/uL Hgb (12.0-16.0) g/dL Hct (37-47) % MCV (80-100) fL MCH (25-34) pg MCHC (32-36) g/dL RDW Std Deviation (36.4-46.3) fL RDW Coeff of Tuan (11.5-14.5) % Plt Count (130-400) K/uL MPV (7.4-10.4) fL Immature Gran % (Auto) % Neut % (Auto) % Lymph % (Auto) % [place] % (Auto) % Eos % (Auto) % Baso % (Auto) % Neut # (Auto) (1.4-6.5) K/uL Lymph # (Auto) (1.2-3.4) K/uL [place] # (Auto) (0.11-0.59) K/uL Eos # (Auto) (0-0.5) K/uL Baso # (Auto) (0-0.2) K/uL Immature Gran # (Auto) (0.00-0.02) K/uL ESR (0-30) mm/hr PT 11.5 (9.0-12.0) Seconds INR 1.1 (0.9-1.1) APTT 29.3 (21.0-31.0) Seconds PTT Ratio 1.1 Sodium 133 L (136-145) mmol/L Potassium 3.7 (3.5-5.1) mmol/L Chloride 103 (98-107) mmol/L Carbon Dioxide 22 (21-32) mmol/L Anion Gap 9.0 (3-11) BUN 17 (7-18) mg/dl Creatinine 1.57 H (0.6-1.2) mg/dl Est Cr Clr Drug Dosing 28.8 ml/min Est GFR ( Amer) 37.8 ml/min Est GFR (Non-Af Amer) 32.6 ml/min BUN/Creatinine Ratio 10.6 (10-20) Glucose 122 H (70-99) mg/dl Lactate (0.4-2.0) mmol/L Calcium 8.0 L (8.5-10.1) mg/dl Magnesium 1.9 (1.8-2.4) mg/dl Total Bilirubin 0.3 (0.2-1) mg/dl AST 20 (15-37) U/L ALT 23 (12-78) U/L Alkaline Phosphatase 85 (45-117) U/L Ammonia (11-32) umol/L Troponin I < 0.015 (0-0.045) ng/ml C-Reactive Protein 13.30 H (0-0.29) mg/dl Total Protein 5.9 L (6.4-8.2) gm/dl Albumin 2.2 L (3.4-5.0) gm/dl Globulin 3.7 (2.5-4.0) gm/dl Albumin/Globulin Ratio 0.6 L (0.9-2) Procalcitonin (0-0.5) ng/ml TSH 0.703 (0.300-4.500) uIu/ml Urine Color Urine Appearance (Clear) Urine pH (4.5-7.5) Ur Specific [place] (1.000-1.030) Urine Protein (Negative) Urine Glucose (UA) (Negative) Urine Ketones (Negative) Urine Blood (Negative) Urine Nitrite (Negative) Urine Bilirubin (Negative) Urine Urobilinogen (Negative) Ur Leukocyte Esterase (Negative) Urine WBC (Auto) (0-5) /hpf Urine RBC (Auto) (0-4) /hpf U Hyaline Cast (Auto) (0-5) /lpf U Epithel Cells (Auto) (0-5) /lpf Urine Bacteria (Auto) (Negative) Urine Opiates Screen (Neg) Ur Methadone, Qual (Neg) Urine Barbiturates (Neg) Ur Phencyclidine (PCP) (Neg) U Amphetamin/Meth Scrn (Neg) MDMA (Ecstasy) Screen (Neg) U Benzodiazepines Scrn (Neg) Ur Cocaine Metabolite (Neg) U Marijuana (THC) Screen (Neg) Ethyl Alcohol mg/dL (0-3) mg/dl COVID-19 Eval Order SARS-CoV-2 (PCR) (Negative) 05/08/21 05/08/21 05/08/21 Range/Units 12:20 12:20 12:20 WBC 15.64 H (4.8-10.8) K/uL RBC 3.57 L (4.2-5.4) M/uL Hgb 11.6 L (12.0-16.0) g/dL Hct 34.2 L (37-47) % MCV 95.8 (80-100) fL MCH 32.5 (25-34) pg MCHC 33.9 (32-36) g/dL RDW Std Deviation 48.2 H (36.4-46.3) fL RDW Coeff of Tuan 13.8 (11.5-14.5) % Plt Count 236 (130-400) K/uL MPV 9.6 (7.4-10.4) fL Immature Gran % (Auto) 0.4 % Neut % (Auto) 89.2 % Lymph % (Auto) 3.9 % [place] % (Auto) 6.1 % Eos % (Auto) 0.1 % Baso % (Auto) 0.3 % Neut # (Auto) 13.97 H (1.4-6.5) K/uL Lymph # (Auto) 0.61 L (1.2-3.4) K/uL [place] # (Auto) 0.95 H (0.11-0.59) K/uL Eos # (Auto) 0.01 (0-0.5) K/uL Baso # (Auto) 0.04 (0-0.2) K/uL Immature Gran # (Auto) 0.06 H (0.00-0.02) K/uL ESR (0-30) mm/hr PT (9.0-12.0) Seconds INR (0.9-1.1) APTT (21.0-31.0) Seconds PTT Ratio Sodium (136-145) mmol/L Potassium (3.5-5.1) mmol/L Chloride (98-107) mmol/L Carbon Dioxide (21-32) mmol/L Anion Gap (3-11) BUN (7-18) mg/dl Creatinine (0.6-1.2) mg/dl Est Cr Clr Drug Dosing ml/min Est GFR ( Amer) ml/min Est GFR (Non-Af Amer) ml/min BUN/Creatinine Ratio (10-20) Glucose (70-99) mg/dl Lactate (0.4-2.0) mmol/L Calcium (8.5-10.1) mg/dl Magnesium (1.8-2.4) mg/dl Total Bilirubin (0.2-1) mg/dl AST (15-37) U/L ALT (12-78) U/L Alkaline Phosphatase (45-117) U/L Ammonia < 10.0 L (11-32) umol/L Troponin I (0-0.045) ng/ml C-Reactive Protein (0-0.29) mg/dl Total Protein (6.4-8.2) gm/dl Albumin (3.4-5.0) gm/dl Globulin (2.5-4.0) gm/dl Albumin/Globulin Ratio (0.9-2) Procalcitonin (0-0.5) ng/ml TSH (0.300-4.500) uIu/ml Urine Color Urine Appearance (Clear) Urine pH (4.5-7.5) Ur Specific [place] (1.000-1.030) Urine Protein (Negative) Urine Glucose (UA) (Negative) Urine Ketones (Negative) Urine Blood (Negative) Urine Nitrite (Negative) Urine Bilirubin (Negative) Urine Urobilinogen (Negative) Ur Leukocyte Esterase (Negative) Urine WBC (Auto) (0-5) /hpf Urine RBC (Auto) (0-4) /hpf U Hyaline Cast (Auto) (0-5) /lpf U Epithel Cells (Auto) (0-5) /lpf Urine Bacteria (Auto) (Negative) Urine Opiates Screen (Neg) Ur Methadone, Qual (Neg) Urine Barbiturates (Neg) Ur Phencyclidine (PCP) (Neg) U Amphetamin/Meth Scrn (Neg) MDMA (Ecstasy) Screen (Neg) U Benzodiazepines Scrn (Neg) Ur Cocaine Metabolite (Neg) U Marijuana (THC) Screen (Neg) Ethyl Alcohol mg/dL < 3.0 (0-3) mg/dl COVID-19 Eval Order SARS-CoV-2 (PCR) (Negative) 05/08/21 05/08/21 05/08/21 Range/Units 12:20 12:20 12:21 WBC (4.8-10.8) K/uL RBC (4.2-5.4) M/uL Hgb (12.0-16.0) g/dL Hct (37-47) % MCV (80-100) fL MCH (25-34) pg MCHC (32-36) g/dL RDW Std Deviation (36.4-46.3) fL RDW Coeff of Tuan (11.5-14.5) % Plt Count (130-400) K/uL MPV (7.4-10.4) fL Immature Gran % (Auto) % Neut % (Auto) % Lymph % (Auto) % [place] % (Auto) % Eos % (Auto) % Baso % (Auto) % Neut # (Auto) (1.4-6.5) K/uL Lymph # (Auto) (1.2-3.4) K/uL [place] # (Auto) (0.11-0.59) K/uL Eos # (Auto) (0-0.5) K/uL Baso # (Auto) (0-0.2) K/uL Immature Gran # (Auto) (0.00-0.02) K/uL ESR 35 H (0-30) mm/hr PT (9.0-12.0) Seconds INR (0.9-1.1) APTT (21.0-31.0) Seconds PTT Ratio Sodium (136-145) mmol/L Potassium (3.5-5.1) mmol/L Chloride (98-107) mmol/L Carbon Dioxide (21-32) mmol/L Anion Gap (3-11) BUN (7-18) mg/dl Creatinine (0.6-1.2) mg/dl Est Cr Clr Drug Dosing ml/min Est GFR ( Amer) ml/min Est GFR (Non-Af Amer) ml/min BUN/Creatinine Ratio (10-20) Glucose (70-99) mg/dl Lactate 0.9 (0.4-2.0) mmol/L Calcium (8.5-10.1) mg/dl Magnesium (1.8-2.4) mg/dl Total Bilirubin (0.2-1) mg/dl AST (15-37) U/L ALT (12-78) U/L Alkaline Phosphatase (45-117) U/L Ammonia (11-32) umol/L Troponin I (0-0.045) ng/ml C-Reactive Protein (0-0.29) mg/dl Total Protein (6.4-8.2) gm/dl Albumin (3.4-5.0) gm/dl Globulin (2.5-4.0) gm/dl Albumin/Globulin Ratio (0.9-2) Procalcitonin 32.12 H (0-0.5) ng/ml TSH (0.300-4.500) uIu/ml Urine Color Urine Appearance (Clear) Urine pH (4.5-7.5) Ur Specific [place] (1.000-1.030) Urine Protein (Negative) Urine Glucose (UA) (Negative) Urine Ketones (Negative) Urine Blood (Negative) Urine Nitrite (Negative) Urine Bilirubin (Negative) Urine Urobilinogen (Negative) Ur Leukocyte Esterase (Negative) Urine WBC (Auto) (0-5) /hpf Urine RBC (Auto) (0-4) /hpf U Hyaline Cast (Auto) (0-5) /lpf U Epithel Cells (Auto) (0-5) /lpf Urine Bacteria (Auto) (Negative) Urine Opiates Screen (Neg) Ur Methadone, Qual (Neg) Urine Barbiturates (Neg) Ur Phencyclidine (PCP) (Neg) U Amphetamin/Meth Scrn (Neg) MDMA (Ecstasy) Screen (Neg) U Benzodiazepines Scrn (Neg) Ur Cocaine Metabolite (Neg) U Marijuana (THC) Screen (Neg) Ethyl Alcohol mg/dL (0-3) mg/dl COVID-19 Eval Order SARS-CoV-2 (PCR) (Negative) 05/08/21 05/08/21 05/08/21 Range/Units 13:21 13:21 13:52 WBC (4.8-10.8) K/uL RBC (4.2-5.4) M/uL Hgb (12.0-16.0) g/dL Hct (37-47) % MCV (80-100) fL MCH (25-34) pg MCHC (32-36) g/dL RDW Std Deviation (36.4-46.3) fL RDW Coeff of Tuan (11.5-14.5) % Plt Count (130-400) K/uL MPV (7.4-10.4) fL Immature Gran % (Auto) % Neut % (Auto) % Lymph % (Auto) % [place] % (Auto) % Eos % (Auto) % Baso % (Auto) % Neut # (Auto) (1.4-6.5) K/uL Lymph # (Auto) (1.2-3.4) K/uL [place] # (Auto) (0.11-0.59) K/uL Eos # (Auto) (0-0.5) K/uL Baso # (Auto) (0-0.2) K/uL Immature Gran # (Auto) (0.00-0.02) K/uL ESR (0-30) mm/hr PT (9.0-12.0) Seconds INR (0.9-1.1) APTT (21.0-31.0) Seconds PTT Ratio Sodium (136-145) mmol/L Potassium (3.5-5.1) mmol/L Chloride (98-107) mmol/L Carbon Dioxide (21-32) mmol/L Anion Gap (3-11) BUN (7-18) mg/dl Creatinine (0.6-1.2) mg/dl Est Cr Clr Drug Dosing ml/min Est GFR ( Amer) ml/min Est GFR (Non-Af Amer) ml/min BUN/Creatinine Ratio (10-20) Glucose (70-99) mg/dl Lactate (0.4-2.0) mmol/L Calcium (8.5-10.1) mg/dl Magnesium (1.8-2.4) mg/dl Total Bilirubin (0.2-1) mg/dl AST (15-37) U/L ALT (12-78) U/L Alkaline Phosphatase (45-117) U/L Ammonia (11-32) umol/L Troponin I (0-0.045) ng/ml C-Reactive Protein (0-0.29) mg/dl Total Protein (6.4-8.2) gm/dl Albumin (3.4-5.0) gm/dl Globulin (2.5-4.0) gm/dl Albumin/Globulin Ratio (0.9-2) Procalcitonin (0-0.5) ng/ml TSH (0.300-4.500) uIu/ml Urine Color Yellow Urine Appearance Cloudy A (Clear) Urine pH 6.5 (4.5-7.5) Ur Specific [place] 1.008 (1.000-1.030) Urine Protein 1+ H (Negative) Urine Glucose (UA) Negative (Negative) Urine Ketones Negative (Negative) Urine Blood 1+ H (Negative) Urine Nitrite Positive A (Negative) Urine Bilirubin Negative (Negative) Urine Urobilinogen Negative (Negative) Ur Leukocyte Esterase 3+ H (Negative) Urine WBC (Auto) >30 H (0-5) /hpf Urine RBC (Auto) 0-4 (0-4) /hpf U Hyaline Cast (Auto) 1-5 (0-5) /lpf U Epithel Cells (Auto) 10-20 H (0-5) /lpf Urine Bacteria (Auto) Negative (Negative) Urine Opiates Screen Neg (Neg) Ur Methadone, Qual Neg (Neg) Urine Barbiturates Neg (Neg) Ur Phencyclidine (PCP) Neg (Neg) U Amphetamin/Meth Scrn Neg (Neg) MDMA (Ecstasy) Screen Neg (Neg) U Benzodiazepines Scrn Pos H (Neg) Ur Cocaine Metabolite Neg (Neg) U Marijuana (THC) Screen Neg (Neg) Ethyl Alcohol mg/dL (0-3) mg/dl COVID-19 Eval Order Covid19 at [facility] SARS-CoV-2 (PCR) (Negative) 05/08/21 Range/Units 13:52 WBC (4.8-10.8) K/uL RBC (4.2-5.4) M/uL Hgb (12.0-16.0) g/dL Hct (37-47) % MCV (80-100) fL MCH (25-34) pg MCHC (32-36) g/dL RDW Std Deviation (36.4-46.3) fL RDW Coeff of Tuan (11.5-14.5) % Plt Count (130-400) K/uL MPV (7.4-10.4) fL Immature Gran % (Auto) % Neut % (Auto) % Lymph % (Auto) % [place] % (Auto) % Eos % (Auto) % Baso % (Auto) % Neut # (Auto) (1.4-6.5) K/uL Lymph # (Auto) (1.2-3.4) K/uL [place] # (Auto) (0.11-0.59) K/uL Eos # (Auto) (0-0.5) K/uL Baso # (Auto) (0-0.2) K/uL Immature Gran # (Auto) (0.00-0.02) K/uL ESR (0-30) mm/hr PT (9.0-12.0) Seconds INR (0.9-1.1) APTT (21.0-31.0) Seconds PTT Ratio Sodium (136-145) mmol/L Potassium (3.5-5.1) mmol/L Chloride (98-107) mmol/L Carbon Dioxide (21-32) mmol/L Anion Gap (3-11) BUN (7-18) mg/dl Creatinine (0.6-1.2) mg/dl Est Cr Clr Drug Dosing ml/min Est GFR ( Amer) ml/min Est GFR (Non-Af Amer) ml/min BUN/Creatinine Ratio (10-20) Glucose (70-99) mg/dl Lactate (0.4-2.0) mmol/L Calcium (8.5-10.1) mg/dl Magnesium (1.8-2.4) mg/dl Total Bilirubin (0.2-1) mg/dl AST (15-37) U/L ALT (12-78) U/L Alkaline Phosphatase (45-117) U/L Ammonia (11-32) umol/L Troponin I (0-0.045) ng/ml C-Reactive Protein (0-0.29) mg/dl Total Protein (6.4-8.2) gm/dl Albumin (3.4-5.0) gm/dl Globulin (2.5-4.0) gm/dl Albumin/Globulin Ratio (0.9-2) Procalcitonin (0-0.5) ng/ml TSH (0.300-4.500) uIu/ml Urine Color Urine Appearance (Clear) Urine pH (4.5-7.5) Ur Specific [place] (1.000-1.030) Urine Protein (Negative) Urine Glucose (UA) (Negative) Urine Ketones (Negative) Urine Blood (Negative) Urine Nitrite (Negative) Urine Bilirubin (Negative) Urine Urobilinogen (Negative) Ur Leukocyte Esterase (Negative) Urine WBC (Auto) (0-5) /hpf Urine RBC (Auto) (0-4) /hpf U Hyaline Cast (Auto) (0-5) /lpf U Epithel Cells (Auto) (0-5) /lpf Urine Bacteria (Auto) (Negative) Urine Opiates Screen (Neg) Ur Methadone, Qual (Neg) Urine Barbiturates (Neg) Ur Phencyclidine (PCP) (Neg) U Amphetamin/Meth Scrn (Neg) MDMA (Ecstasy) Screen (Neg) U Benzodiazepines Scrn (Neg) Ur Cocaine Metabolite (Neg) U Marijuana (THC) Screen (Neg) Ethyl Alcohol mg/dL (0-3) mg/dl COVID-19 Eval Order SARS-CoV-2 (PCR) NEGATIVE (Negative) Administered Medications Enoxaparin Sodium (Enoxaparin Inj 40 Mg/0.4 Ml Syr) 40 mg SQ Q24H JOSE Stop: 06/07/21 17:59 Last Admin: 05/08/21 17:45 Dose: 40 mg Documented by: [id number] Lactated Ringer's (Lr) 1,000 mls @ 100 mls/hr IV .Q10H JOSE Stop: 06/07/21 14:30 Last Admin: 05/08/21 14:50 Dose: 100 mls/hr Documented by: [id number] Ondansetron HCl (Ondansetron Inj 2 Mg/Ml 2 Ml Vial) 4 mg IV Q6H PRN PRN Reason: Nausea Stop: 06/07/21 17:03 Last Admin: 05/08/21 17:35 Dose: 4 mg Documented by: [id number] Discontinued Medications Sodium Chloride (Nss 1000ml) 1,000 mls @ 999 mls/hr IV .Q1H1M ONE Stop: 05/08/21 13:07 Last Infusion: 05/08/21 13:40 Dose: 999 mls/hr Documented by: [id number] Admin: 05/08/21 12:25 Dose: 999 mls/hr Documented by: [id number] Ertapenem (Invanz) 10 mls @ 2 mls/min IV NOW STA Stop: 05/08/21 12:13 Last Admin: 05/08/21 12:30 Dose: 2 mls/min Documented by: [id number] Lactated Ringer's (Lr) 500 mls @ 999 mls/hr IV .Q31M ONE Stop: 05/08/21 13:27 Last Infusion: 05/08/21 14:37 Dose: 999 mls/hr Documented by: [id number] Admin: 05/08/21 14:03 Dose: 999 mls/hr Documented by: [id number] Vancomycin HCl 1,500 mg/ (Sodium Chloride) 530 mls @ 200 mls/hr IV NOW STA Stop: 05/08/21 19:23 Last Admin: 05/08/21 18:04 Dose: 200 mls/hr Documented by: [id number] Ioversol (Optiray 320 100ml) 94 ml IV ONCE ONE Stop: 05/08/21 14:35 Last Admin: 05/08/21 14:35 Dose: 94 ml Documented by: [id number] Imaging Data Radiologist's Impression: Chest X-Ray 05/08/21 11:47 XR chest 1V portable CLINICAL HISTORY: Confusion altered mental status TECHNIQUE: Single frontal radiograph of the chest was obtained. Comparison: None available at the time of this dictation. FINDINGS: Stable right reverse shoulder arthroplasty. Cardiomegaly is noted. The lungs are clear.. Stable right hemidiaphragm elevation. No evidence of pleural effusion or pneumothorax. IMPRESSION: No acute chest disease. Findings as above. ACT 112: Negative or not required by law. Electronically signed by: Efraín Krause M.D. 05/08/2021 12:[address] 05/08/21 12:07 CT head/brain wo con CLINICAL HISTORY: confusion hallucinations, altered mental status Technique: Contiguous axial CT images of the head were acquired from the base of the skull to the vertex without intravenous contrast administration. Images were viewed in brain, subdural and bone windows. Automated dose lowering techniques and/or adjustment according to patient size were utilized for this exam. Comparison: None available at the time of this dictation. Findings: Areas of decreased attenuation are present in the periventricular and subcortical white matter bilaterally consistent with small vessel ischemic disease. Generalized cerebral atrophy with commensurate enlargement of the ventricles, sulci, and cisterns is also present. There is no acute intracranial hemorrhage or evidence of acute territorial infarction. No shift of the midline structures, mass effect, or extra-axial abnormalities are shown. Atherosclerotic calcifications are present in the intracranial segments of the internal carotid arteries. Imaged portions of the paranasal sinuses and mastoid air cells are clear. The orbits appear normal. There are no acute fractures of the calvaria or scalp swelling. Impression: No acute intracranial hemorrhage, evidence of acute territorial infarction, or other acute intracranial disease process. ACT 112: Negative or not required by law. Electronically signed by: Efraín Krause M.D. 05/08/2021 2:40 PM Abdomen/Pelvis CT 05/08/21 14:02 CT abd pelvis IV con only CLINICAL HISTORY: poss abscess, divertic TECHNIQUE: Helical axial images of the abdomen and pelvis were obtained and displayed. Automated dose lowering techniques and/or adjustment according to patient size were utilized for this exam. This exam was performed with intravenous contrast. COMPARISON: Comparison is made to CT abdomen and pelvis 03/24/2018 FINDINGS: Lower chest: Bibasilar atelectasis is seen. Liver: Unremarkable. No focal lesions are seen. Gallbladder and biliary tree: No calcified gallstones. Normal caliber wall. There is prominence of the common bile duct, measuring up to 7 mm in diameter, appropriate for age. Pancreas: Unremarkable, no focal lesions. Spleen: Unremarkable. Adrenals: Unremarkable. Kidneys and ureters: Lobulated appearance of the kidneys is noted which may represent scarring. Bladder: Unremarkable. Reproductive organs: Unremarkable. Bowel: Prominence of the appendix is again noted, measuring up to 6 mm in diameter, without evidence of fecalith or periappendiceal inflammation. Lymph nodes Retroperitoneal: Unremarkable. Mesenteric: Unremarkable. Pelvic: Unremarkable. Peritoneum: Normal Vessels: Atherosclerotic calcifications are seen. Abdominal wall: Unremarkable. Bones: Degenerative changes in the visualized spine. IMPRESSION: No evidence of acute abnormality. The appendix is again noted to be at the top limit of normal. No abscess or diverticulitis is seen. ACT 112: Negative or not required by law. Electronically signed by: Efraín Krause M.D. 05/08/2021 3:10 PM Discharge Plan Visit Data Chief Complaint: Lethargic Stated Complaint: lethargic ED Provider: Duglas Orozco Discharge Problem: Hypotension, LOVE (acute kidney injury), Acute confusion, Acute dehydration, Acute UTI Patient Disposition: Admitted As Inpatient Condition: Fair Discharge Instructions Interventions: ED Discharge Assessment Last Done: 05/08/21 16:54
[2021-05-08 12:31] LABS: Basophils # (auto) 0.04 K/uL (0-0.2); Basophils % (auto) 0.3 %; Eosinophils # (auto) 0.01 K/uL (0-0.5); Eosinophils % (auto) 0.1 %; Hematocrit (blood only) 34.2 % (37-47); Hemoglobin 11.6 g/dL (12.0-16.0); Immature Granulocytes # (auto) 0.06 K/uL (0.00-0.02); Immature Granulocytes % (auto) 0.4 %; Lymphocytes # (auto) 0.61 K/uL (1.2-3.4); Lymphocytes % (auto) 3.9 %; Mean Corpuscular Hemoglobin 32.5 pg (25-34); Mean Corpuscular Hgb Conc 33.9 g/dL (32-36); Mean Corpuscular Volume 95.8 fL (80-100); Mean Platelet Volume 9.6 fL (7.4-10.4); Monocytes # (auto) 0.95 K/uL (0.11-0.59); Monocytes % (auto) 6.1 %; Neutrophils # (auto) 13.97 K/uL (1.4-6.5); Neutrophils % (auto) 89.2 %; Platelet Count 236 K/uL (130-400); RDW Coefficient of Variation 13.8 % (11.5-14.5); RDW Standard Deviation 48.2 fL (36.4-46.3); Red Blood Count 3.57 M/uL (4.2-5.4); White Blood Count 15.64 K/uL (4.8-10.8)
[2021-05-08 12:42] LABS: INR 1.1 (0.9-1.1); Partial Thromboplastin Ratio 1.1; Partial Thromboplastin Time 29.3 Seconds (21.0-31.0); Prothrombin Time 11.5 Seconds (9.0-12.0)
[2021-05-08 12:56] LABS: Alanine Aminotransferase 23 U/L (12-78); Albumin Level 2.2 gm/dl (3.4-5.0); Aspartate Aminotransferase 20 U/L (15-37); BUN Creatinine Ratio 10.6 (10-20); Blood Urea Nitrogen 17 mg/dl (7-18); Carbon Dioxide 22 mmol/L (21-32); Chloride 103 mmol/L (98-107); Creatinine Clr Calc Pharmacy 28.8 ml/min; Est GFR (African American) 37.8 ml/min; Est GFR (Non-African American) 32.6 ml/min; Glucose 122 mg/dl (70-99); Magnesium 1.9 mg/dl (1.8-2.4); Potassium 3.7 mmol/L (3.5-5.1); Sodium 133 mmol/L (136-145)
--- NOTE | 2021-05-08 12:56 | XRay Report ---
XR chest 1V portable CLINICAL HISTORY: Confusion altered mental status TECHNIQUE: Single frontal radiograph of the chest was obtained. Comparison: None available at the time of this dictation. FINDINGS: Stable right reverse shoulder arthroplasty. Cardiomegaly is noted. The lungs are clear.. Stable right hemidiaphragm elevation. No evidence of pleural effusion or pneumothorax. IMPRESSION: No acute chest disease. Findings as above. ACT 112: Negative or not required by law. Electronically signed by: Efraín Krause M.D. 05/08/2021 12:55 PM
[2021-05-08] MEDS ORDERED: LACTATED RINGER'S 500 ML IV ONE (12:57)
[2021-05-08 13:07] LABS: Albumin Globulin Ratio 0.6 (0.9-2); Alkaline Phosphatase 85 U/L (45-117); Bilirubin,Total 0.3 mg/dl (0.2-1); Globulin 3.7 gm/dl (2.5-4.0); Thyroid Stimulating Hormone 0.703 uIu/ml (0.300-4.500); Total Protein 5.9 gm/dl (6.4-8.2); Troponin I < 0.015 ng/ml (0-0.045)
[2021-05-08 13:46] LABS: Appearance Urine Cloudy (Clear); Bacteria Urine Automated Negative (Negative); Bilirubin Urine Negative (Negative); Blood Urine 1+ (Negative); Color Urine Yellow; Glucose Urine UA Negative (Negative); Ketones Urine Negative (Negative); Leukocyte Esterase Urine 3+ (Negative); Nitrite Urine Positive (Negative); Protein Urine 1+ (Negative); RBC Urine Automated 0-4 /hpf (0-4); Specific Gravity Urine 1.008 (1.000-1.030); Urobilinogen Urine Negative (Negative); WBC Urine Automated >30 /hpf (0-5); pH Urine 6.5 (4.5-7.5)
[2021-05-08 14:31] LABS: Amphetamines+Metham, Urine Neg (Neg); Barbiturates, Urine Neg (Neg); Benzodiazepine, Urine Pos (Neg); Cocaine, Urine Neg (Neg); MDMA (Ecstacy), Urine Neg (Neg); Methadone, Urine Neg (Neg); Opiate, Urine Neg (Neg); Phencyclidine, Urine Neg (Neg)
[2021-05-08] MEDS ORDERED: OPTIRAY 320 100ml IV ONE (14:34)
--- NOTE | 2021-05-08 14:36 | History & Physical Report ---
Date of Service May 08, 2021 Assessment & Plan (1) Metabolic encephalopathy: Plan: Acute encephalopathy- likely related to hypotension secondary to presumed UTI/pyelonephritis- this is consistent with patient's presentation for other infectious processes that she has in the past - improved following 1.5 liter crystalloid - continue ertapenem 1GM IV q24 - LR overnight at 100 ml overnight - CT scan of the head negative for acute process or sinusitis - No meningismus signs (2) Sepsis: Plan: - likely related to UTI/pyelonephritis- urine with elevated nitrite and leukocyte- negative for bacteria WBC 15 with NLR 7:1 - SIRS on arrival 3, qSOFA- 3 on arrival - as above - PCT 32, ESR 35, CRP 13.3 - Her appendix is enlarged but consistent size at 6mm (2018)- without fecalith or periappendiceal inflammation or abdominal pain - Continue ertapenem, will add Daptomycin secondary to elevated inflammatory markers and poor source identification at this time - Ertapenem and Vancomycin for now- follow clinical response and cultures - improved since arrival (3) UTI (urinary tract infection): Plan: DDX : UTI vs Pyelonephritis - As above - continue ertapenem as cultures return (4) LOVE (acute kidney injury): Plan: Pre-renal in the setting of decreased oral intake and increased urinary frequency - Follow BMP daily - Follow with Vancomycin- likely able to de-escalate vancomycin quickly (5) Crohns disease: Plan: Chronic on decadron History of Present Illness Chief Complaint: confused Primary Care Provider: Celina Monique 71 YOF with past medical history of: Chron's disease (on remicade and Decadron), chronic shoulder pain, CKD IIIa, GERD, oral ulcerations, anxiety, recurrent UTIs,. Patient pushed her life alert button this morning for EMS to bring her to the EMD secondary to hallucinations and weakness. The patient recalls that yesterday evening she was having some fevers and chills and weakness. She was in the kitchen where she recalls falling and having a hard time getting up, but she made it to her bedroom with her dog. Through the night into this morning she recalls seeing people sitting in her room on chairs and then this morning, going through her drawers. She was noted to be hypotensive in the EMD and was given 1.5 liters of crystalloid with normalization of her BP and clearing of her mentation. She had routine labs performed, UA, blood cultures, CXR, ECG and CT scan of her abdomen and pelvis (pending at this time). Patient does endorse frequency and small volume voids over the past 48 hours associated with fevers and chills for about the same time. She also notes that she has been trying to drink water but after drinking she would have to go to the bathroom within 15 minutes and was unable to keep drinking. She does note some CVA tenderness on the left on exam. 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 She had a normal lactate. Patient was started on Ertapenem for her history of ESBL UTI. Overall she has responded well to the above resuscitation and will be admitted to continue IV antibiotics while cultures are pending. Will continue IVF overnight and continue to monitor her nueroligical status. With noted elevation in her biomarkers will also add on Vancomycin for now. I was able to get in touch wither her primary contact Lana Simms for an update and will assist in helping take care of her dog "Sam" as this was giving her some anxiety. Patient COVID test on admission is: NEGATIVE Allergies Allergy/AdvReac Type Severity Reaction Status Date / Time Cipro Allergy Severe HIVES Unverified 02/19/18 14:23 ciprofloxacin Allergy Intermediate HIVES Verified 05/08/21 12:05 mesalamine Allergy Intermediate ERYTHEMA Verified 05/08/21 12:05 AND HIVES methotrexate Allergy Intermediate MOUTH Verified 05/08/21 12:05 ULCERS monosodium glutamate Allergy Intermediate turns Verified 05/08/21 12:05 bright red and clammy, eyes swell, dizzy Sulfa (Sulfonamide Allergy Intermediate HIVES AND Verified 05/08/21 12:05 Antibiotics) SOB chocolate flavor AdvReac Mild MAKES MY Verified 05/08/21 12:05 BOUTH BURN, MOUTH SENSITIVITY lactose AdvReac Mild DIARRHEA Verified 05/08/21 12:05 Yeast AdvReac Mild Gastrointestinal Verified 05/08/21 12:05 Upset Home Medications Medication Instructions Recorded Confirmed Type diazepam 5 mg tablet 5 mg PO BID PRN 03/24/18 05/08/21 History diltiazem HCl 120 mg 120 mg PO QAM 03/24/18 05/08/21 History capsule,extended release 24 hr diphenhydramine HCl 25 mg capsule 25 mg PO Q4H PRN 03/24/18 05/08/21 History escitalopram oxalate 20 mg tablet 20 mg PO QAM 03/24/18 05/08/21 History hyoscyamine sulfate 0.125 mg tablet 0.125 mg PO TID PRN 03/24/18 05/08/21 History nystatin 100,000 unit/gram topical 1 applic TOPICAL DAILY 03/24/18 05/08/21 History powder pantoprazole 40 mg tablet,delayed 40 mg PO QAM 03/24/18 05/08/21 History release zolpidem 12.5 mg tablet,extended 12.5 mg PO HS PRN 03/24/18 05/08/21 History release,multiphase dexamethasone 0.5 mg/5 mL oral 10 ml PO TID PRN 05/31/18 05/08/21 History elixir metoprolol tartrate 50 mg tablet 50 mg PO QAM 05/31/18 05/08/21 History (Lopressor) tizanidine 4 mg capsule 4 mg PO Q8H PRN 01/05/19 05/08/21 History multivit with 1 tab PO QAM 02/02/19 05/08/21 History rrrugtjk-woif-FN-lutein 8 mg iron-400 mcg-300 mcg tablet (Centrum Silver Women) vit C-vit W-mbxeca-lfpt ox-lutein 2 cap PO QAM 02/02/19 05/08/21 History 226 mg-200 unit-5 mg-0.8 mg capsule (PreserVision Lutein) vitamin B complex-vitamin C 100 1 tab PO QAM 02/02/19 05/08/21 History mg-folic acid 1 mg tablet famotidine 20 mg tablet (Pepcid) 20 mg PO BID 06/29/19 05/08/21 History tramadol 50 mg tablet 25 - 50 mg PO UD PRN 06/29/19 05/08/21 History ustekinumab 90 mg/mL subcutaneous 90 mg SUBCUT Q4WK 12/18/19 05/08/21 History syringe (Stelara) triamcinolone acetonide 0.1 % 1 appln DT DAILY PRN #10 gm 02/19/20 05/08/21 Rx dental paste gvnxato-iedhvkousmnwu-lulsoqkq 250 1 tab PO Q6H PRN 02/13/21 05/08/21 History mg-250 mg-65 mg tablet (Excedrin Extra Strength) Past Med/Surg History Medical History Anxiety Chronic kidney disease Crohns disease Degenerative disc disease Depression Esophageal spasm LAST SPASM SEVERAL MONTHS AGO Hearing deficit Hypertension Macular degeneration Mouth ulcers Osteoarthritis Osteoporosis Spinal stenosis of lumbar region with radiculopathy Spinal stenosis of lumbar region with radiculopathy Temporomandibular joint disorder Tinnitus, bilateral Vision loss of right eye retina detachment> getting eye injections -MOST RECENT JANUARY 20 2021 Surgical History [place] of cardiac [place] 1999[place] [facility] [place]angioplasty History of cataract surgery BL History of colonoscopy History of esophagogastroduodenoscopy (EGD) History of repair of right rotator cuff History of right shoulder replacement History of tooth extraction S/P epidural steroid injection HX Status post left foot surgery HX Family History Family/Other Family history of diabetes mellitus cousin Brother Family history of esophageal cancer Other No family history of adverse response to anesthesia Social History Smoking Status: Former smoker Second Hand Exposure: No; Do You Dip or Chew Tobacco: No; Hx Alcohol Use: Yes Alcohol type: hard liquor Hx Substance Use: No Preferred Language: Ivorian Communication Ability: Effective 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 Beliefs That Will Affect Care: None Current Living Situation: Alone Other Information That Helps Us Care for You: No Feels Safe at Home: Yes Safety Concerns: Feels Safe At This Time Assistive Devices: None Review of Systems Review of Systems: REVIEW OF SYSTEMS: Constitutional: (+) fever, sweats or chills Eyes: No diplopia, no worsening or blurred vision ENT: normal hearing, no trouble swallowing Respiratory: No cough, sputum, dyspnea at rest or on exertion Cardiovascular: No chest pain, tightness or palpitations Abdomen: (+) pain, nausea, vomiting, diarrhea or constipation Musculoskeletal: No joint pain, calf pain, swelling Neurologic: No weakness, numbness/tingling, or balance problems Psychiatric: (+) hallucinations Skin: No rash or itch Physical Exam Physical Exam: PHYSICAL EXAM: General: awake, alert, no apparent distress Head: Normocephalic, atraumatic, no pain with palpation and no cervical neck tenderness ENT: PERRLA, EOMI, no pharyngeal exudate, mucous membranes moist, bilateral hearing aids noted Neuro: AAO x 3, speech clear and appropriate, mild confusion- this may be baseline, strength intact bilaterally 5/5, sensation intact and equal all extremities and dermatomes, no pronator drift Chest: equal rise and fall of the chest, no accessory muscle use, no heaves or thrills, Clear to auscultation, on room air, Cardiac: Regular rate and rhythm, telemetry reviewed- NSR, skin warm dry, cap refill <3 seconds, peripheral pulses +2 no JVD, no murmur, no edema GI: NABS x 4 quadrants, soft, nontender to palpation, no rebound, guarding or tenderness : frequency and urgency, left sided CVA tenderness, Extremities: Normal inspection, no peripheral edema or erythema, calfs nontender to palpation Psych: mild anixety about her dog Skin: no rash or erythema Results & Data Results & Data ([facility]) Vital Signs (Past 12 Hours) Vital Signs Temp Pulse Resp BP Pulse Ox 05/08/21 13:30 79 16 96 05/08/21 13:15 81 18 112/63 94 05/08/21 13:00 88 21 97/58 L 97 05/08/21 12:45 78 20 92 05/08/21 12:30 80 16 98/58 L 90 05/08/21 12:20 81 17 05/08/21 12:10 83 19 05/08/21 12:00 81 20 05/08/21 11:50 81 20 05/08/21 11:40 81 16 91 05/08/21 11:34 37.2 C 85 20 76/51 L 94 05/08/21 11:30 85 17 90 Laboratory Results Abnormal lab results 05/08/21 05/08/21 05/08/21 Range/Units 12:19 12:19 12:20 WBC 15.64 H (4.8-10.8) K/uL RBC 3.57 L (4.2-5.4) M/uL Hgb 11.6 L (12.0-16.0) g/dL Hct 34.2 L (37-47) % RDW Std Deviation 48.2 H (36.4-46.3) fL Neut # (Auto) 13.97 H (1.4-6.5) K/uL Lymph # (Auto) 0.61 L (1.2-3.4) K/uL [place] # (Auto) 0.95 H (0.11-0.59) K/uL Immature Gran # (Auto) 0.06 H (0.00-0.02) K/uL ESR (0-30) mm/hr Sodium 133 L (136-145) mmol/L Creatinine 1.57 H (0.6-1.2) mg/dl Glucose 122 H (70-99) mg/dl Calcium 8.0 L (8.5-10.1) mg/dl Ammonia (11-32) umol/L C-Reactive Protein 13.30 H (0-0.29) mg/dl Total Protein 5.9 L (6.4-8.2) gm/dl Albumin 2.2 L (3.4-5.0) gm/dl Albumin/Globulin Ratio 0.6 L (0.9-2) Urine Appearance (Clear) Urine Protein (Negative) Urine Blood (Negative) Urine Nitrite (Negative) Ur Leukocyte Esterase (Negative) Urine WBC (Auto) (0-5) /hpf U Epithel Cells (Auto) (0-5) /lpf U Benzodiazepines Scrn (Neg) 05/08/21 05/08/21 05/08/21 Range/Units 12:20 12:20 13:21 WBC (4.8-10.8) K/uL RBC (4.2-5.4) M/uL Hgb (12.0-16.0) g/dL Hct (37-47) % RDW Std Deviation (36.4-46.3) fL Neut # (Auto) (1.4-6.5) K/uL Lymph # (Auto) (1.2-3.4) K/uL [place] # (Auto) (0.11-0.59) K/uL Immature Gran # (Auto) (0.00-0.02) K/uL ESR 35 H (0-30) mm/hr Sodium (136-145) mmol/L Creatinine (0.6-1.2) mg/dl Glucose (70-99) mg/dl Calcium (8.5-10.1) mg/dl Ammonia < 10.0 L (11-32) umol/L C-Reactive Protein (0-0.29) mg/dl Total Protein (6.4-8.2) gm/dl Albumin (3.4-5.0) gm/dl Albumin/Globulin Ratio (0.9-2) Urine Appearance Cloudy A (Clear) Urine Protein 1+ H (Negative) Urine Blood 1+ H (Negative) Urine Nitrite Positive A (Negative) Ur Leukocyte Esterase 3+ H (Negative) Urine WBC (Auto) >30 H (0-5) /hpf U Epithel Cells (Auto) 10-20 H (0-5) /lpf U Benzodiazepines Scrn (Neg) 05/08/21 Range/Units 13:21 WBC (4.8-10.8) K/uL RBC (4.2-5.4) M/uL Hgb (12.0-16.0) g/dL Hct (37-47) % RDW Std Deviation (36.4-46.3) fL Neut # (Auto) (1.4-6.5) K/uL Lymph # (Auto) (1.2-3.4) K/uL [place] # (Auto) (0.11-0.59) K/uL Immature Gran # (Auto) (0.00-0.02) K/uL ESR (0-30) mm/hr Sodium (136-145) mmol/L Creatinine (0.6-1.2) mg/dl Glucose (70-99) mg/dl Calcium (8.5-10.1) mg/dl Ammonia (11-32) umol/L C-Reactive Protein (0-0.29) mg/dl Total Protein (6.4-8.2) gm/dl Albumin (3.4-5.0) gm/dl Albumin/Globulin Ratio (0.9-2) Urine Appearance (Clear) Urine Protein (Negative) Urine Blood (Negative) Urine Nitrite (Negative) Ur Leukocyte Esterase (Negative) Urine WBC (Auto) (0-5) /hpf U Epithel Cells (Auto) (0-5) /lpf U Benzodiazepines Scrn Pos H (Neg) Diagnostic Findings Chest X-Ray 05/08/21 11:47 XR chest 1V portable CLINICAL HISTORY: Confusion altered mental status TECHNIQUE: Single frontal radiograph of the chest was obtained. Comparison: None available at the time of this dictation. FINDINGS: Stable right reverse shoulder arthroplasty. Cardiomegaly is noted. The lungs are clear.. Stable right hemidiaphragm elevation. No evidence of pleural effusion or pneumothorax. IMPRESSION: No acute chest disease. Findings as above. ACT 112: Negative or not required by law. Electronically signed by: Efraín Krause M.D. 05/08/2021 12:[address] 05/08/21 12:07 CT head/brain wo con CLINICAL HISTORY: confusion hallucinations, altered mental status Technique: Contiguous axial CT images of the head were acquired from the base of the skull to the vertex without intravenous contrast administration. Images were viewed in brain, subdural and bone windows. Automated dose lowering techniques and/or adjustment according to patient size were utilized for this exam. Comparison: None available at the time of this dictation. Findings: Areas of decreased attenuation are present in the periventricular and subcortical white matter bilaterally consistent with small vessel ischemic disease. Generalized cerebral atrophy with commensurate enlargement of the ventricles, sulci, and cisterns is also present. There is no acute intracranial hemorrhage or evidence of acute territorial infarction. No shift of the midline structures, mass effect, or extra-axial abnormalities are shown. Atherosclerotic calcifications are present in the intracranial segments of the internal carotid arteries. Imaged portions of the paranasal sinuses and mastoid air cells are clear. The orbits appear normal. There are no acute fractures of the calvaria or scalp swelling. Impression: No acute intracranial hemorrhage, evidence of acute territorial infarction, or other acute intracranial disease process. ACT 112: Negative or not required by law. Electronically signed by: Efraín Krause M.D. 05/08/2021 2:40 PM Abdomen/Pelvis CT 05/08/21 14:02 CT abd pelvis IV con only CLINICAL HISTORY: poss abscess, divertic TECHNIQUE: Helical axial images of the abdomen and pelvis were obtained and displayed. Automated dose lowering techniques and/or adjustment according to patient size were utilized for this exam. This exam was performed with intravenous contrast. COMPARISON: Comparison is made to CT abdomen and pelvis 03/24/2018 FINDINGS: Lower chest: Bibasilar atelectasis is seen. Liver: Unremarkable. No focal lesions are seen. Gallbladder and biliary tree: No calcified gallstones. Normal caliber wall. There is prominence of the common bile duct, measuring up to 7 mm in diameter, appropriate for age. Pancreas: Unremarkable, no focal lesions. Spleen: Unremarkable. Adrenals: Unremarkable. Kidneys and ureters: Lobulated appearance of the kidneys is noted which may represent scarring. Bladder: Unremarkable. Reproductive organs: Unremarkable. Bowel: Prominence of the appendix is again noted, measuring up to 6 mm in diameter, without evidence of fecalith or periappendiceal inflammation. Lymph nodes Retroperitoneal: Unremarkable. Mesenteric: Unremarkable. Pelvic: Unremarkable. Peritoneum: Normal Vessels: Atherosclerotic calcifications are seen. Abdominal wall: Unremarkable. Bones: Degenerative changes in the visualized spine. IMPRESSION: No evidence of acute abnormality. The appendix is again noted to be at the top limit of normal. No abscess or diverticulitis is seen. ACT 112: Negative or not required by law. Electronically signed by: Efraín Krause M.D. 05/08/2021 3:10 PM Medications Administered Lactated Ringer's (Lr) 1,000 mls @ 100 mls/hr IV .Q10H JOSE Stop: 06/07/21 14:30 Last Admin: 05/08/21 14:50 Dose: 100 mls/hr Documented by: [id number] Discontinued Medications Sodium Chloride (Nss 1000ml) 1,000 mls @ 999 mls/hr IV .Q1H1M ONE Stop: 05/08/21 13:07 Last Infusion: 05/08/21 13:40 Dose: 999 mls/hr Documented by: [id number] Admin: 05/08/21 12:25 Dose: 999 mls/hr Documented by: [id number] Ertapenem (Invanz) 10 mls @ 2 mls/min IV NOW STA Stop: 05/08/21 12:13 Last Admin: 05/08/21 12:30 Dose: 2 mls/min Documented by: [id number] Lactated Ringer's (Lr) 500 mls @ 999 mls/hr IV .Q31M ONE Stop: 05/08/21 13:27 Last Infusion: 05/08/21 14:37 Dose: 999 mls/hr Documented by: [id number] Admin: 05/08/21 14:03 Dose: 999 mls/hr Documented by: [id number] Ioversol (Optiray 320 100ml) 94 ml IV ONCE ONE Stop: 05/08/21 14:35 Last Admin: 05/08/21 14:35 Dose: 94 ml Documented by: [id number] Home Medications diazepam 5 mg tablet 5 mg PO BID PRN 03/24/18 [History Confirmed 05/08/21] diltiazem HCl 120 mg capsule,extended release 24 hr 120 mg PO QAM 03/24/18 [History Confirmed 05/08/21] diphenhydramine HCl 25 mg capsule 25 mg PO Q4H PRN 03/24/18 [History Confirmed 05/08/21] escitalopram oxalate 20 mg tablet 20 mg PO QAM 03/24/18 [History Confirmed 05/08/21] hyoscyamine sulfate 0.125 mg tablet 0.125 mg PO TID PRN 03/24/18 [History Confirmed 05/08/21] nystatin 100,000 unit/gram topical powder 1 applic TOPICAL DAILY 03/24/18 [His tory Confirmed 05/08/21] pantoprazole 40 mg tablet,delayed release 40 mg PO QAM 03/24/18 [History Confirmed 05/08/21] zolpidem 12.5 mg tablet,extended release,multiphase 12.5 mg PO HS PRN 03/24/18 [History Confirmed 05/08/21] dexamethasone 0.5 mg/5 mL oral elixir 10 ml PO TID PRN 05/31/18 [History Confirmed 05/08/21] metoprolol tartrate 50 mg tablet (Lopressor) 50 mg PO QAM 05/31/18 [History Confirmed 05/08/21] tizanidine 4 mg capsule 4 mg PO Q8H PRN 01/05/19 [History Confirmed 05/08/21] multivit with vmamvbil-txtc-AQ-lutein 8 mg iron-400 mcg-300 mcg tablet (Centrum Silver Women) 1 tab PO QAM 02/02/19 [History Confirmed 05/08/21] vit C-vit E-uvjdcd-fbey ox-lutein 226 mg-200 unit-5 mg-0.8 mg capsule (PreserVision Lutein) 2 cap PO QAM 02/02/19 [History Confirmed 05/08/21] vitamin B complex-vitamin C 100 mg-folic acid 1 mg tablet 1 tab PO QAM 02/02/19 [History Confirmed 05/08/21] famotidine 20 mg tablet (Pepcid) 20 mg PO BID 06/29/19 [History Confirmed 05/08/21] tramadol 50 mg tablet 25 - 50 mg PO UD PRN 06/29/19 [History Confirmed 05/08/21] ustekinumab 90 mg/mL subcutaneous syringe (Stelara) 90 mg SUBCUT Q4WK 12/18/19 [History Confirmed 05/08/21] triamcinolone acetonide 0.1 % dental paste 1 appln DT DAILY PRN #10 gm 02/19/20 [Rx Confirmed 05/08/21] egugmtn-urzluocvrgbmw-wlsisgko 250 mg-250 mg-65 mg tablet (Excedrin Extra Strength) 1 tab PO Q6H PRN 02/13/21 [History Confirmed 05/08/21] Active Medications Lactated Ringer's (Lr) 1,000 mls @ 100 mls/hr IV .Q10H JOSE Stop: 06/07/21 14:30 Last Admin: 05/08/21 14:50 Dose: 100 mls/hr Documented by: [id number] Additional Comments: Normal sinus rhythm Normal ECG When compared with ECG of 22-FEB-2021 13:28, Borderline criteria for Inferior infarct are no longer Present Code Status & VTE Plan Code Status CODE: DNR/DNI VTE: SCDs, Lovenox 40mg Subq daily VTE Prophylaxis Plan VTE Prophylaxis will be ordered: Yes Supervising Physician Co-Signing Physician Notes 82 yo female is seen and examined at bedside. During face to face encounter with patient, obtained a history and physical examination. Discussed case with BRANDON Sommers and answered all of the patient's questions. I reviewed above note and agree with it. Patient is coming in with pyelonephritis. will place on antibiotics. Metabolic encephalopathy likely from infection vs polypharmacy. PG Care Time/CCT Total # of Minutes Spent Total Time Spent with Patient: Total time spent is greater than 50% in coordination of care (as documented) at patient's floor/unit and/or counseling patient: Coding Level of Care Code 68511 Initial Inpt Care Lvl 3 Diagnoses Metabolic encephalopathy G93.41 LOVE (acute kidney injury) N17.9 UTI (urinary tract infection) N39.0 Crohns disease K50.90 Sepsis A41.9
--- NOTE | 2021-05-08 14:42 | CT Scan Report ---
CT head/brain wo con CLINICAL HISTORY: confusion hallucinations, altered mental status Technique: Contiguous axial CT images of the head were acquired from the base of the skull to the jeanette mirella without intravenous contrast administration. Images were viewed in brain, subdural and bone [facility]. Automated dose lowering techniques and/or adjustment according to patient size were utilized for this exam. Comparison: None available at the time of this dictation. Findings: Areas of decreased attenuation are present in the periventricular and subcortical white matter bilate rally consistent with small vessel ischemic disease. Generalized cerebral atrophy with commensurate e nlargement of the ventricles, sulci, and cisterns is also present. There is no acute intracranial hem orrhage or evidence of acute territorial infarction. No shift of the midline structures, mass effect, or extra-axial abnormalities are shown. Atherosclerotic calcifications are present in the intracran ial segments of the internal carotid arteries. Imaged portions of the paranasal sinuses and mastoid air cells are clear. The orbits appear normal. There are no acute fractures of the calvaria or scalp swelling. Impression: No acute intracranial hemorrhage, evidence of acute territorial infarction, or other acute intracrani al disease process. ACT 112: Negative or not required by law. Electronically signed by: Efraín Krause M.D. 05/08/2021 2:40 PM
[2021-05-08] MEDS: LACTATED RINGER'S 1,000 ML IV SCH ×2 (14:50→21:21)
--- NOTE | 2021-05-08 15:11 | CT Scan Report ---
CT abd pelvis IV con only CLINICAL HISTORY: poss abscess, divertic TECHNIQUE: Helical axial images of the abdomen and pelvis were obtained and displayed. Automated dose lowering techniques and/or adjustment according to patient size were utilized for this exam. This e xam was performed with intravenous contrast. COMPARISON: Comparison is made to CT abdomen and pelvis 03/24/2018 FINDINGS: Lower chest: Bibasilar atelectasis is seen. Liver: Unremarkable. No focal lesions are seen. Gallbladder and biliary tree: No calcified gallstones. Normal caliber wall. There is prominence of th e common bile duct, measuring up to 7 mm in diameter, appropriate for age. Pancreas: Unremarkable, no focal lesions. Spleen: Unremarkable. Adrenals: Unremarkable. Kidneys and ureters: Lobulated appearance of the kidneys is noted which may represent scarring. Bladder: Unremarkable. Reproductive organs: Unremarkable. Bowel: Prominence of the appendix is again noted, measuring up to 6 mm in diameter, without evidence of fecalith or periappendiceal inflammation. Lymph nodes Retroperitoneal: Unremarkable. Mesenteric: Unremarkable. Pelvic: Unremarkable. Peritoneum: Normal Vessels: Atherosclerotic calcifications are seen. Abdominal wall: Unremarkable. Bones: Degenerative changes in the visualized spine. IMPRESSION: No evidence of acute abnormality. The appendix is again noted to be at the top limit of normal. No ab scess or diverticulitis is seen. ACT 112: Negative or not required by law. Electronically signed by: Efraín Krause M.D. 05/08/2021 3:10 PM
[2021-05-08] MEDS ORDERED: VANCOMYCIN HCL 1,500 MG in SODIUM CHLORIDE 0.9% 500 ML IV STA (16:45)
[2021-05-08] MEDS ORDERED: VANCOMYCIN CONSULT ACTIVE PRN (17:04)
[2021-05-08] MEDS ORDERED: ONDANSETRON INJ 2 MG/ML 2 ML VIAL IV PRN (17:04)
[2021-05-08] MEDS ORDERED: ACETAMINOPHEN 325 MG TAB PO PRN (17:04)
[2021-05-08] MEDS ORDERED: tiZANidine HCL 4 MG TABLET PO PRN (17:04)
[2021-05-08] MEDS ORDERED: TRIAMCINOLONE ACET 0.1% ORABASE 5 GM TUBE MT PRN (17:04)
[2021-05-08] MEDS ORDERED: dexAMETHasone 2 MG/20 ML UDP PO PRN (17:04)
[2021-05-08] MEDS ORDERED: HYOSCYAMINE SULFATE 0.125 MG TAB PO PRN (17:04)
[2021-05-08] MEDS: ENOXAPARIN INJ 40 MG/0.4 ML SYR SQ SCH (17:45)
[2021-05-08] MEDS: FAMOTIDINE 20 MG TAB PO SCH (21:21)
[2021-05-09 06:02] LABS: Basophils # (auto) 0.03 K/uL (0-0.2); Basophils % (auto) 0.2 %; Eosinophils # (auto) 0.28 K/uL (0-0.5); Eosinophils % (auto) 2.3 %; Hematocrit (blood only) 32.5 % (37-47); Hemoglobin 10.6 g/dL (12.0-16.0); Immature Granulocytes # (auto) 0.04 K/uL (0.00-0.02); Immature Granulocytes % (auto) 0.3 %; Lymphocytes # (auto) 0.49 K/uL (1.2-3.4); Mean Corpuscular Hemoglobin 31.6 pg (25-34); Mean Corpuscular Hgb Conc 32.6 g/dL (32-36); Mean Platelet Volume 9.6 fL (7.4-10.4); Monocytes # (auto) 1.55 K/uL (0.11-0.59); Monocytes % (auto) 12.6 %; Neutrophils # (auto) 9.89 K/uL (1.4-6.5); Neutrophils % (auto) 80.6 %; Platelet Count 201 K/uL (130-400); RDW Coefficient of Variation 14.2 % (11.5-14.5); Red Blood Count 3.35 M/uL (4.2-5.4); White Blood Count 12.28 K/uL (4.8-10.8)
[2021-05-09 06:42] LABS: BUN Creatinine Ratio 9.6 (10-20); C Reactive Protein 17.9 mg/dl (0-0.29); Calcium 7.9 mg/dl (8.5-10.1); Creatinine Clr Calc Pharmacy 39.7 ml/min; Est GFR (African American) 56.8 ml/min; Magnesium 1.8 mg/dl (1.8-2.4); Potassium 3.5 mmol/L (3.5-5.1)
[2021-05-09] MEDS: LACTATED RINGER'S 1,000 ML IV SCH ×2 (07:33→17:18)
--- NOTE | 2021-05-09 07:36 | Hospitalist Progress Note ---
Date of Service May 09, 2021 Assessment & Plan (1) Metabolic encephalopathy: Plan: Acute encephalopathy- likely related to hypotension secondary to presumed UTI/pyelonephritis- this is consistent with patient's presentation for other infectious processes that she has in the past - improved following 1.5 liter crystalloid - continue ertapenem 1GM IV q24/vancomycin, last confirmed uti was e coli with resistances - - CT scan of the head negative for acute process or sinusitis - No meningismus signs -Ct abd/pelvis, negative for infection -cxr is negative for infection (2) Sepsis: Plan: - secondary to uti poa, urine with elevated nitrite and leukocyte- negative for bacteria - SIRS on arrival 3, qSOFA- 3 on arrival - - PCT 32, ESR 35, CRP 13.3 - Her appendix is enlarged but consistent size at 6mm (2018)- without fecalith or periappendiceal inflammation or abdominal pain - Ertapenem and Vancomycin for now- follow clinical response and cultures (3) UTI (urinary tract infection): Plan: DDX : UTI . pyelonephritis not commented on on CT abd/pelvis - As above - continue ertapenem vancomycin as cultures return (4) LOVE (acute kidney injury): Plan: resolved after hydration (5) Crohns disease: Plan: Chronic on decadron Admission and Anticipated Discharge Date Admission Date: May 08, 2021 Subjective this pt states she feels much improved, did have persistent temperature today, initial urine culture only shows >70590 gram negative but has negative CXR and CT abd/pelvis Review of Systems Review of Systems: Mild distress and fatigue no headache, no visual changes no speech or swallowing issues no chest pain, pressure or palpitations no shortness of breath, cough or wheezes no abdominal pain, nausea or vomiting, diarrhea or constipation continues with frequency and urgency no focal joint pain or swelling no back pain, CVA tenderness or radicular pain no bruising, bleeding or rashes no focal signs of weakness or numbness or altered sensation no complaints of anxiety or depression.. Physical Exam Physical Exam: The patient appeared well nourished and normally developed. Vital signs as documented. Head exam is normocephalic atraumatic Neck is without JVD, thyromegaly, or carotid bruits. Lungs are clear to auscultation, decreased at bases no focal loss of breath sounds Cardiac exam, Rhythm is regular.. No murmurs, rubs or gallops. Abdominal exam reveals normal bowel sounds, soft non tender, no masses Extremities are nonedematous and both pedal pulses are present Neurologic exam is alert and oriented, no focal loss of strength or sensation Skin is without bruises or rashes Psychologically is without concerns for anxiety or depression Results & Data Results & Data ([facility]) Vital Signs (Past 12 Hours) Vital Signs Temp Pulse Resp BP BP Pulse Ox 05/09/21 07:29 100.0 F H 105 H 16 105/58 L 90 05/09/21 01:46 100.2 F H 109 H 20 97/62 L 93 PG Care Time/CCT Total # of Minutes Spent Total Time Spent with Patient: Total time spent is greater than 50% in coordination of care (as documented) at patient's floor/unit and/or counseling patient: Coding Level of Care Code 81276 Subseq Hosp Care Lvl 2 Diagnoses Metabolic encephalopathy G93.41 Sepsis A41.9 UTI (urinary tract infection) N39.0 LOVE (acute kidney injury) N17.9 Crohns disease K50.90
[2021-05-09] MEDS ORDERED: VANCOMYCIN HCL 1,000 MG in SODIUM CHLORIDE 0.9% 250 ML IV ONE (08:00)
[2021-05-09] MEDS: dilTIAZem HCL 120 MG CAPCR PO SCH (08:44)
[2021-05-09] MEDS: PANTOprazole 40 MG TAB PO SCH (08:45)
[2021-05-09] MEDS: ESCITALOPRAM OXALATE 20 MG TAB PO SCH (08:45)
[2021-05-09] MEDS: METOPROLOL TARTRATE 50 MG TAB PO SCH (08:45)
--- NOTE | 2021-05-09 09:04 | Pharmacy Report ---
Pharmacy Vanc AUC Short Note - Date of Service May 09, 2021 - Assessment & Plan Assessment 71 year old F receiving empiric vancomycin and ertapenem for treatment of sepsis secondary to currently unknown source/suspected UTI. Blood/urine cultures pending. UA shows elevated WBC, leukocyte esterase, and positive nitrite. Significant improvement in LOVE overnight, SCr: 1.57 -> 1.12 mg/dL. Day # 2 of antimicrobial therapy. Plan Vancomycin * AUC/BROOKE is the preferred PK/PD target for vancomycin * AUC guided dosing is effective and associated with decreased risk of nephrotoxicity compared to traditional trough targets * Loading dose of 1500 mg IV x 1 given yesterday with random level this morning of 13.4 (~12 hours after dose) * Will order dose of 1 g IV q24h, which is predicted to achieve target AUC/BROOKE of 400-600 mg/L.hr and may be associated with a 10 % risk of nephrotoxicity * Will order vancomycin trough if vanco is to be continued beyond 48 hours Ertapenem * 1 g IV q24h appropriate for indication/renal function/history of ESBL E.coli Pharmacy will continue to follow and will adjust dose/frequency as necessary. Thank you.
[2021-05-09] MEDS ORDERED: ERTAPENEM SODIUM 1,000 MG in SODIUM CHLORIDE 0.9% 50 ML IV SCH (13:00)
--- NOTE | 2021-05-09 15:11 | Electrocardiogram Report ---
Test Reason : Blood Pressure : / mmHG Vent. Rate : 078 BPM Atrial Rate : 078 BPM P-R Int : 156 ms QRS Dur : 082 ms QT Int : 396 ms P-R-T Axes : 043 026 044 degrees QTc Int : 451 ms Normal sinus rhythm Normal ECG When compared with ECG of 22-FEB-2021 13:28, Borderline criteria for Inferior infarct are no longer Present Confirmed by Stefan Leong ([id number]) on 05/09/2021 3:11:28 PM Referred By: REFERRED SELF Confirmed By:Stefan Leong
[2021-05-09] MEDS: ENOXAPARIN INJ 40 MG/0.4 ML SYR SQ SCH (17:18)
[2021-05-09] MEDS: FAMOTIDINE 20 MG TAB PO SCH (19:55)
[2021-05-10 05:45] LABS: Basophils # (auto) 0.03 K/uL (0-0.2); Basophils % (auto) 0.3 %; Eosinophils % (auto) 8.1 %; Hematocrit (blood only) 32.2 % (37-47); Hemoglobin 10.5 g/dL (12.0-16.0); Immature Granulocytes # (auto) 0.02 K/uL (0.00-0.02); Immature Granulocytes % (auto) 0.2 %; Lymphocytes # (auto) 0.89 K/uL (1.2-3.4); Mean Corpuscular Hemoglobin 31.6 pg (25-34); Mean Corpuscular Hgb Conc 32.6 g/dL (32-36); Mean Platelet Volume 9.7 fL (7.4-10.4); Monocytes # (auto) 1.06 K/uL (0.11-0.59); Monocytes % (auto) 10.7 %; Neutrophils # (auto) 7.09 K/uL (1.4-6.5); Neutrophils % (auto) 71.7 %; Platelet Count 217 K/uL (130-400); RDW Coefficient of Variation 13.9 % (11.5-14.5); RDW Standard Deviation 49.8 fL (36.4-46.3); Red Blood Count 3.32 M/uL (4.2-5.4); White Blood Count 9.89 K/uL (4.8-10.8)
[2021-05-10] MEDS: LACTATED RINGER'S 1,000 ML IV SCH (05:46)
[2021-05-10 06:15] LABS: BUN Creatinine Ratio 8.6 (10-20); Calcium 8.4 mg/dl (8.5-10.1); Creatinine Clr Calc Pharmacy 47.8 ml/min; Est GFR (African American) 71.2 ml/min; Est GFR (Non-African American) 61.4 ml/min; Magnesium 1.9 mg/dl (1.8-2.4); Potassium 3.5 mmol/L (3.5-5.1)
[2021-05-10 06:16] LABS: C Reactive Protein 14.7 mg/dl (0-0.29)
[2021-05-10] MEDS: dilTIAZem HCL 120 MG CAPCR PO SCH (07:49)
[2021-05-10] MEDS: PANTOprazole 40 MG TAB PO SCH (07:49)
[2021-05-10] MEDS: METOPROLOL TARTRATE 50 MG TAB PO SCH (07:49)
[2021-05-10] MEDS: ESCITALOPRAM OXALATE 20 MG TAB PO SCH (07:50)
[2021-05-10] MEDS ORDERED: VANCOMYCIN HCL 1,000 MG in SODIUM CHLORIDE 0.9% 250 ML IV SCH (08:00)
--- NOTE | 2021-05-10 18:59 | Discharge Summary ---
Date of Service May 10, 2021 Admission HPI Per Admitting Provider 71 YOF with past medical history of: Chron's disease (on remicade and Decadron), chronic shoulder pain, CKD IIIa, GERD, oral ulcerations, anxiety, recurrent UTIs,. Patient pushed her life alert button this morning for EMS to bring her to the EMD secondary to hallucinations and weakness. The patient recalls that yesterday evening she was having some fevers and chills and weakness. She was in the kitchen where she recalls falling and having a hard time getting up, but she made it to her bedroom with her dog. Through the night into this morning she recalls seeing people sitting in her room on chairs and then this morning, going through her drawers. She was noted to be hypotensive in the EMD and was given 1.5 liters of crystalloid with normalization of her BP and clearing of her mentation. She had routine labs performed, UA, blood cultures, CXR, ECG and CT scan of her abdomen and pelvis (pending at this time). Patient does endorse frequency and small volume voids over the past 48 hours associated with fevers and chills for about the same time. She also notes that she has been trying to drink water but after drinking she would have to go to the bathroom within 15 minutes and was unable to keep drinking. She does note some CVA tenderness on the left on exam. 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 She had a normal lactate. Patient was started on Ertapenem for her history of ESBL UTI. Overall she has responded well to the above resuscitation and will be admitted to continue IV antibiotics while cultures are pending. Will continue IVF overnight and continue to monitor her nueroligical status. With noted elevation in her biomarkers will also add on Vancomycin for now. I was able to get in touch wither her primary contact Lana Simms for an update and will assist in helping take care of her dog "Sam" as this was giving her some anxiety. Patient COVID test on admission is: NEGATIVE Principal Diagnosis Sepsis on presentation from urinary source resolved Metabolic encephalopathy resolved Clinical urinary tract infection pansensitive E. coli Discharge Exam The patient appeared well nourished and normally developed. Vital signs as documented. Head exam is normocephalic atraumatic Neck is without JVD, thyromegaly, or carotid bruits. Lungs are clear to auscultation, no focal loss of breath sounds Cardiac exam, Rhythm is regular.. No murmurs, rubs or gallops. Abdominal exam reveals normal bowel sounds, soft non tender, no masses Extremities are nonedematous and both pedal pulses are present Neurologic exam is alert and oriented, no focal loss of strength or sensation Skin is without bruises or rashes Psychologically is without concerns for anxiety or depression she seems to return to baseline Discharge Data Allergies Allergy/AdvReac Type Severity Reaction Status Date / Time Cipro Allergy Severe HIVES Unverified 02/19/18 14:23 ciprofloxacin Allergy Intermediate HIVES Verified 05/08/21 12:05 mesalamine Allergy Intermediate ERYTHEMA Verified 05/08/21 12:05 AND HIVES methotrexate Allergy Intermediate MOUTH Verified 05/08/21 12:05 ULCERS monosodium glutamate Allergy Intermediate turns Verified 05/08/21 12:05 bright red and clammy, eyes swell, dizzy Sulfa (Sulfonamide Allergy Intermediate HIVES AND Verified 05/08/21 12:05 Antibiotics) SOB chocolate flavor AdvReac Mild MAKES MY Verified 05/08/21 12:05 BOUTH BURN, MOUTH SENSITIVITY lactose AdvReac Mild DIARRHEA Verified 05/08/21 12:05 Yeast AdvReac Mild Gastrointestinal Verified 05/08/21 12:05 Upset Consultations 05/08/21 13:18 ED Decision to Admit Stat Ordered Studies 05/08/21 12:07 CT head/brain wo con Stat 05/08/21 14:02 CT abd pelvis IV con only Stat Hospital Course (1) Metabolic encephalopathy: Acute encephalopathy-resolved. secondary to presumed UTI/pyelonephritis- Pansensitive E. coli discharge on Augmentin 875 twice daily complete 7 days - - CT scan of the head negative for acute process or sinusitis - No meningismus signs -Ct abd/pelvis, negative for infection -cxr is negative for infection (2) Sepsis: - secondary to uti poa, - SIRS on arrival 3, qSOFA- 3 on arrival - - PCT 32, ESR 35, CRP 13.3 - Her appendix is enlarged but consistent size at 6mm (2018)- without fecalith or periappendiceal inflammation or abdominal pain -We will home on Augmentin 875 twice daily (3) UTI (urinary tract infection): DDX : UTI . pyelonephritis not commented on on CT abd/pelvis - As above - (4) LOVE (acute kidney injury): resolved after hydration (5) Crohns disease: Chronic on decadron Total Time Total Time Spent Total Time Spent (In Minutes): It required greater than 30 minutes to prepare this patient for discharge Discharge Plan Discharge Items Patient Disposition: Home - Self-Care Reason For Visit: UTI, DELIRIUM Discharge Diagnosis: confusion associated with e coli urinary tract infection present on admission sepsis resolved acute dehyration with stain on kidney function ->resolved Condition on Discharge: Fair Activity: Resume your previous activity Non-emergency contact: Primary Care Provider Call non-emergency contact if: you have any medication questions, your symptoms worsen and you have a fever Follow-up/Referrals: Celina Monique [Primary Care Provider] - 05/17/21 9:10 am Diet: Regular Addtl Attending Provider Instructions: some strategies to help reduce chances of urinary tract infections Drink plenty of water, and relieve yourself often. The simplest way to prevent a UTI is to flush bacteria out of the bladder and urinary tract before it can set in. If youre well-hydrated, it will be tough to go too long without urinating. Wipe from front to back. Bacteria tend to hang around the anus. If you wipe from front to back, especially after a bowel movement, they're less likely to make it to the urethra. Steer clear of irritating feminine products. Skip douches, deodorant sprays, scented powders, and other potentially irritating feminine products. Some doctors also advise women who get a lot of UTIs to wear non cotton underwear as non cotton will not remain damp near skin, take showers instead of baths, and avoid tight clothes that can trap bacteria near the opening of the bladdder. While these are simple enough to do, none of them are supported by scientific data. your doctor may consider: A daily low dose of vitamin C or drinking cranberry juice Having you test yourself for a UTI at home when you have symptoms If youve gone through menopause, you could ask about estrogen vaginal cream. After menopause, women have less estrogen in their bodies, which can cause va ginal dryness and make the urinary tract more vulnerable to infection. The treatment can help balance the areas pH factor and allow good bacteria to flourish again. Pending Studies at Discharge: No Stand-Alone Forms: My [facility], Smoking Cessation Medications and DC Order Prescriptions: New amoxicillin-pot clavulanate [Augmentin] 875-125 mg tablet 1 tab PO BID Qty: 12 RF: 0 Continued triamcinolone acetonide 0.1 % paste 1 appln DT DAILY PRN (Reason: mouth irritation) Qty: 10 RF: 1 dexamethasone 0.5 mg/5 mL Elixir 10 ml PO TID PRN (Reason: Other) RF: 0 metoprolol tartrate [Lopressor] 50 mg Tablet 50 mg PO QAM RF: 0 tizanidine 4 mg Capsule 4 mg PO Q8H PRN (Reason: MUSCLE SPASMS) RF: 0 famotidine [Pepcid] 20 mg Tablet 20 mg PO BID RF: 0 tramadol 50 mg Tablet 25 - 50 mg PO UD PRN (Reason: Mouth Pain) RF: 0 diazepam 5 mg Tablet 5 mg PO BID PRN (Reason: Anxiety) RF: 0 diltiazem HCl 120 mg Capsule,Extended Release 24hr 120 mg PO QAM RF: 0 diphenhydramine HCl 25 mg Capsule 25 mg PO Q4H PRN (Reason: Allergy Symptoms) RF: 0 escitalopram oxalate 20 mg Tablet 20 mg PO QAM RF: 0 hyoscyamine sulfate 0.125 mg Tablet 0.125 mg PO TID PRN (Reason: ESOPHAGEAL SPASMS) RF: 0 nystatin 100,000 unit/gram Powder 1 applic TOPICAL DAILY RF: 0 pantoprazole 40 mg Tablet,Delayed Release (Dr/Ec) 40 mg PO QAM RF: 0 zolpidem 12.5 mg Tablet,Ext Release Multiphase 12.5 mg PO HS PRN (Reason: Insomnia) RF: 0 B complex-vitamin C-folic acid 100-1 mg Tablet 1 tab PO QAM RF: 0 PreserVision Lutein 226 mg-200 unit -5 mg-0.8 mg Capsule 2 cap PO QAM RF: 0 Centrum Silver Women 8 mg iron-400 mcg-300 mcg Tablet 1 tab PO QAM RF: 0 Stelara 90 mg/mL Syringe 90 mg SUBCUT Q4WK RF: 0 Excedrin Extra Strength 250-250-65 mg Tablet 1 tab PO Q6H PRN (Reason: ACHES AND PAINS) RF: 0 Discharge Orders: Discharge Order (Routine); Ordered 05/10/21 Ordered By: Marquez Viramontes/Other Patient Handouts: Urinary Tract Infections in Women Admission Data Admit Date/Time: 05/08/21 14:30 Attending Provider: Marquez Flores Admit Provider: Theron Mckeon Primary Care Provider: Celina Monique Other Providers: Theron Mckeon Other Interventions: Discharge Summary Assessment (RN) Last Done: 05/10/21 11:32 Coding Level of Care Code D/C DAY MANAGEMENT >30 MINS Diagnoses Metabolic encephalopathy G93.41 Sepsis A41.9 UTI (urinary tract infection) N39.0 LOVE (acute kidney injury) N17.9 Crohns disease K50.90
[2021-05-10 21:47] LABS: 7-Aminoclonaz, Confirm NEGATIVE ng/mL (<25); Hydro-Alp Ur, GC/MS NEGATIVE ng/mL (<25); Hydroxyethylflurazepam, Conf NEGATIVE ng/mL (<50); Hydroxymidazolam Ur, GC/MS NEGATIVE ng/mL (<50); Hydroxytriazolam NEGATIVE ng/mL (<50); Lorazepam, Ur GC/MS NEGATIVE ng/mL (<50); Nordiazepam, Confirm 119 ng/mL (<50); Oxazepam Ur, GC/MS 161 ng/mL (<50); Temazepam, Confirm 120 ng/mL (<50)
== END 2021-05-10 12:59 | disposition home or self-care (01) | DRG 871 ==
LOC: ED 11:19 → SUATTDRO 14:30 → 3E 14:30
DX: I12.9 Hypertensive chronic kidney disease with stage 1 through stage 4 chronic kidney disease, or unspecified chronic kidney disease; Z20.822 Contact with and (suspected) exposure to COVID-19; M19.90 Unspecified osteoarthritis, unspecified site; Z66 Do not resuscitate; Z91.02 Food additives allergy status; N12 Tubulo-interstitial nephritis, not specified as acute or chronic; N18.31 Chronic kidney disease, stage 3a; N17.9 Acute kidney failure, unspecified; K50.90 Crohn's disease, unspecified, without complications; H35.30 Unspecified macular degeneration; F41.9 Anxiety disorder, unspecified; A41.51 Sepsis due to Escherichia coli [E. coli]; E86.0 Dehydration; Z88.1 Allergy status to other antibiotic agents; F32.9 Major depressive disorder, single episode, unspecified; Z79.899 Other long term (current) drug therapy; Z88.2 Allergy status to sulfonamides; G93.41 Metabolic encephalopathy; Z87.891 Personal history of nicotine dependence; Z88.8 Allergy status to other drugs, medicaments and biological substances; Z87.440 Personal history of urinary (tract) infections; Z51.81 Encounter for therapeutic drug level monitoring; Z91.018 Allergy to other foods; Z79.82 Long term (current) use of aspirin